=== PATIENT | female | born 1990 | race Caucasian/White ===

== ENCOUNTER 2025-01-13 18:44 | Observation (INO) | payer OTHER, SELFPAY ==
[2025-01-13 18:44] VITALS: BMI 31.8
--- OUTSIDE RECORDS SUMMARY | 2025-01-13 18:54 | XMS_ITS | Data Portability ---
Author Organization [facility] [place] Address [address] [place] [address] [place] [address] Care Team Providers Care Utility Sales And Service Manager Name Role Phone ARMANDO CARROLL Primary Care Provider [phone] Assessment Encounter Date Assessment Date Assessment LastModified by Organization Details LastModified Time 10/30/2024 10/30/2024 Patient is ___weeks . Discussed plan. Not available 10/30/2024 11:29:20 11/26/2024 11/26/2024 Patient is ___weeks . Discussed plan. Not available 11/26/2024 11:34:02 12/26/2024 12/26/2024 Patient is ___weeks . Discussed plan. Not available 12/26/2024 16:44:12 Plan of Treatment Reminders Order Date Submit Date Provider Last Modified By Organization Details Last Modified Time Details Appointments OB ROUTINE 2024 09:45A Suzette SNIDER MD Not available Not available Not available Lab None recorded. Referral None recorded. Procedures None recorded. Surgeries None recorded. Imaging US, obstetric , follow-up 2024 025 [email or web address] [address], [address], [place], [address], 12/27/2024 10:19:18 US, obstetric , 2nd or 3rd trimester 2024 025 [email or web address] [address], [address], [place], [address], 11/26/2024 22:01:02 Medication Orders duloxetin e 40 mg capsule,d elayed release 2024 025 MARCO A [facility], [address], [address], 12/26/2024 17:40:20 Patient TargetsNo targets recorded. Patient InstructionsNo instructions recorded. Reason for Referral None Reported. Results Created Date Observation Date Name Description Value Unit Range Abnormal Flag Note LastModifiedBy Organization Detail LastModifiedTime 10/09/19 25 10/09/2024 [UNIT Y] ANEUP LOIDY NIPT fraction 7.9% normal Not Available [facility] [address] [place] [address], [place], [address], 10/09/2024 00:18:27 10/09/19 25 10/09/2024 [UNIT Y] ANEUP LOIDY NIPT 22Q11.2 microdeletio n LOW RISK <1 in 10,000 normal Not Available [facility] [address] [place], [address], 10/09/2024 00:18:27 10/09/19 25 10/09/2024 [UNIT Y] ANEUP LOIDY NIPT sex chromosome aneuploidy NOT DETECT ED normal Not Available [facility] [address] [place], [address], 10/09/2024 00:18:27 10/09/19 25 10/09/2024 [UNIT Y] ANEUP LOIDY NIPT monosomy X LOW RISK <1 in 10,000 normal Not Available [facility] [address] [place], [address], 10/09/2024 00:18:27 10/09/19 25 10/09/2024 [UNIT Y] ANEUP LOIDY NIPT trisomy 13 LOW RISK <1 in 10,000 normal Not Available [facility] [address] [place], [address], 10/09/2024 00:18:27 10/09/19 25 10/09/2024 [UNIT Y] ANEUP LOIDY NIPT trisomy 18 LOW RISK <1 in 10,000 normal Not Available [facility] [address] [facility], [place], [address], 10/09/2024 00:18:27 10/09/19 25 10/09/2024 [UNIT Y] ANEUP LOIDY NIPT trisomy 21 LOW RISK <1 in 10,000 normal Not Available [facility] [address], [place], [address], 10/09/2024 00:18:27 10/09/19 25 10/09/2024 [UNIT Y] ANEUP LOIDY NIPT sex FEMALE normal Not Available [facility] [address] [facility], [place], [address], 10/09/2024 00:18:27 10/09/19 25 10/09/2024 [UNIT Y] ANEUP LOIDY NIPT gestation SINGLE TON normal Not Available [facility] [address] [facility], [place], [address], 10/09/2024 00:18:27 10/09/19 25 10/09/2024 [UNIT Y] ANEUP LOIDY NIPT for detailed report, see pdf See PDF normal Not Available [facility] [address] [facility], [place], [address], 10/09/2024 00:18:27 10/12/19 25 10/12/2024 [UNIT Y] SARAH Shetty sickle cell disease/beta -thalassemia /hemoglobino pathies carrier screen NEGATI VE normal Not Available [facility] [address] [facility], [place], [address], 10/12/2024 17:58:24 10/12/19 25 10/12/2024 [UNIT Y] SARAH Shetty alpha-thalas semia carrier screen NEGATI VE normal Not Available [facility] [address] [facility], [place], [address], 10/12/2024 17:58:24 10/12/19 25 10/12/2024 [UNIT Y] SARAH Shetty cystic fibrosis carrier screen NEGATI VE normal Not Available [facility] [address], [place], [address], 10/12/2024 17:58:24 10/12/19 25 10/12/2024 [UNIT Y] SARAH Shetty spinal muscular atrophy carrier screen NEGATI VE 2 SMN1 copies , SNP not presen t normal Not Available [facility] [address], [place], [address], 10/12/2024 17:58:24 10/12/19 25 10/12/2024 [UNIT Y] SARAH Shetty for detailed report, see pdf See PDF normal Not Available [facility] [address], [place], [address], 10/12/2024 17:58:24 10/02/19 25 10/02/2024 CBC W/DIF F WBC 6.7 10'3/ uL 3.5-10 .5 Not Available [facility] (Lab) [address], [place], [address], 10/04/2024 06:37:57 10/02/19 25 10/02/2024 CBC W/DIF F RBC 4.55 10'6/ uL (based on docume nted legal sex) 3.80-5 .20 Not Available [facility] (Lab) [address], [place], [address], 10/04/2024 06:37:57 10/02/19 25 10/02/2024 CBC W/DIF F HGB 12.6 g/dL (based on docume nted legal sex) 11.6-1 5.4 Not Available [facility] (Lab) [address], [place], [address], 10/04/2024 06:37:57 10/02/19 25 10/02/2024 CBC W/DIF F HCT 38.4 % (based on docume nted legal sex) 34.0-4 5.0 Not Available [facility] (Lab) [address], [place], [address], 10/04/2024 06:37:57 10/02/19 25 10/02/2024 CBC W/DIF F MCV 84.4 fL 80.0-9 9.0 Not Available [facility] (Lab) [address], [place], [address], 10/04/2024 06:37:57 10/02/19 25 10/02/2024 CBC W/DIF F MCH 27.7 pg 27.0-3 4.0 Not Available [facility] (Lab) [address], [place], [address], 10/04/2024 06:37:57 10/02/19 25 10/02/2024 CBC W/DIF F MCHC 32.8 g/dL 32.0-3 5.5 Not Available [facility] (Lab) [address], [place], [address], 10/04/2024 06:37:57 10/02/19 25 10/02/2024 CBC W/DIF F RDW 13.9 % 11.0-1 5.0 Not Available [facility] (Lab) [address], [place], [address], 10/04/2024 06:37:57 10/02/19 25 10/02/2024 CBC W/DIF F plt 157 10'3/ uL 150-40 0 Not Available [facility] (Lab) [address], [place], [address], 10/04/2024 06:37:57 10/02/19 25 10/02/2024 CBC W/DIF F MPV 13.7 fL 8.8-12 .1 high Not Available [facility] (Lab) [address] [place], [address], 10/04/2024 06:37:57 10/02/19 25 10/02/2024 CBC W/DIF F neutrophils 80.3 % 34.0-7 3.0 high Not Available [facility] (Lab) [address] [facility], [place], [address], 10/04/2024 06:37:57 10/02/19 25 10/02/2024 CBC W/DIF F lymphocytes 12.9 % 15.0-5 0.0 low Not Available [facility] (Lab) [address], [place], [address], 10/04/2024 06:37:57 10/02/19 25 10/02/2024 CBC W/DIF F monocytes 4.9 % 1.0-15 .0 Not Available [facility] (Lab) [address], [place], [address], 10/04/2024 06:37:57 10/02/19 25 10/02/2024 CBC W/DIF F eosinophils 0.9 % 0.0-8. 0 Not Available [facility] (Lab) [address], [place], [address], 10/04/2024 06:37:57 10/02/19 25 10/02/2024 CBC W/DIF F basophils 0.7 % 0.0-2. 0 Not Available [facility] (Lab) [address] [place], [address], 10/04/2024 06:37:57 10/02/1910/02/2024 CBC W/DIF F immature granulocytes 0.3 % no define d refere nce range Immat ure Granu locyt es (IG) repre sents autom ated enume ratio n of Metam yeloc ytes, Myelo cytes and Promy elocy myron when IG is < 5%. Blast s are not inclu ded in IG and repor melany separ ately if prese nt. Not Available [facility] (Lab) [address], [place], [address], 10/04/2024 06:37:57 10/02/19 25 10/02/2024 CBC W/DIF F absolute neutrophils 5.4 10'3/ uL 1.5-8. 0 Not Available [facility] (Lab) [address], [place], [address], 10/04/2024 06:37:57 10/02/19 25 10/02/2024 CBC W/DIF F absolute lymphocytes 0.9 10'3/ uL 1.0-4. 0 low Not Available [facility] (Lab) [address], [place], [address], 10/04/2024 06:37:57 10/02/19 25 10/02/2024 CBC W/DIF F absolute monocytes 0.3 10'3/ uL 0.2-1. 0 Not Available [facility] (Lab) [address], [place], [address], 10/04/2024 06:37:57 10/02/19 25 10/02/2024 CBC W/DIF F absolute eosinophils 0.1 10'3/ uL 0.0-0. 6 Not Available [facility] (Lab) [address], [place], [address], 10/04/2024 06:37:57 10/02/19 25 10/02/2024 CBC W/DIF F absolute basophils 0.1 10'3/ uL 0.0-0. 3 Not Available [facility] (Lab) [address], [place], [address], 10/04/2024 06:37:57 10/02/19 25 10/02/2024 CBC W/DIF F absolute immature granulocytes 0.0 10'3/ uL 0.00-0 .10 Refer ence range s for nonbi nary/ inter sex or unspe cifie d gende r patie nts have not been estab lishe d. Pleas e refer to the follo wing table for range s estab lishe d for cisge nder patie nts and evalu ate in the clini tobi sabino xt of the indiv idual patie nt: [email or web address] :[email or web address] [email or web address].or g/Gen derX Not Available [facility] (Lab) [address], [place], [address], 10/04/2024 06:37:57 10/02/19 25 10/02/2024 RUBEL LA IGG ANTIB WILLIE, QUANT rubella antibodies, IgG Non-Re active reacti ve abnormal Not Available [facility] (Lab) [address] [facility], [place], [address], 10/04/2024 06:37:57 10/02/19 25 10/02/2024 RUBEL LA IGG ANTIB WILLIE, QUANT rubella antibodies, IgG quant <10.0 IU/mL >=10 low Non-r eacti ve (Non- Immun e) <10 IU/mL React elke (Immu ne) > or = 10 IU/mL Not Available [facility] (Lab) [address], [place], [address], 10/04/2024 06:37:57 10/02/19 25 10/02/2024 HEPAT ITIS B SURFA CE ANTIG EN hepatitis B surface antigen Non-re active non-re active This assay was perfo rmed using [employer] ratio n reage nts and test kits. Value s obtai roger with other assay metho ds or kits canno t be used inter arroyo eably . Not Available [facility] (Lab) [address], [place], [address], 10/04/2024 06:37:57 10/02/1910/02/2024 HIV 1/2 ANTIG EN/AN TIBOD Y, REFLE X CONFI RMATI ON HIV antigen/anti body Nonrea ctive nonrea ctive HIV-1 antig en and HIV-1 /HIV- 2 antib odies were not detec melany. No labor atory evide nce of HIV infec tion. Not Available [facility] (Lab) [address], [place], [address], 10/04/2024 06:37:58 10/02/1910/02/2024 TYPE/ RH/SC REEN ABO/Rh type A POS Not Available [facility] (Lab) [address], [place], [address], 10/04/2024 06:37:58 10/02/1910/02/2024 TYPE/ RH/SC REEN antibody screen NEG Not Available [facility] (Lab) [address], [place], [address], 10/04/2024 06:37:58 10/02/1910/02/2024 TYPE/ RH/SC REEN exp date 2024 23:59 Not Available [facility] (Lab) [address], [place], [address], 10/04/2024 06:37:58 10/02/1910/02/2024 HEMOG LOBIN A1C hemoglobin A1C 5.1 % 4.0-5. 6 The Ameri can Diabe myron Assoc iatio n recom mends that a prima ry goal of thera py tao d be a HBA1C of < 7% and that physi cians tao d reeva luate the treat ment regim en in patie nts with HBA1C value s consi stent ly > 8%. <5.7% Payton l 5.7 - 6.4% Incre ased risk for diabe myron >=6.5 % Diagn ostic of diabe myron <7.0% Goal of thera py >8.0% Actio n sugge sted Not Available [facility] (Lab) [address], [place], [address], 10/04/2024 06:37:58 10/02/1910/02/2024 HEPAT ITIS C ANTIB WILLIE SCREE N, REFLE X TO CONFI RMATI ON hepatitis C antibody Non-re active non-re active Antib odies to HCV Not Detec melany, does not exclu de the possi bilit y of expos ure to HCV. Not Available [facility] (Lab) [address], [place], [address], 10/04/2024 06:37:59 10/02/19 25 10/02/2024 RPR SCREE N, REFLE X TITER /CONF IRMAT ION RPR screen Nonrea ctive nonrea ctive Not Available [facility] (Lab) [address], [place], [address], 10/04/2024 06:37:59 10/02/19 25 10/02/2024 LEAD, BLOOD (ADUL T/PED IATRI C) lead, whole blood <1.0 mcg/d L <3.5 See Note 1 Case sis was perfo rmed by Steve Christian ed Plasm a Mass Spect maty whipple (ICPM S) Note 1 This test was devel oped and its case tical perfo rmanc e jess cteri stics have been deter mined by [employer]. It has not been clear ed or appro romero by the FDA. This assay has been valid ated pursu ant to the CLIA regul ation s and is used for clini tobi purpo ses. Perfo rming Organ izati on Infor sallie n: Site ID: [id number] Name: [employer] ostic sHarlan Perera Addre ss: [address] [place] [address] Direc tor: Vanita costa V Vika s Not Available [facility] (Lab) [address], [place], [address], 10/04/2024 06:37:59 10/02/1910/02/2024 CULTU RE: URINE result report SEE RESULT S BELOW Test: Cultu re: Urine Speci men Sourc e: Urine - Clean Catch Speci men Type: Urine Speci men Date: 2024 1303 Resul t Date: 2024 1248 Resul t Statu s: Final resul t Abnor mal: No Resul ting Lab: [facility] [address] [facility] [address] Tel: CULTU RE ----- ----- ----- --- Organ ism(s ) consi stent with uroge nital or skin jeimy . Repea t cultu re if sympt oms indic ate. Not Available [facility] (Lab) [address] [place], [address], 10/04/2024 13:51:37 10/02/19 25 10/02/2024 IMAGE GUIDE D PAP AND HPV REGAR DLESS image guided Pap, HPV regardless of Pap result SEE RESULT S BELOW CASE REPOR T: Cytol ogy Gynec ologi tobi Repor t Case: [id number] Autho dominguez g Provi karoline: Otto Snider MD Colle cted: 10/02 1319 Order ing Locat ion: [place] [facility] Recei romero: 10/03 0232 First Scree n: Hunter reyes, Hermes ed, CT Rescr een: Meliton silva, Tim del rio, CT Speci men: Earnest zurita Pap - Image d, Cervi x STATE MENT OF ADEQU ACY: Satis facto ry for evalu ation Trans forma tion zone compo nent prese nt ----- ----- ----- ----- ----- ----- ----- ----- ----- ----- ----- ----- ----- ----- ----- ----- ----- ---- FINAL DIAGN OSIS: Negat elke for Intra epith elial Shamir shetty or Juanita anderson ([facility]) . Elect radha jackson d by Tim silva, CT on 025 at 0712 CLASSIFICATION CASE MANAGER ----- ----- ----- ----- ----- ----- ----- ----- ----- ----- ----- ----- ----- ----- ----- ----- ----- ---- HPV RESUL TS: HPV mRNA E6/E7 : No HPV mRNA Detec melany NOTE: This high risk HPV mRNA assay detec ts fourt een high- risk HPV types (16, 18, 31, 33, 35, 39, 45, 51, 52, 56, 58, 59, 66, 68) witho ut diffe renti ation . COMME NT: This speci men was revie wed by a Cytot echno logis t and/o r Patho logis t (as indic ated in this repor t) after evalu ation using the Thinp rep Imagi ng Syste m. CLINI TOBI INFOR MATIO N: Menst rual Statu s: LMP (if appli cable ): Clini tobi Histo ry/Pr eviou s Pap: Type of Neopl sridevi (if appli cable ): Signi fican t Clini tobi Findi ngs: Other Histo ry: Hormo sherin (if appli cable ): PAP EDUCA MADELEINE L NOTE: The Pap Test is a scree yudith test with an inher ent false negat elke rate. Liqui d-bas ed sampl ing may decre ase, but will not elimi roque, false negat elke resul ts. A negat elke resul t does not precl ude the prese nce and/o r devel opmen t of disea se, since the prese nce of abnor mal cells in the sampl e depen ds on the locat ion of the lesio n and sampl ing techn ique. Kiya nued regul ar scree yudith is the best metho d of cance r preve ntion . If repor melany cytol ogic findi ng do not corre late with physi tobi and/o r histo rical findi ngs, furth er inves tigat ion is recom bita d, as clini malorie daly nted. Not Available [facility] (Lab) [address], [place], [address], 10/08/2024 08:15:25 10/02/1910/02/2024 drug scree n, urine Amphetamines : negati ve Not Available [address], [place], [address], 10/02/2024 11:46:22 10/02/19 25 10/02/2024 drug scree n, urine Cannabinoids : negati ve Not Available [address], [place], [address], 10/02/2024 11:46:22 10/02/19 25 10/02/2024 drug scree n, urine Cocaine: negati ve Not Available [address], [place], [address], 10/02/2024 11:46:22 10/02/19 25 10/02/2024 drug scree n, urine Opiates: negati ve Not Available [address], [place], [address], 10/02/2024 11:46:22 10/02/19 25 10/02/2024 drug scree n, urine Phenocyclidi ne: negati ve Not Available [address], [place], [address], 10/02/2024 11:46:22 10/02/19 25 10/02/2024 drug scree n, urine Barbiturates : negati ve Not Available [address], [place], [address], 10/02/2024 11:46:22 10/02/19 25 10/02/2024 drug scree n, urine Benzodiazepi sherin: negati ve Not Available [address], [place], [address], 10/02/2024 11:46:22 10/02/19 25 10/02/2024 drug scree n, urine Ethanol: negati ve Not Available [address], [place], [address], 10/02/2024 11:46:22 10/02/19 25 10/02/2024 drug scree n, urine Hallucinogen s: negati ve Not Available [address], [place], [address], 10/02/2024 11:46:22 10/02/19 25 10/02/2024 drug scree n, urine Inhalants: negati ve Not Available [address], [place], [address], 10/02/2024 11:46:22 10/02/19 25 10/02/2024 drug scree n, urine Anabolic Steroids: negati ve Not Available [address], [place], [address], 10/02/2024 11:46:22 10/02/19 25 10/02/2024 US, obste tric, nucha l trans lucen cy No observ ation record ed. [email or web address] [address], [place], [address], 10/02/2024 13:05:51 10/02/19 25 10/02/2024 US, obste tric, nucha l trans lucen cy No observ ation record ed. [email or web address] [address], [place], [address], 10/03/2024 22:29:08 11/27/19 25 11/26/2024 US, obste tric, 2nd or 3rd trime ster No observ ation record ed. [email or web address] [address], [place], [address], 11/26/2024 16:13:44 11/27/19 25 11/26/2024 US, obste tric, follo w-up No observ ation record ed. [email or web address] [address], [place], [address], 11/28/2024 22:55:20 12/27/19 25 12/26/2024 US, obste tric, follo w-up No observ ation record ed. [email or web address] [address], [place], [address], 12/26/2024 17:52:25 12/27/19 25 12/26/2024 US, obste tric, follo w-up No observ ation record ed. [email or web address] [address], [place], [address], 01/02/2025 10:35:55 Result Notes None recorded. Problems Name Problem SNOMED Code Status Onset Date Resolution Date Notes Provider Name and Address Organization Details Recorded Time 26012366 Active 2024 Esha Gabriel null, [facility] 5 11:17:12 Premature delivery 237809582 Active 4# 12, Gestation al age unknown Jose Snider MD [address], [place], [address], [facility] 5 11:48:53 growth restricti on 13417526 Active HISTORICA L - uncertain if gowth restricte d or premature Jose Snider MD [address], [place], [address], [facility] 5 11:56:21 Generaliz ed anxiety disorder 29018487 Active 2024 restarted meds Jose Snider MD [address], [place], [address], [facility] 5 17:26:25 Problem Notes None recorded. Procedures Surgical History Date Name Laterality Status Provider Name and Address Organization Details Recorded Time 2 Date of Last Pap Smear completed Esha Gabriel [facility] 09/21/2024 10:01:52 3 extraction of wisdom tooth completed Esha Gabriel [facility] 09/21/2024 10:09:01 Imaging Results Imaging Date Name Status LastModified by Organization Details LastModified Time 10/02/2024 US, obstetric, nuchal translucency completed [email or web address] [address], [place], [address], 10/02/2024 13:05:51 10/02/2024 US, obstetric, nuchal translucency completed [email or web address] [address], [place], [address], 10/03/2024 22:29:08 11/26/2024 US, obstetric, 2nd or 3rd trimester completed [email or web address] [address], [place], [address], 11/26/2024 16:13:44 11/26/2024 US, obstetric, follow-up completed [email or web address] [address], [place], [address], 11/28/2024 22:55:20 12/26/2024 US, obstetric, follow-up completed [email or web address] [address], [place], [address], 12/26/2024 17:52:25 12/26/2024 US, obstetric, follow-up active [email or web address] [address], [place], [address], 01/02/2025 10:35:55 Procedure Notes None recorded. Medical Equipment None Reported. Allergies Allergen ID Allergen Name Allergen Category Reaction Reaction Severity Criticality Documentation Date Start Date Code Code System Note Provider Name and Address Organization Details Recorded Time 25014 amoxicill in medicatio n hives mild Not available 09/21/2024 723 RxNorm Esha Gabriel null, [facility] 10:01:42 Medications Name Sig Start Date Stop Date Status Note LastModified by Organization Details LastModified Time metformin 500 mg tablet TAKE 1 TABLET BY MOUTH WITH EVENING MEAL 09/21 completed Not Available Not Available Not Available ondansetron HCl 8 mg tablet TAKE 1 TABLET BY MOUTH THREE TIMES DAILY active Not Available Not Available No t Available phentermine 15 mg capsule TAKE 1 CAPSULE BY MOUTH ONCE DAILY BEFORE BREAKFAST 09/21 completed Not Available Not Available Not Available hydroxychlo roquine 200 mg tablet TAKE 2 TABLETS BY MOUTH EVERY DAY active Not Available Not Available No t Available ondansetron 4 mg disintegrat ing tablet DISSOLVE 1 TABLET IN MOUTH EVERY 8 HOURS NEEDED FOR NAUSEA 09/21 completed Not Available Not Available Not Available bupropion HCl XL 300 mg 24 hr tablet, extended release TAKE 1 TABLET BY MOUTH ONCE DAILY 09/21 completed Not Available Not Available Not Available bupropion HCl XL 150 mg 24 hr tablet, extended release TAKE 1 TABLET BY MOUTH ONCE DAILY 09/21 completed Not Available Not Available Not Available nitrofurant oin monohydrate /macrocryst als 100 mg capsule TAKE 1 CAPSULE BY MOUTH TWICE DAILY FOR 10 DAYS 09/21 completed Not Available Not Available Not Available duloxetine 30 mg capsule,del ayed release TAKE 1 CAPSULE BY MOUTH ONCE DAILY 09/21 completed Not Available Not Available Not Available + DHA active Not Available Not Available Not Available duloxetine 40 mg capsule,del ayed release TAKE 1 CAPSULE BY MOUTH ONCE DAILY FOR 30 DAYS active Not Available Not Available No t Available Vitals Date Recorded Body weight Systolic blood pressure Diastolic blood pressure Provider Name and Address Organization Details Last Updated DateTime 10/30/2024 50191.1045 2 g 118 mm[Hg] 78 mm[Hg] Esha [facility] 10/30/2024 11:33:05 Date Recorded Body height Body mass index (BMI) Body weight Systolic blood pressure Diastolic blood pressure Provider Name and Address Organization Details Last Updated DateTime 11/26/2024 166.37 cm 32.1 kg/m2 78645.1 g 120 mm[Hg] 76 mm[Hg] Esha [facility] 11:34:56 Date Recorded Body weight Systolic blood pressure Diastolic blood pressure Provider Name and Address Organization Details Last Updated DateTime 12/26/2024 40039.6968 9 g 120 mm[Hg] 80 mm[Hg] Esha Gabriel [facility] 12/26/2024 16:44:40 Social History Question Answer Notes LastModified by Organizat ion Details LastModified Time Do You Have An Advance Directive? Yes Information not available 09/21/2024 What Is Your Level Of Alcohol Consumption? Occasional Information not available 09/21/2024 How Many Years Have You Consumed Alcohol? 11 Information not available 09/21/2024 Are You Blind Or Do You Have Difficulty Seeing? No Information not available 09/21/2024 What Is Your Level Of Caffeine Consumption? Moderate Information not available 09/21/2024 In The 14 Days Before Symptom Onset, Have You Had Close Contact With A Laboratory-confir med COVID-19 While That Case Was Ill? No Information not available 09/21/2024 In The 14 Days Before Symptom Onset, Have You Had Close Contact With A Person Who Is Under Investigation For COVID-19 While That Person Was Ill? No Information not available 09/21/2024 Have You Been To An Area Known To Be High Risk For COVID-19? No Information not available 09/21/2024 Are You Deaf Or Do You Have Serious Difficulty Hearing? No Information not available 09/21/2024 What Type Of Diet Are You Following? REGULAR Information not available 09/21/2024 What Is The Highest Grade Or Level Of School You Have Completed Or The Highest Degree You Have Received? 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 Yes Information not available 09/21/2024 Do You Use Protection During Sex? No Information not available 09/21/2024 Do You Use Your Seat Belt Or Car Seat Routinely? Yes Information not available 09/21/2024 Do You Have Smoke And Carbon Monoxide Detectors In Your Home? Yes Information not available 09/21/2024 How Much Tobacco Do You Smoke? No Information not available 09/21/2024 Do You Feel Stressed (tense, Restless, Nervous, Or Anxious, Or Unable To Sleep At Night)? [id number] Information not available 09/21/2024 Do You Use Any Illicit Or Recreational Drugs? No Information not available 09/21/2024 Do You Use Sunscreen Routinely? No Information not available 09/21/2024 Have You Used IV Drugs? No Information not available 09/21/2024 Sex: Unknown Functional Status Question Answer Note LastModified by Organization D etails LastModified Time Are you able to walk? YESWOREST Information not available 09/21/2024 What is your exercise level? Moderate Information not available 09/21/2024 Mental Status None recorded. Family History Relationship Description Onset Age of this Age Resolved Age Notes LastModified by Organization Details LastModified Time Mother Malignant tumor of cervix Not available 2024 10:01:46 Notes:adopted met pare nts but unsure of history Medical History Condition Response Anxiety Disorder Y Allergies (Food, seasonal, environmental ) Y Arthritis Y Fibromyalgia Y Depression/ depression Y Gynecological History Statement/Question Response Abnormal Pap N Flow Heavy Date of LMP 07/07/2024 On BCP's at Conception? N N Was last menstrual period normal Y STIs/STDs N HPV Vaccine N Duration of Flow (days) 5 Current Control Method Age at First Child 26 Are cycles usually normal Y Frequency of Cycle (Q days) 29 Sexually Active? Y Menses Monthly Y Age of first menstrual cycle 12 Date of Last Pap Smear 02/11/2022 Sexual Problems? N LMP Definite N Obstetrics History GPAL:G 4 P 1 1 1 2 Type Value Full Term 1 Spontaneous 1 Premature 1 Living 2 Total 4 Past Encounters Encounter ID Performer Location Encounter Start Date Encounter Closed Date Diagnosis/Indication Diagnosis SNOMED-CT Code Diagnosis ICD10 Code Diagnosis Note [id number] Jose Snider MD [facility] [address] [address] 09/21/2024 09:05:00 09/21/2024 09:42:37 [id number] Jose Snider MD [facility] [address],[place] [address] 09/21/2024 09:05:54 09/21/2024 10:29:42 Nausea and vomiting 63892896 R11.2 Amenorrhea 81512589 N91. 2 [id number] MD Rajiv Dao [address],[place] [address] 10/02/2024 10:02:20 10/02/2024 11:04:07 screening 590172994 Z36.82 Z3A.12 [id number] MD Rajiv Dao [address],[place] [address] 10/02/2024 10:03:03 10/02/2024 11:58:22 Routine care 664011199 Z34.90 [id number] MD Rajiv Dao [address],[place] [address] 10/30/2024 10:36:07 10/30/2024 12:20:37 Routine care 679476020 Z34.90 [id number] MD Raijv Dao [address],[place] [address] 11/26/2024 10:15:47 11/26/2024 11:38:55 screening 485400402 Z36.3 Z3A.20 [id number] MD Rajiv Dao [address],[place] [address] 11/26/2024 10:17:40 11/26/2024 12:07:45 Routine care 952412904 Z34.90 [id number] MD Rajiv Dao [address],[place] [address] 12/26/2024 15:35:17 12/26/2024 16:37:06 anatomy study 829408896 Z36.2 Z3A.24 [id number] MD Rajiv Dao [address],[place] [address] 12/26/2024 15:35:56 12/27/2024 02:38:23 care status 551562899 Z34.82 Anxiety 12211777 F41.9 Health Concerns Section Related Observation LastModified by Organization Detai ls LastModified Time None Recorded Concern Status LastModified by Organization Details LastModified Time None Recorded Advance Directives Directive Y: Payers Encounter Date Sequence Insurance Name Policy Number Policy Calderon Covered Member ID Calderon Member ID Guarantor Name 10/30/2024 2 [facility] (MEDICAID HM) [id number] 0003 Nika O'Kenny [id number] Nika O'Kenny 10/30/2024 1 *SELF PAY* elby O'Kenny 11/26/2024 1 [place] [facility] [facility] Nika O'Kenny [id number] Nika O'Kenny 11/26/2024 1 [place] [employer] [facility] Nika O'Kenny [id number] Nika O'Kenny 12/26/2024 1 [facility] (MEDICAID HMO) [id number] 0003 Nika O'Kenny [id number] Nika O'Kenny 12/26/2024 1 [facility] (MEDICAID HMO) [id number] 0003 Nika O'Kenny [id number] Nika O'Kenny OBGyn Episode Ob Episode Information Episode Created Date Number of Fetuses Patient Bloodtype Patient rh Status Prepregnancy Weight lbs Domestic Partner Domestic Partner Phone Father Name Senior C Software Developer Status 09/21/19 1 CLOSED Fetus Data First Name Last Name Admitted to NICU Weight (g) Sex Living Outcome Pediatric Complications Fetus ID Race Codes Race Delivery Type 2891.64 9 F Full Term [id number] Vaginal Delivery Zane Calculation Initial Zane Date Initial Exam Date Initial Exam Provider Initial Ultrasound Date Last Menstrual Period Date Ultra Sound Weeks Gestation 0 Eighteen To Twenty Week Zane Update Ultra Sound Date Fundal Height At Umbil Quickening Date Ultra Sound Latest Weeks Gestation Final Zane Confirmed By Final Zane Confirmed Date Final Zane Date Ultra Sound Latest Days Gestation 0 0 Menstrual History Last Menstrual Date Menses Monthly On Bcp Conception Prior Menses Frequency Hcg Plus Date Menarche Onset Age Delivery Information Delivery Date Delivery Type Labor Anesthesia Weeks Gestation Incision Type Labor Labor Length Hrs Delivered By Post Complications Tubal Sterilization Discharge Date Comments 0 39 Discharge Information Feeding Method Contraceptive Method Maternal HG B and HCT Levels Ob Episode Information Episode Created Date Number of Fetuses Patient Bloodtype Patient rh Status Prepregnancy Weight lbs Domestic Partner Domestic Partner Phone Father Name Senior C Software Developer Status 09/21/19 25 1 CLOSED Fetus Data First Name Last Name Admitted to NICU Weight (g) Sex Living Outcome Pediatric Complications Fetus ID Race Codes Race Delivery Type , Spontane ous [id number] Zane Calculation Initial Zane Date Initial Exam Date Initial Exam Provider Initial Ultrasound Date Last Menstrual Period Date Ultra Sound Weeks Gestation 0 Eighteen To Twenty Week Zane Update Ultra Sound Date Fundal Height At Umbil Quickening Date Ultra Sound Latest Weeks Gestation Final Zane Confirmed By Final Zane Confirmed Date Final Zane Date Ultra Sound Latest Days Gestation 0 0 Menstrual History Last Menstrual Date Menses Monthly On Bcp Conception Prior Menses Frequency Hcg Plus Date Menarche Onset Age Delivery Information Delivery Date Delivery Type Labor Anesthesia Weeks Gestation Incision Type Labor Labor Length Hrs Delivered By Post Complications Tubal Sterilization Discharge Date Comments 7 Discharge Information Feeding Method Contraceptive Method Maternal HG B and HCT Levels Ob Episode Information Episode Created Date Number of Fetuses Patient Bloodtype Patient rh Status Prepregnancy Weight lbs Domestic Partner Domestic Partner Phone Father Name Senior C Software Developer Status 10/02/19 25 1 A Positive 202 Jose OPEN Fetus Data First Name Last Name Admitted to NICU Weight (g) Sex Living Outcome Pediatric Complications Fetus ID Race Codes Race Delivery Type [id number] Problems Problem Notes Problem Name Start Date End Date Resolution Snomed Code Not e growth restriction 24909414 HISTORICAL - uncertain if gowth restricted or premature Generalized anxiety disorder 12/26/2024 [id number] restarted meds Premature delivery [id number] 4 # 12, Gestational age unknown Zane Calculation Initial Zane Date Initial Exam Date Initial Exam Provider Initial Ultrasound Date Last Menstrual Period Date Ultra Sound Weeks Gestation 10/02/2024 09/21/2024 07/07/2024 10 Eighteen To Twenty Week Zane Update Ultra Sound Date Fundal Height At Umbil Quickening Date Ultra Sound Latest Weeks Gestation Final Zane Confirmed By Final Zane Confirmed Date Final Zane Date Ultra Sound Latest Days Gestation 11/27/19 25 20 10/30/2024 04/13/20 25 1 Pre-amanda Flowsheet Flowsheet Date 10/02/2024 Rocha Score Blood Edema Fundus Height Fundus Units Glucose Ketones Leukocytes Nitrite Labor Signs Protein Cervic Dilation Cervic Effacement Cervic Station Type Weight in lbs Pre/Post Dialysis Refused Weight 199.215789439856 BP Diastolic BP Location Tested BP Systolic BP Type 79 L arm 111 sitting Fetus Heart Rate Present A 154 Fetus Movement A No Comments this patient is a 33-year-ol d multiparous female at 12 weeks' gestation who presents for initial care. She has a history of term vaginal births. Her medical, surgical, obstetric history is unremarkable. She is vaccinated. She was given precautions recommendations for . We talked about vaccines in . Talked about care in detail. She is having genetic testing. She had a normal 12 week ultrasound. To begin routine care. Flowsheet Date 10/30/2024 Rocha Score Blood Edema Fundus Height Fundus Units Glucose Ketones Leukocytes Nitrite Labor Signs Protein Cervic Dilation Cervic Effacement Cervic Station Type Weight in lbs Pre/Post Dialysis Refused 196.688925167416 BP Diastolic BP Location Tested BP Systolic BP Type 78 L arm 118 sitting Fetus Heart Rate Present A 150 Present Fetus Movement A Yes Comments no complaints, no problems, routine care, no contractions, no vaginal bleeding, no loss of fluid, no cramping Flowsheet Date 11/26/2024 Rocha Score Blood Edema Fundus Height Fundus Units Glucose Ketones Leukocytes Nitrite Labor Signs Protein Cervic Dilation Cervic Effacement Cervic Station Type Weight in lbs Pre/Post Dialysis Refused BP Diastolic BP Location Tested BP Systolic BP Type Fetus Heart Rate Present Fetus Movement Comments Flowsheet Date 11/26/2024 Rocha Score Blood Edema Fundus Height Fundus Units Glucose Ketones Leukocytes Nitrite Labor Signs Protein Cervic Dilation Cervic Effacement Cervic Station Type Weight in lbs Pre/Post Dialysis Refused Weight 196.703306985129 BP Diastolic BP Location Tested BP Systolic BP Type 76 L arm 120 sitting Fetus Heart Rate Present A 145 Fetus Movement A Yes Comments no complaints, no problems, routine care, no contractions, no vaginal bleeding, no loss of fluid, no cramping Flowsheet Date 12/26/2024 Rohca Score Blood Edema Fundus Height Fundus Units Glucose Ketones Leukocytes Nitrite Labor Signs Protein Cervic Dilation Cervic Effacement Cervic Station Type Weight in lbs Pre/Post Dialysis Refused BP Diastolic BP Location Tested BP Systolic BP Type Fetus Heart Rate Present Fetus Movement Comments Flowsheet Date 12/26/2024 Rocha Score Blood Edema Fundus Height Fundus Units Glucose Ketones Leukocytes Nitrite Labor Signs Protein Cervic Dilation Cervic Effacement Cervic Station Type Weight in lbs Pre/Post Dialysis Refused 197.898847171616 BP Diastolic BP Location Tested BP Systolic BP Type 80 L arm 120 sitting Fetus Heart Rate Present A 156 Fetus Movement A Yes Comments no complaints, no problems, routine care, no contractions, no vaginal bleeding, no loss of fluid, no cramping Menstrual History Last Menstrual Date Menses Monthly On Bcp Conception Prior Menses Frequency Hcg Plus Date Menarche Onset Age 1107/07/2024 true Delivery Information Delivery Date Delivery Type Labor Anesthesia Weeks Gestation Incision Type Labor Labor Length Hrs Delivered By Post Complications Tubal Sterilization Discharge Date Comments Discharge Information Feeding Method Contraceptive Method Maternal HG B and HCT Levels Ob Episode Information Episode Created Date Number of Fetuses Patient Bloodtype Patient rh Status Prepregnancy Weight lbs Domestic Partner Domestic Partner Phone Father Name Senior C Software Developer Status 09/21/19 25 1 CLOSED Fetus Data First Name Last Name Admitted to NICU Weight (g) Sex Living Outcome Pediatric Complications Fetus ID Race Codes Race Delivery Type 2154.56 2 M Prematur e [id number] Vaginal Delivery Zane Calculation Initial Zane Date Initial Exam Date Initial Exam Provider Initial Ultrasound Date Last Menstrual Period Date Ultra Sound Weeks Gestation 0 Eighteen To Twenty Week Zane Update Ultra Sound Date Fundal Height At Umbil Quickening Date Ultra Sound Latest Weeks Gestation Final Zane Confirmed By Final Zane Confirmed Date Final Zane Date Ultra Sound Latest Days Gestation 0 0 Menstrual History Last Menstrual Date Menses Monthly On Bcp Conception Prior Menses Frequency Hcg Plus Date Menarche Onset Age Delivery Information Delivery Date Delivery Type Labor Anesthesia Weeks Gestation Incision Type Labor Labor Length Hrs Delivered By Post Complications Tubal Sterilization Discharge Date Comments 8 Discharge Information Feeding Method Contraceptive Method Maternal HG B and HCT Levels
--- OUTSIDE RECORDS SUMMARY | 2025-01-13 18:54 | XMS_ITS | Clinical Summary ---
Author Organization [facility] Address [address] [place] [address] Care Team Providers Care Break And Load Operator Name Role Phone Brenton Kraus MD Primary Care Provider Source Comments [facility],non-owned Affiliates and Associated Physician Practices is amultiple site organization consisting of ambulatory clinics and hospital sitesin [place], [place], [place] and [place]. This disclosure is being madepursuant to the Care Everywhere program and may not contain all information available regarding this patient. Last updated 18.[facility] [place] Allergies Active Allergy Reactions Criticality Noted Date Comments Amoxicillin Other Low 05/27/2016 Mouth sores Naproxen Other Low 05/27/2016 Severe mouth sores Seasonal Other Low 05/27/2016 Sinus irritation Encounters Date Type Department Care Team Description 11/12/2024 12:30 PM CDT Office Visit [facility] [address] [place] [phone] Health examination of defined subpopulation (Primary Dx) 11/12/2024 Travel from Last 3 Months Family History Medical History Relation Name Comments None Known Brother 1 Status: Alive None Known Brother 2 Status: Alive None Known Brother 3 Status: Alive None Known Father Status: Alive Arthritis - Rheumatoid Mother Statu s: Alive Fibromyalgia Mother None Known Sister 1 Status: Alive None Known Sister 2 Status: Alive None Known Sister 3 Status: Alive Relation Name Status Comments Brother 1 Brother 2 Brother 3 Father Mother Sister 1 Sister 2 Sister 3 Social History Tobacco Use Types Packs/Day Years Used Date Smoking Tobacco: Never Alcohol Use Standard Drinks/Week Comments No 0 (1 standard drink = 0.6 oz pur e alcohol) Comments Unknown Sex and Gender Information Value Date Recorded Sex Assigned at Not on file Legal Sex Female 5:46 PM COPY HOLDER Gender Identity Not on file Sexual Orientation Not on file Last Filed Vital Signs Vital Sign Reading Time Taken Comments Blood Pressure 108/78 09/22/2016 9:37 AM COPY HOLDER Pulse 69 09/22/2016 9:37 AM COPY HOLDER Temperature 36.7 C (98.1 F) 09/22/2016 9:37 AM COPY HOLDER Respiratory Rate - - Oxygen Saturation 97% 09/22/2016 9:37 AM COPY HOLDER Inhaled Oxygen Concentration - - Weight 77.3 kg (170 lb 6.4 oz) 09/22/2016 9:37 A M COPY HOLDER Height 166.4 cm (5' 5.5) 09/22/2016 9:37 AM COPY HOLDER Body Mass Index 27.92 09/22/2016 9:37 AM COPY HOLDER Plan of Treatment Health Maintenance Due Date Last Done Comments HEPATITIS C SCREENING 11/10/2009 DTAP/TDAP/TD VACCINES (1 - Tdap) 11/14/2010 HEPATITIS B VACCINE (1 of 3 - 19+ 3-dose series) 11/14/2010 COVID-19 VACCINE (1 - 2023-2 5 season) 2024 DEPRESSION SCREENING 09/05/2024 PAP SMEAR 10/02/2027 10/02/2024 ZOSTER VACCINE (1 of 2) 11/14/2041 HIV SCREENING Completed 10/02/2024 INFLUENZA VACCINE Completed 10/24/2024, 07/10/2018 HIB VACCINE Aged Out No longer eligi ble based on patient's age to complete this topic HPV VACCINE Aged Out No longer eligi ble based on patient's age to complete this topic MENINGOCOCCAL (Group B) VACCINE SHARED DECISION-MAKING Aged Out No longer eligible based on patient's age to complete this topic MENINGOCOCCAL GROUPS A/C/Y/W VACCINE Aged Out No longer eligible b ased on patient's age to complete this topic PNEUMOCOCCAL VACCINE Aged Out No long er eligible based on patient's age to complete this topic Care Teams Break And Load Operator Relationship Specialty Start Date End Date Brenton Kraus MD [facility] [id number] [id number] PCP - General 09/22/16
--- OUTSIDE RECORDS SUMMARY | 2025-01-13 18:54 | XMS_ITS | Referral Summary ---
Author Organization [facility] Address [address] [place] [id number] Care Team Providers Care Journeyman Meat Cutter Name Role Phone Libia Mejia NP Primary Care Provider [phone] Encounters Date Type Department Care Team Description 12/06/2024 Results Follow-Up [facility] Pediatric Rheumatology and Immunology [facility] 2nd [place] [address] [place] [address] Kisha Connolly MD 12/04/2024 2:00 PM CDT Lab [facility] ([facility]) [address] [place] [phone] Seronegative inflammatory arthritis; Positive TONY (antinuclear antibody); High risk medication use; Fibromyalgia 12/04/2024 11:00 AM CDT Office Visit [facility] Rheumatology [address] [facility] Advanced Medicine 5th [place] [address] [place] [address] Kisha Connolly MD Seronegative inflammatory arthritis (Primary Dx); Positive TONY (antinuclear antibody); High risk medication use; Fibromyalgia from Last 3 Months Allergies Active Allergy Reactions Criticality Noted Date Comments Amoxicillin Rash Reaction: Rash, Naproxen Other (See comments) Low 05/27/2016 Severe mouth sores Potassium Rash Reaction: Rash, Levonorgestrel-Ethinyl Estrad Other (See comments) Low 05/27/2016 Sinus irritation Medications DULoxetine (ALEISHA) 30 mg capsule Take 1 capsule (30 mg total) by mouth daily 4 Active cholecalciferol (VITAMIN D-3) 2000 unit tablet Take 50 mcg by mouth daily Active phentermine 15 mg capsule 1 capsule (15 mg total) 4 Active hydroxychloroquin e (PLAQUENIL) 200 mg tabletIndications :Seronegative inflammatory arthritis,High risk medication use,Fibromyalgia, Positive TONY (antinuclear antibody) TAKE 2 TABLETS BY MOUTH EVERY DAY 60 tablet 5 5 Active ondansetron (ZOFRAN) 8 mg tablet Take 1 tablet (8 mg total) by mouth 3 (three) times a day 5 Active Active Problems Problem Noted Date Diagnosed Date Obesity (BMI 30.0-34.9) 07/10/2018 Assessment & Plan (07/10/2018 2:15 PM CONSTRUCTION OR LEAK GANG LABORER): BMI Follow-up includes: exercise counseling. Fibromyalgia 10/08/2016 Overview (12/16/2016): Fibromyalgia Assessment & Plan (07/10/2018 2:16 PM CONSTRUCTION OR LEAK GANG LABORER): Having more stress recently causing slightly more pain Assessment & Plan (11/17/2017 10:14 AM CDT): Improved on Cymbalta Assessment & Plan (10/06/2017 11:23 AM CONSTRUCTION OR LEAK GANG LABORER): Pain improving with work leave of absence Assessment & Plan (03/22/2017 9:36 AM CDT): Doing well when on medication consistently-worse in past week due to missing medication Moderate episode of recurrent major depressive d isorder 09/20/2016 Overview (12/16/2016): Major depressive disorder, recurrent, moderate Assessment & Plan (07/10/2018 2:18 PM CONSTRUCTION OR LEAK GANG LABORER): Worse due to stress Will increase Cymbalta to 60mg daily Assessment & Plan (03/06/2018 1:57 PM CDT): Continue current therapy Assessment & Plan (11/17/2017 10:19 AM CDT): Improved on Cymbalta We discussed risks/benefits of taking it still Discussed she can continue while breast feeding Assessment & Plan (10/06/2017 11:25 AM CONSTRUCTION OR LEAK GANG LABORER): Will resume Cymbalta I discussed the risks, benefits and potential side effects of the recommended treatment regimen including category C Assessment & Plan (03/22/2017 9:35 AM CDT): Overall stable Immunizations Immunization Administration Dates Next Due Influenza, Quadrivalent, Spl it, Preservative Free, Intramuscular 07/10/2018 Tdap 02/07/2018 Social History Tobacco Use Types Packs/Day Years Used Date Smoking Tobacco: Never Smokeless Tobacco: Never Tobacco Cessation:Counseling Given: Not Answered Alcohol Use Standard Drinks/Week Comments No 0 (1 standard drink = 0.6 oz pur e alcohol) PHQ-2 Answer Date Recorded PHQ-2 Score 0 04/26/2019 Comments Unknown Sex and Gender Information Value Date Recorded Sex Assigned at Not on file Legal Sex Female 9:27 PM CONSTRUCTION OR LEAK GANG LABORER Gender Identity Female 03/30/2023 5:06 AM CDT Sexual Orientation Not on file Last Filed Vital Signs Vital Sign Reading Time Taken Comments Blood Pressure 109/73 12/04/2024 11:15 AM CDT Pulse 83 12/04/2024 11:15 AM CDT Temperature 36.7 C (98 F) 12/04/2024 11:15 AM CDT Respiratory Rate 20 07/10/2018 2:02 PM CONSTRUCTION OR LEAK GANG LABORER Oxygen Saturation 97% 07/10/2018 2:02 PM CONSTRUCTION OR LEAK GANG LABORER Inhaled Oxygen Concentration - - Weight 88.8 kg (195 lb 12.8 oz) 025 11:15 AM CDT Height 165.1 cm (5' 5) 12/04/2024 11:1 5 AM CDT Body Mass Index 32.58 12/04/2024 11:15 AM CDT Plan of Treatment Not on file Procedures Procedure Name Priority Date/Time Associated Diagnosis Comments JUS ANTIBODY EVALUATION WITH REFLEX Routine 12/04/2024 12:12 PM CDT Seronegative inflammatory arthritis Positive TONY (antinuclear antibody) High risk medication use Fibromyalgia BETA 2 GLYCOPROTEIN IGG AB Routine 12/04/2024 12:12 PM CDT Seronegative inflammatory arthritis Positive TONY (antinuclear antibody) High risk medication use Fibromyalgia BETA 2 GLYCOPROTEIN IGM AB Routine 12/04/2024 12:12 PM CDT Seronegative inflammatory arthritis Positive TONY (antinuclear antibody) High risk medication use Fibromyalgia CARDIOLIPIN ANTIBODY, IGG Routine 12/04/2024 12:12 PM CDT Seronegative inflammatory arthritis Positive TONY (antinuclear antibody) High risk medication use Fibromyalgia CARDIOLIPIN ANTIBODY, IGM Routine 12/04/2024 12:12 PM CDT Seronegative inflammatory arthritis Positive TONY (antinuclear antibody) High risk medication use Fibromyalgia LUPUS ANTICOAGULANT PANEL PLUS REFLEXES Routine 12/04/2024 12:12 PM CDT Seronegative inflammatory arthritis Positive TONY (antinuclear antibody) High risk medication use Fibromyalgia from Last 3 Months Results * Lupus Anticoagulant Panel plus Reflexes (12/04/2024 12:12 PM CDT) PT 11.8 9.7 - 13.0 sec INR 1.09 0.90 - 1.20 [facility] Comment: Interpretive data Oral anticoagulant therapeutic ranges: Venous thromboembolism prophylaxis or treatment: 2.0-3.0 CARDIOLOGY Standard range: 2.0-3.0 High-intensity range: 2.5-3.5 Refer to indication-specific guidelines for appropriate target ranges for prosthetic heart valve replacement. Current interpretive data was last revised on 2019. aPTT 29 28 - 38 sec [facility] Comment: Interpretive Data Heparin therapeutic range: 66.0 - 100.0 seconds. Range based on correlation with therapeutic heparin activity range of 0.3 - 0.7 Units/mL. Current interpretive data was last revised on 2023. DRVVT screen ratio 1.04 0.00 - 1.20 Ratio [facility] SCT Screen Ratio 0.86 0.00 - 1.16 Ratio [facility] Lupus anticoagulant, interp Negative [facility] Comment: Interpretive data Lupus anticoagulants (LA) are acquired autoantibodies that interfere with invitro clotting in a phospholipid-dependent manner and are associated with an increased risk of thromboembolic events and complications. Routine APTT and PT reagents are not sensitive to inhibition by LA, and should not be used as screening tests. The laboratory follows ISTH 2009 guidelines (Reggieo, 2009) for LA testing and interpretation: Two sensitive methods performed in parallel improve sensitivity. One activates the intrinsic pathway (Silica-APTT) and one activates the common pathway (dilute Jarrod's viper venom time - dRVVT). Each method begins with a SCREEN step, and if neither is prolonged, no further testing is performed and the interpretation is: NO LA DETECTED. If either screening test is prolonged, then additional steps are performed to provide specificity. A POSITIVE LA result occurs if either one or both tests produce a positive CONFIRM result. An INDETERMINATE result means results cannot distinguish between coagulopathy and a weak LA. Consider retesting when PT/INR is less prolonged, if clinical indicated. To support laboratory confirmation of antiphospholipid syndrome, persistence of a positive LA result should be verified by repeat testing at least 12 weeks later (Palmer, 2006). Prior to LA testing, the laboratory screens patient plasma samples for evidence of heparin contamination, which is neutralized prior to LA testing, and the following interfering conditions which require canceling LA testing: INR >3.0, fibrinogen < 100 mg/dl, use of direct oral or IV anticoagulants other than heparin. References: 1) Sanya V, Luann A, Patricia JH, Orimani TL, Gianni M, De Juan Miguel PG. Update of the guidelines for lupus anticoagulant detection. J Thromb Haemost. 2009; 7:0607-5638. 2. Palmer Pena. et al. International consensus statement on an update of the classification criteria for definite antiphospholipid syndrome (APS). J Thromb Haemost. 2006; 4:295-306. Current interpretive data was last revised on 2018 Blood 12/04/2024 12:1 2 PM CDT 12/04/2024 12:36 PM CDT us Kisha Connolly MD LAB BLOOD ORDERABLES Final Re sult [facility] Department [place] [address] * JUS ab eval w/reflex (12/04/2024 12:12 PM CDT) JUS ab Negative Negative Comment: Interpretive Data Positive Screens will be reflexed to specific testing for Antibodies against the following antigens: Savanah-1 Ab, NARROW FABRICS WEAVER Ab, Scl-70 Ab, Saini Ab, SS-A/Ro Ab, and SS- B/La Ab. Further testing for dsDNA, Centromere, or Ribosomal P antibodies is suggested in patient with a positive screen and negative specific antibodies. Current interpretive data was last revised on 2023. Blood 12/04/2024 12:1 2 PM CDT 12/04/2024 12:37 PM CDT us Kisha Connolly MD LAB BLOOD ORDERABLES Final Re sult [facility] Department [place] [address] * Cardiolipin antibody, IgG (12/04/2024 12:12 PM CDT) Cardiolipin, IgG <1.6 <=19.9 GPL U/mL Comment: Interpretive Data Negative: <20 GPL U/mL Positive: > or = 20 GPL U/mL Anticardiolipin antibodies are associated with certain clinical events including unexplained arterial and venous thromboemboli, and unexplained morbidity. However, detection of low levels of anticardiolipin antibodies occurs in both healthy individuals and patients with co-morbidities not associated with the antiphospholipid antibody (APA) syndrome including inflammatory and infectious conditions. In order to improve specificity, the International Congress on Antiphospholipid Antibodies recommends ACL antibodies of IgG or IgM isotype present in medium or high titer (e.g. > 40 GPL, or >the 99th percentile), on two or more occasions, at least 12 weeks apart, to support a diagnosis of antiphospholipid syndrome. The cutoff for this assay was developed from data based on the 99th percentile. In addition, the International Congress on Antiphospholipid Antibodies does not recommend testing for IgA URSZULA. These results were obtained with the [employer] BioPlex 2200 System. Cardiolipin IgG values obtained with different manufacturers' assay methods may not be used interchangeably. Current interpretive data was last revised on 2017. Blood 12/04/2024 12:1 2 PM CDT 12/04/2024 12:37 PM CDT Kisha Connolly MD LAB BLOOD ORDERABLES Final Re sult Performing Organization Address [facility] de Phone Number MARKO [facility] [place] [address] * Beta 2 glycoprotein IgM Ab (12/04/2024 12:12 PM CDT) [facility] Beta-2 glycoprotein I, IgM 0.2 <=19.9 units/mL Comment: Interpretive Data Negative: <20 U/mL Positive: > or = 20 U/mL Beta- 2 glycoprotein 1 (Beta-2 GP1) antibodies are a more specific marker of thrombotic risk. It is expected that some samples will be ACL positive and Beta- 2 GP1 negative. In order to improve specificity, the International Congress on Antiphospholipid Antibodies recommends Beta-2 GP1 antibodies of IgG or IgM isotype (> the 99th percentile), obtained twice, at least 12 weeks apart, to support a diagnosis of antiphospholipid syndrome. The cutoff for this assay was developed from data based on the 99th percentile. The Beta-2 GP1 IgM test can produce false positive results due to cross-reactivity with Rheumatoid factor. These results were obtained with the [employer] BioPlex 2200 System. Beta-2 GP1 IgM values obtained with different manufacturers' assay methods may not be used interchangeably. Current interpretive data was last revised on 2017. Blood 12/04/2024 12:1 2 PM CDT 12/04/2024 12:37 PM CDT Kisha Connolly MD LAB BLOOD ORDERABLES Final Re sult Performing Organization Address [facility] Co de Phone Number [facility] [place] [address] * Beta 2 glycoprotein IgG Ab (12/04/2024 12:12 PM CDT) Beta-2 glycoprotein I, IgG <1.4 <=19.9 units/mL Comment: Interpretive Data Negative: <20 U/mL Positive: > or = 20 U/mL Beta-2 glycoprotein 1 (Beta-2 GP1) antibodies are a more specific marker of thrombotic risk. It is expected that some samples will be ACL positive and Beta- 2 [id number]. In order to improve specificity, the International Congress on Antiphospholipid Antibodies recommends Beta-2 GP1 antibodies of IgG or IgM isotype (> the 99th percentile), obtained twice, at least 12 weeks apart, to support a diagnosis of antiphospholipid syndrome. The cutoff for this assay was developed from data based on the 99th percentile. These results were obtained with the app2you 2200 System. Beta 2GP1 IgG values obtained with different manufacturers' assay methods may not be used interchangeably. Current interpretive data was last revised on 2017. Blood 12/04/2024 12:1 2 PM CDT 12/04/2024 12:37 PM CDT us Kisha Connolly MD LAB BLOOD ORDERABLES Final Re sult [facility] Department [place] [address] * Cardiolipin antibody, IgM (12/04/2024 12:12 PM CDT) Pathologist [facility] Cardiolipin, IgM <0.2 <=19.9 MPL U/mL Comment: Interpretive Data Negative: <20 MPL U/mL Positive: > or = 20 MPL U/mL Anticardiolipin antibodies are associated with certain clinical events including unexplained arterial and venous thromboemboli, and unexplained morbidity. However, detection of low levels of anticardiolipin antibodies occurs in both healthy individuals and patients with co-morbidities not associated with the antiphospholipid antibody (APA) syndrome including inflammatory and infectious conditions. In order to improve specificity, the International Congress on Antiphospholipid Antibodies recommends ACL antibodies of IgG or IgM isotype present in medium or high titer (e.g. > 40 MPL, or >the 99th percentile), on two or more occasions, at least 12 weeks apart, to support a diagnosis of antiphospholipid syndrome. The cutoff for this assay was developed from data based on the 99th percentile. In addition, the International Congress on Antiphospholipid Antibodies does not recommend testing for IgA URSZULA. The ACL IgM test can produce false positive results due to cross-reactivity with Rheumatoid factor, dsDNA or certain infectious disease antibodies. These results were obtained with the app2you 2200 System. Cardiolipin IgM values obtained with different manufacturers' assay methods may not be used interchangeably. Current interpretive data was last revised on 2017. Blood 12/04/2024 12:1 2 PM CDT 12/04/2024 12:37 PM CDT us Kisha Connolly MD LAB BLOOD ORDERABLES Final Re sult Performing Organization Address City/State/[facility] Co de Phone Number [facility] [address] [facility] [place] [address] from Last 3 Months Insurance [facility] Care Teams Journeyman Meat Cutter Relationship Specialty Start Date End Date Libia Mejia NP [address] [place] [address] [place] [address] PCP - General Pediatrics 07/02/22
--- OUTSIDE RECORDS SUMMARY | 2025-01-13 18:54 | XMS_ITS | Encounter Summary ---
Author Organization [facility] Address [address] [place] [address] Phone Care Team Providers Care Radiosonde Specialist Name Role Phone Libia Mejia NP Primary Care Provider [phone] Encounter Details Date Type Department Care Team (Late st Contact Info) Description 12/06/2024 Results Follow-Up [facility] Pediatric Rheumatology and Immunology [facility] 2nd [place] [id number] , Kisha Muñoz MD [address] [place] [id number] Social History Tobacco Use Types Packs/Day Years Used Date Smoking Tobacco: Never Smokeless Tobacco: Never Alcohol Use Standard Drinks/Week Comments No 0 (1 standard drink = 0.6 oz pur e alcohol) PHQ-2 Answer Date Recorded PHQ-2 Score 0 04/26/2019 Comments Unknown Sex and Gender Information Value Date Recorded Sex Assigned at Not on file Legal Sex Female 9:27 PM FACILITIES MANAGEMENT EXECUTIVE Gender Identity Female 03/30/2023 5:06 AM CDT Sexual Orientation Not on file documented as of this encounter Plan of Treatment Not on file documented as of this encounter Visit Diagnoses Not on filedocumented in this encounter Care Teams Radiosonde Specialist Relationship Specialty Start Date End Date Libia Mejia NP [address] [place] [address] [place] [address] PCP - General Pediatrics 07/02/22 documented as of this encounter
--- OUTSIDE RECORDS SUMMARY | 2025-01-13 18:54 | XMS_ITS | Encounter Summary ---
Author Organization [facility] Address [address] [place] [address] Care Team Providers Care Paper Stacker Name Role Phone Libia Mejia [facility] Primary Care Provider [phone] Encounter Details Date Type Department Care Team (Late st Contact Info) Description 04/30/2024 Eleme Medicalt Message Enc [facility] [address] [place] [phone] Libia Mejia [facility] [address] [place], [place] [phone] Blood Pressure Social History Tobacco Use Types Packs/Day Years Used Date Smoking Tobacco: Never Passive Smoke Exposure: Never Smokeless Tobacco: Never Comments:No counseling neede d. Alcohol Use Standard Drinks/Week Comments Not Currently 0 (1 standard drink = 0.6 oz pur e alcohol) PHQ-2 Answer Date Recorded Patient Health Questionnaire-2 Score 0 03/14/2024 Comments No Sex and Gender Information Value Date Recorded Sex Assigned at Female 10/02/2024 11:08 AM SPIRAL GEAR GENERATOR Legal Sex Female 1:00 PM CDT Gender Identity Not on file Sexual Orientation Not on file documented as of this encounter Functional Status * RETIRED Are you deaf or do you have serious difficulty hearing Answer Date of Assessment Author Status No 08/04/2020 5:16 AM SPIRAL GEAR GENERATOR Activ e * RETIRED Are you blind or do you have serious difficulty seeing, even when wearing glasses? Answer Date of Assessment Author Status No 08/04/2020 5:16 AM SPIRAL GEAR GENERATOR Activ e * Do you have serious difficulty walking or climbing stairs? Answer Date of Assessment Author Status No 08/04/2020 5:16 AM Esha Pradhan RN Active * Do you have difficulty dressing or bathing? Answer Date of Assessment Author Status No 08/04/2020 5:16 AM Esha Pradhan RN Active * Because of a physical, mental, or emotional condition, do you have difficulty doing errands alone such as visiting a doctor's office or shopping? Answer Date of Assessment Author Status No 08/04/2020 5:16 AM Esha Pradhan RN Active documented as of this encounter Mental Status * Because of a physical, mental, or emotional condition, do you have serious difficulty concentrating, remembering, or making decisions? Answer Entry Date Author Status No 08/04/2020 5:16 AM Esha Pradhan RN Active documented in this encounter Progress Notes * CLIARE Norris - 05/01/2024 10:40 AM CDT She has an appt scheduled this week so we will discuss then. documented in this encounter Plan of Treatment Upcoming Encounters Date Type Department Care Team (Late st Contact Info) Description 01/18/2025 10:00 AM CDT Appointment [facility] Therapy [address] [place], [place] [phone] Jose Snider MD [address] [place] [address] [place] [address] [place] [address] documented as of this encounter Visit Diagnoses Not on filedocumented in this encounter Additional Health Concerns Assessment Noted Time PHQ-9 Depression Total Score: 0 11/18/19 24 10:49 AM CDT documented as of this encounter Care Teams Paper Stacker Relationship Specialty Start Date End Date Libia Mejia FNP [address] [place] [phone] PCP - General Nurse Practitioner Family 12/04/18 documented as of this encounter
--- OUTSIDE RECORDS SUMMARY | 2025-01-13 18:54 | XMS_ITS | Encounter Summary ---
Author Organization [facility] Address [address] [place] [address] Care Team Providers Care Physical Laboratory Assistant Name Role Phone Libia Mejia [facility] Primary Care Provider [phone] Encounter Details Date Type Department Care Team (Late st Contact Info) Description 06/03/2024 Ludi labst Message Enc [facility] [address] [place] [phone] Libia Mejia [facility] [address] [place], [place] [phone] Anti depressants Social History Tobacco Use Types Packs/Day Years [...] Sex Assigned at Female 10/02/2024 11:08 AM GAS PLANT SPECIALIST Legal Sex Female 1:00 PM CDT Gender Identity Not on file Sexual Orientation Not on file documented as of this encounter Functional Status * RETIRED Are you deaf or do you have serious difficulty hearing Answer Date of Assessment Author Status No 08/04/2020 5:16 AM GAS PLANT SPECIALIST Activ e * RETIRED Are you blind or do you have serious difficulty seeing, even when wearing glasses? Answer Date of Assessment Author Status No 08/04/2020 5:16 AM GAS PLANT SPECIALIST Activ e * Do you have serious [...] Pradhan RN Active documented in this encounter Plan of Treatment Upcoming Encounters Date Type Department Care Team (Late st Contact Info) Description 01/18/2025 10:00 AM CDT Appointment [facility] Therapy [address] [place] [address] Jose Snider MD [address] [facility] [place] [address] [place] [address] [place] [address] documented as of this encounter Visit Diagnoses Not on filedocumented in this encounter Additional Health Concerns Assessment Noted Time PHQ-9 Depression Total Score: 0 11/18/19 24 10:49 AM CDT documented as of this encounter Care Teams Physical Laboratory Assistant Relationship Specialty Start Date End Date Libia Mejia FNP [address] [place] [address] PCP - General Nurse Practitioner Family 12/04/18 documented as of this encounter
--- OUTSIDE RECORDS SUMMARY | 2025-01-13 18:54 | XMS_ITS | Clinical Summary ---
Author Organization [facility] Address [address] [place] [id number] Care Team Providers Care Child Monitor Name Role Phone Libia Mejia NP Primary Care Provider [phone] Allergies Active Allergy Reactions Criticality Noted Date Comments Amoxicillin Rash Reaction: Rash, Naproxen Other (See comments) Low 05/27/2016 Severe mouth sores Potassium Rash Reaction: Rash, Levonorgestrel-Ethinyl Estrad Other (See comments) Low 05/27/2016 Sinus irritation Medications DULoxetine DR (CYMBALTA) 30 mg capsule Take 1 capsule (30 [...] 07/10/2018 Assessment & Plan (07/10/2018 2:15 PM PROJECT MANAGER/TEAM COACH): BMI Follow-up includes: exercise counseling. Fibromyalgia 10/08/2016 Overview (12/16/2016): Fibromyalgia Assessment & Plan (07/10/2018 2:16 PM PROJECT MANAGER/TEAM COACH): Having more stress recently causing slightly more pain Assessment & Plan (11/17/2017 10:14 AM CDT): Improved on Cymbalta Assessment & Plan (10/06/2017 11:23 AM PROJECT MANAGER/TEAM COACH): Pain improving with work leave of absence Assessment & Plan (03/22/2017 9:36 AM CDT): Doing well when on medication consistently-worse in past week due to missing medication Moderate episode of recurrent major depressive d isorder 09/20/2016 Overview (12/16/2016): Major depressive disorder, recurrent, moderate Assessment & Plan (07/10/2018 2:18 PM PROJECT MANAGER/TEAM COACH): Worse due to stress Will increase Cymbalta to 60mg daily Assessment & Plan (03/06/2018 1:57 PM CDT): Continue current therapy Assessment & Plan (11/17/2017 10:19 AM CDT): Improved on Cymbalta We discussed risks/benefits of taking it still Discussed she can continue while breast feeding Assessment & Plan (10/06/2017 11:25 AM PROJECT MANAGER/TEAM COACH): Will resume Cymbalta I discussed the risks, benefits and potential side effects of the recommended treatment regimen including category C Assessment & Plan (03/22/2017 9:35 AM CDT): Overall stable Encounters Date Type Department Care Team Description 12/06/2024 Results Follow-Up [facility] Pediatric Rheumatology and Immunology [facility] 2nd [place] [address] [place] [address] Kisha Connolly MD 12/04/2024 2:00 PM CDT Lab [facility] [address] [place] [address] Seronegative inflammatory arthritis; Positive TONY (antinuclear antibody); High risk medication use; Fibromyalgia 12/04/2024 11:00 AM CDT Office Visit [facility] Rheumatology [address] [facility] 5th [place] [address] [place] [address] Kisha Connolly MD Seronegative inflammatory arthritis (Primary Dx); Positive TONY (antinuclear antibody); High risk medication use; Fibromyalgia from Last 3 Months Immunizations Immunization Administration Dates Next Due Influenza, Quadrivalent, Spl it, Preservative Free, Intramuscular 07/10/2018 Tdap 02/07/2018 Medical History Medical History Date Comments Depression Depression PCOS (polycystic ovarian syndrome) Fibromyalgia fibromyalgia; Co mments: LONG 12/14/2016 - Family History Medical History Relation Name Comments Arthritis Father Gout Father Osteoarthritis Father Rheum arthritis Mother Rheumatoid a rthritis; Relation Name Status Comments Father Mother Social History Tobacco Use Types Packs/Day Years [...] on file Legal Sex Female 9:27 PM PROJECT MANAGER/TEAM COACH Gender Identity Female 03/30/2023 5:06 AM CDT Sexual Orientation Not on file Obstetrics History Last Filed Vital Signs Vital Sign Reading Time Taken Comments Blood Pressure 109/73 12/04/2024 11:15 AM CDT Pulse 83 12/04/2024 11:15 AM CDT Temperature 36.7 C (98 F) 12/04/2024 11:15 AM CDT Respiratory Rate 20 07/10/2018 2:02 PM PROJECT MANAGER/TEAM COACH Oxygen Saturation 97% 07/10/2018 2:02 PM PROJECT MANAGER/TEAM COACH Inhaled Oxygen Concentration - - Weight 88.8 kg (195 lb 12.8 oz) 025 11:15 AM CDT Height 165.1 cm (5' 5) 12/04/2024 11:1 5 AM CDT Body Mass Index 32.58 12/04/2024 11:15 AM CDT Plan of Treatment Health Maintenance Due Date Last Done Comments Cervical Cancer Screening 1991 Hepatitis C Screening 1991 Hepatitis B Screening 11/14/2009 Regular Well Visit/Exam 18-64 11/14/2009 Pneumococcal vaccine <65 (1 of 2 - PCV) 11/14/2010 Zoster Vaccine (1 of 2) 11/14/2010 Depression Screening 07/10/2019 07/10/2018, 11/17/2017, 10/06/2017, Additional history exists DTaP/Tdap/Td Vaccine (4 - Td or Tdap) 12/08/2032 12/08/2022, 07/08/2020, 02/07/2018 Influenza Vaccine Completed 10/24/2024, 07/10/2018 HPV Vaccines Aged Out No longer eligi ble based on patient's age to complete this topic Varicella Vaccines Discontinued Procedures Procedure Name Priority Date/Time Associated Diagnosis [...] 13.0 sec INR 1.09 0.90 - 1.20 [facility] Comment: Interpretive data Oral anticoagulant therapeutic ranges: Venous thromboembolism prophylaxis or treatment: 2.0-3.0 CARDIOLOGY Standard range: 2.0-3.0 High-intensity range: 2.5-3.5 Refer to indication-specific guidelines for appropriate target ranges for prosthetic heart valve replacement. Current interpretive data was last revised on 2019. aPTT 29 28 - 38 sec [facility] Comment: Interpretive Data Heparin therapeutic range: 66.0 - 100.0 seconds. Range based on correlation with therapeutic heparin activity range of 0.3 - 0.7 Units/mL. Current interpretive data was last revised on 2023. DRVVT screen ratio 1.04 0.00 - 1.20 Ratio [facility] SCT Screen Ratio 0.86 0.00 - 1.16 Ratio [facility] Lupus anticoagulant, interp Negative [facility] Comment: Interpretive data Lupus anticoagulants (LA) are acquired autoantibodies that interfere with invitro clotting in a phospholipid-dependent manner and are associated with an increased risk of thromboembolic events and complications. Routine APTT and PT reagents are not sensitive to inhibition by LA, and should not be used as screening tests. The laboratory follows ISTH 2009 guidelines (Pengo, 2009) for LA testing and interpretation: Two [...] 1) Sanya V, Luann A, Patricia JH, Ordarynl TL, Gianni M, Fernandez PG. Update of the guidelines for lupus anticoagulant detection. J Thromb Haemost. 2009; 7:4034-9423. 2. Palmer S. et al. International consensus statement on an update of the classification criteria for definite antiphospholipid syndrome (APS). J Thromb Haemost. 2006; 4:295-306. Current interpretive data was last revised on 2018 Blood 12/04/2024 12:1 2 PM CDT 12/04/2024 12:36 PM CDT us Kisha Connolly MD LAB BLOOD ORDERABLES Final Re sult Performing Organization Address [place] de Phone Number [facility] [place] [employer] [place] [address] * JUS ab eval w/reflex (12/04/2024 12:12 PM CDT) JUS ab Negative Negative Comment: Interpretive Data Positive Screens will be reflexed to specific testing for Antibodies against the following antigens: Savanah-1 Ab, PRE BILLING SPECIALIST Ab, Scl-70 Ab, Saini Ab, SS-A/Ro Ab, and SS- B/La Ab. Further testing for dsDNA, Centromere, or Ribosomal P antibodies is suggested in patient with a positive screen and negative specific antibodies. Current interpretive data was last revised on 2023. Blood 12/04/2024 12:1 2 PM CDT 12/04/2024 12:37 PM CDT Kisha Connolly MD LAB BLOOD ORDERABLES Final Re sult Performing Organization Address [place] Co de Phone Number [facility] [place] [employer] [address] * Cardiolipin antibody, IgG (12/04/2024 12:12 PM [...] URSZULA. These results were obtained with the CARDFREE 2200 System. Cardiolipin IgG values obtained with different manufacturers' assay methods may not be used interchangeably. Current interpretive data was last revised on 2017. Blood 12/04/2024 12:1 2 PM CDT 12/04/2024 12:37 PM CDT us Kisah Connolly MD LAB BLOOD ORDERABLES Final Re sult [facility] [place] [address] * Beta 2 glycoprotein IgM Ab (12/04/2024 12:12 PM CDT) Beta-2 glycoprotein I, IgM 0.2 <=19.9 units/mL [...] factor. These results were obtained with the Orgdotlex 2200 System. Beta-2 GP1 IgM values obtained with different manufacturers' assay methods may not be used interchangeably. Current interpretive data was last revised on 2017. Blood 12/04/2024 12:1 2 PM CDT 12/04/2024 12:37 PM CDT us Kisha Connolly MD LAB BLOOD ORDERABLES Final Re sult [facility] Department [place] [address] * Beta 2 glycoprotein IgG Ab (12/04/2024 12:12 PM CDT) [facility] Beta-2 glycoprotein I, IgG <1.4 <=19.9 units/mL Comment: Interpretive Data Negative: <20 U/mL Positive: > or = 20 U/mL Beta-2 glycoprotein 1 (Beta-2 GP1) antibodies are a more specific marker of thrombotic risk. It is expected that some samples will be ACL positive and Beta- 2 [id number]. In order to improve specificity, the International Congress on Antiphospholipid Antibodies recommends Beta-2 GP1 antibodies of IgG or IgM isotype (> the 99th percentile), obtained twice, at least 12 weeks apart, to support a diagnosis of antiphospholipid syndrome. The cutoff for this assay was developed from data based on the 99th percentile. These results were obtained with the Pocket BioPlex 2200 System. Beta 2GP1 IgG values obtained with different manufacturers' assay methods may not be used interchangeably. Current interpretive data was last revised on 2017. Blood 12/04/2024 12:1 2 PM CDT 12/04/2024 12:37 PM CDT Kisha Connolly MD LAB BLOOD ORDERABLES Final Re sult Performing Organization Address [facility] Co de Phone Number MARKO Reddy [facility] [place] [employer] [place] [address] * Cardiolipin antibody, IgM (12/04/2024 12:12 PM CDT) Cardiolipin, IgM <0.2 <=19.9 MPL U/mL Comment: [...] antibodies. These results were obtained with the CARDFREE 2200 System. Cardiolipin IgM values obtained with different manufacturers' assay methods may not be used interchangeably. Current interpretive data was last revised on 2017. Blood 12/04/2024 12:1 2 PM CDT 12/04/2024 12:37 PM CDT us Kisha Connolly MD LAB BLOOD ORDERABLES Final Re sult Performing Organization Address [place]/[facility]/ZIP Co de Phone Number MARKO ZURITA Maureen [facility] [place] [place] [address] from Last 3 Months Insurance [facility] Care Teams Child Monitor Relationship Specialty Start Date End Date Libia Mejia NP [address] [place] [address] [place] [address] PCP - General Pediatrics 07/02/22
--- OUTSIDE RECORDS SUMMARY | 2025-01-13 18:55 | XMS_ITS | Clinical Summary ---
Author Organization [facility] Address [facility] [place] [address] Care Team Providers Care Apple Peeler Operator Name Role Phone Libia Mejia NURSE DISCHARGE PLANNER Primary Care Provider [phone] Allergies Active Allergy Reactions Criticality Noted Date Comments Amoxicillin Other (see comment) Medium 01/27/2018 Mouth sores Potassium Rash Low Reaction: Rash, Seasonal Other (see comment) Low 05/27/2016 Sinus irritation Medications fexofenadine 180 MG tablet Take 1 tablet (180 mg total) by mouth daily. Active acetaminophen 500 MG tablet Take 1 tablet (500 mg total) by mouth every 6 (six) hours as needed for Pain. Active hydroxychloroquine (PLAQUENIL) 200 MG tablet Take 2 tablets (400 mg total) by mouth daily. 3 Active ondansetron (ZOFRAN-ODT) 4 MG disintegrating tablet Take 1 tablet (4 mg total) by mouth every 8 (eight) hours as needed for Nausea. 20 tablet 4 Active Vitamin D3 (VITAMIN D) 50 mcg tablet Take 1 tablet (50 mcg total) by mouth daily. Active vitamin ( PLUS) 27-1 MG tablet Take 1 tablet by mouth daily. Active Multiple Vitamins-Minerals (MULTIVITAMIN WOMEN) Tab Active Active Problems Problem Noted Date Diagnosed Date Immunocompromised patient (HHS/HCC) 07/13/2023 Avulsed toenail, subsequent encounter 12/15/2022 Overview (12/15/2022): Partially, right great toe Acute medial meniscal tear, left, subsequent enc ounter 05/06/2021 Assessment & Plan (06/20/2021 6:52 PM CDT): We discussed the risks, benefits and alternatives. There are only 3 things to do for meniscal tears. Nothing, see if it gets better on its own. Conservative treatment of nonsteroidal anti-inflammatories, physical therapy, steroid injection, activity modification, TENS unit and bracing. Finally, diagnostic and operative arthroscopy with repair or partial meniscectomy. At this point in time patient wants to continue breast-feeding and hold off on any type of surgical intervention. She is doing approximately 80% better with physical therapy and activity modification. Will call when she wants to proceed with more definitive treatment Assessment & Plan (05/06/2021 6:58 PM CDT): We discussed the risks, benefits and alternatives. There are only 3 things to do for meniscal tears. Nothing, see if it gets better on its own. Conservative treatment of nonsteroidal anti-inflammatories, physical therapy, steroid injection, activity modification, TENS unit and bracing. Finally, diagnostic and operative arthroscopy with repair or partial meniscectomy. Patient is currently breast-feeding and would like to avoid medications. Child is 9 months and is trying to get to 1 year of breast-feeding. Therefore we will avoid steroids and nonsteroidal anti-inflammatories. Begin formal physical therapy and TENS unit for pain and swelling. Follow-up in 6 weeks for repeat evaluation. Seasonal allergic rhinitis due to pollen 021 PCOS (polycystic ovarian syndrome) 12/07/2018 Irritable bowel syndrome wit h both constipation and diarrhea 12/07/2018 Recurrent major depressive disorder, in full rem ission 12/07/2018 Anxiety 12/07/2018 Obesity (BMI 30.0-34.9) 07/10/2018 Overview (12/10/2020): Last Assessment & Plan: BMI Follow-up includes: exercise counseling. Assessment & Plan (06/20/2021 6:52 PM CDT): We discussed the adverse effects of weight on osteoarthritis of the knee. For every 1 pound loss, 4 to 6 pounds of stress is relieved from the knee. We discussed low carbohydrate diet to help with weight loss. 80% of weight loss is through diet. Assessment & Plan (05/06/2021 6:58 PM CDT): We discussed the adverse effects of weight on osteoarthritis of the knee. For every 1 pound loss, 4 to 6 pounds of stress is relieved from the knee. We discussed low carbohydrate diet to help with weight loss. 80% of weight loss is through diet. Fibromyalgia 10/08/2016 Overview (12/07/2018): Overview: Fibromyalgia Last Assessment & Plan: Having more stress recently causing slightly more pain Moderate episode of recurrent major depressive d isorder 09/20/2016 Overview (12/07/2018): Overview: Major depressive disorder, recurrent, moderate Last Assessment & Plan: Worse due to stress Will increase Cymbalta to 60mg daily Depression Estimated Date of Delivery Comme nts Yes 04/13/2025 Resolved Problems Problem Noted Date Diagnosed Date Resolved Date Breast feeding status of mother ([facility]) 05/06/2021 12/11/2021 Assessment & Plan (05/06/2021 6:59 PM CDT): Therefore wants to avoid steroids and nonsteroidal anti-inflammatories. Positive Shavon test of le ft knee, initial encounter 01/27/2021 10/28/2021 Assessment & Plan (01/27/2021 1:04 PM CDT): We discussed the risks, benefits and alternatives. There are only 3 things to do for meniscal tears. Nothing, see if it gets better on its own. Conservative treatment of nonsteroidal anti-inflammatories, physical therapy, steroid injection, activity modification, and bracing. Finally, diagnostic and operative arthroscopy with repair or partial meniscectomy. The patient would like to further imaging studies and requests MRI due to continued pain and discomfort. She will continue ice and elevation. She will use a brace for comfort. ([facility]) 08/04/2020 12/12/19 22 Thrombosed external hemorrhoid 05/30/2020 10/28/2021 Supervision of high-risk pre gnancy with grand multiparity in third trimester ([facility]) 02/06/2018 11/18/2021 Supervision of normal intrau terine in multigravida, third trimester ([facility]) 02/06/2018 11/18/2021 Labor and delivery indicatio n for care or intervention ([facility]) 02/04/2018 11/18/2021 Encounters Date Type Department Care Team Description 01/11/2025 9:45 AM CDT - 01/11/2025 11:59 PM CDT Hospital Encounter [facility] [address] [place] [address] Jose Snider MD McClenahan, Krystal M, PT Arrived Discharge Disposition: Home or Self Care (Routine Discharge) 01/11/2025 Travel 01/07/2025 9:54 AM CDT - 01/07/2025 11:59 PM CDT Hospital Encounter [facility] [address] [address] Jose Snider MD Scott, Kelli, SHELTON Back Pain Discharge Disposition: Home or Self Care (Routine Discharge) 01/07/2025 Travel 12/28/2024 9:39 AM CDT - 12/28/2024 11:59 PM CDT Hospital Encounter [facility] [address] [address] Jose Snider MD Scott, Kelli, SHELTON Low Back Pain Discharge Disposition: Home or Self Care (Routine Discharge) 12/28/2024 Travel 12/24/2024 9:57 AM CDT - 12/24/2024 11:59 PM CDT Hospital Encounter [facility] [address] [address] Jose Snider MD Timmermann, Candice P, ENDS DOWN CHECKER Discharge Disposition: Home or Self Care (Routine Discharge) 12/24/2024 Travel 12/17/2024 9:56 AM CDT - 12/17/2024 11:59 PM CDT Hospital Encounter [facility] [address] [address] Jose Snider MD Timmermann, Candice P, ENDS DOWN CHECKER Discharge Disposition: Home or Self Care (Routine Discharge) 12/17/2024 Travel 12/10/2024 9:55 AM CDT - 12/10/2024 11:59 PM CDT Hospital Encounter [facility] [address] [address] Jose Snider MD Hays, Michelle, ENDS DOWN CHECKER Discharge Disposition: Home or Self Care (Routine Discharge) 12/10/2024 Travel 12/03/2024 1:30 PM CDT - 12/03/2024 11:59 PM CDT Hospital Encounter [facility] [address] [address] Jose Snider MD Hays, Michelle, ENDS DOWN CHECKER Discharge Disposition: Home or Self Care (Routine Discharge) 12/03/2024 Travel 11/28/2024 3:14 PM CDT - 11/28/2024 11:59 PM CDT Hospital Encounter [facility] [address] [address] Jose Snider MD Wiegmann, Lacey M, PT Back Pain Discharge Disposition: Home or Self Care (Routine Discharge) 11/28/2024 Travel 11/26/2024 2:47 PM CDT - 11/26/2024 11:59 PM CDT Hospital Encounter [facility] [address] [address] Jose Snider MD Wiegmann, Lacey M, PT Back Pain Discharge Disposition: Home or Self Care (Routine Discharge) 11/26/2024 Travel 11/21/2024 12:55 PM CDT - 11/21/2024 11:59 PM CDT Hospital Encounter [facility] [address] [address] Jose Snider MD McClenahan, Krystal M, PT Discharge Disposition: Home or Self Care (Routine Discharge) 11/21/2024 Travel 11/14/2024 12:55 PM CDT - 11/14/2024 11:59 PM CDT Hospital Encounter [facility] [address] [address] Jose Snider MD McClenahan, Krystal M, PT Discharge Disposition: Home or Self Care (Routine Discharge) 11/14/2024 Travel 11/12/2024 9:45 AM CDT - 11/12/2024 11:59 PM CDT Hospital Encounter [facility] [address] [address] Jose Snider MD Emerick, Noah D, PT Low Back Pain Discharge Disposition: Home or Self Care (Routine Discharge) 11/12/2024 Travel 11/07/2024 9:44 AM POLISHER EYEGLASS FRAMES - 11/07/2024 11:59 PM POLISHER EYEGLASS FRAMES Hospital Encounter [facility] [address] [address] Jose Snider MD Timmermann, Candice P, ENDS DOWN CHECKER Discharge Disposition: Home or Self Care (Routine Discharge) 11/07/2024 Travel 11/05/2024 9:45 AM POLISHER EYEGLASS FRAMES - 11/05/2024 11:59 PM POLISHER EYEGLASS FRAMES Hospital Encounter [facility] [address] [address] Jose Snider MD Scott, Kelli, ENDS DOWN CHECKER Back Pain Discharge Disposition: Home or Self Care (Routine Discharge) 11/05/2024 Travel 11/01/2024 9:48 AM POLISHER EYEGLASS FRAMES - 11/01/2024 11:59 PM POLISHER EYEGLASS FRAMES Hospital Encounter [facility] [address] [address] Jose Snider MD Davidson, Brooke M, ENDS DOWN CHECKER Discharge Disposition: Home or Self Care (Routine Discharge) 11/01/2024 Travel 10/30/2024 1:18 PM POLISHER EYEGLASS FRAMES - 10/30/2024 11:59 PM POLISHER EYEGLASS FRAMES Hospital Encounter [facility] [address] [address] Jose Snider MD Hays, Michelle, ENDS DOWN CHECKER Discharge Disposition: Home or Self Care (Routine Discharge) 10/30/2024 Travel 10/25/2024 9:48 AM POLISHER EYEGLASS FRAMES - 10/25/2024 11:59 PM POLISHER EYEGLASS FRAMES Hospital Encounter [facility] [address] [place] [address] Jose Snider MD McClenahan, Krystal M, PT Discharge Disposition: Home or Self Care (Routine Discharge) 10/25/2024 Travel 10/24/2024 3:00 PM POLISHER EYEGLASS FRAMES [facility] [address] [place] [address] Libia Mejia, NURSE DISCHARGE PLANNER Follow Up (Pt is here for for a f/u, Pt wants to discuss a few things also) 10/24/2024 Travel 10/23/2024 9:47 AM POLISHER EYEGLASS FRAMES - 10/23/2024 11:59 PM POLISHER EYEGLASS FRAMES Hospital Encounter [facility] [address] [address] Jose Snider MD Timmermann, Candice P, ENDS DOWN CHECKER Discharge Disposition: Home or Self Care (Routine Discharge) 10/23/2024 Travel 10/18/2024 10:48 AM POLISHER EYEGLASS FRAMES - 10/18/2024 11:59 PM POLISHER EYEGLASS FRAMES Hospital Encounter [facility] [address] [address] Jose Snider MD Hays, Michelle, ENDS DOWN CHECKER Discharge Disposition: Home or Self Care (Routine Discharge) 10/18/2024 Travel 10/16/2024 10:40 AM POLISHER EYEGLASS FRAMES - 10/16/2024 11:59 PM POLISHER EYEGLASS FRAMES Hospital Encounter [facility] [address] [place] [address] Jose Snider MD Timmermann, Candice P, ENDS DOWN CHECKER Discharge Disposition: Home or Self Care (Routine Discharge) 10/16/2024 Travel from Last 3 Months Immunizations Immunization Administration Dates Next Due Fluzone (IIV3, Trivalent, 0. 5 ML Prefilled Syringe) 10/24/2024 Fluzone 6 Months+ Quad (0.5 mL Prefilled Syringe) 08/04/2020(Deferred: Patient/family declined) Influenza Adult (Generic) 07/10/2018 MMR 02/08/2018 MMR (MMRII) 02/08/2018 Tdap (Boostrix) 12/08/2022,02/08/2018 Tdap (Generic) 07/03/2020,02/08/2018 Family History Medical History Relation Comments None Brother 1 None Brother 2 None Brother 3 Heart Father Fibromyalgia Mother Rheumatoid Arthritis Mother None Sister 1 None Sister 2 None Sister 3 None Son Relation Status Comments Brother 1 Alive Brother 2 Alive Brother 3 Alive Father Alive Mother Alive Sister 1 Alive Sister 2 Alive Sister 3 Alive Son Alive Social History Tobacco Use Types Packs/Day Years Used Date Smoking Tobacco: Never Passive Smoke Exposure: Never Smokeless Tobacco: Never Tobacco Cessation:Counseling Given: Yes Comments:No counseling needed. Alcohol Use Standard Drinks/Week Comments Not Currently 0 (1 standard drink = 0.6 oz pur e alcohol) PHQ-2 Answer Date Recorded Patient Health Questionnaire-2 Score 0 10/24/2024 Estimated Date of Delivery Comme nts Yes 04/13/2025 Sex and Gender Information Value Date Recorded Sex Assigned at Female 10/02/2024 11:08 AM POLISHER EYEGLASS FRAMES Legal Sex Female 1:00 PM CDT Gender Identity Not on file Sexual Orientation Not on file Last Filed Vital Signs Vital Sign Reading Time Taken Comments Blood Pressure 102/68 10/24/2024 2:48 PM POLISHER EYEGLASS FRAMES Pulse 83 10/24/2024 2:48 PM POLISHER EYEGLASS FRAMES Temperature 37.1 C (98.7 F) 10/24/2024 2:48 PM POLISHER EYEGLASS FRAMES Respiratory Rate 16 10/24/2024 2:48 PM POLISHER EYEGLASS FRAMES Oxygen Saturation 100% 10/24/2024 2:48 PM POLISHER EYEGLASS FRAMES Inhaled Oxygen Concentration - - Weight 88.9 kg (196 lb) 10/24/2024 2:48 PM POLISHER EYEGLASS FRAMES Height 166.4 cm (5' 5.5) 10/24/2024 2:48 PM POLISHER EYEGLASS FRAMES Body Mass Index 32.12 10/24/2024 2:48 PM POLISHER EYEGLASS FRAMES Plan of Treatment Upcoming Encounters Date Type Department Care Team (Late st Contact Info) Description 01/18/2025 10:00 AM CDT Appointment [facility] Therapy [address] [place] [address] Jose Sinder MD [address] [place] [address] [place] [address] [place] [address] Health Maintenance Due Date Last Done Comments COVID-19 Vaccine (#1) 11/14/1996 Hepatitis B Vaccines (1 of 3 - 19+ 3-dose series) 11/14/2010 Annual Physical 01/30/2025 01/31/2024 Pneumococcal Vaccine: Pediatrics (0 to 5 Years) and At-Risk Patients (6 to 49 Years) (1 of 2 - PCV) 02/03/2025 Postponed from 11/14/2010 (Future Appointment) Cervical Cancer Screening Pap Smear (Age 30 to 64) Every 3 Years 10/02/2027 10/02/2024, 09/21/2024, 12/12/2014 Cervical Cancer Screening Pap with HPV Testing (Age 30 to 64) Every 5 Years 09/21/2029 09/21/2024, 12/12/2014 Cervical Cancer Screening with HPV 09/21/2029 DTaP, Tdap and Td Vaccines (5 - Td or Tdap) 12/08/2032 12/08/2022, 07/03/2020, 02/08/2018, Additional history exists Hepatitis C Completed 10/02/2024, 10/02/2024 PHQ-2 (Physician [place]) Completed 10/24/2024 HPV Vaccines Aged Out No longer eligi ble based on patient's age to complete this topic Meningococcal B Vaccine Aged Out No l onger eligible based on patient's age to complete this topic Meningococcal Vaccine Aged Out No edward ene eligible based on patient's age to complete this topic RSV Immunization or 60+ Years (No Doses Required) Completed RSV Immunizations Under 20 Months Aged Out No longer eligible based on patient's age to complete this topic Procedures Procedure Name Priority Date/Time Associated Diagnosis Comments THINPREP IMAGING PAP REFLEX HPV MRNA E6/E7 Routine 12/12/2014 4:50 PM CDT from Last 3 Months or Most Recently Relevant to Health Maintenance Results * (ABNORMAL) THINPREP IMAGING PAP REFLEX HPV MRNA E6/E7 (12/12/2014 4:50 PM CDT) CHLAMYDIA TRACHOMATIS RNA TMA NOT DETECTED NOT DETECTED [employer] TO EPIC CONVERSION N.GONORRHOEAE RNA TMA (QST) NOT DETECTED NOT DETECTED [facility] TO EPIC CONVERSION Comment: This test was performed using the APTIMA COMBO2 Assay ([employer] The analytical performance characteristics of this assay, when used to test [facility] specimens have been determined by [employer]. JO ANN SPANGLER MD HPV MRNA E6/E7 Detected(A) Not Detected [facility] TO EPIC CONVERSION Comment: This test was performed using the APTIMA HPV Assay ([employer] This assay detects E6/E7 viral messenger RNA (mRNA) from 14 high-risk HPV types (16,18,31,33,35,39,45,51,52,56,58,59,66,68). JO ANN SPANGLER MD REFLEX ADDED yes [facility] P TO EPIC CONVERSION Comment: THIS TEST WAS PERFORMED AT [facility] [address], [place] [address] 12/12/2014 4:50 PM CDT 12/12/2014 4:50 PM CDT Narrative [facility] TO EPIC CONVERSION - 12/25/2014 11:04 AM CDT This lab was migrated from [facility] and may be missing annotations or result text, please check the Media tab for the most complete results. Jenna Daly CNM PATHOLOGY/CYTOLOGY ORDERA BLES Final Result [facility] TO EPIC CONVERSION from Last 3 Months or Most Recently Relevant to Health Maintenance Insurance Advance Directives Documents on File Type Date Recorded Patient Cheese Supervisor Expl anation Advance Directives and Living Will 04/26/2017 12:00 AM ADVANCED DIRECTIVES * Full Code (Latest Code Status on File) Date Activated Date Inactivated Comments 08/04/2020 4:43 AM 08/05/2020 12:03 PM * Full Code Date Activated Date Inactivated Comments 07/24/2020 10:28 PM 07/25/2020 12:33 AM * Full Code Date Activated Date Inactivated Comments 07/16/2020 3:49 AM 07/16/2020 10:06 AM * Full Code Date Activated Date Inactivated Comments 04/06/2020 12:08 PM 04/06/2020 4:12 PM * Full Code Date Activated Date Inactivated Comments 02/04/2018 9:55 PM 02/05/2018 2:55 AM Care Teams Apple Peeler Operator Relationship Specialty Start Date End Date Libia Mejia FNP [address] [place] [address] [place] [address] PCP - General Nurse Practitioner Family 12/04/18
--- OUTSIDE RECORDS SUMMARY | 2025-01-13 18:55 | XMS_ITS | Encounter Summary ---
Author Organization [facility] Address [address] [place] [address] Care Team Providers Care Copy Chief Name Role Phone Libia Mejia HIM SPECIALIST Primary Care Provider [phone] Reason for Visit * Physical Therapy (Routine) - Authorized Specialty Diagnoses / Procedures Referred By Contac t Referred To Contact PHYSICAL THERAPY / [facility] Physical Therapy Diagnoses Low back pain, unspecified Procedures Jose Moreno MD [address] [place] [address] Phone: tel: fax: Divine Rivero, PT [address] [address] Phone: tel: fax: Referral ID Status Reason Start Date Expiration Date Visits Requested Visits Authorized [id number] Authorized Physical Therapy 10/05/2024 29 29 Encounter Details Date Type Department Care Team (Late st Contact Info) Description 01/11/2025 9:45 AM CDT - 01/11/2025 11:59 PM CDT Hospital Encounter [facility] Therapy [address] [place] [address] Jose Snider MD [address] [place] [address] [place] [address] [place] [address] Arrived Discharge Disposition: Home or Self Care (Routine Discharge) Social History Tobacco Use Types Packs/Day Years [...] Sex Assigned at Female 10/02/2024 11:08 AM TRANSFORMER ASSEMBLY SUPERVISOR Legal Sex Female 1:00 PM CDT Gender Identity Not on file Sexual Orientation Not on file documented as of this encounter Functional Status * RETIRED Are you deaf or do you have serious difficulty hearing Answer Date of Assessment Author Status No 08/04/2020 5:16 AM TRANSFORMER ASSEMBLY SUPERVISOR Activ e * RETIRED Are you blind or do you have serious difficulty seeing, even when wearing glasses? Answer Date of Assessment Author Status No 08/04/2020 5:16 AM TRANSFORMER ASSEMBLY SUPERVISOR Activ e * Do you have serious [...] Pradhan RN Active documented in this encounter Medications at Time of Discharge acetaminophen 500 MG tablet Take 1 tablet (500 mg total) by mouth every 6 (six) hours as needed for Pain. fexofenadine 180 MG tablet Take 1 tablet (180 mg total) by mouth daily. hydroxychloroquine (PLAQUENIL) 200 MG tablet Take 2 tablets (400 mg total) by mouth daily. 07/08/2023 Multiple Vitamins-Minerals (MULTIVITAMIN WOMEN) Tab ondansetron (ZOFRAN-ODT) 4 MG disintegrating tablet Take 1 tablet (4 mg total) by mouth every 8 (eight) hours as needed for Nausea. 20 tablet 11/08/2023 vitamin ( PLUS) 27-1 MG tablet Take 1 tablet by mouth daily. Vitamin D3 (VITAMIN D) 50 mcg tablet Take 1 tablet (50 mcg total) by mouth daily. documented as of this encounter Progress Notes * Georgia Rob, PT - 01/11/2025 10:00 AM CDTEncounter addended by: Georgia Rob PT on: 01/11/2025 10:42 AM Actions taken: Charge Capture section accepted * Georgia Rob, PT - 01/11/2025 10:00 AM CDT Physical Therapy Visit Note: Patient Name: Nika Johnson Diagnosis: Back pain (primary encounter diagnosis) SUBJECTIVE Therapy Visit Total Approved Visits: (eval 10/05/24) Therapy Plan of Care: flexion based exercises Current Therapy Orders: 2x6 Diagnosis: LBP Precautions: (due 04/13/25) Restrictions: *4 units per day* Work Status: HELP DESK SPECIALIST student/RA at [employer] Subjective Note: Nika feels tight the day after she works and is working 3-4 days per week. She has been having pain in her lower abdomen which she feels is round ligament pain. The pain ins mostly in her L LB. Compliance to Home Program: Fair Pain Current Location of Pain: LBP Other (comments): mostly tightness OBJECTIVE Treatment provided today: Therapeutic Exercise - 14632 Number of Minutes - 22905: 40 Cardio Equipment: Eureksterstep x10' level 2 Exercise: seated HS stretch Exercise: seated LB stretch with ball Exercise: HLTR Exercise: PPT/november x 20 Exercise: piriformis stretch Exercise: SL hip abd Exercise: bridge x 20 partial range Exercise: HL ab/ad (use gait belt & ball) Exercise: SL clams Exercise: Prayer stretch. Exercise: SLR 2 x 10 Exercise: SB hip shifts/ marches/LAQ Manual Therapy - 84899 Number of Minutes - 92297: 15 Intervention: HS stretch Intervention: long leg distraction Intervention: adductor stretch Intervention: piriformis stretch Intervention: DTM to L LB/hip Modalities Non-Timed Cold Pack - 23706: 10' to low back following session Education Was Education Provided: Yes Topic: HEP review Recipient: Patient Method: Verbal, Demonstration Response: Demonstrates adequately, Verbalized understanding Barriers: None ASSESSMENT Assessment Note: Nika's session focused on hip and core strength and flexibility with a focus on low abdominals to decrease lumbar lordosis. She was educated to avoid activity that increase pain. Response to Treatment : Fair Continue on Functional Deficit of: core strength and stability PLAN Plan Next Visit Plan: Cont per current PT poc; progressing per pt tolerance; flexion based lumbar exercises Total Time Total Time in Minutes: 55 Timed Code Treatment Minutes : 55 documented in this encounter Plan of Treatment Upcoming Encounters Date Type Department Care Team (Late st Contact Info) Description 01/18/2025 10:00 AM CDT Appointment [facility] Therapy [address] [place] [address] Jose Snider MD [address] [place] [address] [place] [address] [place] [address] documented as of this encounter Visit Diagnoses Diagnosis Back pain- Primary Backache, unspecified documented in this encounter Additional Health Concerns Assessment Noted Time PHQ-9 Depression Total Score: 0 11/18/19 24 10:49 AM CDT documented as of this encounter Care Teams Copy Chief Relationship Specialty Start Date End Date Libia Mejia FNP [address] [place] [address] PCP - General Nurse Practitioner Family 12/04/18 documented as of this encounter
[2025-01-13 19:11] VITALS: BP 111/71; PULSE 92
[2025-01-13 19:15] VITALS: BP 110/72; PULSE 96
[2025-01-13 19:30] VITALS: BP 108/68; PULSE 93
[2025-01-13 19:45] VITALS: BP 109/66; PULSE 92
[2025-01-13 19:45] LABS: Add Urine Microscopic? YES; Appearance Urine Clear (Clear); Bacteria Urine None Seen /hpf; Bilirubin Urine Negative (Negative); Blood Urine Negative (Negative); Color Urine Yellow (Yellow); Glucose Urine UA Negative (Negative); Ketones Urine Negative (Negative); Leukocyte Esterase Ur 3+ LEU/UL (Negative); Nitrate Urine Negative (Negative); Non Pathogenic Casts 0-2; Protein Urine Negative (Negative); RBC Urine 0-2 /hpf (0-2); Specific Grav Ur 1.005 (1.001-1.035); Squamous Epithelial Cell Urine None Seen /hpf (Few); Urobilinogen Urine 0.2 mg/dL (<2.0); WBC Urine 21-50 /hpf (0-3)
[2025-01-13 20:00] VITALS: BP 115/70; PULSE 86
[2025-01-13 20:15] VITALS: BP 107/67; PULSE 84
[2025-01-13] MEDS: NITROFURANTOIN MONOHYD MACROCR 100 MG CAP PO (20:30)
--- NOTE | 2025-01-13 20:30 | OBADM ---
This patient, Nika Childs, admitted to the OB room OB Post 117 for observation. Patient/family oriented to hospital policies and general routines including ID bracelet, bed and alarms, visiting hours, pain management, procedures, bathroom and other care routines, personal items, smoking policy, room service/diet, and visiting hours. Patient/Family are encouraged to report perceived risks to care and to ask questions if they do not understand what they are told or what they should do.
--- NOTE | 2025-02-11 21:23 | PM.OBTRLD ---
OB - Triage/Final Diagnosis Visit Information Comments/Additional reasons for admission: I have assessed the risk for this patient, Nika Samayoarian, and determined that she would benefit from observation care. Evaluation Laboratory results: Laboratory Tests 01/13/25 19:14 Urine Color Yellow Urine Appearance Clear Urine pH 7.0 Ur Specific [place] 1.005 Urine Protein Negative Urine Glucose (UA) Negative Urine Ketones Negative Ur Blood (Man) Negative Urine Nitrate Negative Urine Bilirubin Negative Urine Urobilinogen 0.2 Leukocyte Esterase Rfl 3+ H Urine RBC 0-2 Urine WBC 21-50 H Ur Squamous Epith Cells None seen Urine Bacteria None seen Urine Casts 0-2 Final Diagnosis (1) False labor: Code(s): O47.9 - False labor, unspecified Status: Acute
== END 2025-01-13 20:45 | disposition home or self-care (01) ==
PROVIDERS: Admitting Provider Obstetrics & Gynecology; PCP Nurse Practitioner; Visit Provider Obstetrics & Gynecology
DX: O47.02 False labor before 37 completed weeks of gestation, second trimester (principal); Z3A.27 27 weeks gestation of pregnancy
CPT/HCPCS: 81001; 87086; A9270; G0378; G0379

== ENCOUNTER 2025-02-24 17:15 | Observation (INO) | payer OTHER, SELFPAY ==
[2025-02-24] VITALS (30 sets, daily range): BP systolic 103–107; BP diastolic 68–76; PULSE 85–115; RESP 18; TEMP 36.6; O2SAT 96–100
[2025-02-24 17:12] LABS: Add Urine Microscopic? YES; Appearance Urine Clear (Clear); Bacteria Urine 1+ /hpf; Bilirubin Urine Negative (Negative); Blood Urine Negative (Negative); Color Urine Yellow (Yellow); Glucose Urine UA Negative (Negative); Ketones Urine Negative (Negative); Leukocyte Esterase Ur 3+ LEU/UL (Negative); Nitrate Urine Negative (Negative); Non Pathogenic Casts 0-2; Protein Urine Negative (Negative); RBC Urine 0-2 /hpf (0-2); Specific Grav Ur 1.003 (1.001-1.035); Squamous Epithelial Cell Urine Few /hpf (Few); Urobilinogen Urine 0.2 mg/dL (<2.0); WBC Urine 51-100 /hpf (0-3)
[2025-02-24] MEDS: TERBUTALINE SULFATE 1 MG/ML VIAL 0.25 MG SUB-Q (17:27)
--- NOTE | 2025-02-24 18:52 | OBADM ---
This patient, Nika Childs, admitted to the OB room OB Post 116 for observation. Patient/family oriented to hospital policies and general routines including ID bracelet, bed and alarms, visiting hours, pain management, procedures, bathroom and other care routines, personal items, smoking policy, room service/diet, and visiting hours. Patient/Family are encouraged to report perceived risks to care and to ask questions if they do not understand what they are told or what they should do.
--- NOTE | 2025-02-25 15:06 | PM.OBTRLD ---
OB - Triage/Final Diagnosis Visit Information Date of evaluation: 02/24/25 Reason for evaluation: threatened labor Comments/Additional reasons for admission: I have assessed the risk for this patient, Nika Childs, and determined that she would benefit from observation care. Evaluation Laboratory results: Laboratory Tests 02/24/25 16:59 Urine Color Yellow Urine Appearance Clear Urine pH 7.0 Ur Specific [place] 1.003 Urine Protein Negative Urine Glucose (UA) Negative Urine Ketones Negative Ur Blood (Man) Negative Urine Nitrate Negative Urine Bilirubin Negative Urine Urobilinogen 0.2 Leukocyte Esterase Rfl 3+ H Urine RBC 0-2 Urine WBC 51-100 H Ur Squamous Epith Cells Few Urine Bacteria 1+ H Urine Casts 0-2 Vital signs: Vital Signs - 24 hr 02/24/25 16:43 02/24/25 16:45 02/24/25 16:47 Temperature 36.6 C Pulse Rate 97 Respiratory Rate 18 Blood Pressure 107/76 Pulse Oximetry 97 98 02/24/25 16:54 02/24/25 16:59 02/24/25 17:00 Temperature Pulse Rate 99 Respiratory Rate Blood Pressure 103/68 Pulse Oximetry 97 98 02/24/25 17:04 02/24/25 17:08 02/24/25 17:13 Temperature Pulse Rate Respiratory Rate Blood Pressure Pulse Oximetry 99 99 99 02/24/25 17:18 02/24/25 17:23 02/24/25 17:28 Temperature Pulse Rate Respiratory Rate Blood Pressure Pulse Oximetry 99 99 99 02/24/25 17:33 02/24/25 17:38 02/24/25 17:39 Temperature Pulse Rate Respiratory Rate Blood Pressure Pulse Oximetry 98 100 97 02/24/25 17:44 02/24/25 17:49 02/24/25 17:54 Temperature Pulse Rate Respiratory Rate Blood Pressure Pulse Oximetry 97 96 99 02/24/25 17:59 02/24/25 18:04 02/24/25 18:09 Temperature Pulse Rate Respiratory Rate Blood Pressure Pulse Oximetry 100 96 97 02/24/25 18:14 02/24/25 18:19 02/24/25 18:24 Temperature Pulse Rate Respiratory Rate Blood Pressure Pulse Oximetry 96 96 96 02/24/25 18:29 02/24/25 18:34 02/24/25 18:39 Temperature Pulse Rate Respiratory Rate Blood Pressure Pulse Oximetry 100 99 96 02/24/25 18:44 02/24/25 18:49 02/24/25 18:54 Temperature Pulse Rate Respiratory Rate Blood Pressure Pulse Oximetry 98 96 98
== END 2025-02-24 19:17 | disposition home or self-care (01) ==
LOC: ANHOBOP 17:37 → ANHOBPP 17:37
PROVIDERS: Advanced Practice Midwife; Admitting Provider Obstetrics & Gynecology; PCP Nurse Practitioner; Visit Provider Obstetrics & Gynecology
DX: O47.03 False labor before 37 completed weeks of gestation, third trimester (principal); Z3A.33 33 weeks gestation of pregnancy
CPT/HCPCS: 59025; 81001; 87086; 96372; G0378; G0379; J3105

== ENCOUNTER 2025-03-04 13:09 | Observation (INO) | payer OTHER, SELFPAY ==
[2025-03-04 13:24] VITALS: BP 107/73; PULSE 99
[2025-03-04 13:30] VITALS: BP 112/69; PULSE 98
--- OUTSIDE RECORDS SUMMARY | 2025-03-04 13:38 | XMS_ITS | Clinical Summary ---
Author Organization [facility] Address [address] [place] [id number] Care Team Providers Care Bender Hand Name Role Phone Libia Mejia NP Primary Care Provider [phone] Allergies Active Allergy Reactions Criticality Noted Date [...] 07/10/2018 Assessment & Plan (07/10/2018 2:15 PM MID LEVEL BUSINESS ANALYST): BMI Follow-up includes: exercise counseling. Fibromyalgia 10/08/2016 Overview (12/16/2016): Fibromyalgia Assessment & Plan (07/10/2018 2:16 PM MID LEVEL BUSINESS ANALYST): Having more stress recently causing slightly more pain Assessment & Plan (11/17/2017 10:14 AM CDT): Improved on Cymbalta Assessment & Plan (10/06/2017 11:23 AM MID LEVEL BUSINESS ANALYST): Pain improving with work leave of absence Assessment & Plan (03/22/2017 9:36 AM CDT): Doing well when on medication consistently-worse in past week due to missing medication Moderate episode of recurrent major depressive d isorder 09/20/2016 Overview (12/16/2016): Major depressive disorder, recurrent, moderate Assessment & Plan (07/10/2018 2:18 PM MID LEVEL BUSINESS ANALYST): Worse due to stress Will increase Cymbalta to 60mg daily Assessment & Plan (03/06/2018 1:57 PM CDT): Continue current therapy Assessment & Plan (11/17/2017 10:19 AM CDT): Improved on Cymbalta We discussed risks/benefits of taking it still Discussed she can continue while breast feeding Assessment & Plan (10/06/2017 11:25 AM MID LEVEL BUSINESS ANALYST): Will resume Cymbalta I discussed the risks, benefits and potential side effects of the recommended treatment regimen including category C Assessment & Plan (03/22/2017 9:35 AM CDT): Overall stable Encounters Date Type Department Care Team Description 12/06/2024 Results Follow-Up [facility] Pediatric Rheumatology and Immunology [facility] 2nd [place] [address] [place] [address] Kisha Connolly MD Lupus Anticoagulant Panel plus Reflexes, Cardiolipin antibody, IgM, Cardiolipin antibody, IgG, Additional followed-up results: 3 12/04/2024 2:00 PM CDT Lab [facility] ([facility]) [address] [place] [address] Seronegative inflammatory arthritis; Positive TONY (antinuclear antibody); High risk medication use; Fibromyalgia 12/04/2024 11:00 AM CDT Office Visit [facility] Rheumatology [address] [facility] 5th [place] [address] [place] [address] Cathleen, Kisha Muñoz MD Seronegative inflammatory arthritis (Primary Dx); Positive [...] on file Legal Sex Female 9:27 PM MID LEVEL BUSINESS ANALYST Gender Identity Female 03/30/2023 5:06 AM CDT Sexual Orientation Not on file Obstetrics History Last Filed Vital Signs Vital Sign Reading Time Taken Comments Blood Pressure 109/73 12/04/2024 11:15 AM CDT Pulse 83 12/04/2024 11:15 AM CDT Temperature 36.7 C (98 F) 12/04/2024 11:15 AM CDT Respiratory Rate 20 07/10/2018 2:02 PM MID LEVEL BUSINESS ANALYST Oxygen Saturation 97% 07/10/2018 2:02 PM MID LEVEL BUSINESS ANALYST Inhaled Oxygen Concentration - - Weight 88.8 [...] 13.0 sec INR 1.09 0.90 - 1.20 [facility] Comment: Interpretive data Oral anticoagulant therapeutic ranges: Venous thromboembolism prophylaxis or treatment: 2.0-3.0 CARDIOLOGY Standard range: 2.0-3.0 High-intensity range: 2.5-3.5 Refer to indication-specific guidelines for appropriate target ranges for prosthetic heart valve replacement. Current interpretive data was last revised on 2019. aPTT 29 28 - 38 sec [facility] Comment: Interpretive Data Heparin therapeutic range: 66.0 - 100.0 seconds. Range based on correlation with therapeutic heparin activity range of 0.3 - 0.7 Units/mL. Current interpretive data was last revised on 2023. DRVVT screen ratio 1.04 0.00 - 1.20 Ratio [facility] SCT Screen Ratio 0.86 0.00 - 1.16 Ratio [facility] Lupus anticoagulant, interp Negative [facility] Comment: Interpretive data Lupus anticoagulants (LA) are [...] lupus anticoagulant detection. J Thromb Haemost. 2009; 7:3242-8226. 2. Palmer Pean. et al. International consensus statement on an update of the classification criteria for definite antiphospholipid syndrome (APS). J Thromb Haemost. 2006; 4:295-306. Current interpretive data was last revised on 2018 Blood 12/04/2024 12:1 2 PM CDT 12/04/2024 12:36 PM CDT us Kisha Connolly MD LAB BLOOD ORDERABLES Final Re sult Performing Organization Address [facility] de Phone Number [facility] Department [place] [address] * JUS ab eval w/reflex (12/04/2024 12:12 PM CDT) JUS ab Negative Negative Comment: Interpretive Data Positive Screens will be reflexed to specific testing for Antibodies against the following antigens: Savanah-1 Ab, COTTON CLASSER Ab, Scl-70 Ab, Saini Ab, SS-A/Ro Ab, and SS- B/La Ab. Further testing for dsDNA, Centromere, or Ribosomal P antibodies is suggested in patient with a positive screen and negative specific antibodies. Current interpretive data was last revised on 2023. Blood 12/04/2024 12:1 2 PM CDT 12/04/2024 12:37 PM CDT us Kisha Connolly MD LAB BLOOD ORDERABLES Final Re sult Performing Organization Address [facility] Co de Phone Number [facility] Department [place] [address] * Cardiolipin antibody, IgG (12/04/2024 12:12 PM CDT) Pathologist [facility] Cardiolipin, IgG <1.6 <=19.9 GPL U/mL Comment: [...] URSZULA. These results were obtained with the Direct Hit 2200 System. Cardiolipin IgG values obtained with different manufacturers' assay methods may not be used interchangeably. Current interpretive data was last revised on 2017. Blood 12/04/2024 12:1 2 PM CDT 12/04/2024 12:37 PM CDT us Kisha Cononlly MD LAB BLOOD ORDERABLES Final Re sult [facility] Department [place] [address] * Beta 2 glycoprotein IgM Ab (12/04/2024 12:12 PM CDT) Pathologist [facility] Beta-2 glycoprotein I, IgM 0.2 <=19.9 units/mL [...] factor. These results were obtained with the [employer] Technologieslex 2200 System. Beta-2 GP1 IgM values obtained with different manufacturers' assay methods may not be used interchangeably. Current interpretive data was last revised on 2017. Blood 12/04/2024 12:1 2 PM CDT 12/04/2024 12:37 PM CDT us Kisha Connolly MD LAB BLOOD ORDERABLES Final Re sult [facility] Department [place] [address] * Beta 2 glycoprotein IgG Ab (12/04/2024 12:12 PM CDT) [facility] Beta-2 glycoprotein I, IgG <1.4 <=19.9 units/mL Comment: Interpretive Data Negative: <20 U/mL Positive: > or = 20 U/mL Beta-2 glycoprotein 1 (Beta-2 GP1) antibodies are a more specific marker of thrombotic risk. It is expected that some samples will be ACL positive and Beta- 2 [id number]. In order to improve specificity, the International Congress on Antiphospholipid Antibodies recommends Beta-2 GP1 antibodies of IgG or IgM isotype (> the 99th percentile), obtained twice, at least 12 weeks apart, to support a diagnosis of antiphospholipid syndrome. The cutoff for this assay was developed from data based on the 99th percentile. These results were obtained with the [employer] BioPlex 2200 System. Beta 2GP1 IgG values obtained with different manufacturers' assay methods may not be used interchangeably. Current interpretive data was last revised on 2017. Blood 12/04/2024 12:1 2 PM CDT 12/04/2024 12:37 PM CDT us Kisha Connolly MD LAB BLOOD ORDERABLES Final Re sult Performing Organization Address [facility] Co de Phone Number [facility] Department [place] [address] * Cardiolipin antibody, IgM (12/04/2024 12:12 PM [...] antibodies. These results were obtained with the Direct Hit 2200 System. Cardiolipin IgM values obtained with different manufacturers' assay methods may not be used interchangeably. Current interpretive data was last revised on 2017. Blood 12/04/2024 12:1 2 PM CDT 12/04/2024 12:37 PM CDT us Kisha Connolly MD LAB BLOOD ORDERABLES Final Re sult Performing Organization Address [facility] Co de Phone Number [facility] Department [place] [address] from Last 3 Months Insurance [facility] Care Teams Bender Hand Relationship Specialty Start Date End Date Libia Mejia NP [address] [place] [address] [place] [address] PCP - General Pediatrics 07/02/22
--- OUTSIDE RECORDS SUMMARY | 2025-03-04 13:38 | XMS_ITS | Referral Summary ---
Author Organization [facility] Address [address] [place] [address] Care Team Providers Care Manager Equity Name Role Phone Libia Mejia NP Primary Care Provider [phone] Encounters Date Type Department Care Team Description 12/06/2024 Results Follow-Up [facility] Pediatric Rheumatology and Immunology [facility] 2nd [place] [address] [place] [address] Kisha Connolly MD Lupus Anticoagulant Panel plus Reflexes, Cardiolipin antibody, IgM, Cardiolipin antibody, IgG, Additional followed-up results: 3 12/04/2024 2:00 PM CDT Lab [facility] ([facility]) [address] [place] [id number] Seronegative inflammatory arthritis; Positive TONY (antinuclear antibody); High risk medication use; Fibromyalgia 12/04/2024 11:00 AM CDT Office Visit [facility] Rheumatology [address] [place] [address] 5th [place] [address] [place] [address] Kisha Connolly MD Seronegative inflammatory arthritis (Primary [...] 07/10/2018 Assessment & Plan (07/10/2018 2:15 PM FORESTRY ADVISER): BMI Follow-up includes: exercise counseling. Fibromyalgia 10/08/2016 Overview (12/16/2016): Fibromyalgia Assessment & Plan (07/10/2018 2:16 PM FORESTRY ADVISER): Having more stress recently causing slightly more pain Assessment & Plan (11/17/2017 10:14 AM CDT): Improved on Cymbalta Assessment & Plan (10/06/2017 11:23 AM FORESTRY ADVISER): Pain improving with work leave of absence Assessment & Plan (03/22/2017 9:36 AM CDT): Doing well when on medication consistently-worse in past week due to missing medication Moderate episode of recurrent major depressive d isorder 09/20/2016 Overview (12/16/2016): Major depressive disorder, recurrent, moderate Assessment & Plan (07/10/2018 2:18 PM FORESTRY ADVISER): Worse due to stress Will increase Cymbalta to 60mg daily Assessment & Plan (03/06/2018 1:57 PM CDT): Continue current therapy Assessment & Plan (11/17/2017 10:19 AM CDT): Improved on Cymbalta We discussed risks/benefits of taking it still Discussed she can continue while breast feeding Assessment & Plan (10/06/2017 11:25 AM FORESTRY ADVISER): Will resume Cymbalta I discussed the risks, [...] on file Legal Sex Female 9:27 PM FORESTRY ADVISER Gender Identity Female 03/30/2023 5:06 AM CDT Sexual Orientation Not on file Last Filed Vital Signs Vital Sign Reading Time Taken Comments Blood Pressure 109/73 12/04/2024 11:15 AM CDT Pulse 83 12/04/2024 11:15 AM CDT Temperature 36.7 C (98 F) 12/04/2024 11:15 AM CDT Respiratory Rate 20 07/10/2018 2:02 PM FORESTRY ADVISER Oxygen Saturation 97% 07/10/2018 2:02 PM FORESTRY ADVISER Inhaled Oxygen Concentration - - Weight 88.8 [...] 13.0 sec INR 1.09 0.90 - 1.20 [facility] Comment: Interpretive data Oral anticoagulant therapeutic ranges: Venous thromboembolism prophylaxis or treatment: 2.0-3.0 CARDIOLOGY Standard range: 2.0-3.0 High-intensity range: 2.5-3.5 Refer to indication-specific guidelines for appropriate target ranges for prosthetic heart valve replacement. Current interpretive data was last revised on 2019. aPTT 29 28 - 38 sec [facility] Comment: Interpretive Data Heparin therapeutic range: 66.0 - 100.0 seconds. Range based on correlation with therapeutic heparin activity range of 0.3 - 0.7 Units/mL. Current interpretive data was last revised on 2023. DRVVT screen ratio 1.04 0.00 - 1.20 Ratio [facility] SCT Screen Ratio 0.86 0.00 - 1.16 Ratio [facility] Lupus anticoagulant, interp Negative [facility] Comment: Interpretive data Lupus anticoagulants (LA) [...] heparin. References: 1) Sanya V, Luann A, Bristow JH, Ordarynl TL, Gianni M, De Juan Miguel PG. Update of the guidelines for lupus anticoagulant detection. J Thromb Haemost. 2009; 7:2396-4284. 2. Palmer S. et al. International consensus statement on an update of the classification criteria for definite antiphospholipid syndrome (APS). J Thromb Haemost. 2006; 4:295-306. Current interpretive data was last revised on 2018 Blood 12/04/2024 12:1 2 PM CDT 12/04/2024 12:36 PM CDT us Kisha Connolly MD LAB BLOOD ORDERABLES Final Re sult Performing Organization Address [facility] Co de Phone Number [facility] [place] [address] * JUS ab eval w/reflex (12/04/2024 12:12 PM CDT) JUS ab Negative Negative Comment: Interpretive Data Positive Screens will be reflexed to specific testing for Antibodies against the following antigens: [place]an[place]-1 Ab, AUTO SLIP COVER INSTALLER Ab, Scl-70 Ab, Saini Ab, SS-A/Ro Ab, and SS- B/La Ab. Further testing for dsDNA, Centromere, or Ribosomal P antibodies is suggested in patient with a positive screen and negative specific antibodies. Current interpretive data was last revised on 2023. Blood 12/04/2024 12:1 2 PM CDT 12/04/2024 12:37 PM CDT Kisha Connolly MD LAB BLOOD ORDERABLES Final Re sult Performing Organization Address [facility] de Phone Number [facility] [place] [address] * Cardiolipin antibody, IgG (12/04/2024 12:12 PM [...] URSZULA. These results were obtained with the [employer] BioPlex 2200 System. Cardiolipin IgG values obtained with different manufacturers' assay methods may not be used interchangeably. Current interpretive data was last revised on 2017. Blood 12/04/2024 12:1 2 PM CDT 12/04/2024 12:37 PM CDT Kisha Connolly MD LAB BLOOD ORDERABLES Final Re sult Performing Organization Address [facility] Co de Phone Number [facility] Department [place] [address] * Beta 2 glycoprotein IgM Ab (12/04/2024 12:12 PM CDT) [facility] Beta-2 glycoprotein I, IgM 0.2 <=19.9 units/mL [...] factor. These results were obtained with the [employer] BioPlex 2200 System. Beta-2 GP1 IgM values obtained with different manufacturers' assay methods may not be used interchangeably. Current interpretive data was last revised on 2017. Blood 12/04/2024 12:1 2 PM CDT 12/04/2024 12:37 PM CDT Kisha Connolly MD LAB BLOOD ORDERABLES Final Re sult Performing Organization Address [facility] Co de Phone Number [facility] [place] [address] * Beta 2 glycoprotein IgG Ab (12/04/2024 12:12 PM CDT) Beta-2 glycoprotein I, IgG <1.4 <=19.9 units/mL Comment: Interpretive Data Negative: <20 U/mL Positive: > or = 20 U/mL Beta-2 glycoprotein 1 (Beta-2 GP1) antibodies are a more specific marker of thrombotic risk. It is expected that some samples will be ACL positive and Beta- 2 [id number]. In order to improve specificity, the International Congress on Antiphospholipid Antibodies recommends Beta-2 GP1 antibodies of IgG or IgM isotype (> the 99th percentile), obtained twice, at least 12 weeks apart, to support a diagnosis of antiphospholipid syndrome. The cutoff for this assay was developed from data based on the 99th percentile. These results were obtained with the [employer]0 System. Beta 2GP1 IgG values obtained with different manufacturers' assay methods may not be used interchangeably. Current interpretive data was last revised on 2017. Blood 12/04/2024 12:1 2 PM CDT 12/04/2024 12:37 PM CDT us Kisha Connolly MD LAB BLOOD ORDERABLES Final Re sult Performing Organization Address [facility] Co de Phone Number [facility] Department [place] [address] * Cardiolipin antibody, IgM (12/04/2024 12:12 PM [...] antibodies. These results were obtained with the [employer] 2200 System. Cardiolipin IgM values obtained with different manufacturers' assay methods may not be used interchangeably. Current interpretive data was last revised on 2017. Blood 12/04/2024 12:1 2 PM CDT 12/04/2024 12:37 PM CDT us Kisha Connloly MD LAB BLOOD ORDERABLES Final Re sult [facility] [place] [address] from Last 3 Months Insurance [facility] Member Subscriber Plan / Payer ( fective 2024-Present) Name:Nika Childs Relation to Subscriber:Self Name:Nika Childs Payer ID:[id number] (NAIC) Type:MEDICAID RISK OTHER Address: [place] [address] [facility] Member Subscriber Plan / Payer ( fective 2020-Present) Name:Nika Childs Relation to Subscriber:Self Name:Nika Childs Payer ID:[id number] (NAIC) Type:MEDICAID RISK OTHER Address: [place] [id number] Care Teams Manager Equity Relationship Specialty Start Date End Date Libia Mejia NP [address] [place] [address] [place] [address] PCP - General Pediatrics 07/02/22
--- OUTSIDE RECORDS SUMMARY | 2025-03-04 13:38 | XMS_ITS | Clinical Summary ---
Author Organization [facility] [employer] Address [address] [address] Care Team Providers Care Ball Ender Name Role Phone Brenton Kraus MD Primary Care Provider Source Comments [facility],non-owned Affiliates and Associated Physician Practices is amultiple site organization consisting of ambulatory clinics and hospital sitesin [place], [place], [place] and [place]. This disclosure is being madepursuant to the Care Everywhere program and may not contain all information available regarding this patient. Last updated 18.[facility] [employer] Allergies Active Allergy Reactions Criticality Noted Date Comments Amoxicillin Other Low 05/27/2016 Mouth sores Naproxen Other Low 05/27/2016 Severe mouth sores Seasonal Other Low 05/27/2016 Sinus irritation Family History Medical History Relation Name Comments [...] on file Legal Sex Female 5:46 PM COMBAT SYSTEMS OPERATOR [employer] Gender Identity Not on file Sexual Orientation Not on file Last Filed Vital Signs Vital Sign Reading Time Taken Comments Blood Pressure 108/78 09/22/2016 9:37 AM COMBAT SYSTEMS OPERATOR [employer] Pulse 69 09/22/2016 9:37 AM COMBAT SYSTEMS OPERATOR [employer] Temperature 36.7 C (98.1 F) 09/22/2016 9:37 AM COMBAT SYSTEMS OPERATOR [employer] Respiratory Rate - - Oxygen Saturation 97% 09/22/2016 9:37 AM COMBAT SYSTEMS OPERATOR [employer] Inhaled Oxygen Concentration - - Weight 77.3 kg (170 lb 6.4 oz) 09/22/2016 9:37 A M COMBAT SYSTEMS OPERATOR [employer] Height 166.4 cm (5' 5.5) 09/22/2016 9:37 AM COMBAT SYSTEMS OPERATOR [employer] Body Mass Index 27.92 09/22/2016 9:37 AM COMBAT SYSTEMS OPERATOR [employer] Plan of Treatment Health Maintenance Due Date Last Done Comments HEPATITIS C SCREENING 11/10/2009 DTAP/TDAP/TD VACCINES (1 - Tdap) 11/14/2010 HEPATITIS B VACCINE (1 of 3 - 19+ 3-dose series) 11/14/2010 COVID-19 VACCINE (1 - 2023-2 5 season) 2024 DEPRESSION SCREENING 09/05/2024 PAP SMEAR 10/02/2027 10/02/2024, 10/02/2024 ZOSTER VACCINE (1 of 2) 11/14/2041 [...] age to complete this topic Care Teams Ball Ender Relationship Specialty Start Date End Date Brenton Kraus MD [facility] [address] [place] [address] PCP - General 09/22/16
--- OUTSIDE RECORDS SUMMARY | 2025-03-04 13:38 | XMS_ITS | Data Portability ---
Author Organization [facility] Address [address] [place] [address] Care Team Providers Care Loom Changeover Operator Name Role Phone ARMANDO CARROLL Primary Care Provider Assessment Encounter Date Assessment Date Assessment LastModified by Organization Details LastModified Time 01/21/2025 01/21/2025 Patient is ___weeks . Discussed plan. Not available 01/21/2025 11:16:00 02/02/2025 02/02/2025 Patient is ___weeks . Discussed plan. [email or web address] Not available 02/02/2025 10:49:03 Plan of Treatment Reminders Order Date Submit Date Provider Last Modified By Organization Details Last Modified Time Details Appointments OB ROUTINE 2024 09:45A Suzette BARRAZA MD Not available Not available Not available Lab urinalysi s, dipstick 2024 025 [email or web address] [address], [address], [place], [address], 02/02/2025 11:12:04 Referral None recorded. Procedures None recorded. Surgeries None recorded. Imaging US, obstetric , follow-up 2024 025 [email or web address] [address], [address], [place], [address], 02/04/2025 16:38:01 Medication Orders None recorded. Patient TargetsNo targets recorded. Patient InstructionsNo instructions recorded. Reason for Referral None Reported. Results Created Date Observation Date Name Description Value Unit Range Abnormal Flag Note LastModifiedBy Organization Detail LastModifiedTime 01/22/20 25 01/21/2025 GTT - GESTA MADELEINE L SCREE N, ACOG OB glucose, 1 hour screen 93 mg/dL 70-135 Not Available [facility] (Lab) [address], [place], [address], 01/22/2025 11:52:34 01/22/20 25 01/21/2025 HIV 1/2 ANTIG EN/AN TIBOD Y, REFLE X CONFI RMATI ON HIV antigen/anti body Nonrea ctive nonrea ctive HIV-1 antig en and HIV-1 /HIV- 2 antib odies were not detec melany. No labor atory evide nce of HIV infec tion. Not Available [facility] (Lab) [address], [place], [address], 01/22/2025 11:52:34 01/22/20 25 01/21/2025 HEMAT OCRIT (HCT) HCT 33.5 % (based on docume nted legal sex) 34.0-4 5.0 low Not Available [facility] (Lab) [address], [place], [address], 01/22/2025 11:52:35 01/22/20 25 01/21/2025 HEMOG LOBIN (HGB) HGB 10.8 g/dL (based on docume nted legal sex) 11.6-1 5.4 low Not Available [facility] (Lab) [address] [place], [address], 01/22/2025 11:52:35 01/22/20 25 01/21/2025 RPR SCREE N, REFLE X TITER /CONF IRMAT ION RPR qualitative Nonrea ctive nonrea ctive Not Available [facility] (Lab) [address] [place], [address], 01/22/2025 11:52:36 02/03/20 25 02/02/2025 urina lysis , dipst ick Leukocytes - Not Available Skyler lopez [address], [place], [address], 02/02/2025 11:10:56 02/03/20 25 02/02/2025 urina lysis , dipst ick Nitrite - Not Available [address], [place], [address], 02/02/2025 11:10:56 02/03/20 25 02/02/2025 urina lysis , dipst ick Urobilinogen - Not Available Francheska bland [address], [place], [address], 02/02/2025 11:10:56 02/03/20 25 02/02/2025 urina lysis , dipst ick Protein trace Not Available [address], [place], [address], 02/02/2025 11:10:56 02/03/20 25 02/02/2025 urina lysis , dipst ick pH 8 Not Available [address], [place], [address], 02/02/2025 11:10:56 02/03/20 25 02/02/2025 urina lysis , dipst ick Specific [place] 1.000 Not Available [facility] [address], [place], [address], 02/02/2025 11:10:56 02/03/20 25 02/02/2025 urina lysis , dipst ick Ketone - Not Available [address], [place], [address], 02/02/2025 11:10:56 02/03/20 25 02/02/2025 urina lysis , dipst ick Bilirubin - Not Available Susannah wetzel [address], [place], [address], 02/02/2025 11:10:56 02/03/20 25 02/02/2025 urina lysis , dipst ick Glucose - Not Available [address], [place], [address], 02/02/2025 11:10:56 02/03/20 25 02/02/2025 urina lysis , dipst ick Appearance clear Not Available [facility] [address], [place], [address], 02/02/2025 11:10:56 02/03/20 25 02/02/2025 urina lysis , dipst ick Color light yellow Not Available [address], [place], [address], 02/02/2025 11:10:56 12/27/19 25 12/26/2024 US, obste tric, follo w-up No observ ation record ed. [email or web address] [address], [place], [address], 12/26/2024 17:52:25 12/27/19 25 12/26/2024 US, obste tric, follo w-up No observ ation record ed. [id number], [place], [address], 02/06/2025 10:00:17 02/05/20 25 02/04/2025 US, obste tric, follo w-up No observ ation record ed. [email or web address] [address], [place], [address], 02/04/2025 18:41:04 02/05/20 25 02/04/2025 US, obste tric, follo w-up No observ ation record ed. MARCO A [id number], [place], [address], 02/12/2025 16:29:54 Result Notes None recorded. Problems Name Problem SNOMED Code Status Onset Date Resolution Date Notes Provider Name and Address Organization Details Recorded Time 53283294 Active 2024 Esha friedman, [facility] 5 11:17:12 Premature delivery 161961671 Active 4# 12, Gestation al age unknown Jose Snider MD [address], [place], [address], [facility] 5 11:48:53 growth restricti on 29987663 Active HISTORICA L - uncertain if gowth restricte d or premature 1st Rhonda Bowles elder, [facility] 5 09:44:51 Generaliz ed anxiety disorder 46919359 Active 2024 restarted meds Jose Snider MD [address], [place], [address], [facility] 5 17:26:25 Problem Notes None recorded. Procedures Surgical History Date Name Laterality Status Provider Name and Address Organization Details Recorded Time 5 Date of Last Pap Smear completed TINO Flowers [facility] 02/07/2025 12:18:08 3 extraction of wisdom tooth completed Esha Gabriel [facility] 09/21/2024 10:09:01 Imaging Results None recorded. Procedure Notes None recorded. Medical Equipment None Reported. Allergies Allergen ID Allergen Name Allergen Category Reaction Reaction Severity Criticality Documentation Date Start Date Code Code System Note Provider Name and Address Organization Details Recorded Time 88231 amoxicill in medicatio n hives mild Not available 09/21/2024 723 RxNorm Esha friedman, [facility] 5 10:01:42 Medications Name Sig Start Date Stop [...] mg capsule TAKE 1 CAPSULE BY MOUTH EVERY 12 HOURS active Not Available Not Available No t Available duloxetine 30 mg capsule,del ayed release TAKE 1 CAPSULE BY MOUTH ONCE DAILY 09/21 completed Not Available Not Available Not Available + DHA active Not Available Not Available Not Available duloxetine 40 mg capsule,del ayed release TAKE 1 CAPSULE BY MOUTH ONCE DAILY active Not Available Not Available No t Available Vitals Date Recorded Body weight Systolic blood pressure Diastolic blood pressure Provider Name and Address Organization Details Last Updated DateTime 01/21/2025 07922.9197 8 g 121 mm[Hg] 80 mm[Hg] Esha Gabriel [facility] 01/21/2025 11:16:28 Date Recorded Body height Body mass index (BMI) Body weight Systolic blood pressure Diastolic blood pressure Provider Name and Address Organization Details Last Updated DateTime 02/02/2025 166.37 cm 31.6 kg/m2 41975.89 g 102 mm[Hg] 72 mm[Hg] Tawanna Zena [facility] 10:49:42 Date Recorded Body height Body mass index (BMI) Body weight Systolic blood pressure Diastolic blood pressure Provider Name and Address Organization Details Last Updated DateTime 02/11/2025 166.37 cm 31.6 kg/m2 92136.33 g 102 mm[Hg] 70 mm[Hg] TINO Flowers [facility] 17:18:25 Date Recorded Body height Body mass index (BMI) Body weight Systolic blood pressure Diastolic blood pressure Provider Name and Address Organization Details Last Updated DateTime 03/01/2025 166.37 cm 32 kg/m2 90524.51 g 109 mm[Hg] 73 mm[Hg] TINO Flowers [facility] 09:58:24 Social History Question Answer Notes LastModified by Organizat ion Details LastModified Time Do You Have An Advance Directive? No Information n ot available 02/07/2025 How Many Years Have You Consumed Alcohol? 11 Information not available 09/21/2024 Are You Blind Or Do You Have Difficulty Seeing? No Information n ot available 09/21/2024 What Is Your Level Of Caffeine Consumption? Occasional [email or web address] Information not available 02/07/2025 How Much Tobacco Do You Chew? None [email or web address] Information not available 02/02/2025 In The 14 Days Before Symptom Onset, Have You Had Close Contact With A Laboratory-confirm ed COVID-19 While That Case Was Ill? No Information n ot available 09/21/2024 In The 14 Days Before [...] Of Diet Are You Following? REGULAR Information n ot available 09/21/2024 What Is The Highest Grade Or Level Of School You Have Completed Or The Highest Degree You Have Received? [id number] Information not available 09/21/2024 Are There Any [...] Functional Status Question Answer Note LastModified by Organizat ion Details LastModified Time Do you use any illicit or recreational drugs? No Information not available 09/21/2024 What is your level of alcohol consumption? Occasional Information not available 09/21/2024 Are you able to walk? 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 Occasional [email or web address] Information not available 02/07/2025 Mental Status Question Answer Note LastModified by Organization D etails LastModified Time Do you feel stressed (tense, restless, nervous, or anxious, or unable to sleep at night)? [id number] [email or web address] Information not available 02/07/2025 Family History Relationship Description Onset Age of [...] N Flow Heavy Date of LMP 07/07/2024 N On BCP's at Conception? N STIs/STDs N Was last menstrual period normal Y HPV Vaccine N Duration of Flow (days) 5 Current Control Method Age at First Child 26 Are cycles usually normal Y Frequency of Cycle (Q days) 29 Sexually Active? Y None Menses Monthly Y Age of first menstrual cycle 12 Date of Last Pap Smear 10/02/2024 Sexual Problems? N LMP Definite Desired Control Method None N Obstetrics History GPAL:G 4 P 1 1 1 2 Type Value Full Term 1 Spontaneous 1 Premature 1 Living 2 Total 4 Past Encounters Encounter ID Performer Location Encounter Start Date Encounter Closed Date Diagnosis/Indication Diagnosis SNOMED-CT Code Diagnosis ICD10 Code Diagnosis Note [id number] MD Rajiv Dao [address] [address] 09/21/2024 09:05:00 09/21/2024 09:42:37 [id number] MD Rajiv Dao [address],[place] [address] 09/21/2024 09:05:54 09/21/2024 10:29:42 Nausea and vomiting 67527450 R11.2 Amenorrhea 00224163 N91. 2 [id number] MD Rajiv Dao [address] [address] 10/02/2024 10:02:20 10/02/2024 11:04:07 screening 937017769 Z36.82 Z3A.12 [id number] MD Rajiv Dao [address] [address] 10/02/2024 10:03:03 10/02/2024 11:58:22 Routine care 369973761 Z34.90 [id number] MD Rajiv Dao [address] [address] 10/30/2024 10:36:07 10/30/2024 12:20:37 Routine care 745784866 Z34.90 [id number] MD Rajiv Dao [address] [address] 11/26/2024 10:15:47 11/26/2024 11:38:55 screening 020868427 Z36.3 Z3A.20 [id number] MD Rajiv Dao [address] [address] 11/26/2024 10:17:40 11/26/2024 12:07:45 Routine care 109253546 Z34.90 [id number] MD Rajiv Dao [address] [address] 12/26/2024 15:35:17 12/26/2024 16:37:06 anatomy study 506720455 Z36.2 Z3A.24 [id number] MD Rajiv Dao [address] [address] 12/26/2024 15:35:56 12/27/2024 02:38:23 care status 312364504 Z34.82 Anxiety 79898769 F41.9 [id number] MD Rajiv Dao [address],[place] [address] 01/21/2025 10:35:11 01/21/2025 11:23:34 care status 668581111 Z34.83 [id number] MD Rajiv Dao [address] [address] 02/02/2025 10:42:10 02/02/2025 11:10:20 care status 370996019 Z34.83 Urinary sy stem finding 741448088 R39.9 [id number] MD Rajiv Dao [address] [address] 02/04/2025 14:51:25 02/04/2025 16:24:53 care: obstetric risk 947995086 O09.293 O09.893 Z3A.30 [id number] ANGELLA BARRAZA MD [facility] [place] [address] 02/11/2025 16:46:22 02/11/2025 17:53:42 Pain of hip region 31012960 M25.551 M25.552 - seeing PT- discussed conservati ve treatment Gestation period, 31 weeks 11887399 Z3A.31 - continue PNV [id number] ANGELLA BARRAZA MD [facility] [address] [address] 03/01/2025 09:52:48 03/01/2025 10:19:20 Premature uterine contraction 561439000 O47.00 - was seen at [place] on Tuesday for contractio ns- s/p terbutalin e, no further contractio ns- ROMplus neg- discussed precaution s Gestation period, 33 weeks 75675282 Z3A.33 - continue PNV Health Concerns Section Related Observation LastModified by Organization Detai ls LastModified Time None Recorded Concern Status LastModified by Organization Details LastModified Time None Recorded Advance Directives Directive N: Payers Insurance Date Sequence Insurance Name Policy Number Policy Calderon Covered Member ID Calderon Member ID Guarantor Name 02/28/2025 1 [place] [facility] EM[facility] DEPARTMENT OF PUBLIC AID NONE Nika O'Kenny [id number] Nika O'Kenny 02/28/2025 1 [facility] (MEDICAID HM) [id number] Nika O'Kenny [id number] Nika O'Kenny 02/28/2025 2 [facility] (MEDICAID HMO) [id number] Nika O'Kenny [id number] Nika O'Kenny 11/26/2024 1 *SELF PAY* elby O'Kenny 03/04/2025 1 [facility] (MEDICAID HMO) [id number] 0003 Nika O'Kenny [id number] Nika O'Kenny 02/28/2025 1 [place] [facility] EM[facility]GENC[facility] DEPARTMENT OF PUBLIC AID Nika O'Kenny [id number] Nika O'Kenny OBGyn Episode Ob Episode Information Episode Created Date Number of Fetuses Patient Bloodtype Patient rh Status Prepregnancy Weight lbs Domestic Partner Domestic Partner Phone Father Name Pipe Cleaning Machine Operator Status 09/21/19 25 1 CLOSED Fetus Data First Name Last Name Admitted to NICU Weight (g) Sex Living Outcome Pediatric Complications Fetus ID Race Codes Race Delivery Type 2891.64 9 F Full Term [id number] Vaginal Delivery Zane Calculation Initial Zane Date [...] Domestic Partner Domestic Partner Phone Father Name Pipe Cleaning Machine Operator Status 09/21/19 25 1 CLOSED Fetus Data First Name Last Name Admitted to NICU Weight (g) Sex Living Outcome Pediatric Complications Fetus ID Race Codes Race Delivery Type , Spontane ous [id number] Zane Calculation Initial Zane Date Initial Exam [...] Domestic Partner Domestic Partner Phone Father Name Pipe Cleaning Machine Operator Status 10/02/19 25 1 A Positive 202 Jose OPEN Fetus Data First Name Last Name Admitted to NICU Weight (g) Sex Living Outcome Pediatric Complications Fetus ID Race Codes Race Delivery Type [id number] Problems Problem Notes Problem Name Start Date End Date Resolution Snomed Code Not e growth restriction 13081878 HISTORICAL - uncertain if gowth restricted or premature 1st Generalized anxiety disorder 12/26/2024 81749169 restarted meds Premature delivery 544004133 4 # 12, Gestational age unknown Zane [...] 11/27/19 25 20 10/30/2024 04/13/20 25 1 Pre- Flowsheet Flowsheet Date 10/02/2024 Rocha Score Blood Edema Fundus Height Fundus Units Glucose Ketones Leukocytes Nitrite Labor Signs Protein Cervic Dilation Cervic Effacement Cervic Station Type Weight in lbs Pre/Post Dialysis Refused Weight 199.533674970899 BP Diastolic BP Location Tested BP Systolic [...] Type Weight in lbs Pre/Post Dialysis Refused 196.674669614487 BP Diastolic BP Location Tested BP Systolic [...] Weight in lbs Pre/Post Dialysis Refused Weight 196.341766509752 BP Diastolic BP Location Tested BP Systolic BP Type 76 L arm 120 sitting Fetus Heart Rate Present A 145 Fetus Movement A Yes Comments no complaints, no problems, routine care, no contractions, no vaginal bleeding, no loss of fluid, no cramping Flowsheet Date 12/26/2024 Rocah Score Blood Edema Fundus Height Fundus Units [...] Type Weight in lbs Pre/Post Dialysis Refused 197.911443514949 BP Diastolic BP Location Tested BP Systolic BP Type 80 L arm 120 sitting Fetus Heart Rate Present A 156 Fetus Movement A Yes Comments no complaints, no problems, routine care, no contractions, no vaginal bleeding, no loss of fluid, no cramping Flowsheet Date 01/21/2025 Rocha Score Blood Edema Fundus Height Fundus Units Glucose Ketones Leukocytes Nitrite Labor Signs Protein Cervic Dilation Cervic Effacement Cervic Station Type Weight in lbs Pre/Post Dialysis Refused 194.029925340018 BP Diastolic BP Location Tested BP Systolic BP Type 80 L arm 121 sitting Fetus Heart Rate Present A 142 Present Fetus Movement A Yes Comments no complaints, no problems, routine care, no contractions, no vaginal bleeding, no loss of fluid, no cramping Flowsheet Date 02/02/2025 Rocha Score Blood Edema Fundus Height Fundus Units Glucose Ketones Leukocytes Nitrite Labor Signs Protein Cervic Dilation Cervic Effacement Cervic Station Type Weight in lbs Pre/Post Dialysis Refused Weight 192.998907365970 BP Diastolic BP Location Tested BP Systolic BP Type 72 L arm 102 sitting Fetus Heart Rate Present A 144 Fetus Movement A Yes Comments no complaints, no problems, routine care, no contractions, no vaginal bleeding, no loss of fluid, no cramping Flowsheet Date 02/04/2025 Rocha Score Blood Edema Fundus Height Fundus Units Glucose Ketones Leukocytes Nitrite Labor Signs Protein Cervic Dilation Cervic Effacement Cervic Station Type Weight in lbs Pre/Post Dialysis Refused BP Diastolic BP Location Tested BP Systolic BP Type Fetus Heart Rate Present Fetus Movement Comments Flowsheet Date 02/11/2025 Rocha Score Blood Edema Fundus Height Fundus Units Glucose Ketones Leukocytes Nitrite Labor Signs Protein Cervic Dilation Cervic Effacement Cervic Station Type Weight in lbs Pre/Post Dialysis Refused Weight 193.083252100101 BP Diastolic BP Location Tested BP Systolic BP Type 70 L arm 102 sitting Fetus Heart Rate Present A 150 Fetus Movement A Yes Comments Good movement. No cram ping or bleeding. Reports increased discharge. Has some hip pain, discussed conservative treatments. Is in physical therapy as well. Discussed preadmission. RTC 2 weeks. Flowsheet Date 03/01/2025 Rocha Score Blood Edema Fundus Height Fundus Units Glucose Ketones Leukocytes Nitrite Labor Signs Protein Cervic Dilation Cervic Effacement Cervic Station neg none Type Weight in lbs Pre/Post Dialysis Refused Weight 195.424534861976 BP Diastolic BP Location Tested BP Systolic BP Type 73 L arm 109 sitting Fetus Heart Rate Present A 140 Fetus Movement A Yes Comments Good movement. No cram ping or bleeding, however was at the hospital on Tuesday for contractions and discharge, workup negative for PPROM and received tocolysis. Needs to schedule preadmission. RTC 2 weeks. Menstrual History Last Menstrual Date Menses Monthly [...] Domestic Partner Domestic Partner Phone Father Name Pipe Cleaning Machine Operator Status 09/21/19 25 1 CLOSED Fetus Data First Name Last Name Admitted to NICU Weight (g) Sex Living Outcome Pediatric Complications Fetus ID Race Codes Race Delivery Type 2154.56 2 M Prematur e [id number] Vaginal Delivery Zane Calculation Initial Zane Date [...]
[2025-03-04 14:13] LABS: Add Urine Microscopic? YES; Appearance Urine Cloudy (Clear); Bacteria Urine None Seen /hpf; Bilirubin Urine Negative (Negative); Blood Urine Negative (Negative); Color Urine Yellow (Yellow); Glucose Urine UA Negative (Negative); Ketones Urine Trace mg/dL (Negative); Leukocyte Esterase Ur 3+ LEU/UL (Negative); Nitrate Urine Negative (Negative); Non Pathogenic Casts 0-2; Protein Urine 1+ mg/dL (Negative); RBC Urine 0-2 /hpf (0-2); Specific Grav Ur 1.019 (1.001-1.035); Squamous Epithelial Cell Urine Few /hpf (Few); pH Urine 6.5 (5.0-9.0)
[2025-03-04] MEDS: NITROFURANTOIN MONOHYD MACROCR 100 MG CAP PO (15:15)
--- NOTE | 2025-03-24 21:31 | P.PNOB_ITS ---
OB - Triage/Final Diagnosis Visit Information Comments/Additional reasons for admission: I have assessed the risk for this patient, Nika Jojo Childs, and determined that she would benefit from observation care. Evaluation Laboratory results: Laboratory Tests 03/04/25 14:00 Urine Color Yellow Urine Appearance Cloudy H Urine pH 6.5 Ur Specific [place] 1.019 Urine Protein 1+ H Urine Glucose (UA) Negative Urine Ketones Trace H Ur Blood (Man) Negative Urine Nitrate Negative Urine Bilirubin Negative Urine Urobilinogen 1.0 Leukocyte Esterase Rfl 3+ H Urine RBC 0-2 Urine WBC 11-20 H Ur Squamous Epith Cells Few Urine Bacteria None seen Urine Casts 0-2 Final Diagnosis (1) False labor: Code(s): O47.9 - False labor, unspecified Status: Acute
== END 2025-03-04 15:18 | disposition home or self-care (01) ==
PROVIDERS: Admitting Provider Obstetrics & Gynecology; PCP Nurse Practitioner; Visit Provider Obstetrics & Gynecology
DX: O47.9 False labor, unspecified (principal); R82.90 Unspecified abnormal findings in urine
CPT/HCPCS: 81001; 87086; A9270; G0378; G0379

== ENCOUNTER 2025-03-10 10:27 | Observation (INO) | payer OTHER, SELFPAY ==
[2025-03-10] VITALS (48 sets, daily range): BP systolic 67–119; BP diastolic 25–79; PULSE 76–123; O2SAT 94–100; BMI 32.1
--- OUTSIDE RECORDS SUMMARY | 2025-03-10 10:35 | XMS_ITS | Clinical Summary ---
Author Organization [facility] [employer] Address [address] [place] [address] Care Team Providers Care Heat Treating Furnace Tender Name Role Phone Brenton Kraus MD Primary Care Provider Source Comments [facility],non-owned Affiliates and Associated Physician Practices is amultiple site organization consisting of ambulatory clinics and hospital sitesin [place], [place], [place] and [place]. This disclosure is being madepursuant to the Care Everywhere program and may not contain all information available regarding this patient. Last updated 18.[facility] [employer] Allergies Active Allergy Reactions Criticality Noted Date [...] on file Legal Sex Female 5:46 PM AUTOMOBILE CONTRACT CLERK Gender Identity Not on file Sexual Orientation Not on file Last Filed Vital Signs Vital Sign Reading Time Taken Comments Blood Pressure 108/78 09/22/2016 9:37 AM AUTOMOBILE CONTRACT CLERK Pulse 69 09/22/2016 9:37 AM AUTOMOBILE CONTRACT CLERK Temperature 36.7 C (98.1 F) 09/22/2016 9:37 AM AUTOMOBILE CONTRACT CLERK Respiratory Rate - - Oxygen Saturation 97% 09/22/2016 9:37 AM AUTOMOBILE CONTRACT CLERK Inhaled Oxygen Concentration - - Weight 77.3 kg (170 lb 6.4 oz) 09/22/2016 9:37 A M AUTOMOBILE CONTRACT CLERK Height 166.4 cm (5' 5.5) 09/22/2016 9:37 AM AUTOMOBILE CONTRACT CLERK Body Mass Index 27.92 09/22/2016 9:37 AM AUTOMOBILE CONTRACT CLERK Plan of Treatment Health Maintenance Due Date [...] age to complete this topic Care Teams Heat Treating Furnace Tender Relationship Specialty Start Date End Date Brenton Kraus MD [facility] [address] [place] [address] PCP - General 09/22/16
--- OUTSIDE RECORDS SUMMARY | 2025-03-10 10:35 | XMS_ITS | Referral Summary ---
Author Organization [facility] Address [facility] [place] [address] Care Team Providers Care Electric Truck Crane Operator Name Role Phone Libia Mejia NP Primary Care Provider [phone] Allergies Active Allergy Reactions Criticality Noted Date [...] 07/10/2018 Assessment & Plan (07/10/2018 2:15 PM FIRST LINE SUPERVISOR): BMI Follow-up includes: exercise counseling. Fibromyalgia 10/08/2016 Overview (12/16/2016): Fibromyalgia Assessment & Plan (07/10/2018 2:16 PM FIRST LINE SUPERVISOR): Having more stress recently causing slightly more pain Assessment & Plan (11/17/2017 10:14 AM CDT): Improved on Cymbalta Assessment & Plan (10/06/2017 11:23 AM FIRST LINE SUPERVISOR): Pain improving with work leave of absence Assessment & Plan (03/22/2017 9:36 AM CDT): Doing well when on medication consistently-worse in past week due to missing medication Moderate episode of recurrent major depressive d isorder 09/20/2016 Overview (12/16/2016): Major depressive disorder, recurrent, moderate Assessment & Plan (07/10/2018 2:18 PM FIRST LINE SUPERVISOR): Worse due to stress Will increase Cymbalta to 60mg daily Assessment & Plan (03/06/2018 1:57 PM CDT): Continue current therapy Assessment & Plan (11/17/2017 10:19 AM CDT): Improved on Cymbalta We discussed risks/benefits of taking it still Discussed she can continue while breast feeding Assessment & Plan (10/06/2017 11:25 AM FIRST LINE SUPERVISOR): Will resume Cymbalta I discussed the risks, [...] on file Legal Sex Female 9:27 PM FIRST LINE SUPERVISOR Gender Identity Female 03/30/2023 5:06 AM CDT Sexual Orientation Not on file Last Filed Vital Signs Vital Sign Reading Time Taken Comments Blood Pressure 109/73 12/04/2024 11:15 AM CDT Pulse 83 12/04/2024 11:15 AM CDT Temperature 36.7 C (98 F) 12/04/2024 11:15 AM CDT Respiratory Rate 20 07/10/2018 2:02 PM FIRST LINE SUPERVISOR Oxygen Saturation 97% 07/10/2018 2:02 PM FIRST LINE SUPERVISOR Inhaled Oxygen Concentration - - Weight 88.8 kg (195 lb 12.8 oz) 025 11:15 AM CDT Height 165.1 cm (5' 5) 12/04/2024 11:1 5 AM CDT Body Mass Index 32.58 12/04/2024 11:15 AM CDT Plan of Treatment Not on file Insurance [facility] Care Teams Electric Truck Crane Operator Relationship Specialty Start Date End Date Libia Mejia NP [address] [place] [id number] PCP - General Pediatrics 07/02/22
--- OUTSIDE RECORDS SUMMARY | 2025-03-10 10:35 | XMS_ITS | Clinical Summary ---
Author Organization [facility] Address [address] [place] [address] Care Team Providers Care Coal Chemist Name Role Phone Libia Mejia NP Primary Care Provider [phone] Allergies Active Allergy Reactions Criticality Noted Date [...] 07/10/2018 Assessment & Plan (07/10/2018 2:15 PM JAVA ANDROID DEVELOPER): BMI Follow-up includes: exercise counseling. Fibromyalgia 10/08/2016 Overview (12/16/2016): Fibromyalgia Assessment & Plan (07/10/2018 2:16 PM JAVA ANDROID DEVELOPER): Having more stress recently causing slightly more pain Assessment & Plan (11/17/2017 10:14 AM CDT): Improved on Cymbalta Assessment & Plan (10/06/2017 11:23 AM JAVA ANDROID DEVELOPER): Pain improving with work leave of absence Assessment & Plan (03/22/2017 9:36 AM CDT): Doing well when on medication consistently-worse in past week due to missing medication Moderate episode of recurrent major depressive d isorder 09/20/2016 Overview (12/16/2016): Major depressive disorder, recurrent, moderate Assessment & Plan (07/10/2018 2:18 PM JAVA ANDROID DEVELOPER): Worse due to stress Will increase Cymbalta to 60mg daily Assessment & Plan (03/06/2018 1:57 PM CDT): Continue current therapy Assessment & Plan (11/17/2017 10:19 AM CDT): Improved on Cymbalta We discussed risks/benefits of taking it still Discussed she can continue while breast feeding Assessment & Plan (10/06/2017 11:25 AM JAVA ANDROID DEVELOPER): Will resume Cymbalta I discussed the risks, [...] on file Legal Sex Female 9:27 PM JAVA ANDROID DEVELOPER Gender Identity Female 03/30/2023 5:06 AM CDT Sexual Orientation Not on file Obstetrics History Last Filed Vital Signs Vital Sign Reading Time Taken Comments Blood Pressure 109/73 12/04/2024 11:15 AM CDT Pulse 83 12/04/2024 11:15 AM CDT Temperature 36.7 C (98 F) 12/04/2024 11:15 AM CDT Respiratory Rate 20 07/10/2018 2:02 PM JAVA ANDROID DEVELOPER Oxygen Saturation 97% 07/10/2018 2:02 PM JAVA ANDROID DEVELOPER Inhaled Oxygen Concentration - - Weight 88.8 [...] 07/10/2019 07/10/2018, 11/17/2017, 10/06/2017, Additional history exists Influenza Vaccine (#1) 2025 10/24/2024, 2017 DTaP/Tdap/Td Vaccine (4 - Td or Tdap) 12/08/2032 12/08/2022, 07/08/2020, 02/07/2018 HPV Vaccines Aged Out No longer eligi ble based on patient's age to complete this topic Varicella Vaccines Discontinued Insurance [facility] Care Teams Coal Chemist Relationship Specialty Start Date End Date Libia Mejia NP [address] [place] [address] [place] [address] PCP - General Pediatrics 07/02/22
--- OUTSIDE RECORDS SUMMARY | 2025-03-10 10:35 | XMS_ITS | Encounter Summary ---
Author Organization [facility] Address [address] [place] [address] Care Team Providers Care Post Exchange Manager Name Role Phone Libia Mejia [facility] Primary Care Provider [phone] Encounter Details Date Type Department Care Team (Late st Contact Info) Description 06/03/2024 [employer] Safety Stept Message Enc [facility] [address] [place], [place] [id number] Libia Mejia [facility] [address] [place] [address] Anti depressants Social History Tobacco Use Types [...] Sex Assigned at Female 10/02/2024 11:08 AM MOLD CAPPER HELPER Legal Sex Female 1:00 PM CDT Gender Identity Not on file Sexual Orientation Not on file documented as of this encounter Functional Status * RETIRED Are you deaf or do you have serious difficulty hearing Answer Date of Assessment Author Status No 08/04/2020 5:16 AM MOLD CAPPER HELPER Activ e * RETIRED Are you blind or do you have serious difficulty seeing, even when wearing glasses? Answer Date of Assessment Author Status No 08/04/2020 5:16 AM MOLD CAPPER HELPER Activ e * Do you have serious [...] documented in this encounter Plan of Treatment Not on file documented as of this encounter Visit Diagnoses Not on filedocumented in this encounter Additional Health Concerns Assessment Noted Time PHQ-9 Depression Total Score: 0 11/18/19 24 10:49 AM CDT documented as of this encounter Care Teams Post Exchange Manager Relationship Specialty Start Date End Date Libia Mejia FNP [address] [place] [address] [place] [address] PCP - General Nurse Practitioner Family 12/04/18 documented as of this encounter
--- OUTSIDE RECORDS SUMMARY | 2025-03-10 10:35 | XMS_ITS | Encounter Summary ---
Author Organization [facility] Address [address] [place] [address] Care Team Providers Care Certified Physical Therapist Assistant Name Role Phone Libia Mejia [facility] Primary Care Provider Encounter Details Date Type Department Care Team (Late st Contact Info) Description 04/30/2024 Café Canusat Message Enc [facility] [address] [place], [place] [id number] Libia Mejia [facility] [address] [place] [address] Blood Pressure Social History Tobacco Use Types [...] Sex Assigned at Female 10/02/2024 11:08 AM PLANT ECOLOGIST Legal Sex Female 1:00 PM CDT Gender Identity Not on file Sexual Orientation Not on file documented as of this encounter Functional Status * RETIRED Are you deaf or do you have serious difficulty hearing Answer Date of Assessment Author Status No 08/04/2020 5:16 AM PLANT ECOLOGIST Activ e * RETIRED Are you blind or do you have serious difficulty seeing, even when wearing glasses? Answer Date of Assessment Author Status No 08/04/2020 5:16 AM PLANT ECOLOGIST Acti ve * Do you have serious difficulty walking [...] documented in this encounter Progress Notes * CLAIRE Norris - 05/01/2024 10:40 AM CDT She [...] documented as of this encounter Care Teams Certified Physical Therapist Assistant Relationship Specialty Start Date End Date Libia Mejia FNP [address] [place] [address] [place] [address] PCP - General Nurse Practitioner Family 12/04/18 documented as of this encounter
--- OUTSIDE RECORDS SUMMARY | 2025-03-10 10:36 | XMS_ITS | Data Portability ---
Author Organization [facility] Address [address] [place] [address] [place] [address] Care Team Providers Care Shipping Supervisor Name Role Phone ARMANDO CARROLL Primary Care Provider [phone] Assessment Encounter Date Assessment Date Assessment LastModified by Organization Details LastModified Time 01/21/2025 01/21/2025 Patient is ___weeks . Discussed plan. Not available 01/21/2025 11:16:00 02/02/2025 02/02/2025 Patient is ___weeks . Discussed plan. [email or web address] Not available 02/02/2025 10:49:03 Plan of Treatment Reminders Order Date Submit Date Provider Last Modified By Organization Details Last Modified Time Details Appointments OB ROUTINE 2024 09:45A Suzette BARRAZA MD Not available Not available Not available Lab urinalysi s, dipstick 2024 025 [email or web address] [place], [address], [place], [address], 02/02/2025 11:12:04 Referral None recorded. Procedures None recorded. Surgeries None recorded. Imaging US, obstetric , follow-up 2024 025 [email or web address] [place], [address], [place], [address], 02/04/2025 16:38:01 Medication Orders None recorded. Patient TargetsNo targets recorded. Patient InstructionsNo instructions recorded. Reason for Referral None Reported. Results Created Date Observation Date Name Description Value Unit Range Abnormal Flag Note LastModifiedBy Organization Detail LastModifiedTime 01/22/20 25 01/21/2025 GTT - GESTA MADELEINE L SCREE N, ACOG OB glucose, 1 hour screen 93 mg/dL 70-135 Not Available [facility] (Lab) [address] [facility], [place], [address], 01/22/2025 11:52:34 01/22/20 25 01/21/2025 HIV 1/2 ANTIG EN/AN TIBOD Y, REFLE X CONFI RMATI ON HIV antigen/anti body Nonrea ctive nonrea ctive HIV-1 antig en and HIV-1 /HIV- 2 antib odies were not detec melany. No labor atory evide nce of HIV infec tion. Not Available [facility] (Lab) [address] [facility], [place], [address], 01/22/2025 11:52:34 01/22/20 25 01/21/2025 HEMAT OCRIT (HCT) HCT 33.5 % (based on docume nted legal sex) 34.0-4 5.0 low Not Available [facility] (Lab) [address] [facility], [place], [address], 01/22/2025 11:52:35 01/22/20 25 01/21/2025 HEMOG LOBIN (HGB) HGB 10.8 g/dL (based on docume nted legal sex) 11.6-1 5.4 low Not Available [facility] (Lab) [address] [place], [address], 01/22/2025 11:52:35 01/22/20 25 01/21/2025 RPR SCREE N, REFLE X TITER /CONF IRMAT ION RPR qualitative Nonrea ctive nonrea ctive Not Available [facility] (Lab) [address] [place], [address], 01/22/2025 11:52:36 02/03/20 25 02/02/2025 urina lysis , dipst ick Leukocytes - Not Available Skyler lopez [address], [place], [address], 02/02/2025 11:10:56 02/03/20 25 02/02/2025 urina lysis , dipst ick Nitrite - Not Available [place] [address], [place], [address], 02/02/2025 11:10:56 02/03/20 25 02/02/2025 urina lysis , dipst ick Urobilinogen - Not Available Francheksa bland [address], [place], [address], 02/02/2025 11:10:56 02/03/20 25 02/02/2025 urina lysis , dipst ick Protein trace Not Available [place] [address], [place], [address], 02/02/2025 11:10:56 02/03/20 25 02/02/2025 urina lysis , dipst ick pH 8 Not Available [place] [address], [place], [address], 02/02/2025 11:10:56 02/03/20 25 02/02/2025 urina lysis , dipst ick Specific [place] 1.000 Not Available [facility] [address], [place], [address], 02/02/2025 11:10:56 02/03/20 25 02/02/2025 urina lysis , dipst ick Ketone - Not Available [place] [address], [place], [address], 02/02/2025 11:10:56 02/03/20 25 02/02/2025 urina lysis , dipst ick Bilirubin - Not Available Susannah wetzel [address], [place], [address], 02/02/2025 11:10:56 02/03/20 25 02/02/2025 urina lysis , dipst ick Glucose - Not Available [place] [address], [place], [address], 02/02/2025 11:10:56 02/03/20 25 02/02/2025 urina lysis , dipst ick Appearance clear Not Available [facility] [address], [place], [address], 02/02/2025 11:10:56 02/03/20 25 02/02/2025 urina lysis , dipst ick Color light yellow Not Available [place] [address], [place], [address], 02/02/2025 11:10:56 12/27/19 25 12/26/2024 US, obste tric, follo w-up No observ ation record ed. [email or web address] [place] [address], [place], [address], 12/26/2024 17:52:25 12/27/19 25 12/26/2024 US, obste tric, follo w-up No observ ation record ed. [email or web address] [address], [place], [address], 02/06/2025 10:00:17 02/05/20 25 02/04/2025 US, obste tric, follo w-up No observ ation record ed. [email or web address] [place] [address], [place], [address], 02/04/2025 18:41:04 02/05/20 25 02/04/2025 US, obste tric, follo w-up No observ ation record ed. MARCO A [address], [place], [address], 02/12/2025 16:29:54 Result Notes None recorded. Problems Name Problem SNOMED Code Status Onset Date Resolution Date Notes Provider Name and Address Organization Details Recorded Time 94899928 Active 2024 Esha friedman, [facility] 5 11:17:12 Premature delivery 902400859 Active 4# 12, Gestation al age unknown Jose Snider MD [address], [place], [address], [facility] 5 11:48:53 growth restricti on 56031792 Active HISTORICA L - uncertain if gowth restricte d or premature 1st Rhonda Bowles elder, [facility] 5 09:44:51 Generaliz ed anxiety disorder 11280747 Active 2024 restarted meds Jose Snider MD [address], [place], [address], [facility] 5 17:26:25 Problem Notes None recorded. Procedures Surgical History Date Name Laterality Status Provider Name and Address Organization Details Recorded Time 5 Date of Last Pap Smear completed TINO Flowers [facility] 02/07/2025 12:18:08 3 extraction of wisdom tooth completed Esha Gabriel [facility] 09/21/2024 10:09:01 Imaging Results None recorded. Procedure Notes None recorded. Medical Equipment None Reported. Allergies Allergen ID Allergen Name Allergen Category Reaction Reaction Severity Criticality Documentation Date Start Date Code Code System Note Provider Name and Address Organization Details Recorded Time 84832 amoxicill in medicatio n hives mild Not available 09/21/2024 723 RxNorm Esha friedman, [facility] 5 10:01:42 Medications Name Sig Start [...] Available Vitals Date Recorded Body weight Systolic And Diastolic Provider Name and Address Organization Details Last Updated DateTime 01/21/2025 72891.19815 g 121/80 mm[Hg] Esha Gabriel [facility] 01/21/2025 11:16:28 Date Recorded Body height Body mass index (BMI) Body weight Systolic And Diastolic Provider Name and Address Organization Details Last Updated DateTime 02/02/2025 166.37 cm 31.6 kg/m2 53099.89 g 102/72 mm[Hg] Tawanna Freitas [facility] 02/02/2025 10:49:42 Date Recorded Body height Body mass index (BMI) Body weight Systolic And Diastolic Provider Name and Address Organization Details Last Updated DateTime 02/11/2025 166.37 cm 31.6 kg/m2 53078.33 g 102/70 mm[Hg] TINO Flowers [facility] 02/11/2025 17:18:25 Date Recorded Body height Body mass index (BMI) Body weight Systolic And Diastolic Provider Name and Address Organization Details Last Updated DateTime 03/01/2025 166.37 cm 32 kg/m2 36724.51 g 109/73 mm[Hg] TINO Flowers [facility] 03/01/2025 09:58:24 Social History Question Answer Notes LastModified by Organizat ion Details LastModified Time Do You Have An Advance Directive? No [email or web address] Information n ot available 02/07/2025 How Many Years Have You Consumed Alcohol? 11 Information not available 09/21/2024 Are You Blind Or Do You Have Difficulty Seeing? No Information n ot available 09/21/2024 What Is Your Level Of Caffeine Consumption? Occasional [email or web address] Information not available 02/07/2025 How Much Tobacco Do You Chew? None [email or web address] Information not available 02/02/2025 In The 14 [...] Or The Highest Degree You Have Received? [id number] Information not available 09/21/2024 Are There Any [...] available 09/21/2024 Are you able to walk? 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 Occasional [email or web address] Information not available 02/07/2025 Mental Status Question Answer Note LastModified by Organization D etails LastModified Time Do you feel stressed (tense, restless, nervous, or anxious, or unable to sleep at night)? AX32286-5 [email or web address] Information not available 02/07/2025 Family History Relationship [...] SNOMED-CT Code Diagnosis ICD10 Code Diagnosis Note [id number] Jose Snider MD [place] [address] [address] 09/21/2024 09:05:00 09/21/2024 09:42:37 [id number] MD Rajiv Dao [address],[place] [address] 09/21/2024 09:05:54 09/21/2024 10:29:42 Nausea and vomiting 42962763 R11.2 Amenorrhea 02654304 N91. 2 [id number] MD Rajiv Dao [address],[place] [address] 10/02/2024 10:02:20 10/02/2024 11:04:07 screening 771770813 Z36.82 Z3A.12 [id number] MD Rajiv Dao [address],[place] [address] 10/02/2024 10:03:03 10/02/2024 11:58:22 Routine care 950473004 Z34.90 [id number] MD Rajiv Dao [address],[place] [address] 10/30/2024 10:36:07 10/30/2024 12:20:37 Routine care 992582827 Z34.90 [id number] MD Rajiv Dao [address],[place] [address] 11/26/2024 10:15:47 11/26/2024 11:38:55 screening 161708086 Z36.3 Z3A.20 [id number] MD Rajiv Dao [address],[place] [address] 11/26/2024 10:17:40 11/26/2024 12:07:45 Routine care 828685206 Z34.90 [id number] MD Rajiv Dao [address],[place] [address] 12/26/2024 15:35:17 12/26/2024 16:37:06 anatomy study 154426585 Z36.2 Z3A.24 [id number] Jose Snider MD [place] [address],[place] [address] 12/26/2024 15:35:56 12/27/2024 02:38:23 care status 411692819 Z34.82 Anxiety 90881597 F41.9 [id number] MD Rajiv Dao [address],[place] [address] 01/21/2025 10:35:11 01/21/2025 11:23:34 care status 741351429 Z34.83 [id number] Jose Snider MD [place] [address],[place] [address] 02/02/2025 10:42:10 02/02/2025 11:10:20 care status 883377508 Z34.83 Urinary sy stem finding 985496258 R39.9 [id number] Jose Snider MD [place] [address],[place] [address] 02/04/2025 14:51:25 02/04/2025 16:24:53 care: obstetric risk 864632604 O09.293 O09.893 Z3A.30 [id number] ANGELLA BARRAZA MD [place] [address],[place] [address] 02/11/2025 16:46:22 02/11/2025 17:53:42 Pain of hip region 06859573 M25.551 M25.552 - seeing PT- discussed conservati ve treatment Gestation period, 31 weeks 42044410 Z3A.31 - continue PNV [id number] ANGELLA BARRAZA MD [place] [address],[place] [address] 03/01/2025 09:52:48 03/01/2025 10:19:20 Premature uterine contraction 300999854 O47.00 - was seen at [place] on Tuesday for contractio ns- s/p terbutalin e, no further contractio ns- ROMplus neg- discussed precaution s Gestation period, 33 weeks 64857600 Z3A.33 - continue [facility] Health Concerns Section Related Observation LastModified by Organization Maria Elena ls LastModified Time None Recorded Concern Status LastModified by Organization Details LastModified Time None Recorded Advance Directives Directive N: Payers Insurance Date Sequence Insurance Name Policy Number Policy Calderon Covered Member ID Calderon Member ID Guarantor Name 02/28/2025 1 [place] [facility] [place] OF PUBLIC AID NONE Nika O'Kenny [id number] Nika O'Kenny 02/28/2025 1 [facility] (MEDICAID [place]) [id number] Nika O'Kenny [id number] Nika O'Kenny 02/28/2025 2 [facility] (MEDICAID HMO) [id number] Nika O'Kenny [id number] Nika O'Kenny 11/26/2024 1 *SELF PAY* elby O'Kenny 03/04/2025 1 [facility] (MEDICAID HMO) [id number] Nika O'Kenny [id number] Nika O'Kenny 02/28/2025 1 [place] [facility] [place] OF PUBLIC AID Nika O'Kenny [id number] Nika O'Kenny OBGyn Episode Ob Episode Information Episode Created Date Number of Fetuses Patient Bloodtype Patient rh Status Prepregnancy Weight lbs Domestic Partner Domestic Partner Phone Father Name Hr Leader Status 09/21/19 25 1 CLOSED Fetus Data First Name Last Name Admitted to NICU Weight (g) Sex Living Outcome Pediatric Complications Fetus ID Race Codes Race Delivery Type 2891.64 9 F Full Term 70909 Vaginal Delivery Zane Calculation Initial Zane Date [...] Domestic Partner Domestic Partner Phone Father Name Hr Leader Status 09/21/19 25 1 CLOSED Fetus Data First Name Last Name Admitted to NICU Weight (g) Sex Living Outcome Pediatric Complications Fetus ID Race Codes Race Delivery Type , Spontane ous 53152 Zane Calculation Initial Zane Date Initial Exam [...] Domestic Partner Domestic Partner Phone Father Name Hr Leader Status 10/02/19 25 1 A Positive 202 Jose OPEN Fetus Data First Name Last Name Admitted to NICU Weight (g) Sex Living Outcome Pediatric Complications Fetus ID Race Codes Race Delivery Type 41865 Problems Problem Notes Problem Name Start Date End Date Resolution Snomed Code Not e growth restriction 45362158 HISTORICAL - uncertain if gowth restricted or premature 1st Generalized anxiety disorder 12/26/2024 89900250 restarted meds Premature delivery 094286671 4 # 12, Gestational age unknown Zane [...] Weight in lbs Pre/Post Dialysis Refused Weight 199.839572181400 BP Diastolic BP Location Tested BP Systolic [...] Type Weight in lbs Pre/Post Dialysis Refused 196.658807563552 BP Diastolic BP Location Tested BP Systolic [...] Weight in lbs Pre/Post Dialysis Refused Weight 196.007404917018 BP Diastolic BP Location Tested BP Systolic BP Type 76 L arm 120 sitting Fetus Heart Rate Present A 145 Fetus Movement A Yes Comments no complaints, no problems, routine care, no contractions, no vaginal bleeding, no loss of fluid, no cramping Flowsheet Date 12/26/2024 Rocha Score Blood Edema [...] Type Weight in lbs Pre/Post Dialysis Refused 197.343317038034 BP Diastolic BP Location Tested BP Systolic [...] Type Weight in lbs Pre/Post Dialysis Refused 194.283483445371 BP Diastolic BP Location Tested BP Systolic [...] Weight in lbs Pre/Post Dialysis Refused Weight 192.745113276455 BP Diastolic BP Location Tested BP Systolic [...] Weight in lbs Pre/Post Dialysis Refused Weight 193.639575194618 BP Diastolic BP Location Tested BP Systolic [...] Weight in lbs Pre/Post Dialysis Refused Weight 195.451068365554 BP Diastolic BP Location Tested BP Systolic [...] Domestic Partner Domestic Partner Phone Father Name Hr Leader Status 09/21/19 25 1 CLOSED Fetus Data First Name Last Name Admitted to NICU Weight (g) Sex Living Outcome Pediatric Complications Fetus ID Race Codes Race Delivery Type 2154.56 2 M Prematur e 52647 Vaginal Delivery Zane Calculation Initial Zane Date [...]
--- OUTSIDE RECORDS SUMMARY | 2025-03-10 10:36 | XMS_ITS | Clinical Summary ---
Author Organization [facility] Address [address] [place] [address] Care Team Providers Care Banana Ripening Room Supervisor Name Role Phone Libia Mejia INFORMATION TECHNOLOGY DIRECTOR Primary Care Provider [phone] Allergies Active Allergy Reactions Criticality Noted Date [...] Resolved Date Breast feeding status of mother ([facility]) 05/06/2021 12/11/2021 Assessment & Plan (05/06/2021 6:59 [...] She will use a brace for comfort. ([facility]) 08/04/2020 12/12/19 22 Thrombosed external hemorrhoid 05/30/2020 10/28/2021 Supervision of high-risk pre gnancy with grand multiparity in third trimester ([facility]) 02/06/2018 11/18/2021 Supervision of normal intrau terine in multigravida, third trimester ([facility]) 02/06/2018 11/18/2021 Labor and delivery indicatio n for care or intervention ([facility]) 02/04/2018 11/18/2021 Encounters Date Type Department Care Team Description 02/19/2025 10:51 AM CDT - 02/19/2025 11:59 PM CDT Hospital Encounter [facility] [address] [place] [address] Jose Snider MD Davidson, Brooke M, HYDROMETEOROLOGIST Discharge Disposition: Home or Self Care (Routine Discharge) 02/19/2025 Travel 02/15/2025 9:52 AM CDT - 02/15/2025 11:59 PM CDT Hospital Encounter [facility] [address] [place] [address] Jose Snider MD Hays, Michelle, HYDROMETEOROLOGIST Discharge Disposition: Home or Self Care (Routine Discharge) 02/15/2025 Travel 02/08/2025 4:00 PM CDT - 02/08/2025 11:59 PM CDT Hospital Encounter [facility] [address] [place] [address] Jose Snider MD Emerick, Noah D, PT Low Back Pain Discharge Disposition: Home or Self Care (Routine Discharge) 02/08/2025 Travel 01/31/2025 10:18 AM CDT - 01/31/2025 11:59 PM CDT Hospital Encounter [facility] [address] [place] [address] Jose Snider MD McClenahan, Krystal M, PT Discharge Disposition: Home or Self Care (Routine Discharge) 01/31/2025 Travel 01/25/2025 9:45 AM CDT - 01/25/2025 11:59 PM CDT Hospital Encounter [facility] [address] [place] [address] Jose Snider MD Davidson, Brooke M, HYDROMETEOROLOGIST Discharge Disposition: Home or Self Care (Routine Discharge) 01/25/2025 Travel 01/11/2025 9:45 AM CDT - 01/11/2025 11:59 PM CDT Hospital Encounter [facility] [address] [place] [address] Jose Snider MD McClenahan, Krystal M, PT Discharge Disposition: Home or Self Care (Routine Discharge) 01/11/2025 Travel 01/07/2025 9:54 AM CDT - 01/07/2025 11:59 PM CDT Hospital Encounter [facility] [address] [place] [address] Jose Snider MD Scott, Kelli, HYDROMETEOROLOGIST Back Pain Discharge Disposition: Home or Self Care (Routine Discharge) 01/07/2025 Travel 12/28/2024 9:39 AM CDT - 12/28/2024 11:59 PM CDT Hospital Encounter [facility] [address] [place] [address] Jose Snider MD Scott, Kelli, HYDROMETEOROLOGIST Low Back Pain Discharge Disposition: Home or Self Care (Routine Discharge) 12/28/2024 Travel 12/24/2024 9:57 AM CDT - 12/24/2024 11:59 PM CDT Hospital Encounter [facility] [address] [place] [address] Jose Snider MD Timmermann, Candice P, HYDROMETEOROLOGIST Discharge Disposition: Home or Self Care (Routine Discharge) 12/24/2024 Travel 12/17/2024 9:56 AM CDT - 12/17/2024 11:59 PM CDT Hospital Encounter [facility] [address] [place] [address] Jose Snider MD Timmermann, Candice P, HYDROMETEOROLOGIST Discharge Disposition: Home or Self Care (Routine Discharge) 12/17/2024 Travel 12/10/2024 9:55 AM CDT - 12/10/2024 11:59 PM CDT Hospital Encounter [facility] [address] [place] [address] Jose Snider MD Hays, Michelle, [facility] Discharge Disposition: Home or Self Care (Routine Discharge) 12/10/2024 Travel from Last 3 Months Immunizations Immunization [...] Sex Assigned at Female 10/02/2024 11:[address]EMAN Legal Sex Female 1:00 PM CDT Gender Identity Not on file Sexual Orientation Not on file Last Filed Vital Signs Vital Sign Reading Time Taken Comments Blood Pressure 102/68 10/24/2024 2:[address] Pulse 83 10/24/2024 2:[address]EM[address] Temperature 37.1 C (98.7 F) 10/24/2024 2:[address]EMAN Respiratory Rate 16 10/24/2024 2:[address]EMAN Oxygen Saturation 100% 10/24/2024 2:[address]EM[address] Inhaled Oxygen Concentration - - Weight 88.9 kg (196 lb) 10/24/2024 2:[address]EM[address] Height 166.4 cm (5' 5.5) 10/24/2024 2:[address]EM[address] Body Mass Index 32.12 10/24/2024 2:[address] Plan of Treatment Health Maintenance Due Date Last Done Comments COVID-19 Vaccine (#1) 11/14/1996 Hepatitis B Vaccines (1 of 3 - 19+ 3-dose series) 11/14/2010 Pneumococcal Vaccine: Pediatrics (0 to 5 Years) and At-Risk Patients (6 to 49 Years) (1 of 2 - PCV) 11/14/2010 Annual Physical 01/30/2025 01/31/2024 Cervical Cancer Screening Pap Smear (Age 30 to 64) Every 3 Years 10/02/2027 10/02/2024, 09/21/2024, 12/12/2014 Cervical Cancer Screening Pap with HPV Testing (Age 30 to 64) Every 5 Years 09/21/2029 09/21/2024, 12/12/2014 Cervical Cancer Screening with HPV 09/21/2029 DTaP, Tdap and Td Vaccines (5 - Td or Tdap) 12/08/2032 12/08/2022, 07/03/2020, 02/08/2018, Additional history exists Hepatitis C Completed 10/02/2024, 10/02/2024 PHQ-2 (Physician [facility]) Completed 10/24/2024 HPV Vaccines Aged Out No [...] test [facility] specimens have been determined by [facility]. JO ANN SPANGLER MD HPV MRNA E6/E7 Detected(A) Not Detected [facility] TO EPIC CONVERSION Comment: This test was performed using the APTIMA HPV Assay ([employer] This assay detects E6/E7 viral messenger RNA (mRNA) from 14 high-risk HPV types (16,18,31,33,35,39,45,51,52,56,58,59,66,68). JO ANN SPANGLER MD REFLEX ADDED yes [facility] TO EPIC CONVERSION Comment: THIS TEST WAS PERFORMED AT [facility] [address], [place] [address] 12/12/2014 4:50 PM CDT 12/12/2014 4:50 PM CDT Narrative [facility] TO EPIC CONVERSION - 12/25/2014 11:04 AM CDT This lab was migrated from [facility] and may be missing annotations or result text, please check the Media tab for the most complete results. Jenna Daly CNM PATHOLOGY/CYTOLOGY ORDERA BLES Final Result Performing Organization Address City/State/[facility] Co de Phone Number [facility] TO EPIC CONVERSION from Last 3 Months or Most Recently Relevant to Health Maintenance Insurance Advance Directives Documents on File Type Date Recorded Patient Garage Door Service Technician Expl anation Advance Directives and Living Will [...] 9:55 PM 02/05/2018 2:55 AM Care Teams Banana Ripening Room Supervisor Relationship Specialty Start Date End Date Libia Mejia FNP [address] [place] [address] [place] [address] PCP - General Nurse Practitioner Family 12/04/18
--- NOTE | 2025-03-10 11:15 | PC.NURSE ---
SVE performed. cervix is a fingertip dilated, thick and high.
[2025-03-10 11:20] LABS: Add Urine Microscopic? YES; Appearance Urine Clear (Clear); Glucose Urine UA Negative (Negative); Leukocyte Esterase Ur 3+ LEU/UL (Negative); Nitrate Urine Negative (Negative); Non Pathogenic Casts 0-2; Specific Grav Ur 1.006 (1.001-1.035)
--- NOTE | 2025-03-10 11:20 | PC.NURSE ---
Notified Dr. Arshad on LD unit pt. cervix is fingertip, thick, and high and ROM plus negative. Contractions at this time 8-10 minites. Order received to recheck cervix in one hour and to notify OB if pain or intensity increases.
[2025-03-10 11:34] LABS: OBXCEM ROM Plus Negative (Negative)
--- NOTE | 2025-03-10 11:34 | OBADM ---
This patient, Nika Childs, admitted to the OB room OB Post 115 for observation. Patient/family oriented to hospital policies and general routines including ID bracelet, bed and alarms, visiting hours, pain management, procedures, bathroom and other care routines, personal items, smoking policy, room service/diet, and visiting hours. Patient/Family are encouraged to report perceived risks to care and to ask questions if they do not understand what they are told or what they should do.
--- NOTE | 2025-03-10 12:14 | PC.NURSE ---
Called Dr. Arshad to notify of SVE 1 hour after innitial SVE. SVE fingertip dilated, thick, -2 (however was checking cervix mid contraction). Notified of contractions 3-6 mins apart. Order received to watch for another hour and recheck cervix at that time.
--- NOTE | 2025-03-10 13:48 | PC.NURSE ---
Called Dr. Arshad and notified of SVE after another hour. SVE remains fingertip dilation, thick, high. Orders received to dc pt. to home and to provide education on emptying bladder frequently, adequate PO hydration and to return to L&d if experiencing more pain, or contractions are closer together.
--- NOTE | 2025-03-11 17:43 | P.PNOB_ITS ---
OB - Triage/Final Diagnosis Visit Information Comments/Additional reasons for admission: I have assessed the risk for this patient, Nika Samayoarian, and determined that she would benefit from observation care. Evaluation Laboratory results: Laboratory Tests 03/10/25 03/10/25 10:53 11:23 Urine Color Yellow Urine Appearance Clear Urine pH 7.5 Ur Specific [place] 1.006 Urine Protein Negative Urine Glucose (UA) Negative Urine Ketones Negative Ur Blood (Man) Negative Urine Nitrate Negative Urine Bilirubin Negative Urine Urobilinogen 0.2 Leukocyte Esterase Rfl 3+ H Urine RBC 0-2 Urine WBC 6-10 H Ur Squamous Epith Cells None seen Urine Bacteria None seen Urine Casts 0-2 Membranes Rupture Rom plus negative Final Diagnosis (1) False labor: Code(s): O47.9 - False labor, unspecified Status: Acute
== END 2025-03-10 14:16 | disposition home or self-care (01) ==
PROVIDERS: Admitting Provider Obstetrics & Gynecology; PCP Nurse Practitioner; Visit Provider Obstetrics & Gynecology
DX: O47.03 False labor before 37 completed weeks of gestation, third trimester (principal); Z3A.35 35 weeks gestation of pregnancy
CPT/HCPCS: 81001; 84112; 87086; G0378; G0379

== ENCOUNTER 2025-03-15 20:39 | Observation (INO) | payer OTHER, SELFPAY ==
[2025-03-15] VITALS (10 sets, daily range): BP systolic 105–112; BP diastolic 58–75; PULSE 88–107; TEMP 36.6; O2SAT 94–99
--- OUTSIDE RECORDS SUMMARY | 2025-03-15 20:46 | XMS_ITS | Continuity of Care Document ---
Author Organization [facility] Address [address] [place] [address] Care Team Providers Care Crown Blocker Name Role Phone ARMANDO CARROLL Primary Care Provider Assessment No assessment recorded. Plan of Treatment Reminders Order Date Submit Date Provider Last Modified By Organization Details Last Modified Time Details Appointments OB ROUTINE 2024 09:45A Suzette BARRAZA MD Not available Not available Not available OB PROBLEM 2024 01:45P Suzette BARRAZA MD Not available Not available Not available Lab None recorded . Referral None recorded . Procedures None recorded . Surgeries None recorded . Imaging None recorded . Medication Orders None recorded . Patient TargetsNo targets recorded. Patient InstructionsNo instructions recorded. Reason for Referral None Reported. Results Created Date Observation Date Name Description Value Unit Range Abnormal Flag Note LastModifiedBy Organization Detail LastModifiedTime 10/02/19 25 10/02/2024 US, obste tric, nucha l trans lucen cy No observ ation record ed. [email or web address] [facility] [address], [place], [address], 10/02/2024 13:05:51 10/02/19 25 10/02/2024 US, obste tric, nucha l trans lucen cy No observ ation record ed. [email or web address] [address], [place], [address], 10/03/2024 22:29:08 11/27/19 25 11/26/2024 US, obste tric, 2nd or 3rd trime ster No observ ation record ed. [email or web address] [facility] [address], [place], [address], 11/26/2024 16:13:44 11/27/19 25 11/26/2024 US, obste tric, follo w-up No observ ation record ed. [email or web address] [address], [place], [address], 11/28/2024 22:55:20 12/27/19 25 12/26/2024 US, obste tric, follo w-up No observ ation record ed. [email or web address] [address], [place], [address], 12/26/2024 17:52:25 12/27/19 25 12/26/2024 US, obste tric, follo w-up No observ ation record ed. [email or web address] [address], [place], [address], 02/06/2025 10:00:17 02/05/20 25 02/04/2025 US, obste tric, follo w-up No observ ation record ed. [email or web address] [address], [place], [address], 02/04/2025 18:41:04 02/05/20 25 02/04/2025 US, obste tric, follo w-up No observ ation record ed. MARCO A [address], [place], [address], 02/12/2025 16:29:54 Result Notes None recorded. Problems Name Problem SNOMED Code Status Onset Date Resolution Date Notes Provider Name and Address Organization Details Recorded Time 11143547 Active 2024 Esha friedman, [place] - [facility] 11:17:12 Premature delivery 115390839 Active 4# 12, Gestation al age unknown Jose Snider MD [address], [place], [address], [facility] 5 11:48:53 growth restricti on 78652477 Active HISTORICA L - uncertain if gowth restricte d or premature 1st Rhonda Bowles null, [facility] 5 09:44:51 Generaliz ed anxiety disorder 67494613 Active 2024 restarted meds Jose Snider MD [address], [place], [address], [facility] 5 17:26:25 Problem Notes None recorded. Procedures Surgical History Date Name Laterality Status Provider Name and Address Organization Details Recorded Time 5 Date of Last Pap Smear completed TINO Flowers [facility] 02/07/2025 12:18:08 3 extraction of wisdom tooth completed Esha Gabriel [facility] 09/21/2024 10:09:01 Imaging Results None recorded. Procedure Notes None recorded. Medical Equipment None Reported. Allergies Allergen ID Allergen Name Allergen Category Reaction Reaction Severity Criticality Documentation Date Start Date Code Code System Note Provider Name and Address Organization Details Recorded Time 61047 amoxicill in medicatio n hives mild Not available 09/21/2024 723 RxNorm Esha Gabriel [facility], [facility] 5 10:01:42 Medications Name Sig Start [...] capsule TAKE 1 CAPSULE BY MOUTH TWICE A DAY FOR 7 DAYS - TAKE WITH FOOD active Not Available Not Available No t Available duloxetine 30 mg capsule,del ayed release TAKE 1 CAPSULE BY MOUTH ONCE DAILY 09/21 completed Not Available Not Available Not Available + DHA active Not Available Not Available Not Available duloxetine 40 mg capsule,del ayed release TAKE 1 CAPSULE BY MOUTH ONCE DAILY active Not Available Not Available No t Available Vitals Date Recorded Body height Body mass index (BMI) Body weight Systolic And Diastolic Provider Name and Address Organization Details Last Updated DateTime 03/15/2025 166.37 cm 32.3 kg/m2 23302.7 g 107/74 mm[Hg] Tessa Bravo [facility] 03/15/2025 10:54:45 Social History Question Answer Notes LastModified by Organizat ion Details LastModified Time Do You Have An Advance Directive? No [email or web address] Information n ot available 02/07/2025 How Many Years Have You Consumed Alcohol? 11 Information not available 09/21/2024 Are You Blind Or Do You Have Difficulty Seeing? No Information n ot available 09/21/2024 What Is Your Level Of Caffeine Consumption? Occasional [email or web address] Information not available 02/07/2025 How Much Tobacco Do You Chew? None [email or web address] Information not available 02/02/2025 In The 14 [...] Or The Highest Degree You Have Received? [id number] Information not available 09/21/2024 Are There Any [...] 09/21/2024 Are you able to walk? ES [email or web address] Information not available 02/07/2025 What is your occupation? [employer] [email or web address] Information not available 02/07/2025 What is your exercise level? Occasional Information not available 02/07/2025 Mental Status Question Answer Note LastModified by Organization D etails LastModified Time Do you feel stressed (tense, restless, nervous, or anxious, or unable to sleep at night)? [id number] Information not available 02/07/2025 Family History Relationship [...] SNOMED-CT Code Diagnosis ICD10 Code Diagnosis Note [id number] ANGELLA BARRAZA MD [facility] [address] [address] 03/01/2025 09:52:48 03/01/2025 10:19:20 Premature uterine contraction 333223550 O47.00 - was seen at [place] on Tuesday for contractio ns- s/p terbutalin e, no further contractio ns- ROMplus neg- discussed precaution s Gestation period, 33 weeks 75417984 Z3A.33 - continue PNV [id number] ANGELLA BARRAZA MD [facility] [address] [address] 03/15/2025 10:46:45 03/15/2025 17:41:59 Generalized anxiety disorder 50702339 F41.1 - mood stable Gestation period, 35 weeks 95456862 Z3A.35 - continue PNV- GBS collected Health Concerns Section Related Observation LastModified by Organization Detai ls LastModified Time None Recorded Concern Status LastModified by Organization Details LastModified Time None Recorded Payers Encounter Date Sequence Insurance Name Policy Number Policy Calderon Covered Member ID Calderon Member ID Guarantor Name 03/15/2025 1 [facility] (MEDICAID HMO) [id number] Nika Childs [id number] Nika Cortes Episode Ob Episode Information Episode Created Date Number of Fetuses Patient Bloodtype Patient rh Status Prepregnancy Weight lbs Domestic Partner Domestic Partner Phone Father Name Linking Machine Operator Status 10/02/19 1 A Positive 202 Jose OPEN Fetus Data First Name Last Name Admitted to NICU Weight (g) Sex Living Outcome Pediatric Complications Fetus ID Race Codes Race Delivery Type [id number] Problems Problem Notes Problem Name Start Date End Date Resolution Snomed Code Not e growth restriction 40650137 HISTORICAL - uncertain if gowth restricted or premature 1st Generalized anxiety disorder 12/26/2024 30143947 restarted meds Premature delivery 552836633 4 # 12, Gestational age unknown Zane [...] Date Ultra Sound Latest Days Gestation 11/27/19 20 10/30/2024 04/13/20 1 Pre-amanda Flowsheet Flowsheet Date 10/02/2024 Rocha Score Blood Edema Fundus Height Fundus Units Glucose Ketones Leukocytes Nitrite Labor Signs Protein Cervic Dilation Cervic Effacement Cervic Station Type Weight in lbs Pre/Post Dialysis Refused Weight 199.028843488044 BP Diastolic BP Location Tested BP Systolic [...] Type Weight in lbs Pre/Post Dialysis Refused 196.410191421664 BP Diastolic BP Location Tested BP Systolic [...] Weight in lbs Pre/Post Dialysis Refused Weight 196.404596053070 BP Diastolic BP Location Tested BP Systolic [...] Type Weight in lbs Pre/Post Dialysis Refused 197.375484099318 BP Diastolic BP Location Tested BP Systolic [...] Type Weight in lbs Pre/Post Dialysis Refused 194.593634504092 BP Diastolic BP Location Tested BP Systolic BP Type 80 L arm 121 sitting Fetus Heart Rate Present A 142 Present Fetus Movement A Yes Comments no complaints, no problems, routine care, no contractions, no vaginal bleeding, no loss of fluid, no cramping Flowsheet Date 02/02/2025 Orcha Score Blood Edema Fundus Height Fundus Units Glucose Ketones Leukocytes Nitrite Labor Signs Protein Cervic Dilation Cervic Effacement Cervic Station Type Weight in lbs Pre/Post Dialysis Refused Weight 192.195042391257 BP Diastolic BP Location Tested BP Systolic [...] Weight in lbs Pre/Post Dialysis Refused Weight 193.616653976314 BP Diastolic BP Location Tested BP Systolic [...] Weight in lbs Pre/Post Dialysis Refused Weight 195.202598031442 BP Diastolic BP Location Tested BP Systolic BP Type 73 L arm 109 sitting Fetus Heart Rate Present A 140 Fetus Movement A Yes Comments Good movement. No cram ping or bleeding, however was at the hospital on Tuesday for contractions and discharge, workup negative for PPROM and received tocolysis. Needs to schedule preadmission. RTC 2 weeks. Flowsheet Date 03/15/2025 Rocha Score Blood Edema Fundus Height Fundus Units Glucose Ketones Leukocytes Nitrite Labor Signs Protein Cervic Dilation Cervic Effacement Cervic Station 1cm 50% -3 Type Weight in lbs Pre/Post Dialysis Refused Weight 197.094008852531 BP Diastolic BP Location Tested BP Systolic BP Type 74 L arm 107 sitting Fetus Heart Rate Present A 140 Fetus Movement A Yes Comments Good movement. No blee ding or LOF. Irregular contractions all week. GBS collected today. RTC 1 week. Return precautions discussed. Menstrual History Last Menstrual Date Menses Monthly [...]
--- OUTSIDE RECORDS SUMMARY | 2025-03-15 20:46 | XMS_ITS | Encounter Summary ---
Author Organization [facility] Address [address] [place] [address] Care Team Providers Care Yardage Tufting Machine Operator Name Role Phone Libia Mejia [facility] Primary Care Provider [phone] Encounter Details Date Type Department Care Team (Late st Contact Info) Description 06/03/2024 Hipbonet Message Enc [facility] [address] [place], [place] [id number] Libia Mejia [facility] [address] [place] [address] Anti depressants Social History Tobacco Use Types [...] Sex Assigned at Female 10/02/2024 11:08 AM RESEARCH TECHNICIAN Legal Sex Female 1:00 PM CDT Gender Identity Not on file Sexual Orientation Not on file documented as of this encounter Functional Status * RETIRED Are you deaf or do you have serious difficulty hearing Answer Date of Assessment Author Status No 08/04/2020 5:16 AM RESEARCH TECHNICIAN Activ e * RETIRED Are you blind or do you have serious difficulty seeing, even when wearing glasses? Answer Date of Assessment Author Status No 08/04/2020 5:16 AM RESEARCH TECHNICIAN Activ e * Do you have serious [...] documented as of this encounter Care Teams Yardage Tufting Machine Operator Relationship Specialty Start Date End Date Libia Mejia FNP [address] [place] [address] [place] [address] PCP - General Nurse Practitioner Family 12/04/18 documented as of this encounter
--- OUTSIDE RECORDS SUMMARY | 2025-03-15 20:46 | XMS_ITS | Referral Summary ---
Author Organization [facility] Address [facility] [place] [address] Care Team Providers Care Fluorescent Lighting Model Maker Name Role Phone Libia Mejia NP Primary Care Provider [phone] Allergies Active Allergy Reactions Criticality Noted Date [...] 07/10/2018 Assessment & Plan (07/10/2018 2:15 PM LICENSED STAFF MFT): BMI Follow-up includes: exercise counseling. Fibromyalgia 10/08/2016 Overview (12/16/2016): Fibromyalgia Assessment & Plan (07/10/2018 2:16 PM LICENSED STAFF MFT): Having more stress recently causing slightly more pain Assessment & Plan (11/17/2017 10:14 AM CDT): Improved on Cymbalta Assessment & Plan (10/06/2017 11:23 AM LICENSED STAFF MFT): Pain improving with work leave of absence Assessment & Plan (03/22/2017 9:36 AM CDT): Doing well when on medication consistently-worse in past week due to missing medication Moderate episode of recurrent major depressive d isorder 09/20/2016 Overview (12/16/2016): Major depressive disorder, recurrent, moderate Assessment & Plan (07/10/2018 2:18 PM LICENSED STAFF MFT): Worse due to stress Will increase Cymbalta to 60mg daily Assessment & Plan (03/06/2018 1:57 PM CDT): Continue current therapy Assessment & Plan (11/17/2017 10:19 AM CDT): Improved on Cymbalta We discussed risks/benefits of taking it still Discussed she can continue while breast feeding Assessment & Plan (10/06/2017 11:25 AM LICENSED STAFF MFT): Will resume Cymbalta I discussed the risks, [...] on file Legal Sex Female 9:27 PM LICENSED STAFF MFT Gender Identity Female 03/30/2023 5:06 AM CDT Sexual Orientation Not on file Last Filed Vital Signs Vital Sign Reading Time Taken Comments Blood Pressure 109/73 12/04/2024 11:15 AM CDT Pulse 83 12/04/2024 11:15 AM CDT Temperature 36.7 C (98 F) 12/04/2024 11:15 AM CDT Respiratory Rate 20 07/10/2018 2:02 PM LICENSED STAFF MFT Oxygen Saturation 97% 07/10/2018 2:02 PM LICENSED STAFF MFT Inhaled Oxygen Concentration - - Weight 88.8 kg (195 lb 12.8 oz) 025 11:15 AM CDT Height 165.1 cm (5' 5) 12/04/2024 11:1 5 AM CDT Body Mass Index 32.58 12/04/2024 11:15 AM CDT Plan of Treatment Not on file Insurance [facility] Care Teams Fluorescent Lighting Model Maker Relationship Specialty Start Date End Date Libia Mejia NP [address] [place] [id number] PCP - General Pediatrics 07/02/22
--- OUTSIDE RECORDS SUMMARY | 2025-03-15 20:46 | XMS_ITS | Clinical Summary ---
Author Organization [facility] Address [address] [place] [address] Care Team Providers Care Radiology Nurse Name Role Phone Brenton Kraus MD Primary Care Provider Source Comments [facility],non-owned Affiliates and Associated Physician Practices is amultiple site organization consisting of ambulatory clinics and hospital sitesin [place], [place], [place] and [place]. This disclosure is being madepursuant to the Care Everywhere program and may not contain all information available regarding this patient. Last updated 18.[facility] Allergies Active Allergy Reactions Criticality Noted Date [...] on file Legal Sex Female 5:46 PM SHOVEL LOG LOADER OPERATOR Gender Identity Not on file Sexual Orientation Not on file Last Filed Vital Signs Vital Sign Reading Time Taken Comments Blood Pressure 108/78 09/22/2016 9:37 AM SHOVEL LOG LOADER OPERATOR Pulse 69 09/22/2016 9:37 AM SHOVEL LOG LOADER OPERATOR Temperature 36.7 C (98.1 F) 09/22/2016 9:37 AM SHOVEL LOG LOADER OPERATOR Respiratory Rate - - Oxygen Saturation 97% 09/22/2016 9:37 AM SHOVEL LOG LOADER OPERATOR Inhaled Oxygen Concentration - - Weight 77.3 kg (170 lb 6.4 oz) 09/22/2016 9:37 A M SHOVEL LOG LOADER OPERATOR Height 166.4 cm (5' 5.5) 09/22/2016 9:37 AM SHOVEL LOG LOADER OPERATOR Body Mass Index 27.92 09/22/2016 9:37 AM SHOVEL LOG LOADER OPERATOR Plan of Treatment Health Maintenance Due Date [...] age to complete this topic Care Teams Radiology Nurse Relationship Specialty Start Date End Date Brenton Kraus MD [facility] [address] [place] [address] PCP - General 09/22/16
--- OUTSIDE RECORDS SUMMARY | 2025-03-15 20:46 | XMS_ITS | Data Portability ---
Author Organization [facility] Address [address] [place] [address] [address] [place] [address] Care Team Providers Care Toy Stuffer Name Role Phone ARMANDO CARROLL Primary Care Provider Assessment Encounter Date Assessment Date Assessment LastModified by Organization Details LastModified Time 02/02/2025 02/02/2025 Patient is ___weeks . Discussed plan. [email or web address] Not available 02/02/2025 10:49:03 Plan of Treatment Reminders Order Date Submit Date Provider Last Modified By Organization Details Last Modified Time Details Appointments OB ROUTINE 2024 09:45A Suzette BARRAZA MD Not available Not available Not available OB PROBLEM 2024 01:45P Suzette BARRAZA MD Not available Not available Not available Lab urinalysi s, dipstick 2024 025 [email or web address] [address], [place], [address], 02/02/2025 11:12:04 Referral None recorded. Procedures None recorded. Surgeries None recorded. Imaging US, obstetric , follow-up 2024 025 [email or web address] [address], [address], [place], [address], 02/04/2025 16:38:01 Medication Orders None recorded. Patient TargetsNo targets recorded. Patient InstructionsNo instructions recorded. Reason for Referral None Reported. Results Created Date Observation Date Name Description Value Unit Range Abnormal Flag Note LastModifiedBy Organization Detail LastModifiedTime 01/22/20 25 01/21/2025 GTT - GESTA MADELEINE L SCREE N, ACOG OB glucose, 1 hour screen 93 mg/dL 70-135 Not Available [facility] (Lab) [address], [place], [address], 01/22/2025 11:52:34 01/22/20 25 01/21/2025 HIV 1/2 ANTIG EN/AN TIBOD Y, REFLE X CONFI RMATI ON HIV antigen/anti body Nonrea ctive nonrea ctive HIV-1 antig en and HIV-1 /HIV- 2 antib odies were not detec melany. No labor atory evide nce of HIV infec tion. Not Available [facility] (Lab) [address], [place], [address], 01/22/2025 11:52:34 01/22/20 25 01/21/2025 HEMAT OCRIT (HCT) HCT 33.5 % (based on docume nted legal sex) 34.0-[address] [facility] (Lab) [address], [place], [address], 01/22/2025 11:52:35 01/22/20 25 01/21/2025 HEMOG LOBIN (HGB) HGB 10.8 g/dL (based on docume nted legal sex) 11.6-[address] [facility] (Lab) [address], [place], [address], 01/22/2025 11:52:35 01/22/20 25 01/21/2025 RPR SCREE N, REFLE X TITER /CONF IRMAT ION RPR qualitative Nonrea ctive nonrea ctive Not Available [facility] (Lab) [address], [place], [address], 01/22/2025 11:52:36 02/03/20 25 02/02/2025 urina lysis , dipst ick Leukocytes - Not Available Skyler [facility] [address], [place], [address], 02/02/2025 11:10:56 02/03/20 25 02/02/2025 urina lysis , dipst ick Nitrite - Not Available [address], [place], [address], 02/02/2025 11:10:56 02/03/20 25 02/02/2025 urina lysis , dipst ick Urobilinogen - Not Available [facility] edwina [address], [place], [address], 02/02/2025 11:10:56 02/03/20 25 02/02/2025 urina lysis , dipst ick Protein trace Not Available [address], [place], [address], 02/02/2025 11:10:56 02/03/20 25 02/02/2025 urina lysis , dipst ick pH 8 Not Available [address], [place], [address], 02/02/2025 11:10:56 02/03/20 25 02/02/2025 urina lysis , dipst ick Specific [place] 1.000 Not Available [facility] stevan [address], [place], [address], 02/02/2025 11:10:56 02/03/20 25 02/02/2025 urina lysis , dipst ick Ketone - Not Available [address], [place], [address], 02/02/2025 11:10:56 02/03/20 25 02/02/2025 urina lysis , dipst ick Bilirubin - Not Available [facility] [address], [place], [address], 02/02/2025 11:10:56 02/03/20 25 02/02/2025 urina lysis , dipst ick Glucose - Not Available [address], [place], [address], 02/02/2025 11:10:56 02/03/20 25 02/02/2025 urina lysis , dipst ick Appearance clear Not Available [facility] [address], [place], [address], 02/02/2025 11:10:56 02/03/20 25 02/02/2025 urina lysis , dipst ick Color light yellow Not Available [address], [place], [address], 02/02/2025 11:10:56 02/05/20 25 02/04/2025 US, obste tric, follo w-up No observ ation record ed. [email or web address] [address], [place], [address], 02/04/2025 18:41:04 02/05/20 25 02/04/2025 US, obste tric, follo w-up No observ ation record ed. MARCO A Abbie [address], [place], [address], 02/12/2025 16:29:54 Result Notes None recorded. Problems Name Problem SNOMED Code Status Onset Date Resolution Date Notes Provider Name and Address Organization Details Recorded Time 68302984 Active 2024 Esha [place], [place] - [facility] 5 11:17:12 Premature delivery 793425383 Active 4# 12, Gestation al age unknown Jose Snider MD [address], [place], [address], [facility] - [facility] 5 11:48:53 growth restricti on 80710631 Active HISTORICA L - uncertain if gowt restricte d or premature 1st Rhonda Bowles [facility], [facility] 5 09:44:51 Generaliz ed anxiety disorder 12528388 Active 2024 restarted meds Jose Snider MD [address], [place], [address], [facility] 5 17:26:25 Problem Notes None recorded. Procedures Surgical History Date Name Laterality Status Provider Name and Address Organization Details Recorded Time 5 Date of Last Pap Smear completed TINO Flowers [facility] 02/07/2025 12:18:08 3 extraction of wisdom tooth completed Esha Gabriel [facility] 09/21/2024 10:09:01 Imaging Results None recorded. Procedure Notes None recorded. Medical Equipment None Reported. Allergies Allergen ID Allergen Name Allergen Category Reaction Reaction Severity Criticality Documentation Date Start Date Code Code System Note Provider Name and Address Organization Details Recorded Time 10515 amoxicill in medicatio n hives mild Not available 09/21/2024 723 RxNorm Ehsashilpi Montenegroer [facility] 5 10:01:42 Medications Name Sig Start [...] TAKE 1 TABLET BY MOUTH ONCE DAILY 01/17 /2025 completed Not Available Not Available Not Available [...] Updated DateTime 02/02/2025 166.37 cm 31.6 kg/m2 59090.89 g 102/72 mm[Hg] Tawanna Freitas [facility] 02/02/2025 10:49:42 Date Recorded Body height Body mass index (BMI) Body weight Systolic And Diastolic Provider Name and Address Organization Details Last Updated DateTime 02/11/2025 166.37 cm 31.6 kg/m2 02093.33 g 102/70 mm[Hg] [facility] 02/11/2025 17:18:25 Date Recorded Body height Body mass index (BMI) Body weight Systolic And Diastolic Provider Name and Address Organization Details Last Updated DateTime 03/01/2025 166.37 cm 32 kg/m2 02998.51 g 109/73 mm[Hg] TINO [facility] 03/01/2025 09:58:24 Date Recorded Body height Body mass index (BMI) Body weight Systolic And Diastolic Provider Name and Address Organization Details Last Updated DateTime 03/15/2025 166.37 cm 32.3 kg/m2 68038.7 g 107/74 mm[Hg] Tessavinod Bravo [facility] 03/15/2025 10:54:45 Social History Question Answer Notes LastModified by Organizat ion Details LastModified Time Do You Have An Advance Directive? No [email or web address] Information n ot available 02/07/2025 How Many Years Have You Consumed Alcohol? 11 Information not available 09/21/2024 Are You Blind Or Do You Have Difficulty Seeing? No Information n ot available 09/21/2024 What Is Your Level Of Caffeine Consumption? Occasional [email or web address] Information not available 02/07/2025 How Much Tobacco Do You Chew? None [email or web address] Information not available 02/02/2025 In The 14 [...] Or The Highest Degree You Have Received? LV00184-5 Information not available 09/21/2024 Are There Any [...] 09/21/2024 Are you able to walk? 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 Occasional [email or web address] Information not available 02/07/2025 Mental Status Question Answer Note LastModified by Organization D etails LastModified Time Do you feel stressed (tense, restless, nervous, or anxious, or unable to sleep at night)? [id number] [email or web address] Information not available 02/07/2025 Family History Relationship Description Onset Age of this Age Resolved Age Notes LastModified by Organization Details LastModified Time Mother Malignant tumor of cervix Not available 2024 10:01:46 Notes:adopted met pare nts but unsure of history Medical History Condition Response Allergies (Food, seasonal, environmental ) Y Anxiety Disorder Y Arthritis Y Fibromyalgia Y Depression/ depression [...] SNOMED-CT Code Diagnosis ICD10 Code Diagnosis Note [id number] Jose Snider MD [place] [address],[facility] [place] [address] 09/21/2024 09:05:00 09/21/2024 09:42:37 [id number] Jose Snider MD [place] [address] [address] 09/21/2024 09:05:54 09/21/2024 10:29:42 Nausea and vomiting 00594613 R11.2 Amenorrhea 91103044 N91. 2 [id number] MD Rajiv Dao [address],[place] [address] 10/02/2024 10:02:20 10/02/2024 11:04:07 screening 289528913 Z36.82 Z3A.12 [id number] MD Rajiv Dao [address],[place] [address] 10/02/2024 10:03:03 10/02/2024 11:58:22 Routine care 049518317 Z34.90 [id number] MD Rajiv Dao [address],[place] [address] 10/30/2024 10:36:07 10/30/2024 12:20:37 Routine care 087209113 Z34.90 [id number] MD Rajiv Dao [address],[place] [address] 11/26/2024 10:15:47 11/26/2024 11:38:55 screening 833585094 Z36.3 Z3A.20 449652 MD Rajiv Dao [address],[place] [address] 11/26/2024 10:17:40 11/26/2024 12:07:45 Routine care 437154104 Z34.90 [id number] MD Rajiv Dao [address],[place] [address] 12/26/2024 15:35:17 12/26/2024 16:37:06 anatomy study 456988489 Z36.2 Z3A.24 [id number] MD Rajiv Dao [address],[place] [address] 12/26/2024 15:35:56 12/27/2024 02:38:23 care status 047956858 Z34.82 Anxiety 91752929 F41.9 000098 MD Rajiv Dao [address],[place] [address] 01/21/2025 10:35:11 01/21/2025 11:23:34 care status 697353366 Z34.83 [id number] Jose Snider MD [place] [address],[place] [address] 02/02/2025 10:42:10 02/02/2025 11:10:20 care status 315883472 Z34.83 Urinary sy stem finding 218256140 R39.9 [id number] Jose Snider MD [place] [address] [address] 02/04/2025 14:51:25 02/04/2025 16:24:53 care: obstetric risk 117412465 O09.293 O09.893 Z3A.30 [id number] ANGELLA BARRAZA MD [place] [address],[place] [address] 02/11/2025 16:46:22 02/11/2025 17:53:42 Pain of hip region 09833578 M25.551 M25.552 - seeing PT- discussed conservati ve treatment Gestation period, 31 weeks 54169619 Z3A.31 - continue PNV [id number] ANGELLA BARRAZA MD [place] [address],[place] [address] 03/01/2025 09:52:48 03/01/2025 10:19:20 Premature uterine contraction 844537203 O47.00 - was seen at [facility] on Tuesday for contractio ns- s/p terbutalin e, no further contractio ns- ROMplus neg- discussed precaution s Gestation period, 33 weeks 48307245 Z3A.33 - continue PNV [id number] ANGELLA BARRAZA MD [place] [address],[place] [address] 03/15/2025 10:46:45 03/15/2025 17:41:59 Generalized anxiety disorder 33139846 F41.1 - mood stable Gestation period, 35 weeks 76262363 Z3A.35 - continue PNV- GBS collected Health Concerns Section Related Observation LastModified by Organization Detai ls LastModified Time None Recorded Concern Status LastModified by Organization Details LastModified Time None Recorded Advance Directives Directive N: Payers Insurance Date Sequence Insurance Name Policy Number Policy Calderon Covered Member ID Calderon Member ID Guarantor Name 03/10/2025 1 [facility] NONE Nika O'Kenny [id number] Nika O'Kenny 03/10/2025 1 [facility] (MEDICAID HMO) [id number] Nika O'Kenny [id number] Nika O'Kenny 03/10/2025 2 [facility] (MEDICAID HMO) [id number] Niak O'Kenny [id number] Nika O'Kenny 11/26/2024 1 *SELF PAY* Sh elby O'Kenny 03/15/2025 1 [facility] (MEDICAID HMO) [id number] Nika Amadeo [id number] Nika O'Kenny 03/10/2025 1 [place] [facility] OF PUBLIC AID Nika O'Kenny [id number] Nika O'Kenny OBGyn Episode Ob Episode Information Episode Created Date Number of Fetuses Patient Bloodtype Patient rh Status Prepregnancy Weight lbs Domestic Partner Domestic Partner Phone Father Name Mesh Man Status 09/21/19 1 CLOSED Fetus Data First Name Last Name Admitted to NICU Weight (g) Sex Living Outcome Pediatric Complications Fetus ID Race Codes Race Delivery Type 2891.64 9 F Full Term 64883 Vaginal Delivery Zane Calculation Initial Zane Date [...] Domestic Partner Domestic Partner Phone Father Name Mesh Man Status 09/21/19 25 1 CLOSED Fetus Data First Name Last Name Admitted to NICU Weight (g) Sex Living Outcome Pediatric Complications Fetus ID Race Codes Race Delivery Type , Spontane ous 35753 Zane Calculation Initial Zane Date Initial Exam [...] Domestic Partner Domestic Partner Phone Father Name Mesh Man Status 10/02/19 25 1 A Positive 202 Jose OPEN Fetus Data First Name Last Name Admitted to NICU Weight (g) Sex Living Outcome Pediatric Complications Fetus ID Race Codes Race Delivery Type 98427 Problems Problem Notes Problem Name Start Date End Date Resolution Snomed Code Not e growth restriction 89618972 HISTORICAL - uncertain if gowth restricted or premature 1st Generalized anxiety disorder 12/26/2024 50511586 restarted meds Premature delivery 665482985 4 # 12, Gestational age unknown Zane [...] Weight in lbs Pre/Post Dialysis Refused Weight 199.109375075408 BP Diastolic BP Location Tested BP Systolic [...] Type Weight in lbs Pre/Post Dialysis Refused 196.884559775499 BP Diastolic BP Location Tested BP Systolic [...] Weight in lbs Pre/Post Dialysis Refused Weight 196.068513472198 BP Diastolic BP Location Tested BP Systolic [...] Type Weight in lbs Pre/Post Dialysis Refused 197.620928347256 BP Diastolic BP Location Tested BP Systolic [...] Type Weight in lbs Pre/Post Dialysis Refused 194.761972268088 BP Diastolic BP Location Tested BP Systolic [...] Weight in lbs Pre/Post Dialysis Refused Weight 192.028719606863 BP Diastolic BP Location Tested BP Systolic [...] Weight in lbs Pre/Post Dialysis Refused Weight 193.943640306430 BP Diastolic BP Location Tested BP Systolic [...] Weight in lbs Pre/Post Dialysis Refused Weight 195.631202994969 BP Diastolic BP Location Tested BP Systolic [...] Weight in lbs Pre/Post Dialysis Refused Weight 197.840327837201 BP Diastolic BP Location Tested BP Systolic [...] Domestic Partner Domestic Partner Phone Father Name Mesh Man Status 09/21/19 25 1 CLOSED Fetus Data First Name Last Name Admitted to NICU Weight (g) Sex Living Outcome Pediatric Complications Fetus ID Race Codes Race Delivery Type 2154.56 2 M Prematur e 36160 Vaginal Delivery Zane Calculation Initial Zane Date Initial Exam Date Initial Exam Provider Initial Ultrasound Date Last Menstrual Period Date Ultra Sound Weeks Gestation 0 Eighteen To Twenty Week Zane Update Ultra Sound Date Fundal Height At Umbil Quickening Date Ultra Sound Latest Weeks Gestation Final Azne Confirmed By Final Zane Confirmed Date Final [...]
--- OUTSIDE RECORDS SUMMARY | 2025-03-15 20:46 | XMS_ITS | Clinical Summary ---
Author Organization [facility] Address [address] [place] [address] Care Team Providers Care Marketing Campaign Analyst Name Role Phone Libia Mejia BOOM CONVEYOR OPERATOR Primary Care Provider [phone] Allergies Active Allergy Reactions Criticality Noted Date [...] Resolved Date Breast feeding status of mother ([facility]) 05/06/2021 12/11/2021 Assessment & Plan (05/06/2021 6:59 [...] She will use a brace for comfort. ([facility]) 08/04/2020 12/12/19 22 Thrombosed external hemorrhoid 05/30/2020 10/28/2021 Supervision of high-risk pre gnancy with grand multiparity in third trimester ([facility]) 02/06/2018 11/18/2021 Supervision of normal intrau terine in multigravida, third trimester ([facility]) 02/06/2018 11/18/2021 Labor and delivery indicatio n for care or intervention ([facility]) 02/04/2018 11/18/2021 Encounters Date Type Department Care Team Description 02/19/2025 10:51 AM CDT - 02/19/2025 11:59 PM CDT Hospital Encounter [facility] [address] [place] [address] Jose Snider MD Davidson, Brooke M, PARTS MANAGER Discharge Disposition: Home or Self Care (Routine Discharge) 02/19/2025 Travel 02/15/2025 9:52 AM CDT - 02/15/2025 11:59 PM CDT Hospital Encounter [facility] [address] [place] [address] Jose Snider MD Hays, Michelle, PARTS MANAGER Discharge Disposition: Home or Self Care (Routine Discharge) 02/15/2025 Travel 02/08/2025 4:00 PM CDT - 02/08/2025 11:59 PM CDT Hospital Encounter [facility] [address] [place] [address] Jose Snider MD Emerick, Noah D, PT Low Back Pain Discharge Disposition: Home or Self Care (Routine Discharge) 02/08/2025 Travel 01/31/2025 10:18 AM CDT - 01/31/2025 11:59 PM CDT Hospital Encounter [facility] [address] [place] [address] Jose Snider MD McClenahan, Krystal M, PT Discharge Disposition: Home or Self Care (Routine Discharge) 01/31/2025 Travel 01/25/2025 9:45 AM CDT - 01/25/2025 11:59 PM CDT Hospital Encounter [facility] [address] [place] [address] Jose Snider MD Davidson, Brooke M, PARTS MANAGER Discharge Disposition: Home or Self Care (Routine Discharge) 01/25/2025 Travel 01/11/2025 9:45 AM CDT - 01/11/2025 11:59 PM CDT Hospital Encounter [facility] [address] [place] [address] Jose Snider MD McClenahan, Krystal M, PT Discharge Disposition: Home or Self Care (Routine Discharge) 01/11/2025 Travel 01/07/2025 9:54 AM CDT - 01/07/2025 11:59 PM CDT Hospital Encounter [facility] [address] [place] [address] Jose Snider MD Scott, Kelli, SHELTON Back Pain Discharge Disposition: Home or Self Care (Routine Discharge) 01/07/2025 Travel 12/28/2024 9:39 AM CDT - 12/28/2024 11:59 PM CDT Hospital Encounter [facility] [address] [place] [address] Jose Snider MD Scott, Kelli, PARTS MANAGER Low Back Pain Discharge Disposition: Home or Self Care (Routine Discharge) 12/28/2024 Travel 12/24/2024 9:57 AM CDT - 12/24/2024 11:59 PM CDT Hospital Encounter [facility] [address] [place] [address] Jose Snider MD Timmermann, Candice P, PARTS MANAGER Discharge Disposition: Home or Self Care (Routine Discharge) 12/24/2024 Travel 12/17/2024 9:56 AM CDT - 12/17/2024 11:59 PM CDT Hospital Encounter [facility] [address] [place] [address] Jose Snider MD Timmermann, Candice P, PARTS MANAGER Discharge Disposition: Home or Self Care (Routine Discharge) 12/17/2024 Travel from Last 3 Months Immunizations Immunization [...] Sex Assigned at Female 10/02/2024 11:08 AM TRAIN EXAMINER Legal Sex Female 1:00 PM CDT Gender Identity Not on file Sexual Orientation Not on file Last Filed Vital Signs Vital Sign Reading Time Taken Comments Blood Pressure 102/68 10/24/2024 2:48 PM TRAIN EXAMINER Pulse 83 10/24/2024 2:48 PM TRAIN EXAMINER Temperature 37.1 C (98.7 F) 10/24/2024 2:48 PM TRAIN EXAMINER Respiratory Rate 16 10/24/2024 2:48 PM TRAIN EXAMINER Oxygen Saturation 100% 10/24/2024 2:48 PM TRAIN EXAMINER Inhaled Oxygen Concentration - - Weight 88.9 kg (196 lb) 10/24/2024 2:48 PM TRAIN EXAMINER Height 166.4 cm (5' 5.5) 10/24/2024 2:48 PM TRAIN EXAMINER Body Mass Index 32.12 10/24/2024 2:48 PM TRAIN EXAMINER Plan of Treatment Health Maintenance Due Date [...] Hepatitis C Completed 10/02/2024, 10/02/2024 PHQ-2 (Physician [place]) Completed 10/24/2024 HPV Vaccines Aged Out No [...] was performed using the APTIMA COMBO2 Assay ([employer] The analytical performance characteristics of this assay, when used to test SurePath specimens have been determined by [employer]. JO ANN SPANGLER MD HPV MRNA E6/E7 Detected(A) Not Detected [employer] TO EPIC CONVERSION Comment: This test was performed using the APTIMA HPV Assay ([employer] This assay detects E6/E7 viral messenger RNA (mRNA) from 14 high-risk HPV types (16,18,31,33,35,39,45,51,52,56,58,59,66,68). JO ANN SPANGLER MD REFLEX ADDED yes [facility] P TO EPIC CONVERSION Comment: THIS TEST WAS PERFORMED AT [facility] [address] [place] [address] 12/12/2014 4:50 PM CDT 12/12/2014 4:50 PM CDT Narrative [employer] TO EPIC CONVERSION - 12/25/2014 11:04 AM CDT This lab was migrated from [facility] and may be missing annotations or result text, please check the Media tab for the most complete results. Jenna Daly CNM PATHOLOGY/CYTOLOGY ORDERA BLES Final Result [employer] TO EPIC CONVERSION from Last 3 Months or Most Recently Relevant to Health Maintenance Insurance Advance Directives Documents on File Type Date Recorded Patient State Comptroller Expl anation Advance Directives and Living Will [...] 9:55 PM 02/05/2018 2:55 AM Care Teams Marketing Campaign Analyst Relationship Specialty Start Date End Date Libia Mejia FNP [address] [place] [address] [place] [address] PCP - General Nurse Practitioner Family 12/04/18
--- OUTSIDE RECORDS SUMMARY | 2025-03-15 20:46 | XMS_ITS | Clinical Summary ---
Author Organization [facility] Address [address] [place] [id number] Care Team Providers Care Bank Vault Custodian Name Role Phone Libia Mejia NP Primary Care Provider [phone] Allergies Active Allergy Reactions Criticality Noted Date [...] 07/10/2018 Assessment & Plan (07/10/2018 2:15 PM BUCKLE STRAP PUNCHER): BMI Follow-up includes: exercise counseling. Fibromyalgia 10/08/2016 Overview (12/16/2016): Fibromyalgia Assessment & Plan (07/10/2018 2:16 PM BUCKLE STRAP PUNCHER): Having more stress recently causing slightly more pain Assessment & Plan (11/17/2017 10:14 AM CDT): Improved on Cymbalta Assessment & Plan (10/06/2017 11:23 AM BUCKLE STRAP PUNCHER): Pain improving with work leave of absence Assessment & Plan (03/22/2017 9:36 AM CDT): Doing well when on medication consistently-worse in past week due to missing medication Moderate episode of recurrent major depressive d isorder 09/20/2016 Overview (12/16/2016): Major depressive disorder, recurrent, moderate Assessment & Plan (07/10/2018 2:18 PM BUCKLE STRAP PUNCHER): Worse due to stress Will increase Cymbalta to 60mg daily Assessment & Plan (03/06/2018 1:57 PM CDT): Continue current therapy Assessment & Plan (11/17/2017 10:19 AM CDT): Improved on Cymbalta We discussed risks/benefits of taking it still Discussed she can continue while breast feeding Assessment & Plan (10/06/2017 11:25 AM BUCKLE STRAP PUNCHER): Will resume Cymbalta I discussed the risks, [...] on file Legal Sex Female 9:27 PM BUCKLE STRAP PUNCHER Gender Identity Female 03/30/2023 5:06 AM CDT Sexual Orientation Not on file Obstetrics History Last Filed Vital Signs Vital Sign Reading Time Taken Comments Blood Pressure 109/73 12/04/2024 11:15 AM CDT Pulse 83 12/04/2024 11:15 AM CDT Temperature 36.7 C (98 F) 12/04/2024 11:15 AM CDT Respiratory Rate 20 07/10/2018 2:02 PM BUCKLE STRAP PUNCHER Oxygen Saturation 97% 07/10/2018 2:02 PM BUCKLE STRAP PUNCHER Inhaled Oxygen Concentration - - Weight 88.8 [...] complete this topic Varicella Vaccines Discontinued Insurance [facility] Care Teams Bank Vault Custodian Relationship Specialty Start Date End Date Libia Mejia NP [address] [place] [address] [place] [address] PCP - General Pediatrics 07/02/22
--- OUTSIDE RECORDS SUMMARY | 2025-03-15 20:46 | XMS_ITS | Encounter Summary ---
Author Organization [facility] Address [address] [place] [address] Care Team Providers Care Gas Meter Repair Supervisor Name Role Phone Libia Mejia [facility] Primary Care Provider [phone] Encounter Details Date Type Department Care Team (Late st Contact Info) Description 04/30/2024 orderboltt Message Enc [facility] [address] [place] [id number] Libia Mejia [facility] [address] [place] [address] Blood Pressure Social History Tobacco Use Types [...] Sex Assigned at Female 10/02/2024 11:08 AM INSTALLER MOLDING AND TRIM Legal Sex Female 1:00 PM CDT Gender Identity Not on file Sexual Orientation Not on file documented as of this encounter Functional Status * RETIRED Are you deaf or do you have serious difficulty hearing Answer Date of Assessment Author Status No 08/04/2020 5:16 AM INSTALLER MOLDING AND TRIM Activ e * RETIRED Are you blind or do you have serious difficulty seeing, even when wearing glasses? Answer Date of Assessment Author Status No 08/04/2020 5:16 AM INSTALLER MOLDING AND TRIM Acti ve * Do you have serious [...] documented as of this encounter Care Teams Gas Meter Repair Supervisor Relationship Specialty Start Date End Date Libia Mejia FNP [address] [place] [address] [place] [address] PCP - General Nurse Practitioner Family 12/04/18 documented as of this encounter
--- NOTE | 2025-03-15 21:36 | OBADM ---
This patient, Nika Childs, admitted to the OB room Labor/Delivery/Recovery 105 for observation. Patient/family oriented to hospital policies and general routines including ID bracelet, bed and alarms, visiting hours, pain management, procedures, bathroom and other care routines, personal items, smoking policy, room service/diet, and visiting hours. Patient/Family are encouraged to report perceived risks to care and to ask questions if they do not understand what they are told or what they should do.
== END 2025-03-15 22:56 | disposition home or self-care (01) ==
PROVIDERS: Admitting Provider Obstetrics & Gynecology; PCP Nurse Practitioner; Visit Provider Obstetrics & Gynecology
DX: O47.9 False labor, unspecified (principal)
CPT/HCPCS: A9270; G0378; G0379

== ENCOUNTER 2025-03-17 12:43 | Outpatient (RCR) | payer OTHER, SELFPAY ==
[2025-03-17 13:35] VITALS: BP 106/70; PULSE 102
== END 2025-04-04 09:53 | disposition other institution (70) ==
LOC: ANHOBOP 12:43
PROVIDERS: PCP Nurse Practitioner; Visit Provider Obstetrics & Gynecology
DX: O36.8130 Decreased fetal movements, third trimester, not applicable or unspecified (principal); Z3A.36 36 weeks gestation of pregnancy
CPT/HCPCS: 59025

== ENCOUNTER 2025-03-18 14:33 | Observation (INO) | payer OTHER, SELFPAY ==
--- OUTSIDE RECORDS SUMMARY | 2025-03-18 14:49 | XMS_ITS | Encounter Summary ---
Author Organization [facility] Address [address] [place] [address] Care Team Providers Care Lime Kiln Tender Name Role Phone Libia Mejia [facility] Primary Care Provider Encounter Details Date Type Department Care Team (Late st Contact Info) Description 04/30/2024 DUNCAN & Toddt Message Enc [facility] [address] [place] [id number] Libia Mejia [facility] [address] [place] [address] Blood Pressure Social History Tobacco Use Types [...] Sex Assigned at Female 10/02/2024 11:08 AM ENGINEERING GROUP LEADER Legal Sex Female 1:00 PM CDT Gender Identity Not on file Sexual Orientation Not on file documented as of this encounter Functional Status * RETIRED Are you deaf or do you have serious difficulty hearing Answer Date of Assessment Author Status No 08/04/2020 5:16 AM ENGINEERING GROUP LEADER Activ e * RETIRED Are you blind or do you have serious difficulty seeing, even when wearing glasses? Answer Date of Assessment Author Status No 08/04/2020 5:16 AM ENGINEERING GROUP LEADER Acti ve * Do you have serious [...] documented as of this encounter Care Teams Lime Kiln Tender Relationship Specialty Start Date End Date Libia Mejia FNP [address] [place] [address] [place] [address] PCP - General Nurse Practitioner Family 12/04/18 documented as of this encounter
--- OUTSIDE RECORDS SUMMARY | 2025-03-18 14:49 | XMS_ITS | Encounter Summary ---
Author Organization [facility] Address [address] [place] [address] Care Team Providers Care Compressed Yeast Supervisor Name Role Phone Libia Mejia [facility] Primary Care Provider [phone] Encounter Details Date Type Department Care Team (Late st Contact Info) Description 06/03/2024 Traffiot Message Enc [facility] [address] [place], [place] [id number] Libia Mejia [facility] [address] [place] [address] Anti depressants Social History Tobacco Use Types [...] Sex Assigned at Female 10/02/2024 11:08 AM FURNITURE ASSEMBLY SUPERVISOR Legal Sex Female 1:00 PM CDT Gender Identity Not on file Sexual Orientation Not on file documented as of this encounter Functional Status * RETIRED Are you deaf or do you have serious difficulty hearing Answer Date of Assessment Author Status No 08/04/2020 5:16 AM FURNITURE ASSEMBLY SUPERVISOR Activ e * RETIRED Are you blind or do you have serious difficulty seeing, even when wearing glasses? Answer Date of Assessment Author Status No 08/04/2020 5:16 AM FURNITURE ASSEMBLY SUPERVISOR Activ e * Do you [...] documented as of this encounter Care Teams Compressed Yeast Supervisor Relationship Specialty Start Date End Date Libia Mejia FNP [address] [place] [address] [place] [address] PCP - General Nurse Practitioner Family 12/04/18 documented as of this encounter
--- OUTSIDE RECORDS SUMMARY | 2025-03-18 14:49 | XMS_ITS | Clinical Summary ---
Author Organization [facility] Address [address] [place] [address] Care Team Providers Care Birth Certificate Clerk Name Role Phone Brenton Kraus MD Primary Care Provider Source Comments [facility],non-owned Affiliates and Associated Physician Practices is amultiple site organization consisting of ambulatory clinics and hospital sitesin [place], [place], [place] and [place]. This disclosure is being madepursuant to the Care Everywhere program and may not contain all information available regarding this patient. Last updated 18.[facility] Allergies Active Allergy Reactions Criticality Noted Date [...] on file Legal Sex Female 5:46 PM FOOD TRAY ASSEMBLER Gender Identity Not on file Sexual Orientation Not on file Last Filed Vital Signs Vital Sign Reading Time Taken Comments Blood Pressure 108/78 09/22/2016 9:37 AM FOOD TRAY ASSEMBLER Pulse 69 09/22/2016 9:37 AM FOOD TRAY ASSEMBLER Temperature 36.7 C (98.1 F) 09/22/2016 9:37 AM FOOD TRAY ASSEMBLER Respiratory Rate - - Oxygen Saturation 97% 09/22/2016 9:37 AM FOOD TRAY ASSEMBLER Inhaled Oxygen Concentration - - Weight 77.3 kg (170 lb 6.4 oz) 09/22/2016 9:37 A M FOOD TRAY ASSEMBLER Height 166.4 cm (5' 5.5) 09/22/2016 9:37 AM FOOD TRAY ASSEMBLER Body Mass Index 27.92 09/22/2016 9:37 AM FOOD TRAY ASSEMBLER Plan of Treatment Health Maintenance Due Date Last Done Comments HEPATITIS C SCREENING 11/10/2009 DTAP/TDAP/TD VACCINES (1 - Tdap) 11/14/2010 HEPATITIS B VACCINE (1 of 3 - 19+ 3-dose series) 11/14/2010 HPV VACCINE (1 - 3-dose SCDM series) 11/14/2018 COVID-19 VACCINE (1 - 2023-2 5 season) 2024 DEPRESSION SCREENING 09/05/2024 INFLUENZA VACCINE (#1) 2025 , 07/10/2018 PAP SMEAR 10/02/2027 10/02/2024, 10/02/2024 ZOSTER VACCINE (1 of 2) 11/14/2041 HIV SCREENING Completed 10/02/2024 HIB VACCINE Aged Out No longer eligi [...] age to complete this topic Care Teams Birth Certificate Clerk Relationship Specialty Start Date End Date Brenton Kraus MD [facility] [address], [place] [address] PCP - General 09/22/16
--- OUTSIDE RECORDS SUMMARY | 2025-03-18 14:50 | XMS_ITS | Clinical Summary ---
Author Organization [facility] Address [address] [place] [id number] Care Team Providers Care Journeyman Pipe Fitter Name Role Phone Libia Mejia NP Primary Care Provider [phone] Allergies Active Allergy Reactions Criticality Noted Date [...] 07/10/2018 Assessment & Plan (07/10/2018 2:15 PM COMPETITIVE SHOPPER): BMI Follow-up includes: exercise counseling. Fibromyalgia 10/08/2016 Overview (12/16/2016): Fibromyalgia Assessment & Plan (07/10/2018 2:16 PM COMPETITIVE SHOPPER): Having more stress recently causing slightly more pain Assessment & Plan (11/17/2017 10:14 AM CDT): Improved on Cymbalta Assessment & Plan (10/06/2017 11:23 AM COMPETITIVE SHOPPER): Pain improving with work leave of absence Assessment & Plan (03/22/2017 9:36 AM CDT): Doing well when on medication consistently-worse in past week due to missing medication Moderate episode of recurrent major depressive d isorder 09/20/2016 Overview (12/16/2016): Major depressive disorder, recurrent, moderate Assessment & Plan (07/10/2018 2:18 PM COMPETITIVE SHOPPER): Worse due to stress Will increase Cymbalta to 60mg daily Assessment & Plan (03/06/2018 1:57 PM CDT): Continue current therapy Assessment & Plan (11/17/2017 10:19 AM CDT): Improved on Cymbalta We discussed risks/benefits of taking it still Discussed she can continue while breast feeding Assessment & Plan (10/06/2017 11:25 AM COMPETITIVE SHOPPER): Will resume Cymbalta I discussed the risks, [...] on file Legal Sex Female 9:27 PM COMPETITIVE SHOPPER Gender Identity Female 03/30/2023 5:06 AM CDT Sexual Orientation Not on file Obstetrics History Last Filed Vital Signs Vital Sign Reading Time Taken Comments Blood Pressure 109/73 12/04/2024 11:15 AM CDT Pulse 83 12/04/2024 11:15 AM CDT Temperature 36.7 C (98 F) 12/04/2024 11:15 AM CDT Respiratory Rate 20 07/10/2018 2:02 PM COMPETITIVE SHOPPER Oxygen Saturation 97% 07/10/2018 2:02 PM COMPETITIVE SHOPPER Inhaled Oxygen Concentration - - Weight 88.8 [...] complete this topic Varicella Vaccines Discontinued Insurance [facility] Care Teams Journeyman Pipe Fitter Relationship Specialty Start Date End Date Libia Mejia NP [address] [place] [address] [place] [address] PCP - General Pediatrics 07/02/22
--- OUTSIDE RECORDS SUMMARY | 2025-03-18 14:50 | XMS_ITS | Clinical Summary ---
Author Organization [facility] Address [address] [place] [address] Care Team Providers Care Surface Plate Finisher Name Role Phone Libia Mejia SORTING COWS WORKER Primary Care Provider [phone] Allergies Active Allergy Reactions Criticality Noted Date [...] Resolved Date Breast feeding status of mother ([facility]) 05/06/2021 [...] She will use a brace for comfort. ([facility]) 08/04/2020 12/12/19 22 Thrombosed external hemorrhoid 05/30/2020 10/28/2021 Supervision of high-risk pre gnancy with grand multiparity in third trimester ([facility]) 02/06/2018 11/18/2021 Supervision of normal intrau terine in multigravida, third trimester ([facility]) 02/06/2018 11/18/2021 Labor and delivery indicatio n for care or intervention ([facility]) 02/04/2018 11/18/2021 Encounters Date Type Department Care Team Description 02/19/2025 10:51 AM CDT - 02/19/2025 11:59 PM CDT Hospital Encounter [facility] [address] [place] [address] Jose Snider MD Davidson, Brooke M, PATIENT SERVICES MANAGER Discharge Disposition: Home or Self Care (Routine Discharge) 02/19/2025 Travel 02/15/2025 9:52 AM CDT - 02/15/2025 11:59 PM CDT Hospital Encounter [facility] [address] [place] [address] Jose Snider MD Hays, Michelle, PATIENT SERVICES MANAGER Discharge Disposition: Home or Self Care (Routine Discharge) 02/15/2025 Travel 02/08/2025 4:00 PM CDT - 02/08/2025 11:59 PM CDT Hospital Encounter [facility] [address] [place] [address] Jose Snider MD Emerick, Noah D, PT Low Back Pain Discharge Disposition: Home or Self Care (Routine Discharge) 02/08/2025 Travel 01/31/2025 10:18 AM CDT - 01/31/2025 11:59 PM CDT Hospital Encounter [facility] [address] [place] [address] Jose Snider MD McClenahan, Krystal M, PT Discharge Disposition: Home or Self Care (Routine Discharge) 01/31/2025 Travel 01/25/2025 9:45 AM CDT - 01/25/2025 11:59 PM CDT Hospital Encounter [facility] [address] [place] [address] Jose Snider MD Davidson, Brooke M, PATIENT SERVICES MANAGER Discharge Disposition: Home or Self Care (Routine Discharge) 01/25/2025 Travel 01/11/2025 9:45 AM CDT - 01/11/2025 11:59 PM CDT Hospital Encounter [facility] [address] [place] [address] Jose Snider MD McClenahan, Krystal M, PT Discharge Disposition: Home or Self Care (Routine Discharge) 01/11/2025 Travel 01/07/2025 9:54 AM CDT - 01/07/2025 11:59 PM CDT Hospital Encounter [facility] [address] [place] [address] Jose Snider MD Scott, Kelli, SHELTON Back Pain Discharge Disposition: Home or Self Care (Routine Discharge) 01/07/2025 Travel 12/28/2024 9:39 AM CDT - 12/28/2024 11:59 PM CDT Hospital Encounter [facility] [address] [place] [address] Jose Snider MD Scott, Kelli, PATIENT SERVICES MANAGER Low Back Pain Discharge Disposition: Home or Self Care (Routine Discharge) 12/28/2024 Travel 12/24/2024 9:57 AM CDT - 12/24/2024 11:59 PM CDT Hospital Encounter [facility] [address] [place] [address] Jose Snider MD Timmermann, Candice P, PATIENT SERVICES MANAGER Discharge Disposition: Home or Self Care (Routine Discharge) 12/24/2024 Travel 12/17/2024 9:56 AM CDT - 12/17/2024 11:59 PM CDT Hospital Encounter [facility] [address] [place] [address] Jose Snider MD Timmermann, Candice P, PATIENT SERVICES MANAGER Discharge Disposition: Home or Self Care [...] Sex Assigned at Female 10/02/2024 11:08 AM SCIENTIFIC LABORATORY SUPERVISOR Legal Sex Female 1:00 PM CDT Gender Identity Not on file Sexual Orientation Not on file Last Filed Vital Signs Vital Sign Reading Time Taken Comments Blood Pressure 102/68 10/24/2024 2:48 PM SCIENTIFIC LABORATORY SUPERVISOR Pulse 83 10/24/2024 2:48 PM SCIENTIFIC LABORATORY SUPERVISOR Temperature 37.1 C (98.7 F) 10/24/2024 2:48 PM SCIENTIFIC LABORATORY SUPERVISOR Respiratory Rate 16 10/24/2024 2:48 PM SCIENTIFIC LABORATORY SUPERVISOR Oxygen Saturation 100% 10/24/2024 2:48 PM SCIENTIFIC LABORATORY SUPERVISOR Inhaled Oxygen Concentration - - Weight 88.9 kg (196 lb) 10/24/2024 2:48 PM SCIENTIFIC LABORATORY SUPERVISOR Height 166.4 cm (5' 5.5) 10/24/2024 2:48 PM SCIENTIFIC LABORATORY SUPERVISOR Body Mass Index 32.12 10/24/2024 2:48 PM SCIENTIFIC LABORATORY SUPERVISOR Plan of Treatment Health Maintenance Due Date [...] Hepatitis C Completed 10/02/2024, 10/02/2024 PHQ-2 (Physician [place]) Completed 10/24/2024 HPV Vaccines Aged Out No [...] was performed using the APTIMA COMBO2 Assay ([employer] The analytical performance characteristics of this assay, when used to test SurePath specimens have been determined by [employer]. JO ANN SPANGLER MD HPV MRNA E6/E7 Detected(A) Not Detected [employer] TO EPIC CONVERSION Comment: This test was performed using the APTIMA HPV Assay ([employer] This assay detects E6/E7 viral messenger RNA (mRNA) from 14 high-risk HPV types (16,18,31,33,35,39,45,51,52,56,58,59,66,68). JO ANN SPANGLER MD REFLEX ADDED yes [facility] P TO EPIC CONVERSION Comment: THIS TEST WAS PERFORMED AT [facility] [id number] [place] [address] 12/12/2014 4:50 PM CDT 12/12/2014 4:50 PM CDT Narrative [employer] TO EPIC CONVERSION - 12/25/2014 11:04 AM CDT This lab was migrated from [email or web address] and may be missing annotations or result text, please check the Media tab for the most complete results. Jenna Daly CNM PATHOLOGY/CYTOLOGY ORDERA BLES Final Result [employer] TO EPIC CONVERSION from Last 3 Months or Most Recently Relevant to Health Maintenance Insurance Advance Directives Documents on File Type Date Recorded Patient Solderer Torch Expl anation Advance Directives and Living Will [...] 9:55 PM 02/05/2018 2:55 AM Care Teams Surface Plate Finisher Relationship Specialty Start Date End Date Libia Mejia FNP [address] [place] [address] [place] [address] PCP - General Nurse Practitioner Family 12/04/18
--- OUTSIDE RECORDS SUMMARY | 2025-03-18 14:50 | XMS_ITS | Data Portability ---
Author Organization [facility] Address [address] [place] [address] [place] [address] Care Team Providers Care Call Center Agent Name Role Phone ARMANDO CARROLL Primary Care Provider [phone] Assessment Encounter Date Assessment Date Assessment LastModified by Organization Details LastModified Time 02/02/2025 02/02/2025 Patient is ___weeks . Discussed plan. [email or web address] Not available 02/02/2025 10:49:03 Plan of Treatment Reminders Order Date Submit Date Provider Last Modified By Organization Details Last Modified Time Details Appointments OB PROBLEM 2024 01:45P Suzette BARRAZA MD Not available Not available Not available Lab urinalysi s, dipstick 2024 025 [email or web address] [place], [place], [address], 02/02/2025 11:12:04 Referral None recorded. Procedures None recorded. Surgeries None recorded. Imaging US, obstetric , follow-up 2024 025 [email or web address] [place], [address], [place], [address], 02/04/2025 16:38:01 Medication Orders None recorded. Patient TargetsNo targets recorded. Patient InstructionsNo instructions recorded. Reason for Referral None Reported. Results Created Date Observation Date Name Description Value Unit Range Abnormal Flag Note LastModifiedBy Organization Detail LastModifiedTime 01/22/20 25 01/21/2025 GTT - GESTA MADELEINE L SCREE N, ACOG OB glucose, 1 hour screen 93 mg/dL 70-135 Not Available [facility] (Lab) [address], [place], [address], 01/22/2025 11:52:34 01/22/20 25 01/21/2025 HIV 1/2 ANTIG EN/AN TIBOD Y, REFLE X CONFI RMATI ON HIV antigen/anti body Nonrea ctive nonrea ctive HIV-1 antig en and HIV-1 /HIV- 2 antib odies were not detec melany. No labor atory evide nce of HIV infec tion. Not Available [facility] (Lab) [address], [place], [address], 01/22/2025 11:52:34 01/22/20 25 01/21/2025 HEMAT OCRIT (HCT) HCT 33.5 % (based on docume nted legal sex) 34.0-4 5.0 low Not Available [facility] (Lab) [address], [place], [address], 01/22/2025 11:52:35 01/22/20 25 01/21/2025 HEMOG LOBIN (HGB) HGB 10.8 g/dL (based on docume nted legal sex) 11.6-1 5.4 low Not Available [facility] (Lab) [address], [place], [address], 01/22/2025 11:52:35 01/22/20 25 01/21/2025 RPR SCREE N, REFLE X TITER /CONF IRMAT ION RPR qualitative Nonrea ctive nonrea ctive Not Available [facility] (Lab) [address] [place], [address], 01/22/2025 11:52:36 02/03/20 25 02/02/2025 urina lysis , dipst ick Leukocytes - Not Available [facility] [address], [place], [address], 02/02/2025 11:10:56 02/03/20 25 02/02/2025 urina lysis , dipst ick Nitrite - Not Available [place] [address], [place], [address], 02/02/2025 11:10:56 02/03/20 25 02/02/2025 urina lysis , dipst ick Urobilinogen - Not Available [facility] edwina [address], [place], [address], 02/02/2025 11:10:56 02/03/20 25 02/02/2025 urina lysis , dipst ick Protein trace Not Available [place] [address], [place], [address], 02/02/2025 11:10:56 02/03/20 25 02/02/2025 urina lysis , dipst ick pH 8 Not Available [place] [address], [place], [address], 02/02/2025 11:10:56 02/03/20 25 02/02/2025 urina lysis , dipst ick Specific [place] 1.000 Not Available [facility] [address], [place], [address], 02/02/2025 11:10:56 02/03/20 25 02/02/2025 urina lysis , dipst ick Ketone - Not Available [place] [address], [place], [address], 02/02/2025 11:10:56 02/03/20 25 02/02/2025 urina lysis , dipst ick Bilirubin - Not Available [facility] damari [address], [place], [address], 02/02/2025 11:10:56 02/03/20 25 02/02/2025 urina lysis , dipst ick Glucose - Not Available [place] [address], [place], [address], 02/02/2025 11:10:56 02/03/20 25 02/02/2025 urina lysis , dipst ick Appearance clear Not Available [facility] jessica [address], [place], [address], 02/02/2025 11:10:56 02/03/20 25 02/02/2025 urina lysis , dipst ick Color light yellow Not Available [place] [address], [place], [address], 02/02/2025 11:10:56 02/05/20 25 02/04/2025 US, obste tric, follo w-up No observ ation record ed. [email or web address] [place] [address], [place], [address], 02/04/2025 18:41:04 02/05/20 25 02/04/2025 US, obste tric, follo w-up No observ ation record ed. MARCO AJUS [address], [place], [address], 02/12/2025 16:29:54 03/17/20 25 03/17/2025 imagi ng/di agnos tic resul t No observ ation record ed. MARCO A Not Available 2024 10:40:33 Result Notes None recorded. Problems Name Problem SNOMED Code Status Onset Date Resolution Date Notes Provider Name and Address Organization Details Recorded Time 06699134 Active 2024 Esha friedman [place] - [facility] 11:17:12 Premature delivery 666932230 Active 4# 12, Gestation al age unknown Jose Snider MD [address], [place], [address], [facility] 5 11:48:53 growth restricti on 61703523 Active HISTORICA L - uncertain if gowth restricte d or premature 1st Rhonda Bowles [facility], [facility] 5 09:44:51 Generaliz ed anxiety disorder 18893752 Active 2024 restarted meds Jose Snider MD [address], [place], [address], [facility] 5 17:26:25 Problem Notes None recorded. Procedures Surgical History Date Name Laterality Status Provider Name and Address Organization Details Recorded Time 5 Date of Last Pap Smear completed TINO Flowers [facility] 02/07/2025 12:18:08 3 extraction of wisdom tooth completed Esha Harvey [facility] 09/21/2024 10:09:01 Imaging Results None recorded. Procedure Notes None recorded. Medical Equipment None Reported. Allergies Allergen ID Allergen Name Allergen Category Reaction Reaction Severity Criticality Documentation Date Start Date Code Code System Note Provider Name and Address Organization Details Recorded Time 91789 amoxicill in medicatio n hives mild Not available 09/21/2024 723 RxNorm Esha Gabriel [facility], [facility] 5 10:01:42 Medications Name Sig [...] Updated DateTime 02/02/2025 166.37 cm 31.6 kg/m2 52412.89 g 102/72 mm[Hg] Tawanna Freitas [facility] 02/02/2025 10:49:42 Date Recorded Body height Body mass index (BMI) Body weight Systolic And Diastolic Provider Name and Address Organization Details Last Updated DateTime 02/11/2025 166.37 cm 31.6 kg/m2 27225.33 g 102/70 mm[Hg] [facility] 02/11/2025 17:18:25 Date Recorded Body height Body mass index (BMI) Body weight Systolic And Diastolic Provider Name and Address Organization Details Last Updated DateTime 03/01/2025 166.37 cm 32 kg/m2 96641.51 g 109/73 mm[Hg] TINO [facility] 03/01/2025 09:58:24 Date Recorded Body height Body mass index (BMI) Body weight Systolic And Diastolic Provider Name and Address Organization Details Last Updated DateTime 03/15/2025 166.37 cm 32.3 kg/m2 11515.7 g 107/74 mm[Hg] Tessa Bravo [facility] 03/15/2025 10:54:45 Social History Question Answer Notes LastModified by Organizat ion Details LastModified Time Do You Have An Advance Directive? No [email or web address] Information n ot available 02/07/2025 How Many Years Have You Consumed Alcohol? 11 Information not available 09/21/2024 Are You Blind Or Do You Have Difficulty Seeing? No Information n ot available 09/21/2024 What Is Your Level Of Caffeine Consumption? Occasional [email or web address] Information not available 02/07/2025 How Much Tobacco Do You Chew? None [email or web address] Information not available 02/02/2025 In The 14 [...] Or The Highest Degree You Have Received? [id number] Information not available 09/21/2024 Are There Any [...] 09/21/2024 Are you able to walk? 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 Occasional [email or web address] Information not available 02/07/2025 Mental Status Question Answer Note LastModified by Organization D etails LastModified Time Do you feel stressed (tense, restless, nervous, or anxious, or unable to sleep at night)? [id number] Information not available 02/07/2025 Family History Relationship [...] SNOMED-CT Code Diagnosis ICD10 Code Diagnosis Note [id number] Jose Snider MD [place] [address],[facility] [place] [address] 09/21/2024 09:05:00 09/21/2024 09:42:37 [id number] Jose Snider MD [place] [address] [address] 09/21/2024 09:05:54 09/21/2024 10:29:42 Nausea and vomiting 38460188 R11.2 Amenorrhea 98656691 N91. 2 [id number] MD Rajiv Dao [address] [address] 10/02/2024 10:02:20 10/02/2024 11:04:07 screening 904083503 Z36.82 Z3A.12 [id number] MD Rajiv Dao [address],[place] [address] 10/02/2024 10:03:03 10/02/2024 11:58:22 Routine care 991641142 Z34.90 [id number] MD Rajiv Dao [address],[place] [address] 10/30/2024 10:36:07 10/30/2024 12:20:37 Routine care 892762898 Z34.90 [id number] MD Rajiv Dao [address],[place] [address] 11/26/2024 10:15:47 11/26/2024 11:38:55 screening 078610165 Z36.3 Z3A.20 [id number] MD Rajiv Dao [address],[place] [address] 11/26/2024 10:17:40 11/26/2024 12:07:45 Routine care 604554578 Z34.90 [id number] MD Rajiv Dao [address],[place] [address] 12/26/2024 15:35:17 12/26/2024 16:37:06 anatomy study 156217123 Z36.2 Z3A.24 [id number] MD Rajiv Dao [address],[place] [address] 12/26/2024 15:35:56 12/27/2024 02:38:23 care status 919806808 Z34.82 Anxiety 67527558 F41.9 [id number] Jose Snider MD [place] [address],[place] [address] 01/21/2025 10:35:11 01/21/2025 11:23:34 care status 891252452 Z34.83 [id number] Jose Snider MD [place] [address],[place] [address] 02/02/2025 10:42:10 02/02/2025 11:10:20 care status 936216471 Z34.83 Urinary sy stem finding 776251970 R39.9 [id number] Jose Snider MD [place] [address],[place] [address] 02/04/2025 14:51:25 02/04/2025 16:24:53 care: obstetric risk 856561690 O09.293 O09.893 Z3A.30 [id number] ANGELLA BARRAZA MD [place] [address],[place] [address] 02/11/2025 16:46:22 02/11/2025 17:53:42 Pain of hip region 54676515 M25.551 M25.552 - seeing PT- discussed conservati ve treatment Gestation period, 31 weeks 78739297 Z3A.31 - continue PNV [id number] ANGELLA BARRAZA MD [place] [address],[place] [address] 03/01/2025 09:52:48 03/01/2025 10:19:20 Premature uterine contraction 577665183 O47.00 - was seen at [facility] on Tuesday for contractio ns- s/p terbutalin e, no further contractio ns- ROMplus neg- discussed precaution s Gestation period, 33 weeks 44310431 Z3A.33 - continue PNV [id number] ANGELLA BARRAZA MD [place] [address],[place] [address] 03/15/2025 10:46:45 03/16/2025 08:48:16 Generalized anxiety disorder 23240012 F41.1 - mood stable Gestation period, 35 weeks 80886524 Z3A.35 - continue PNV- GBS collected Health Concerns Section Related Observation LastModified by Organization Detai ls LastModified Time None Recorded Concern Status LastModified by Organization Details LastModified Time None Recorded Advance Directives Directive N: Payers Insurance Date Sequence Insurance Name Policy Number Policy Calderon Covered Member ID Calderon Member ID Guarantor Name 03/18/2025 1 [place] [facility] NONE Nika O'Kenny [id number] Nika O'Kenny 03/18/2025 1 [facility] (MEDICAID HMO) [id number] Nika O'Kenny [id number] Nika O'Kenny 03/18/2025 2 [facility] (MEDICAID HMO) [id number] Nika O'Kenny [id number] Nika O'Kenny 11/26/2024 1 *SELF PAY* elby O'Kenny 03/18/2025 1 [facility] (MEDICAID HMO) [id number] Nika Amadeo [id number] Nika O'Kenny 03/18/2025 1 [place] [facility] Nika O'Kenny [id number] Nika O'Kenny OBGyn Episode Ob Episode Information Episode Created Date Number of Fetuses Patient Bloodtype Patient rh Status Prepregnancy Weight lbs Domestic Partner Domestic Partner Phone Father Name Preparation Supervisor Canning Status 09/21/19 25 1 CLOSED Fetus Data First Name Last Name Admitted to NICU Weight (g) Sex Living Outcome Pediatric Complications Fetus ID Race Codes Race Delivery Type 2891.64 9 F Full Term 39107 Vaginal Delivery Zane Calculation Initial Zane Date [...] Domestic Partner Domestic Partner Phone Father Name Preparation Supervisor Canning Status 09/21/19 25 1 CLOSED Fetus Data First Name Last Name Admitted to NICU Weight (g) Sex Living Outcome Pediatric Complications Fetus ID Race Codes Race Delivery Type , Spontane ous 39231 Zane Calculation Initial Zane Date Initial Exam [...] Domestic Partner Domestic Partner Phone Father Name Preparation Supervisor Canning Status 10/02/19 25 1 A Positive 202 Jose OPEN Fetus Data First Name Last Name Admitted to NICU Weight (g) Sex Living Outcome Pediatric Complications Fetus ID Race Codes Race Delivery Type 68728 Problems Problem Notes Problem Name Start Date End Date Resolution Snomed Code Not e growth restriction 26214743 HISTORICAL - uncertain if gowth restricted or premature 1st Generalized anxiety disorder 12/26/2024 65091846 restarted meds Premature delivery 910661824 4 # 12, Gestational age unknown Zane [...] Weight in lbs Pre/Post Dialysis Refused Weight 199.993043208282 BP Diastolic BP Location Tested BP Systolic [...] Type Weight in lbs Pre/Post Dialysis Refused 196.990257374642 BP Diastolic BP Location Tested BP Systolic [...] Weight in lbs Pre/Post Dialysis Refused Weight 196.168617104482 BP Diastolic BP Location Tested BP Systolic [...] Type Weight in lbs Pre/Post Dialysis Refused 197.636316803449 BP Diastolic BP Location Tested BP Systolic [...] Type Weight in lbs Pre/Post Dialysis Refused 194.793600897041 BP Diastolic BP Location Tested BP Systolic [...] Weight in lbs Pre/Post Dialysis Refused Weight 192.815547642899 BP Diastolic BP Location Tested BP Systolic [...] Weight in lbs Pre/Post Dialysis Refused Weight 193.989345787732 BP Diastolic BP Location Tested BP Systolic [...] Weight in lbs Pre/Post Dialysis Refused Weight 195.357625576516 BP Diastolic BP Location Tested BP Systolic [...] Weight in lbs Pre/Post Dialysis Refused Weight 197.258719097177 BP Diastolic BP Location Tested BP Systolic [...] Domestic Partner Domestic Partner Phone Father Name Preparation Supervisor Canning Status 09/21/19 25 1 CLOSED Fetus Data First Name Last Name Admitted to NICU Weight (g) Sex Living Outcome Pediatric Complications Fetus ID Race Codes Race Delivery Type 2154.56 2 M Prematur e 01411 Vaginal Delivery Zane Calculation Initial Zane Date [...]
--- OUTSIDE RECORDS SUMMARY | 2025-03-18 14:50 | XMS_ITS | Referral Summary ---
Author Organization [facility] Address [facility] [place] [address] Care Team Providers Care Microsoft Bi Developer Name Role Phone Libia Mejia NP Primary Care Provider [phone] Allergies Active Allergy Reactions Criticality Noted Date [...] 07/10/2018 Assessment & Plan (07/10/2018 2:15 PM FRONT DESK RECEPTIONIST): BMI Follow-up includes: exercise counseling. Fibromyalgia 10/08/2016 Overview (12/16/2016): Fibromyalgia Assessment & Plan (07/10/2018 2:16 PM FRONT DESK RECEPTIONIST): Having more stress recently causing slightly more pain Assessment & Plan (11/17/2017 10:14 AM CDT): Improved on Cymbalta Assessment & Plan (10/06/2017 11:23 AM FRONT DESK RECEPTIONIST): Pain improving with work leave of absence Assessment & Plan (03/22/2017 9:36 AM CDT): Doing well when on medication consistently-worse in past week due to missing medication Moderate episode of recurrent major depressive d isorder 09/20/2016 Overview (12/16/2016): Major depressive disorder, recurrent, moderate Assessment & Plan (07/10/2018 2:18 PM FRONT DESK RECEPTIONIST): Worse due to stress Will increase Cymbalta to 60mg daily Assessment & Plan (03/06/2018 1:57 PM CDT): Continue current therapy Assessment & Plan (11/17/2017 10:19 AM CDT): Improved on Cymbalta We discussed risks/benefits of taking it still Discussed she can continue while breast feeding Assessment & Plan (10/06/2017 11:25 AM FRONT DESK RECEPTIONIST): Will resume Cymbalta I discussed the risks, [...] on file Legal Sex Female 9:27 PM FRONT DESK RECEPTIONIST Gender Identity Female 03/30/2023 5:06 AM CDT Sexual Orientation Not on file Last Filed Vital Signs Vital Sign Reading Time Taken Comments Blood Pressure 109/73 12/04/2024 11:15 AM CDT Pulse 83 12/04/2024 11:15 AM CDT Temperature 36.7 C (98 F) 12/04/2024 11:15 AM CDT Respiratory Rate 20 07/10/2018 2:02 PM FRONT DESK RECEPTIONIST Oxygen Saturation 97% 07/10/2018 2:02 PM FRONT DESK RECEPTIONIST Inhaled Oxygen Concentration - - Weight 88.8 kg (195 lb 12.8 oz) 025 11:15 AM CDT Height 165.1 cm (5' 5) 12/04/2024 11:1 5 AM CDT Body Mass Index 32.58 12/04/2024 11:15 AM CDT Plan of Treatment Not on file Insurance [facility] Care Teams Microsoft Bi Developer Relationship Specialty Start Date End Date Libia Mejia NP [address] [place] [id number] PCP - General Pediatrics 07/02/22
[2025-03-18 15:00] VITALS: BMI 32.3
--- NOTE | 2025-03-19 11:16 | PM.OBTRLD ---
OB - Triage/Final Diagnosis Visit Information Comments/Additional reasons for admission: I have assessed the risk for this patient, Nika Jojo Childs, and determined that she would benefit from observation care. Final Diagnosis (1) False labor: Code(s): O47.9 - False labor, unspecified Status: Acute
== END 2025-03-18 16:10 | disposition home or self-care (01) ==
PROVIDERS: Admitting Provider Obstetrics & Gynecology; PCP Nurse Practitioner; Visit Provider Obstetrics & Gynecology
DX: O47.03 False labor before 37 completed weeks of gestation, third trimester (principal); Z3A.36 36 weeks gestation of pregnancy
CPT/HCPCS: G0378; G0379

== ENCOUNTER 2025-03-22 13:49 | Observation (INO) | payer OTHER, SELFPAY ==
[2025-03-22 14:15] VITALS: BMI 32.3
--- OUTSIDE RECORDS SUMMARY | 2025-03-22 14:47 | XMS_ITS | Encounter Summary ---
Author Organization [facility] Address [address] [place] [address] Care Team Providers Care Supervisor Blood Name Role Phone Libia Mejia [facility] Primary Care Provider Encounter Details Date Type Department Care Team (Late st Contact Info) Description 04/30/2024 [facility] Message Enc [facility] [address] [place], [place] [id number] Libia Mejia [facility] [address] [place] [address] Blood Pressure Social History Tobacco Use Types [...] Sex Assigned at Female 10/02/2024 11:08 AM OUTSIDE SALES ENGINEER Legal Sex Female 1:00 PM CDT Gender Identity Not on file Sexual Orientation Not on file documented as of this encounter Functional Status * RETIRED Are you deaf or do you have serious difficulty hearing Answer Date of Assessment Author Status No 08/04/2020 5:16 AM OUTSIDE SALES ENGINEER Activ e * RETIRED Are you blind or do you have serious difficulty seeing, even when wearing glasses? Answer Date of Assessment Author Status No 08/04/2020 5:16 AM OUTSIDE SALES ENGINEER Acti ve * Do you have serious [...] documented as of this encounter Care Teams Supervisor Blood Relationship Specialty Start Date End Date Libia Mejia FNP [address] [place] [address] [place] [address] PCP - General Nurse Practitioner Family 12/04/18 documented as of this encounter
--- OUTSIDE RECORDS SUMMARY | 2025-03-22 14:47 | XMS_ITS | Clinical Summary ---
Author Organization [facility] Address [address] [place] [address] Care Team Providers Care Chief Controller Name Role Phone Libia Mejia NP Primary Care Provider [phone] Allergies Active Allergy Reactions Criticality Noted Date [...] 07/10/2018 Assessment & Plan (07/10/2018 2:15 PM GEOGRAPHIC INFORMATION SYSTEM SURVEYOR): BMI Follow-up includes: exercise counseling. Fibromyalgia 10/08/2016 Overview (12/16/2016): Fibromyalgia Assessment & Plan (07/10/2018 2:16 PM GEOGRAPHIC INFORMATION SYSTEM SURVEYOR): Having more stress recently causing slightly more pain Assessment & Plan (11/17/2017 10:14 AM CDT): Improved on Cymbalta Assessment & Plan (10/06/2017 11:23 AM GEOGRAPHIC INFORMATION SYSTEM SURVEYOR): Pain improving with work leave of absence Assessment & Plan (03/22/2017 9:36 AM CDT): Doing well when on medication consistently-worse in past week due to missing medication Moderate episode of recurrent major depressive d isorder 09/20/2016 Overview (12/16/2016): Major depressive disorder, recurrent, moderate Assessment & Plan (07/10/2018 2:18 PM GEOGRAPHIC INFORMATION SYSTEM SURVEYOR): Worse due to stress Will increase Cymbalta to 60mg daily Assessment & Plan (03/06/2018 1:57 PM CDT): Continue current therapy Assessment & Plan (11/17/2017 10:19 AM CDT): Improved on Cymbalta We discussed risks/benefits of taking it still Discussed she can continue while breast feeding Assessment & Plan (10/06/2017 11:25 AM GEOGRAPHIC INFORMATION SYSTEM SURVEYOR): Will resume Cymbalta I discussed the risks, [...] on file Legal Sex Female 9:27 PM GEOGRAPHIC INFORMATION SYSTEM SURVEYOR Gender Identity Female 03/30/2023 5:06 AM CDT Sexual Orientation Not on file Obstetrics History Last Filed Vital Signs Vital Sign Reading Time Taken Comments Blood Pressure 109/73 12/04/2024 11:15 AM CDT Pulse 83 12/04/2024 11:15 AM CDT Temperature 36.7 C (98 F) 12/04/2024 11:15 AM CDT Respiratory Rate 20 07/10/2018 2:02 PM GEOGRAPHIC INFORMATION SYSTEM SURVEYOR Oxygen Saturation 97% 07/10/2018 2:02 PM GEOGRAPHIC INFORMATION SYSTEM SURVEYOR Inhaled Oxygen Concentration - - Weight 88.8 [...] complete this topic Varicella Vaccines Discontinued Insurance [facility] Care Teams Chief Controller Relationship Specialty Start Date End Date Libia Mejia NP [address] [place] [address] [place] [address] PCP - General Pediatrics 07/02/22
--- OUTSIDE RECORDS SUMMARY | 2025-03-22 14:47 | XMS_ITS | Data Portability ---
Author Organization [facility] [place] Address [address] [place] [address] Care Team Providers Care Handle Assembler Name Role Phone ARMANDO CARROLL Primary Care Provider [phone] Assessment No assessment recorded. Plan of Treatment Reminders Order Date Submit Date Provider Last Modified By Organization Details Last Modified Time Details Appointments OB ROUTINE 2024 10:45A Suzette BARRAZA MD Not available Not available Not available INDUCTION 2024 06:00A Suzette BARRAZA MD Not available Not available Not available Lab None recorded. Referral None recorded. Procedures None recorded. Surgeries None recorded. Imaging US, obstetric , follow-up 2024 025 [email or web address] [place], [facility] [address], [place], [address], 02/04/2025 16:38:01 Medication Orders None recorded. Patient TargetsNo targets recorded. Patient InstructionsNo instructions recorded. Reason for Referral None Reported. Results Created Date Observation Date Name Description Value Unit Range Abnormal Flag Note LastModifiedBy Organization Detail LastModifiedTime 01/22/2001/21/2025 GTT - GESTA MADELEINE Wendi Young, ACOG OB glucose, 1 hour screen 93 mg/dL 70-135 Not Available [facility] (Lab) [address], [place], [address], 01/22/2025 11:52:34 01/22/20 25 01/21/2025 HIV 1/2 ANTIG EN/AN TIBOD Y, REFLE X CONFI RMATI ON HIV antigen/anti body Nonrea ctive nonrea ctive HIV-1 antig en and HIV-1 /HIV- 2 antib odies were not detec melany. No labor atory evide nce of HIV infec tion. Not Available [facility] (Lab) [address], [place], [address], 01/22/2025 11:52:34 01/22/20 25 01/21/2025 HEMAT OCRIT (HCT) HCT 33.5 % (based on docume nted legal sex) 34.0-4 5.0 low Not Available [facility] (Lab) [address], [place], [address], 01/22/2025 11:52:35 01/22/20 25 01/21/2025 HEMOG LOBIN (HGB) HGB 10.8 g/dL (based on docume nted legal sex) 11.6-1 5.4 low Not Available [facility] (Lab) [address], [place], [address], 01/22/2025 11:52:35 01/22/20 25 01/21/2025 RPR SCREE N, REFLE X TITER /CONF IRMAT ION RPR qualitative Nonrea ctive nonrea ctive Not Available [facility] (Lab) [address], [place], [address], 01/22/2025 11:52:36 02/03/20 25 02/02/2025 urina lysis , dipst ick Leukocytes - Not Available [facility] [address], [place], [address], 02/02/2025 11:10:56 02/03/20 25 02/02/2025 urina lysis , dipst ick Nitrite - Not Available [place] [address], [place], [address], 02/02/2025 11:10:56 02/03/20 25 02/02/2025 urina lysis , dipst ick Urobilinogen - Not Available [facility] edwina [address], [place], [address], 02/02/2025 11:10:56 02/03/20 25 02/02/2025 urina lysis , dipst ick Protein trace Not Available [place] [address], [place], [address], 02/02/2025 11:10:56 02/03/20 25 02/02/2025 urina lysis , dipst ick pH 8 Not Available [place] [address], [place], [address], 02/02/2025 11:10:56 02/03/20 25 02/02/2025 urina lysis , dipst ick Specific [place] 1.000 Not Available [facility] [address], [place], [address], 02/02/2025 11:10:56 02/03/20 25 02/02/2025 urina lysis , dipst ick Ketone - Not Available [place] [address], [place], [address], 02/02/2025 11:10:56 02/03/20 25 02/02/2025 urina lysis , dipst ick Bilirubin - Not Available Susannah wetzel [address], [place], [address], 02/02/2025 11:10:56 02/03/20 25 02/02/2025 urina lysis , dipst ick Glucose - Not Available [place] [address], [place], [address], 02/02/2025 11:10:56 02/03/20 25 02/02/2025 urina lysis , dipst ick Appearance clear Not Available Skyler lopez [address], [place], [address], 02/02/2025 11:10:56 02/03/20 25 02/02/2025 urina lysis , dipst ick Color light yellow Not Available [place] [address], [place], [address], 02/02/2025 11:10:56 03/15/20 25 03/15/2025 CULTU RE: GROUP B STREP SCREE N, REFLE X SUSCE PTIBI LITY result report SEE RESULT S BELOW Test: Cultu re: Group B Strep , Refle x Susce ptibi lity ([facility]/ [facility] ) Speci men Sourc e: Vagin a/Rec juan antonio Speci men Type: Vagin al/Re ctal Speci men Date: 2024 1043 Resul t Date: 2024 1414 Resul t Statu s: Final resul t Abnor mal: No Resul ting Lab: [facility] [address] [facility] [address] Tel: CULTU RE ----- ----- ----- --- No Group B strep isola melany at 2 days (lin ctive broth enhan cemen t) Not Available [facility] (Lab) [address], [place], [address], 03/18/2025 15:17:48 02/05/20 25 02/04/2025 US, katina shah w-up No observ ation record ed. [email or web address] [place] [address], [place], [address], 02/04/2025 18:41:04 02/05/20 25 02/04/2025 US, kailey shaho w-up No observ ation record ed. MARCO A [address], [place], [address], 02/12/2025 16:29:54 03/17/20 25 03/17/2025 imagi ng/di dcos tic resul t No observ ation record ed. MARCO A Not Available 2024 10:40:33 Result Notes None recorded. Problems Name Problem SNOMED Code Status Onset Date Resolution Date Notes Provider Name and Address Organization Details Recorded Time Premature delivery 397525077 Active 4# 12, Gestation al age unknown Jose Snider MD [address], [place], [address], [facility] 5 11:48:53 growth restricti on 59754390 Active HISTORICA L - uncertain if gowth restricte d or premature 1st Rhonda Bowles [facility], [facility] 5 09:44:51 21086519 Active 2024 Esha Gabriel [facility] 5 11:17:12 Generaliz ed anxiety disorder 35744360 Active 2024 restarted meds Jose Snider MD [address], [place], [address], [facility] 5 17:26:25 Problem Notes None recorded. Procedures Surgical History Date Name Laterality Status Provider Name and Address Organization Details Recorded Time 5 Date of Last Pap Smear completed TINO Flowers [facility] 02/07/2025 12:18:08 3 extraction of wisdom tooth completed Esha Gabriel [facility] 09/21/2024 10:09:01 Imaging Results None recorded. Procedure Notes None recorded. Medical Equipment None Reported. Allergies Allergen ID Allergen Name Allergen Category Reaction Reaction Severity Criticality Documentation Date Start Date Code Code System Note Provider Name and Address Organization Details Recorded Time 11657 amoxicill in medicatio n hives mild Not available 09/21/2024 723 RxNorm Esha friedman [facility] 5 10:01:42 Medications Name Sig [...] Updated DateTime 02/11/2025 166.37 cm 31.6 kg/m2 27085.33 g 102/70 mm[Hg] [facility] 02/11/2025 17:18:25 Date Recorded Body height Body mass index (BMI) Body weight Systolic And Diastolic Provider Name and Address Organization Details Last Updated DateTime 03/01/2025 166.37 cm 32 kg/m2 93419.51 g 109/73 mm[Hg] [facility] 03/01/2025 09:58:24 Date Recorded Body height Body mass index (BMI) Body weight Systolic And Diastolic Provider Name and Address Organization Details Last Updated DateTime 03/15/2025 166.37 cm 32.3 kg/m2 64683.7 g 107/74 mm[Hg] Tessa Bravo [facility] 03/15/2025 10:54:45 Date Recorded Body height Body mass index (BMI) Body weight Systolic And Diastolic Provider Name and Address Organization Details Last Updated DateTime 03/20/2025 166.37 cm 32.8 kg/m2 17294.47 g 99/69 mm[Hg] TINO Flowers [facility] 03/20/2025 14:44:46 Social History Question Answer Notes LastModified by Organizat ion Details LastModified Time Do You Have An Advance Directive? No [email or web address] Information n ot available 02/07/2025 How Many Years Have You Consumed Alcohol? 11 Information not available 09/21/2024 Are You Blind Or Do You Have Difficulty Seeing? No Information n ot available 09/21/2024 What Is Your Level Of Caffeine Consumption? Occasional [email or web address] Information not available 02/07/2025 How Much Tobacco Do You Chew? None [email or web address] Information not available 02/02/2025 In The 14 [...] Or The Highest Degree You Have Received? [id number] Information not available 09/21/2024 Are There Any [...] available 09/21/2024 Are you able to walk? JERIINITWALK [email or web address] Information not available 02/07/2025 What is your occupation? [employer] [email or web address] Information not available 02/07/2025 What is your exercise level? Occasional Information not available 02/07/2025 Mental Status Question Answer Note LastModified by Organization D etails LastModified Time Do you feel stressed (tense, restless, nervous, or anxious, or unable to sleep at night)? [id number] [email or web address] Information not available 02/07/2025 Family History Relationship [...] SNOMED-CT Code Diagnosis ICD10 Code Diagnosis Note [id number] MD Rajiv Dao [address] [address] 09/21/2024 09:05:00 09/21/2024 09:42:37 [id number] MD Rajiv Dao [address],[place] [address] 09/21/2024 09:05:54 09/21/2024 10:29:42 Nausea and vomiting 84473701 R11.2 Amenorrhea 41152123 N91. 2 [id number] MD Rajiv Dao [address],[place] [address] 10/02/2024 10:02:20 10/02/2024 11:04:07 screening 215725564 Z36.82 Z3A.12 [id number] MD Rajiv Dao [address],[place] [address] 10/02/2024 10:03:03 10/02/2024 11:58:22 Routine care 748914699 Z34.90 [id number] MD Rajiv Dao [address],[place] [address] 10/30/2024 10:36:07 10/30/2024 12:20:37 Routine care 980405682 Z34.90 [id number] MD Rajiv Dao [address],[place] [address] 11/26/2024 10:15:47 11/26/2024 11:38:55 screening 195569005 Z36.3 Z3A.20 [id number] MD Rajiv aDo [address],[place] [address] 11/26/2024 10:17:40 11/26/2024 12:07:45 Routine care 419579718 Z34.90 [id number] MD Rajiv Dao [address],[place] [address] 12/26/2024 15:35:17 12/26/2024 16:37:06 anatomy study 475846801 Z36.2 Z3A.24 [id number] MD Rajiv Dao [address],[place] [address] 12/26/2024 15:35:56 12/27/2024 02:38:23 care status 979044757 Z34.82 Anxiety 93560533 F41.9 [id number] MD Rajiv Dao [address] [address] 01/21/2025 10:35:11 01/21/2025 11:23:34 care status 182314086 Z34.83 [id number] MD Rajiv Dao [address],[place] [address] 02/02/2025 10:42:10 02/02/2025 11:10:20 care status 871344122 Z34.83 Urinary sy stem finding 829480491 R39.9 [id number] MD Rajiv Dao [address] [address] 02/04/2025 14:51:25 02/04/2025 16:24:53 care: obstetric risk 096738646 O09.293 O09.893 Z3A.30 [id number] MD Rajiv RICH [address],[place] [address] 02/11/2025 16:46:22 02/11/2025 17:53:42 Pain of hip region 21792382 M25.551 M25.552 - seeing PT- discussed conservati ve treatment Gestation period, 31 weeks 96444094 Z3A.31 - continue PNV [id number] MD Rajiv RICH [address],[place] [address] 03/01/2025 09:52:48 03/01/2025 10:19:20 Premature uterine contraction 269434642 O47.00 - was seen at [facility] on Tuesday for contractio ns- s/p terbutalin e, no further contractio ns- ROMplus neg- discussed precaution s Gestation period, 33 weeks 43124701 Z3A.33 - continue PNV [id number] ANGELLA BARRAZA MD [place] [address],[facility] [place] [address] 03/15/2025 10:46:45 03/16/2025 08:48:16 Generalized anxiety disorder 55605837 F41.1 - mood stable Gestation period, 35 weeks 26137174 Z3A.35 - continue PNV- GBS collected [id number] ANGELLA BARRAZA MD [place] [address],[place] [address] 03/20/2025 14:34:16 03/20/2025 16:08:28 Generalized anxiety disorder 21394109 F41.1 - mood stable Irregular uterine contractions 84929110 O47.9 - irregular contractio ns, no change in SVE from previous hospital visit- labor precaution s reviewed Gestation period, 36 weeks 90604601 Z3A.36 - GBS negative- continue PNV Health Concerns Section Related Observation LastModified by Organization Detai ls LastModified Time None Recorded Concern Status LastModified by Organization Details LastModified Time None Recorded Advance Directives Directive N: Payers Insurance Date Sequence Insurance Name Policy Number Policy Calderon Covered Member ID Calderon Member ID Guarantor Name 03/18/2025 1 [place] [facility] OF PUBLIC AID NONE Nika O'Kenny [id number] Nika O'Kenny 03/18/2025 1 [facility] (MEDICAID HMO) [id number] Nika O'Kenny [id number] Nika O'Kenny 03/18/2025 2 [facility] (MEDICAID HMO) [id number] Nika O'Kenny [id number] Nika O'Kenny 11/26/2024 1 *SELF PAY* mitra Vazquez'Kenny 03/18/2025 1 [facility] (MEDICAID HMO) [id number] Nika Childs [id number] Nika O'Kenny 03/18/2025 1 [place] [facility] PUBLIC AID Nika Johnson [id number] Niak Johnson OBGyn Episode Ob Episode Information Episode Created Date Number of Fetuses Patient Bloodtype Patient rh Status Prepregnancy Weight lbs Domestic Partner Domestic Partner Phone Father Name Education Research Analyst Status 09/21/19 25 1 CLOSED Fetus Data First Name Last Name Admitted to NICU Weight (g) Sex Living Outcome Pediatric Complications Fetus ID Race Codes Race Delivery Type 2891.64 9 F Full Term 65828 Vaginal Delivery Zane Calculation Initial Zane Date [...] Domestic Partner Domestic Partner Phone Father Name Education Research Analyst Status 09/21/19 25 1 CLOSED Fetus Data First Name Last Name Admitted to NICU Weight (g) Sex Living Outcome Pediatric Complications Fetus ID Race Codes Race Delivery Type , Spontane ous 12459 Zane Calculation Initial Zane Date Initial Exam [...] Domestic Partner Domestic Partner Phone Father Name Education Research Analyst Status 10/02/19 25 1 A Positive 202 Jose OPEN Fetus Data First Name Last Name Admitted to NICU Weight (g) Sex Living Outcome Pediatric Complications Fetus ID Race Codes Race Delivery Type 79085 Problems Problem Notes Problem Name Start Date End Date Resolution Snomed Code Not e growth restriction 04082533 HISTORICAL - uncertain if gowth restricted or premature 1st Generalized anxiety disorder 12/26/2024 88623056 restarted meds Premature delivery 460688517 4 # 12, Gestational age unknown Zane [...] Weight in lbs Pre/Post Dialysis Refused Weight 199.813449879597 BP Diastolic BP Location Tested BP Systolic [...] Type Weight in lbs Pre/Post Dialysis Refused 196.369385605214 BP Diastolic BP Location Tested BP Systolic [...] Weight in lbs Pre/Post Dialysis Refused Weight 196.278827876299 BP Diastolic BP Location Tested BP Systolic [...] Type Weight in lbs Pre/Post Dialysis Refused 197.682246377245 BP Diastolic BP Location Tested BP Systolic [...] Type Weight in lbs Pre/Post Dialysis Refused 194.504236905078 BP Diastolic BP Location Tested BP Systolic [...] Weight in lbs Pre/Post Dialysis Refused Weight 192.131055584986 BP Diastolic BP Location Tested BP Systolic [...] Weight in lbs Pre/Post Dialysis Refused Weight 193.712167956226 BP Diastolic BP Location Tested BP Systolic [...] Weight in lbs Pre/Post Dialysis Refused Weight 195.134011595781 BP Diastolic BP Location Tested BP Systolic [...] Weight in lbs Pre/Post Dialysis Refused Weight 197.296917160601 BP Diastolic BP Location Tested BP Systolic BP Type 74 L arm 107 sitting Fetus Heart Rate Present A 140 Fetus Movement A Yes Comments Good movement. No blee ding or LOF. Irregular contractions all week. GBS collected today. RTC 1 week. Return precautions discussed. Flowsheet Date 03/20/2025 Rocha Score Blood Edema Fundus Height Fundus Units Glucose Ketones Leukocytes Nitrite Labor Signs Protein Cervic Dilation Cervic Effacement Cervic Station neg none 3cm 50% -3 Type Weight in lbs Pre/Post Dialysis Refused Weight 200.927839327797 BP Diastolic BP Location Tested BP Systolic BP Type 69 L arm 99 sitting Fetus Heart Rate Present A 130 Fetus Movement A Yes Comments Good movement. No blee ding. Irregular contractions. Was seen for DFM over the weekend with now normal movement. Was also seen for concern for SROM, was negative. GBS negative. Would like EIL on 04/09. RTC 1 week. Menstrual History Last Menstrual Date Menses Monthly [...] Domestic Partner Domestic Partner Phone Father Name Education Research Analyst Status 09/21/19 25 1 CLOSED Fetus Data First Name Last Name Admitted to NICU Weight (g) Sex Living Outcome Pediatric Complications Fetus ID Race Codes Race Delivery Type 2154.56 2 M Prematur e 60353 Vaginal Delivery Zane Calculation Initial Zane Date [...]
--- OUTSIDE RECORDS SUMMARY | 2025-03-22 14:47 | XMS_ITS | Referral Summary ---
Author Organization [facility] Address [facility] [place] [address] Care Team Providers Care Sterilizer Machine Operator Name Role Phone Libia Mejia NP Primary Care Provider [phone] Allergies Active Allergy Reactions Criticality Noted Date [...] 07/10/2018 Assessment & Plan (07/10/2018 2:15 PM ASSOCIATE PROFESSOR OF GEOGRAPHY): BMI Follow-up includes: exercise counseling. Fibromyalgia 10/08/2016 Overview (12/16/2016): Fibromyalgia Assessment & Plan (07/10/2018 2:16 PM ASSOCIATE PROFESSOR OF GEOGRAPHY): Having more stress recently causing slightly more pain Assessment & Plan (11/17/2017 10:14 AM CDT): Improved on Cymbalta Assessment & Plan (10/06/2017 11:23 AM ASSOCIATE PROFESSOR OF GEOGRAPHY): Pain improving with work leave of absence Assessment & Plan (03/22/2017 9:36 AM CDT): Doing well when on medication consistently-worse in past week due to missing medication Moderate episode of recurrent major depressive d isorder 09/20/2016 Overview (12/16/2016): Major depressive disorder, recurrent, moderate Assessment & Plan (07/10/2018 2:18 PM ASSOCIATE PROFESSOR OF GEOGRAPHY): Worse due to stress Will increase Cymbalta to 60mg daily Assessment & Plan (03/06/2018 1:57 PM CDT): Continue current therapy Assessment & Plan (11/17/2017 10:19 AM CDT): Improved on Cymbalta We discussed risks/benefits of taking it still Discussed she can continue while breast feeding Assessment & Plan (10/06/2017 11:25 AM ASSOCIATE PROFESSOR OF GEOGRAPHY): Will resume Cymbalta I discussed the risks, [...] on file Legal Sex Female 9:27 PM ASSOCIATE PROFESSOR OF GEOGRAPHY Gender Identity Female 03/30/2023 5:06 AM CDT Sexual Orientation Not on file Last Filed Vital Signs Vital Sign Reading Time Taken Comments Blood Pressure 109/73 12/04/2024 11:15 AM CDT Pulse 83 12/04/2024 11:15 AM CDT Temperature 36.7 C (98 F) 12/04/2024 11:15 AM CDT Respiratory Rate 20 07/10/2018 2:02 PM ASSOCIATE PROFESSOR OF GEOGRAPHY Oxygen Saturation 97% 07/10/2018 2:02 PM ASSOCIATE PROFESSOR OF GEOGRAPHY Inhaled Oxygen Concentration - - Weight 88.8 kg (195 lb 12.8 oz) 025 11:15 AM CDT Height 165.1 cm (5' 5) 12/04/2024 11:1 5 AM CDT Body Mass Index 32.58 12/04/2024 11:15 AM CDT Plan of Treatment Not on file Insurance [facility] Care Teams Sterilizer Machine Operator Relationship Specialty Start Date End Date Libia Mejia NP [address] [place] [address] PCP - General Pediatrics 07/02/22
--- OUTSIDE RECORDS SUMMARY | 2025-03-22 14:47 | XMS_ITS | Clinical Summary ---
Author Organization [facility] [employer] Address [address] [place] [address] Care Team Providers Care Fire Protection Fabricator Name Role Phone Brenton Kraus MD Primary Care Provider Source Comments [facility], [facility],non-owned Affiliates and Associated Physician Practices is amultiple site organization consisting of ambulatory clinics and hospital sitesin [place], [place], [place] and [place]. This disclosure is being madepursuant to the Care Everywhere program and may not contain all information available regarding this patient. Last updated 18.[facility] [employer] Allergies Active Allergy Reactions Criticality Noted Date [...] file Legal Sex Female 5:46 PM AUTOMOBILE MECHANIC MOTOR Gender Identity Not on file Sexual Orientation Not on file Last Filed Vital Signs Vital Sign Reading Time Taken Comments Blood Pressure 108/78 09/22/2016 9:37 AM AUTOMOBILE MECHANIC MOTOR Pulse 69 09/22/2016 9:37 AM AUTOMOBILE MECHANIC MOTOR Temperature 36.7 C (98.1 F) 09/22/2016 9:37 AM AUTOMOBILE MECHANIC MOTOR Respiratory Rate - - Oxygen Saturation 97% 09/22/2016 9:37 AM AUTOMOBILE MECHANIC MOTOR Inhaled Oxygen Concentration - - Weight 77.3 kg (170 lb 6.4 oz) 09/22/2016 9:37 A M AUTOMOBILE MECHANIC MOTOR Height 166.4 cm (5' 5.5) 09/22/2016 9:37 AM AUTOMOBILE MECHANIC MOTOR Body Mass Index 27.92 09/22/2016 9:37 AM AUTOMOBILE MECHANIC MOTOR Plan of Treatment Health Maintenance Due Date [...] age to complete this topic Care Teams Fire Protection Fabricator Relationship Specialty Start Date End Date Brenton Kraus MD [facility] [address] [address] PCP - General 09/22/16
--- OUTSIDE RECORDS SUMMARY | 2025-03-22 14:47 | XMS_ITS | Encounter Summary ---
Author Organization [facility] Address [address] [place] [address] Care Team Providers Care Material Movers Name Role Phone Libia Mejia [facility] Primary Care Provider [phone] Encounter Details Date Type Department Care Team (Late st Contact Info) Description 06/03/2024 Ship & Duckt Message Enc [facility] [address] [place], [place] [id number] Libia Mejia [facility] [address] [place] [address] Anti depressants Social History Tobacco Use Types [...] Sex Assigned at Female 10/02/2024 11:08 AM COSMETOLOGY PROFESSOR Legal Sex Female 1:00 PM CDT Gender Identity Not on file Sexual Orientation Not on file documented as of this encounter Functional Status * RETIRED Are you deaf or do you have serious difficulty hearing Answer Date of Assessment Author Status No 08/04/2020 5:16 AM COSMETOLOGY PROFESSOR Activ e * RETIRED Are you blind or do you have serious difficulty seeing, even when wearing glasses? Answer Date of Assessment Author Status No 08/04/2020 5:16 AM COSMETOLOGY PROFESSOR Activ e * Do you have serious [...] documented as of this encounter Care Teams Material Movers Relationship Specialty Start Date End Date Libia Mejia FNP [address] [place] [address] [place] [address] PCP - General Nurse Practitioner Family 12/04/18 documented as of this encounter
--- OUTSIDE RECORDS SUMMARY | 2025-03-22 14:48 | XMS_ITS | Clinical Summary ---
Author Organization [facility] Address [address] [place] [address] Care Team Providers Care Student Liaison Officer Name Role Phone Libia Mejia COKE HANDLING SUPERVISOR Primary Care Provider [phone] Allergies Active Allergy Reactions Criticality Noted Date [...] Resolved Date Breast feeding status of mother ([facility]) 05/06/2021 12/11/2021 Assessment & Plan [...] She will use a brace for comfort. ([facility]) 08/04/2020 12/12/19 22 Thrombosed external hemorrhoid 05/30/2020 10/28/2021 Supervision of high-risk pre gnancy with grand multiparity in third trimester ([facility]) 02/06/2018 11/18/2021 Supervision of normal intrau terine in multigravida, third trimester ([facility]) 02/06/2018 11/18/2021 Labor and delivery indicatio n for care or intervention ([facility]) 02/04/2018 11/18/2021 Encounters Date Type Department Care Team Description 02/19/2025 10:51 AM CDT - 02/19/2025 11:59 PM CDT Hospital Encounter [facility] [address] [address] Jose Snider MD Davidson, Brooke M, DRIVEMATIC MACHINE OPERATOR Discharge Disposition: Home or Self Care (Routine Discharge) 02/19/2025 Travel 02/15/2025 9:52 AM CDT - 02/15/2025 11:59 PM CDT Hospital Encounter [facility] [address] [place] [address] Jose Snider MD Hays, Michelle, DRIVEMATIC MACHINE OPERATOR Discharge Disposition: Home or Self Care (Routine Discharge) 02/15/2025 Travel 02/08/2025 4:00 PM CDT - 02/08/2025 11:59 PM CDT Hospital Encounter [facility] [address] [place] [address] Jose Snider MD Emerick, Noah D, PT Low Back Pain Discharge Disposition: Home or Self Care (Routine Discharge) 02/08/2025 Travel 01/31/2025 10:18 AM CDT - 01/31/2025 11:59 PM CDT Hospital Encounter [facility] [address] [place] [address] Jose Snider MD McClenahan, Krystal M, PT Discharge Disposition: Home or Self Care (Routine Discharge) 01/31/2025 Travel 01/25/2025 9:45 AM CDT - 01/25/2025 11:59 PM CDT Hospital Encounter [facility] [address] [place] [address] Jose Snider MD Davidson, Brooke M, DRIVEMATIC MACHINE OPERATOR Discharge Disposition: Home or Self Care (Routine Discharge) 01/25/2025 Travel 01/11/2025 9:45 AM CDT - 01/11/2025 11:59 PM CDT Hospital Encounter [facility] [address] [address] Jose Snider MD McClenahan, Krystal M, PT Discharge Disposition: Home or Self Care (Routine Discharge) 01/11/2025 Travel 01/07/2025 9:54 AM CDT - 01/07/2025 11:59 PM CDT Hospital Encounter [facility] [address] [place] [address] Jose Snider MD Scott, Kelli, SHELTON Back Pain Discharge Disposition: Home or Self Care (Routine Discharge) 01/07/2025 Travel 12/28/2024 9:39 AM CDT - 12/28/2024 11:59 PM CDT Hospital Encounter [facility] [address] [address] Jose Snider MD Scott, Kelli, DRIVEMATIC MACHINE OPERATOR Low Back Pain Discharge Disposition: Home or Self Care (Routine Discharge) 12/28/2024 Travel 12/24/2024 9:57 AM CDT - 12/24/2024 11:59 PM CDT Hospital Encounter [facility] [address] [address] Jose Snider MD Timmermann, Candice P, DRIVEMATIC MACHINE OPERATOR Discharge Disposition: Home or Self Care (Routine Discharge) 12/24/2024 Travel from Last 3 Months Immunizations Immunization [...] Sex Assigned at Female 10/02/2024 11:08 AM PROJECT ANALYST Legal Sex Female 1:00 PM CDT Gender Identity Not on file Sexual Orientation Not on file Last Filed Vital Signs Vital Sign Reading Time Taken Comments Blood Pressure 102/68 10/24/2024 2:48 PM PROJECT ANALYST Pulse 83 10/24/2024 2:48 PM PROJECT ANALYST Temperature 37.1 C (98.7 F) 10/24/2024 2:48 PM PROJECT ANALYST Respiratory Rate 16 10/24/2024 2:48 PM PROJECT ANALYST Oxygen Saturation 100% 10/24/2024 2:48 PM PROJECT ANALYST Inhaled Oxygen Concentration - - Weight 88.9 kg (196 lb) 10/24/2024 2:48 PM PROJECT ANALYST Height 166.4 cm (5' 5.5) 10/24/2024 2:48 PM PROJECT ANALYST Body Mass Index 32.12 10/24/2024 2:48 PM PROJECT ANALYST Plan of Treatment Health Maintenance Due Date [...] Hepatitis C Completed 10/02/2024, 10/02/2024 PHQ-2 (Physician Leota) Completed 10/24/2024 HPV Vaccines Aged Out No [...] was performed using the APTIMA COMBO2 Assay ([employer] The analytical performance characteristics of this assay, when used to test [facility] specimens have been determined by [employer]. JO ANN SPANGLER MD HPV MRNA E6/E7 Detected(A) Not Detected [facility] TO EPIC CONVERSION Comment: This test was performed using the APTIMA HPV Assay ([employer] This assay detects E6/E7 viral messenger RNA (mRNA) from 14 high-risk HPV types (16,18,31,33,35,39,45,51,52,56,58,59,66,68). JO ANN SPANGLER MD REFLEX ADDED yes [facility] TO EPIC CONVERSION Comment: THIS TEST WAS PERFORMED AT [facility] [id number] [place] [address] 12/12/2014 4:50 PM CDT 12/12/2014 4:50 PM CDT Narrative [employer] TO EPIC CONVERSION - 12/25/2014 11:04 AM CDT This lab was migrated from [facility] and may be missing annotations or result text, please check the Media tab for the most complete results. Jenna Daly CNM PATHOLOGY/CYTOLOGY ORDERA BLES Final Result [employer] TO EPIC CONVERSION from Last 3 Months or Most Recently Relevant to Health Maintenance Insurance INA Advance Directives Documents on File Type Date Recorded Patient Passenger Booking Clerk Expl anation Advance Directives and Living Will [...] 9:55 PM 02/05/2018 2:55 AM Care Teams Student Liaison Officer Relationship Specialty Start Date End Date Libia Mejia FNP [address] [place] [address] [place] [address] PCP - General Nurse Practitioner Family 12/04/18
--- NOTE | 2025-03-22 15:08 | OBADM ---
This patient, Nika Childs, admitted to the OB room Labor/Delivery/Recovery 107 for observation. Patient/family oriented to hospital policies and general routines including ID bracelet, bed and alarms, visiting hours, pain management, procedures, bathroom and other care routines, personal items, smoking policy, room service/diet, and visiting hours. Patient/Family are encouraged to report perceived risks to care and to ask questions if they do not understand what they are told or what they should do.
--- NOTE | 2025-03-26 18:05 | PM.OBTRLD ---
OB - Triage/Final Diagnosis Visit Information Comments/Additional reasons for admission: I have assessed the risk for this patient, Nika Childs, and determined that she would benefit from observation care. Final Diagnosis (1) Irregular contractions: Code(s): O47.9 - False labor, unspecified Status: Acute
== END 2025-03-22 14:54 | disposition home or self-care (01) ==
PROVIDERS: Admitting Provider Obstetrics & Gynecology; PCP Nurse Practitioner; Visit Provider Obstetrics & Gynecology
DX: O47.03 False labor before 37 completed weeks of gestation, third trimester (principal); Z3A.36 36 weeks gestation of pregnancy
CPT/HCPCS: G0378; G0379

== ENCOUNTER 2025-03-26 12:49 | Observation (INO) | payer OTHER, SELFPAY ==
[2025-03-26 15:00] VITALS: TEMP 36.6
--- OUTSIDE RECORDS SUMMARY | 2025-03-26 15:17 | XMS_ITS | Clinical Summary ---
Author Organization [facility] Address [address] [place] [id number] Care Team Providers Care Retail Event And Sales Assistant Name Role Phone Libia Mejia NP Primary Care Provider [phone] Allergies Active Allergy Reactions Criticality Noted Date [...] 07/10/2018 Assessment & Plan (07/10/2018 2:15 PM EXTRUDER): BMI Follow-up includes: exercise counseling. Fibromyalgia 10/08/2016 Overview (12/16/2016): Fibromyalgia Assessment & Plan (07/10/2018 2:16 PM EXTRUDER): Having more stress recently causing slightly more pain Assessment & Plan (11/17/2017 10:14 AM CDT): Improved on Cymbalta Assessment & Plan (10/06/2017 11:23 AM EXTRUDER): Pain improving with work leave of absence Assessment & Plan (03/22/2017 9:36 AM CDT): Doing well when on medication consistently-worse in past week due to missing medication Moderate episode of recurrent major depressive d isorder 09/20/2016 Overview (12/16/2016): Major depressive disorder, recurrent, moderate Assessment & Plan (07/10/2018 2:18 PM EXTRUDER): Worse due to stress Will increase Cymbalta to 60mg daily Assessment & Plan (03/06/2018 1:57 PM CDT): Continue current therapy Assessment & Plan (11/17/2017 10:19 AM CDT): Improved on Cymbalta We discussed risks/benefits of taking it still Discussed she can continue while breast feeding Assessment & Plan (10/06/2017 11:25 AM EXTRUDER): Will resume Cymbalta I discussed the risks, [...] on file Legal Sex Female 9:27 PM EXTRUDER Gender Identity Female 03/30/2023 5:06 AM CDT Sexual Orientation Not on file Obstetrics History Last Filed Vital Signs Vital Sign Reading Time Taken Comments Blood Pressure 109/73 12/04/2024 11:15 AM CDT Pulse 83 12/04/2024 11:15 AM CDT Temperature 36.7 C (98 F) 12/04/2024 11:15 AM CDT Respiratory Rate 20 07/10/2018 2:02 PM EXTRUDER Oxygen Saturation 97% 07/10/2018 2:02 PM EXTRUDER Inhaled Oxygen Concentration - - Weight 88.8 [...] complete this topic Varicella Vaccines Discontinued Insurance [facility] Care Teams Retail Event And Sales Assistant Relationship Specialty Start Date End Date Libia Mejia NP [address] [place] [address] [place] [address] PCP - General Pediatrics 07/02/22
--- OUTSIDE RECORDS SUMMARY | 2025-03-26 15:17 | XMS_ITS | Data Portability ---
Author Organization [facility], [facility] Address [address] [place] [address] [place] [address] Care Team Providers Care Web Content & Social Media Manager Name Role Phone ARMANDO CARROLL Primary [...] US, obstetric , follow-up 2024 025 [email or web address] [place], [facility] [address], [place], [address], 02/04/2025 16:38:01 Medication Orders None recorded. Patient TargetsNo targets recorded. Patient InstructionsNo instructions recorded. Reason for Referral None Reported. Results Created Date Observation Date Name Description Value Unit Range Abnormal Flag Note LastModifiedBy Organization Detail LastModifiedTime 01/22/2001/21/2025 GTT - GESTA MADELEINE Wendi Young, ACOG OB glucose, 1 hour screen 93 mg/dL 70-135 Not Available [facility] (Lab) [address], [place], [address], 01/22/2025 11:52:34 01/22/20 25 01/21/2025 HIV 1/2 ANTIG EN/AN TIBOD Y, REFLE X CONFI RMATI ON HIV antigen/anti body Nonrea ctive nonrea ctive HIV-1 antig en and HIV-1 /HIV- 2 antib odies were not detec melany. No labor atory evide nce of HIV infec tion. Not Available [facility] (Lab) [address], [place], [address], 01/22/2025 11:52:34 01/22/20 25 01/21/2025 HEMAT OCRIT (HCT) HCT 33.5 % (based on docume nted legal sex) 34.0-4 5.0 low Not Available [facility] (Lab) [address], [place], [address], 01/22/2025 11:52:35 01/22/20 25 01/21/2025 HEMOG LOBIN (HGB) HGB 10.8 g/dL (based on docume nted legal sex) 11.6-1 5.4 low Not Available [facility] (Lab) [address], [place], [address], 01/22/2025 11:52:35 01/22/20 25 01/21/2025 RPR SCREE N, REFLE X TITER /CONF IRMAT ION RPR qualitative Nonrea ctive nonrea ctive Not Available [facility] (Lab) [address], [place], [address], 01/22/2025 11:52:36 02/03/20 25 02/02/2025 urina lysis , dipst ick Leukocytes - Not Available [facility] [address], [place], [address], 02/02/2025 11:10:56 02/03/20 25 02/02/2025 urina lysis , dipst ick Nitrite - Not Available [place] [address], [place], [address], 02/02/2025 11:10:56 02/03/20 25 02/02/2025 urina lysis , dipst ick Urobilinogen - Not Available [facility] edwina [address], [place], [address], 02/02/2025 11:10:56 02/03/20 25 02/02/2025 urina lysis , dipst ick Protein trace Not Available [place] [address], [place], [address], 02/02/2025 11:10:56 02/03/20 25 02/02/2025 urina lysis , dipst ick pH 8 Not Available [place] [address], [place], [address], 02/02/2025 11:10:56 02/03/20 25 02/02/2025 urina lysis , dipst ick Specific [place] 1.000 Not Available [facility] [address], [place], [address], 02/02/2025 11:10:56 02/03/20 25 02/02/2025 urina lysis , dipst ick Ketone - Not Available [place] [address], [place], [address], 02/02/2025 11:10:56 02/03/20 25 02/02/2025 urina lysis , dipst ick Bilirubin - Not Available Susannah wetzel [address], [place], [address], 02/02/2025 11:10:56 02/03/20 25 02/02/2025 urina lysis , dipst ick Glucose - Not Available [place] [address], [place], [address], 02/02/2025 11:10:56 02/03/20 25 02/02/2025 urina lysis , dipst ick Appearance clear Not Available Skyler lopez [address], [place], [address], 02/02/2025 11:10:56 02/03/20 25 02/02/2025 urina lysis , dipst ick Color light yellow Not Available [place] [address], [place], [address], 02/02/2025 11:10:56 03/15/20 25 03/15/2025 CULTU RE: [...] Resul ting Lab: [facility] [address] [facility] [address] Tel: CULTU RE ----- ----- ----- --- No Group B strep isola melany at 2 days (lin ctive broth enhan cemen t) Not Available [facility] (Lab) [address], [place], [address], 03/18/2025 15:17:48 02/05/20 25 02/04/2025 US, katina shah w-up No observ ation record ed. [email or web address] [place] [address], [place], [address], 02/04/2025 18:41:04 02/05/20 25 02/04/2025 US, kailey shaho w-up No observ ation record ed. MARCO A [address], [place], [address], 02/12/2025 16:29:54 03/17/20 25 03/17/2025 imagi ng/di dcos tic resul t No observ ation record ed. MARCO A Not Available 2024 10:40:33 Result Notes None recorded. Problems Name Problem SNOMED Code Status Onset Date Resolution Date Notes Provider Name and Address Organization Details Recorded Time Premature delivery 965377115 Active 4# 12, Gestation al age unknown Jose Snider MD [address], [place], [address], [facility] 5 11:48:53 growth restricti on 25741648 Active HISTORICA L - uncertain if gowth restricte d or premature 1st Rhonda Bowles [facility], [facility] 5 09:44:51 97123168 Active 2024 Esha Gabriel [facility] 5 11:17:12 Generaliz ed anxiety disorder 87750304 Active 2024 restarted meds Jose Snider MD [address], [place], [address], [facility] 5 17:26:25 Problem Notes None recorded. Procedures Surgical History Date Name Laterality Status Provider Name and Address Organization Details Recorded Time 5 Date of Last Pap Smear completed TINO Flowers [facility] 02/07/2025 12:18:08 3 extraction of wisdom tooth completed Esha Gabriel [facility] 09/21/2024 10:09:01 Imaging Results None recorded. Procedure Notes None recorded. Medical Equipment None Reported. Allergies Allergen ID Allergen Name Allergen Category Reaction Reaction Severity Criticality Documentation Date Start Date Code Code System Note Provider Name and Address Organization Details Recorded Time 14468 amoxicill in medicatio n hives mild Not available 09/21/2024 723 RxNorm Esha friedman [facility] 5 10:01:42 Medications Name Sig [...] Updated DateTime 02/11/2025 166.37 cm 31.6 kg/m2 65029.33 g 102/70 mm[Hg] [facility] 02/11/2025 17:18:25 Date Recorded Body height Body mass index (BMI) Body weight Systolic And Diastolic Provider Name and Address Organization Details Last Updated DateTime 03/01/2025 166.37 cm 32 kg/m2 60071.51 g 109/73 mm[Hg] [facility] 03/01/2025 09:58:24 Date Recorded Body height Body mass index (BMI) Body weight Systolic And Diastolic Provider Name and Address Organization Details Last Updated DateTime 03/15/2025 166.37 cm 32.3 kg/m2 50018.7 g 107/74 mm[Hg] Tessa Bravo [facility] 03/15/2025 10:54:45 Date Recorded Body height Body mass index (BMI) Body weight Systolic And Diastolic Provider Name and Address Organization Details Last Updated DateTime 03/20/2025 166.37 cm 32.8 kg/m2 13286.47 g 99/69 mm[Hg] TINO Flowers [facility] 03/20/2025 14:44:46 Social History Question Answer Notes LastModified by Organizat ion Details LastModified Time Do You Have An Advance Directive? No Information n ot available 02/07/2025 How Many Years Have You Consumed Alcohol? 11 Information not available 09/21/2024 Are You Blind Or Do You Have Difficulty Seeing? No Information n ot available 09/21/2024 What Is Your Level Of Caffeine Consumption? Occasional [email or web address] Information not available 02/07/2025 How Much Tobacco Do You Chew? None [email or web address] Information not available 02/02/2025 In The 14 [...] Or The Highest Degree You Have Received? [id number] Information not available 09/21/2024 Are There Any [...] 09/21/2024 Are you able to walk? 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 Occasional [email or web address] Information not available 02/07/2025 Mental Status Question Answer Note LastModified by Organization D etails LastModified Time Do you feel stressed (tense, restless, nervous, or anxious, or unable to sleep at night)? [id number] Information not available 02/07/2025 Family History Relationship Description Onset Age of this Age Resolved Age Notes LastModified by Organization Details LastModified Time Mother Malignant tumor of cervix Not available 2024 10:01:46 Notes:adopted met pare nts but unsure of history Medical History Condition Response Anxiety Disorder Y Arthritis Y Fibromyalgia Y Allergies (Food, seasonal, environmental ) Y Depression/ depression Y Gynecological History Statement/Question [...] SNOMED-CT Code Diagnosis ICD10 Code Diagnosis Note [id number] MD Rajiv Dao [address] [address] 09/21/2024 09:05:00 09/21/2024 09:42:37 [id number] MD Rajiv Dao [address],[place] [address] 09/21/2024 09:05:54 09/21/2024 10:29:42 Nausea and vomiting 10505915 R11.2 Amenorrhea 75750003 N91. 2 [id number] MD Rajiv Dao [address],[place] [address] 10/02/2024 10:02:20 10/02/2024 11:04:07 screening 504355271 Z36.82 Z3A.12 [id number] MD Rajiv Dao [address],[place] [address] 10/02/2024 10:03:03 10/02/2024 11:58:22 Routine care 656000937 Z34.90 [id number] MD Rajiv Dao [address],[place] [address] 10/30/2024 10:36:07 10/30/2024 12:20:37 Routine care 874113629 Z34.90 [id number] MD Rajiv Dao [address],[place] [address] 11/26/2024 10:15:47 11/26/2024 11:38:55 screening 887054595 Z36.3 Z3A.20 [id number] MD Rajiv Dao [address],[place] [address] 11/26/2024 10:17:40 11/26/2024 12:07:45 Routine care 310297970 Z34.90 [id number] MD Rajiv Dao [address],[place] [address] 12/26/2024 15:35:17 12/26/2024 16:37:06 anatomy study 190090250 Z36.2 Z3A.24 [id number] MD Rajiv Dao [address],[place] [address] 12/26/2024 15:35:56 12/27/2024 02:38:23 care status 248215696 Z34.82 Anxiety 41629080 F41.9 [id number] MD Rajiv aDo [address],[place] [address] 01/21/2025 10:35:11 01/21/2025 11:23:34 care status 400432490 Z34.83 [id number] MD Rajiv Dao [address],[place] [address] 02/02/2025 10:42:10 02/02/2025 11:10:20 care status 082857677 Z34.83 Urinary sy stem finding 314785898 R39.9 [id number] MD Rajiv Dao [address],[place] [address] 02/04/2025 14:51:25 02/04/2025 16:24:53 care: obstetric risk 490703873 O09.293 O09.893 Z3A.30 [id number] MD Rajiv RICH [address],[place] [address] 02/11/2025 16:46:22 02/11/2025 17:53:42 Pain of hip region 70814977 M25.551 M25.552 - seeing PT- discussed conservati ve treatment Gestation period, 31 weeks 71973615 Z3A.31 - continue PNV [id number] MD Rajiv RICH [address],[place] [address] 03/01/2025 09:52:48 03/01/2025 10:19:20 Premature uterine contraction 041873284 O47.00 - was seen at [facility] on Tuesday for contractio ns- s/p terbutalin e, no further contractio ns- ROMplus neg- discussed precaution s Gestation period, 33 weeks 92735182 Z3A.33 - continue PNV [id number] ANGELLA BARRAZA MD [place] [address] [address] 03/15/2025 10:46:45 03/16/2025 08:48:16 Generalized anxiety disorder 14936554 F41.1 - mood stable Gestation period, 35 weeks 06807720 Z3A.35 - continue PNV- GBS collected [id number] ANGELLA BARRAZA MD [place] [address],[place] [address] 03/20/2025 14:34:16 03/20/2025 16:08:28 Generalized anxiety disorder 10916813 F41.1 - mood stable Irregular uterine contractions 35625909 O47.9 - irregular contractio ns, no change in SVE from previous hospital visit- labor precaution s reviewed Gestation period, 36 weeks 40710505 Z3A.36 - GBS negative- continue PNV Health Concerns Section Related Observation LastModified by Organization Detai ls LastModified Time None Recorded Concern Status LastModified by Organization Details LastModified Time None Recorded Advance Directives Directive N: Payers Insurance Date Sequence Insurance Name Policy Number Policy Calderon Covered Member ID Calderon Member ID Guarantor Name 03/26/2025 1 [place] [facility] NONE Nika O'Kenny [id number] Nika O'Kenny 03/26/2025 1 [facility] (MEDICAID HMO) [id number] Nika O'Kenny [id number] Nika O'Kenny 03/26/2025 2 [facility] (MEDICAID HMO) [id number] Nika O'Kenny [id number] Nika O'Kenny 11/26/2024 1 *SELF PAY* mitra Vazquez'Kenny 03/26/2025 1 [facility] (MEDICAID HMO) [id number] Nika Childs [id number] Nika O'Kenny 03/26/2025 1 [place] [facility] PUBLIC [facility] Nika Johnson [id number] Nika Johnson OBGyn Episode Ob Episode Information Episode Created Date Number of Fetuses Patient Bloodtype Patient rh Status Prepregnancy Weight lbs Domestic Partner Domestic Partner Phone Father Name Filament Tester Status 09/21/19 25 1 CLOSED Fetus Data First Name Last Name Admitted to NICU Weight (g) Sex Living Outcome Pediatric Complications Fetus ID Race Codes Race Delivery Type 2891.64 9 F Full Term 09214 Vaginal Delivery Zane Calculation Initial Zane Date [...] Domestic Partner Domestic Partner Phone Father Name Filament Tester Status 09/21/19 25 1 CLOSED Fetus Data First Name Last Name Admitted to NICU Weight (g) Sex Living Outcome Pediatric Complications Fetus ID Race Codes Race Delivery Type , Spontane ous 09935 Zane Calculation Initial Zane Date Initial Exam [...] Domestic Partner Domestic Partner Phone Father Name Filament Tester Status 10/02/19 25 1 A Positive 202 Jose OPEN Fetus Data First Name Last Name Admitted to NICU Weight (g) Sex Living Outcome Pediatric Complications Fetus ID Race Codes Race Delivery Type 72939 Problems Problem Notes Problem Name Start Date End Date Resolution Snomed Code Not e growth restriction 03977439 HISTORICAL - uncertain if gowth restricted or premature 1st Generalized anxiety disorder 12/26/2024 46698716 restarted meds Premature delivery 063585569 4 # 12, Gestational age unknown Zane [...] Weight in lbs Pre/Post Dialysis Refused Weight 199.528494633930 BP Diastolic BP Location Tested BP Systolic [...] Type Weight in lbs Pre/Post Dialysis Refused 196.790499278067 BP Diastolic BP Location Tested BP Systolic [...] Weight in lbs Pre/Post Dialysis Refused Weight 196.138698155224 BP Diastolic BP Location Tested BP Systolic [...] Type Weight in lbs Pre/Post Dialysis Refused 197.198100377872 BP Diastolic BP Location Tested BP Systolic [...] Type Weight in lbs Pre/Post Dialysis Refused 194.014318048187 BP Diastolic BP Location Tested BP Systolic [...] Weight in lbs Pre/Post Dialysis Refused Weight 192.636086324345 BP Diastolic BP Location Tested BP Systolic [...] Weight in lbs Pre/Post Dialysis Refused Weight 193.663101689053 BP Diastolic BP Location Tested BP Systolic [...] Weight in lbs Pre/Post Dialysis Refused Weight 195.711611824427 BP Diastolic BP Location Tested BP Systolic [...] Weight in lbs Pre/Post Dialysis Refused Weight 197.953602757787 BP Diastolic BP Location Tested BP Systolic [...] Weight in lbs Pre/Post Dialysis Refused Weight 200.457567853441 BP Diastolic BP Location Tested BP Systolic [...] Domestic Partner Domestic Partner Phone Father Name Filament Tester Status 09/21/19 25 1 CLOSED Fetus Data First Name Last Name Admitted to NICU Weight (g) Sex Living Outcome Pediatric Complications Fetus ID Race Codes Race Delivery Type 2154.56 2 M Prematur e 88942 Vaginal Delivery Zane Calculation Initial Zane Date [...]
--- OUTSIDE RECORDS SUMMARY | 2025-03-26 15:17 | XMS_ITS | Encounter Summary ---
Author Organization [facility] Address [address] [place] [address] Care Team Providers Care Build And Release Manager Name Role Phone Libia Mejia [facility] Primary Care Provider [phone] Encounter Details Date Type Department Care Team (Late st Contact Info) Description 04/30/2024 [employer] Message Enc [facility] [address] [place], [place] [id number] Libia Mejia [facility] [address] [place] [address] Blood Pressure Social History Tobacco Use Types [...] Sex Assigned at Female 10/02/2024 11:08 AM WASTE REMOVALIST Legal Sex Female 1:00 PM CDT Gender Identity Not on file Sexual Orientation Not on file documented as of this encounter Functional Status * RETIRED Are you deaf or do you have serious difficulty hearing Answer Date of Assessment Author Status No 08/04/2020 5:16 AM WASTE REMOVALIST Activ e * RETIRED Are you blind or do you have serious difficulty seeing, even when wearing glasses? Answer Date of Assessment Author Status No 08/04/2020 5:16 AM WASTE REMOVALIST Acti ve * Do you have serious [...] documented as of this encounter Care Teams Build And Release Manager Relationship Specialty Start Date End Date Libia Mejia FNP [address] [place] [address] [place] [address] PCP - General Nurse Practitioner Family 12/04/18 documented as of this encounter
--- OUTSIDE RECORDS SUMMARY | 2025-03-26 15:17 | XMS_ITS | Referral Summary ---
Author Organization [facility] Address [facility] [place] [address] Care Team Providers Care Debt Recovery Officer Name Role Phone Liiba Mejia NP Primary Care Provider [phone] Allergies Active Allergy Reactions Criticality Noted Date [...] 07/10/2018 Assessment & Plan (07/10/2018 2:15 PM CHEMICAL EDUCATOR): BMI Follow-up includes: exercise counseling. Fibromyalgia 10/08/2016 Overview (12/16/2016): Fibromyalgia Assessment & Plan (07/10/2018 2:16 PM CHEMICAL EDUCATOR): Having more stress recently causing slightly more pain Assessment & Plan (11/17/2017 10:14 AM CDT): Improved on Cymbalta Assessment & Plan (10/06/2017 11:23 AM CHEMICAL EDUCATOR): Pain improving with work leave of absence Assessment & Plan (03/22/2017 9:36 AM CDT): Doing well when on medication consistently-worse in past week due to missing medication Moderate episode of recurrent major depressive d isorder 09/20/2016 Overview (12/16/2016): Major depressive disorder, recurrent, moderate Assessment & Plan (07/10/2018 2:18 PM CHEMICAL EDUCATOR): Worse due to stress Will increase Cymbalta to 60mg daily Assessment & Plan (03/06/2018 1:57 PM CDT): Continue current therapy Assessment & Plan (11/17/2017 10:19 AM CDT): Improved on Cymbalta We discussed risks/benefits of taking it still Discussed she can continue while breast feeding Assessment & Plan (10/06/2017 11:25 AM CHEMICAL EDUCATOR): Will resume Cymbalta I discussed the risks, [...] on file Legal Sex Female 9:27 PM CHEMICAL EDUCATOR Gender Identity Female 03/30/2023 5:06 AM CDT Sexual Orientation Not on file Last Filed Vital Signs Vital Sign Reading Time Taken Comments Blood Pressure 109/73 12/04/2024 11:15 AM CDT Pulse 83 12/04/2024 11:15 AM CDT Temperature 36.7 C (98 F) 12/04/2024 11:15 AM CDT Respiratory Rate 20 07/10/2018 2:02 PM CHEMICAL EDUCATOR Oxygen Saturation 97% 07/10/2018 2:02 PM CHEMICAL EDUCATOR Inhaled Oxygen Concentration - - Weight 88.8 kg (195 lb 12.8 oz) 025 11:15 AM CDT Height 165.1 cm (5' 5) 12/04/2024 11:1 5 AM CDT Body Mass Index 32.58 12/04/2024 11:15 AM CDT Plan of Treatment Not on file Insurance [facility] Care Teams Debt Recovery Officer Relationship Specialty Start Date End Date Libia Mejia NP [address] [place] [id number] PCP - General Pediatrics 07/02/22
--- OUTSIDE RECORDS SUMMARY | 2025-03-26 15:17 | XMS_ITS | Encounter Summary ---
Author Organization [facility] Address [address] [place] [address] Care Team Providers Care Icd 9 Coder Name Role Phone Libia Mejia [facility] Primary Care Provider Encounter Details Date Type Department Care Team (Late st Contact Info) Description 06/03/2024 [employer] Message Enc [facility] [address] [place], [place] [id number] Libia Mejia [facility] [address] [place] [address] Anti depressants Social History Tobacco Use Types [...] Sex Assigned at Female 10/02/2024 11:08 AM STRINGS TEACHER Legal Sex Female 1:00 PM CDT Gender Identity Not on file Sexual Orientation Not on file documented as of this encounter Functional Status * RETIRED Are you deaf or do you have serious difficulty hearing Answer Date of Assessment Author Status No 08/04/2020 5:16 AM STRINGS TEACHER Activ e * RETIRED Are you blind or do you have serious difficulty seeing, even when wearing glasses? Answer Date of Assessment Author Status No 08/04/2020 5:16 AM STRINGS TEACHER Activ e * Do you have serious [...] documented as of this encounter Care Teams Icd 9 Coder Relationship Specialty Start Date End Date Libia Mejia FNP [address] [place] [address] [place] [address] PCP - General Nurse Practitioner Family 12/04/18 documented as of this encounter
--- OUTSIDE RECORDS SUMMARY | 2025-03-26 15:17 | XMS_ITS | Clinical Summary ---
Author Organization [facility] Address [address] [facility] [place] [address] Care Team Providers Care Reports Analysis Manager Name Role Phone Brenton Kraus MD Primary Care Provider Source Comments [facility],non-owned Affiliates and Associated Physician Practices is amultiple site organization consisting of ambulatory clinics and hospital sitesin [place], [place], [place] and [place]. This disclosure is being madepursuant to the Care Everywhere program and may not contain all information available regarding this patient. Last updated 18.[facility] Allergies Active Allergy Reactions Criticality Noted Date [...] on file Legal Sex Female 5:46 PM BOTTOM POLISHER Gender Identity Not on file Sexual Orientation Not on file Last Filed Vital Signs Vital Sign Reading Time Taken Comments Blood Pressure 108/78 09/22/2016 9:37 AM BOTTOM POLISHER Pulse 69 09/22/2016 9:37 AM BOTTOM POLISHER Temperature 36.7 C (98.1 F) 09/22/2016 9:37 AM BOTTOM POLISHER Respiratory Rate - - Oxygen Saturation 97% 09/22/2016 9:37 AM BOTTOM POLISHER Inhaled Oxygen Concentration - - Weight 77.3 kg (170 lb 6.4 oz) 09/22/2016 9:37 A M BOTTOM POLISHER Height 166.4 cm (5' 5.5) 09/22/2016 9:37 AM BOTTOM POLISHER Body Mass Index 27.92 09/22/2016 9:37 AM BOTTOM POLISHER Plan of Treatment Health Maintenance Due Date [...] age to complete this topic Care Teams Reports Analysis Manager Relationship Specialty Start Date End Date Brenton Kraus MD [facility] [address], [place] [address] PCP - General 09/22/16
--- OUTSIDE RECORDS SUMMARY | 2025-03-26 15:17 | XMS_ITS | Clinical Summary ---
Author Organization [facility] Address [address] [place] [address] Care Team Providers Care Health Benefits Specialist Name Role Phone Libia Mejia SIDEHAND Primary Care Provider [phone] Allergies Active Allergy Reactions Criticality Noted Date [...] Resolved Date Breast feeding status of mother ([facility]) 05/06/2021 12/11/2021 Assessment & Plan (05/06/2021 [...] She will use a brace for comfort. ([facility]) 08/04/2020 12/12/19 22 Thrombosed external hemorrhoid 05/30/2020 10/28/2021 Supervision of high-risk pre gnancy with grand multiparity in third trimester ([facility]) 02/06/2018 11/18/2021 Supervision of normal intrau terine in multigravida, third trimester ([facility]) 02/06/2018 11/18/2021 Labor and delivery indicatio n for care or intervention ([facility]) 02/04/2018 11/18/2021 Encounters Date Type Department Care Team Description 02/19/2025 10:51 AM CDT - 02/19/2025 11:59 PM CDT Hospital Encounter [facility] [address] [place] [address] Jose Snider MD Davidson, Brooke M, [employer] Discharge Disposition: Home or Self Care (Routine Discharge) 02/19/2025 Travel 02/15/2025 9:52 AM CDT - 02/15/2025 11:59 PM CDT Hospital Encounter [facility] [address] [place] [address] Jose Snider MD Hays, Michelle, [employer] Discharge Disposition: Home or Self Care (Routine Discharge) 02/15/2025 Travel 02/08/2025 4:00 PM CDT - 02/08/2025 11:59 PM CDT Hospital Encounter [facility] [address] [place] [address] Jose Snider MD Emerick, Noah D, PT Low Back Pain Discharge Disposition: Home or Self Care (Routine Discharge) 02/08/2025 Travel 01/31/2025 10:18 AM CDT - 01/31/2025 11:59 PM CDT Hospital Encounter [facility] [address] [place] [address] Jose Snider MD McClenahan, Krystal M, PT Discharge Disposition: Home or Self Care (Routine Discharge) 01/31/2025 Travel 01/25/2025 9:45 AM CDT - 01/25/2025 11:59 PM CDT Hospital Encounter [facility] [address] [place] [address] Jose Snider MD Davidson, Brooke M, [employer] Discharge Disposition: Home or Self Care (Routine Discharge) 01/25/2025 Travel 01/11/2025 9:45 AM CDT - 01/11/2025 11:59 PM CDT Hospital Encounter [facility] [address] [place] [address] Jose Snider MD McClenahan, Krystal M, PT Discharge Disposition: Home or Self Care (Routine Discharge) 01/11/2025 Travel 01/07/2025 9:54 AM CDT - 01/07/2025 11:59 PM CDT Hospital Encounter [facility] [address] [place] [address] Jose Snider MD Scott, Kelli, [place] Back Pain Discharge Disposition: Home or Self Care (Routine Discharge) 01/07/2025 Travel 12/28/2024 9:39 AM CDT - 12/28/2024 11:59 PM CDT Hospital Encounter [facility] [address] [place] [address] Jose Snider MD Scott, Kelli, [employer] Low Back Pain Discharge Disposition: Home or Self Care (Routine Discharge) 12/28/2024 Travel from Last 3 Months Immunizations Immunization [...] Sex Assigned at Female 10/02/2024 11:08 AM BEHAVIORAL TECHNICIAN Legal Sex Female 1:00 PM CDT Gender Identity Not on file Sexual Orientation Not on file Last Filed Vital Signs Vital Sign Reading Time Taken Comments Blood Pressure 102/68 10/24/2024 2:48 PM BEHAVIORAL TECHNICIAN Pulse 83 10/24/2024 2:48 PM BEHAVIORAL TECHNICIAN Temperature 37.1 C (98.7 F) 10/24/2024 2:48 PM BEHAVIORAL TECHNICIAN Respiratory Rate 16 10/24/2024 2:48 PM BEHAVIORAL TECHNICIAN Oxygen Saturation 100% 10/24/2024 2:48 PM BEHAVIORAL TECHNICIAN Inhaled Oxygen Concentration - - Weight 88.9 kg (196 lb) 10/24/2024 2:48 PM BEHAVIORAL TECHNICIAN Height 166.4 cm (5' 5.5) 10/24/2024 2:48 PM BEHAVIORAL TECHNICIAN Body Mass Index 32.12 10/24/2024 2:48 PM BEHAVIORAL TECHNICIAN Plan of Treatment Health Maintenance Due Date Last Done Comments COVID-19 Vaccine (#1) 11/14/1996 Hepatitis B Vaccines (1 of 3 - 19+ 3-dose series) 11/14/2010 Pneumococcal Vaccine: Pediatrics (0 to 5 Years) and At-Risk Patients (6 to 49 Years) (1 of 2 - PCV) 11/14/2010 HPV Vaccines (1 - 3-dose SCDM series) 11/14/2018 Annual Physical 01/30/2025 01/31/2024 Cervical Cancer Screening [...] Hepatitis C Completed 10/02/2024, 10/02/2024 PHQ-2 (Physician [place]) Completed 10/24/2024 Meningococcal B Vaccine Aged Out No l [...] was performed using the APTIMA COMBO2 Assay ([employer] The analytical performance characteristics of this assay, when used to test SurePath specimens have been determined by [employer]. JO ANN SPANGLER MD HPV MRNA E6/E7 Detected(A) Not Detected [employer] TO EPIC CONVERSION Comment: This test was performed using the APTIMA HPV Assay ([employer] This assay detects E6/E7 viral messenger RNA (mRNA) from 14 high-risk HPV types (16,18,31,33,35,39,45,51,52,56,58,59,66,68). JO ANN SPANGLER MD REFLEX ADDED yes [employer] P TO EPIC CONVERSION Comment: THIS TEST WAS PERFORMED AT [facility] [address] [place] [address] 12/12/2014 4:50 PM CDT 12/12/2014 4:50 PM CDT Narrative [employer] TO EPIC CONVERSION - 12/25/2014 11:04 AM CDT This lab was migrated from [employer] and may be missing annotations or result text, please check the Media tab for the most complete results. Jenna Daly CNM PATHOLOGY/CYTOLOGY ORDERA BLES Final Result [employer] TO EPIC CONVERSION from Last 3 Months or Most Recently Relevant to Health Maintenance Insurance [employer] Advance Directives Documents on File Type Date Recorded Patient Production Hand Expl anation Advance Directives and Living Will [...] 9:55 PM 02/05/2018 2:55 AM Care Teams Health Benefits Specialist Relationship Specialty Start Date End Date Libia Mejia FNP [address] [place] [address] [place] [address] PCP - General Nurse Practitioner Family 12/04/18
--- NOTE | 2025-03-26 16:20 | OBADM ---
This patient, Nika Childs, admitted to the OB room Labor/Delivery/Recovery 106 for observation. Patient/family oriented to hospital policies and general routines including ID bracelet, bed and alarms, visiting hours, pain management, procedures, bathroom and other care routines, personal items, smoking policy, room service/diet, and visiting hours. Patient/Family are encouraged to report perceived risks to care and to ask questions if they do not understand what they are told or what they should do.
== END 2025-03-26 15:21 | disposition home or self-care (01) ==
PROVIDERS: Admitting Provider Obstetrics & Gynecology; PCP Nurse Practitioner; Visit Provider Obstetrics & Gynecology
DX: O47.1 False labor at or after 37 completed weeks of gestation (principal); Z3A.37 37 weeks gestation of pregnancy
CPT/HCPCS: G0378; G0379

== ENCOUNTER 2025-03-28 06:07 | Observation (INO) | payer OTHER, SELFPAY ==
--- OUTSIDE RECORDS SUMMARY | 2025-03-28 08:42 | XMS_ITS | Clinical Summary ---
Author Organization [facility] Address [address] [place] [place] [address] Care Team Providers Care Blogs Manager Name Role Phone Brenton Kraus MD Primary Care Provider Source Comments [facility],non-owned Affiliates and Associated Physician Practices is amultiple site organization consisting of ambulatory clinics and hospital sitesin [place], [place], [place] and [place]. This disclosure is being madepursuant to the Care Everywhere program and may not contain all information available regarding this patient. Last updated 18.[facility] Allergies Active Allergy Reactions Criticality Noted Date [...] on file Legal Sex Female 5:46 PM CUSTOMER SERVICE REP Gender Identity Not on file Sexual Orientation Not on file Last Filed Vital Signs Vital Sign Reading Time Taken Comments Blood Pressure 108/78 09/22/2016 9:37 AM CUSTOMER SERVICE REP Pulse 69 09/22/2016 9:37 AM CUSTOMER SERVICE REP Temperature 36.7 C (98.1 F) 09/22/2016 9:37 AM CUSTOMER SERVICE REP Respiratory Rate - - Oxygen Saturation 97% 09/22/2016 9:37 AM CUSTOMER SERVICE REP Inhaled Oxygen Concentration - - Weight 77.3 kg (170 lb 6.4 oz) 09/22/2016 9:37 A M CUSTOMER SERVICE REP Height 166.4 cm (5' 5.5) 09/22/2016 9:37 AM CUSTOMER SERVICE REP Body Mass Index 27.92 09/22/2016 9:37 AM CUSTOMER SERVICE REP Plan of Treatment Health Maintenance Due Date [...] age to complete this topic Care Teams Blogs Manager Relationship Specialty Start Date End Date Brenton Kraus MD [facility] [address], [place] [address] PCP - General 09/22/16
--- OUTSIDE RECORDS SUMMARY | 2025-03-28 08:42 | XMS_ITS | Referral Summary ---
Author Organization [facility] Address [facility] [place] [address] Care Team Providers Care Tomographic Tech Name Role Phone Libia Mejia NP Primary Care Provider [phone] Allergies Active Allergy Reactions Criticality Noted Date [...] 07/10/2018 Assessment & Plan (07/10/2018 2:15 PM HAND REAMER): BMI Follow-up includes: exercise counseling. Fibromyalgia 10/08/2016 Overview (12/16/2016): Fibromyalgia Assessment & Plan (07/10/2018 2:16 PM HAND REAMER): Having more stress recently causing slightly more pain Assessment & Plan (11/17/2017 10:14 AM CDT): Improved on Cymbalta Assessment & Plan (10/06/2017 11:23 AM HAND REAMER): Pain improving with work leave of absence Assessment & Plan (03/22/2017 9:36 AM CDT): Doing well when on medication consistently-worse in past week due to missing medication Moderate episode of recurrent major depressive d isorder 09/20/2016 Overview (12/16/2016): Major depressive disorder, recurrent, moderate Assessment & Plan (07/10/2018 2:18 PM HAND REAMER): Worse due to stress Will increase Cymbalta to 60mg daily Assessment & Plan (03/06/2018 1:57 PM CDT): Continue current therapy Assessment & Plan (11/17/2017 10:19 AM CDT): Improved on Cymbalta We discussed risks/benefits of taking it still Discussed she can continue while breast feeding Assessment & Plan (10/06/2017 11:25 AM HAND REAMER): Will resume Cymbalta I discussed the risks, [...] on file Legal Sex Female 9:27 PM HAND REAMER Gender Identity Female 03/30/2023 5:06 AM CDT Sexual Orientation Not on file Last Filed Vital Signs Vital Sign Reading Time Taken Comments Blood Pressure 109/73 12/04/2024 11:15 AM CDT Pulse 83 12/04/2024 11:15 AM CDT Temperature 36.7 C (98 F) 12/04/2024 11:15 AM CDT Respiratory Rate 20 07/10/2018 2:02 PM HAND REAMER Oxygen Saturation 97% 07/10/2018 2:02 PM HAND REAMER Inhaled Oxygen Concentration - - Weight 88.8 kg (195 lb 12.8 oz) 025 11:15 AM CDT Height 165.1 cm (5' 5) 12/04/2024 11:1 5 AM CDT Body Mass Index 32.58 12/04/2024 11:15 AM CDT Plan of Treatment Not on file Insurance [facility] Care Teams Tomographic Tech Relationship Specialty Start Date End Date Libia Mejia NP [address] [place] [id number] PCP - General Pediatrics 07/02/22
--- OUTSIDE RECORDS SUMMARY | 2025-03-28 08:42 | XMS_ITS | Encounter Summary ---
Author Organization [facility] Address [address] [place] [address] Care Team Providers Care Curtain Drier Name Role Phone Libia Mejia [facility] Primary Care Provider Encounter Details Date Type Department Care Team (Late st Contact Info) Description 04/30/2024 [employer] Message Enc [facility] [address] [place], [place] [id number] Libia Mejia [facility] [address] [place] [address] Blood Pressure Social History Tobacco Use Types [...] Sex Assigned at Female 10/02/2024 11:08 AM BULK FILLER Legal Sex Female 1:00 PM CDT Gender Identity Not on file Sexual Orientation Not on file documented as of this encounter Functional Status * RETIRED Are you deaf or do you have serious difficulty hearing Answer Date of Assessment Author Status No 08/04/2020 5:16 AM BULK FILLER Activ e * RETIRED Are you blind or do you have serious difficulty seeing, even when wearing glasses? Answer Date of Assessment Author Status No 08/04/2020 5:16 AM BULK FILLER Activ e * Do you have serious [...] documented as of this encounter Care Teams Curtain Drier Relationship Specialty Start Date End Date Libia Mejia FNP [address] [place] [address] [place] [address] PCP - General Nurse Practitioner Family 12/04/18 documented as of this encounter
--- OUTSIDE RECORDS SUMMARY | 2025-03-28 08:42 | XMS_ITS | Clinical Summary ---
Author Organization [facility] Address [address] [place] [id number] Care Team Providers Care Costume Specialist Name Role Phone Libia Mejia NP Primary Care Provider [phone] Allergies Active Allergy Reactions Criticality Noted Date [...] 07/10/2018 Assessment & Plan (07/10/2018 2:15 PM GROVE WORKER): BMI Follow-up includes: exercise counseling. Fibromyalgia 10/08/2016 Overview (12/16/2016): Fibromyalgia Assessment & Plan (07/10/2018 2:16 PM GROVE WORKER): Having more stress recently causing slightly more pain Assessment & Plan (11/17/2017 10:14 AM CDT): Improved on Cymbalta Assessment & Plan (10/06/2017 11:23 AM GROVE WORKER): Pain improving with work leave of absence Assessment & Plan (03/22/2017 9:36 AM CDT): Doing well when on medication consistently-worse in past week due to missing medication Moderate episode of recurrent major depressive d isorder 09/20/2016 Overview (12/16/2016): Major depressive disorder, recurrent, moderate Assessment & Plan (07/10/2018 2:18 PM GROVE WORKER): Worse due to stress Will increase Cymbalta to 60mg daily Assessment & Plan (03/06/2018 1:57 PM CDT): Continue current therapy Assessment & Plan (11/17/2017 10:19 AM CDT): Improved on Cymbalta We discussed risks/benefits of taking it still Discussed she can continue while breast feeding Assessment & Plan (10/06/2017 11:25 AM GROVE WORKER): Will resume Cymbalta I discussed the risks, [...] on file Legal Sex Female 9:27 PM GROVE WORKER Gender Identity Female 03/30/2023 5:06 AM CDT Sexual Orientation Not on file Obstetrics History Last Filed Vital Signs Vital Sign Reading Time Taken Comments Blood Pressure 109/73 12/04/2024 11:15 AM CDT Pulse 83 12/04/2024 11:15 AM CDT Temperature 36.7 C (98 F) 12/04/2024 11:15 AM CDT Respiratory Rate 20 07/10/2018 2:02 PM GROVE WORKER Oxygen Saturation 97% 07/10/2018 2:02 PM GROVE WORKER Inhaled Oxygen Concentration - - Weight 88.8 [...] 11/14/2010 Zoster Vaccine (1 of 2) 11/14/2010 HPV Vaccines (1 - 3-dose SCD M series) 11/14/2018 Depression Screening 07/10/2019 07/10/2018, 11/17/2017, 10/06/2017, Additional history exists Influenza Vaccine (#1) 2025 10/24/2024, 2017 DTaP/Tdap/Td Vaccine (4 - Td or Tdap) 12/08/2032 12/08/2022, 07/08/2020, 02/07/2018 Varicella Vaccines Discontinued Insurance [facility] Care Teams Costume Specialist Relationship Specialty Start Date End Date Libia Mejia NP [address] [place] [address] [place] [address] PCP - General Pediatrics 07/02/22
--- OUTSIDE RECORDS SUMMARY | 2025-03-28 08:42 | XMS_ITS | Data Portability ---
Author Organization [facility] [place], [facility] Address [address] [place] [address] Care Team Providers Care Ink Maker Name Role Phone ARMANDO CARROLL Primary Care [...] US, obstetric , follow-up 2024 025 [email or web address] Ball, [facility] [address], [address], [place], [address], 02/04/2025 16:38:01 Medication Orders None recorded. Patient TargetsNo targets recorded. Patient InstructionsNo instructions recorded. Reason for Referral None Reported. Results Created Date Observation Date Name Description Value Unit Range Abnormal Flag Note LastModifiedBy Organization Detail LastModifiedTime 01/22/2001/21/2025 GTT - GESTA MADELEINE Wnedi Young, ACOG OB glucose, 1 hour screen 93 mg/dL 70-135 Not Available [facility] (Lab) [address], [place], [address], 01/22/2025 11:52:34 01/22/20 25 01/21/2025 HIV 1/2 ANTIG EN/AN TIBOD Y, REFLE X CONFI RMATI ON HIV antigen/anti body Nonrea ctive nonrea ctive HIV-1 antig en and HIV-1 /HIV- 2 antib odies were not detec melany. No labor atory evide nce of HIV infec tion. Not Available [facility] (Lab) [address], [place], [address], 01/22/2025 11:52:34 01/22/20 25 01/21/2025 HEMAT OCRIT (HCT) HCT 33.5 % (based on docume nted legal sex) 34.0-4 5.0 low Not Available [facility] (Lab) [address], [place], [address], 01/22/2025 11:52:35 01/22/20 25 01/21/2025 HEMOG LOBIN (HGB) HGB 10.8 g/dL (based on docume nted legal sex) 11.6-1 5.4 low Not Available [facility] (Lab) [address], [place], [address], 01/22/2025 11:52:35 01/22/20 25 01/21/2025 RPR SCREE N, REFLE X TITER /CONF IRMAT ION RPR qualitative Nonrea ctive nonrea ctive Not Available [facility] (Lab) [address], [place], [address], 01/22/2025 11:52:36 02/03/20 25 02/02/2025 urina lysis , dipst ick Leukocytes - Not Available [facility] l[facility] [address], [place], [address], 02/02/2025 11:10:56 02/03/20 25 02/02/2025 urina lysis , dipst ick Nitrite - Not Available [address], [place], [address], 02/02/2025 11:10:56 02/03/20 25 02/02/2025 urina lysis , dipst ick Urobilinogen - Not Available [facility] edwina [address], [place], [address], 02/02/2025 11:10:56 02/03/20 25 02/02/2025 urina lysis , dipst ick Protein trace Not Available Ball [address], [place], [address], 02/02/2025 11:10:56 02/03/20 25 02/02/2025 urina lysis , dipst ick pH 8 Not Available Ball [address], [place], [address], 02/02/2025 11:10:56 02/03/20 25 02/02/2025 urina lysis , dipst ick Specific [place] 1.000 Not Available [facility] [address], [place], [address], 02/02/2025 11:10:56 02/03/20 25 02/02/2025 urina lysis , dipst ick Ketone - Not Available [facility] [address], [place], [address], 02/02/2025 11:10:56 02/03/20 25 02/02/2025 urina lysis , dipst ick Bilirubin - Not Available Susannah wetzel [address], [place], [address], 02/02/2025 11:10:56 02/03/20 25 02/02/2025 urina lysis , dipst ick Glucose - Not Available [address], [place], [address], 02/02/2025 11:10:56 02/03/20 25 02/02/2025 urina lysis , dipst ick Appearance clear Not Available Skyler lopez [address], [place], [address], 02/02/2025 11:10:56 02/03/20 25 02/02/2025 urina lysis , dipst ick Color light yellow Not Available Ball [address], [place], [address], 02/02/2025 11:10:56 03/15/20 25 03/15/2025 CULTU RE: [...] Resul ting Lab: [facility] [address] [facility] [address] Tel: CULTU RE ----- ----- ----- --- No Group B strep isola melany at 2 days (lin ctive broth enhan cemen t) Not Available [facility] (Lab) [address], [place], [address], 03/18/2025 15:17:48 02/05/20 25 02/04/2025 US, katina shah w-up No observ ation record ed. [email or web address] Ball [address], [place], [address], 02/04/2025 18:41:04 02/05/20 25 02/04/2025 US, kailey shaho w-up No observ ation record ed. MARCO A Leiva [address], [place], [address], 02/12/2025 16:29:54 03/17/20 25 03/17/2025 imagi ng/di dcos tic resul t No observ ation record ed. MARCO A Not Available 2024 10:40:33 Result Notes None recorded. Problems Name Problem SNOMED Code Status Onset Date Resolution Date Notes Provider Name and Address Organization Details Recorded Time Premature delivery 885138123 Active 4# 12, Gestation al age unknown Jose Snider MD [address], [place], [address], [facility] 5 11:48:53 growth restricti on 82882356 Active HISTORICA L - uncertain if gowth restricte d or premature 1st Rhonda Bowles [facility], [facility] 5 09:44:51 35664410 Active 2024 Esha Gabriel [facility] 5 11:17:12 Generaliz ed anxiety disorder 80361718 Active 2024 restarted meds Jose Snider MD [address], [place], [address], [facility] 5 17:26:25 Problem Notes None recorded. Procedures Surgical History Date Name Laterality Status Provider Name and Address Organization Details Recorded Time 5 Date of Last Pap Smear completed TINO Flowers [facility] 02/07/2025 12:18:08 3 extraction of wisdom tooth completed Esha Gabriel [facility] 09/21/2024 10:09:01 Imaging Results None recorded. Procedure Notes None recorded. Medical Equipment None Reported. Allergies Allergen ID Allergen Name Allergen Category Reaction Reaction Severity Criticality Documentation Date Start Date Code Code System Note Provider Name and Address Organization Details Recorded Time 69260 amoxicill in medicatio n hives mild Not available 09/21/2024 723 RxNorm Esha friedman [facility] 5 10:01:42 Medications Name Sig Start [...] Updated DateTime 02/11/2025 166.37 cm 31.6 kg/m2 20164.33 g 102/70 mm[Hg] [facility] 02/11/2025 17:18:25 Date Recorded Body height Body mass index (BMI) Body weight Systolic And Diastolic Provider Name and Address Organization Details Last Updated DateTime 03/01/2025 166.37 cm 32 kg/m2 21287.51 g 109/73 mm[Hg] [facility] 03/01/2025 09:58:24 Date Recorded Body height Body mass index (BMI) Body weight Systolic And Diastolic Provider Name and Address Organization Details Last Updated DateTime 03/15/2025 166.37 cm 32.3 kg/m2 94740.7 g 107/74 mm[Hg] Tessa Bravo [facility] 03/15/2025 10:54:45 Date Recorded Body height Body mass index (BMI) Body weight Systolic And Diastolic Provider Name and Address Organization Details Last Updated DateTime 03/20/2025 166.37 cm 32.8 kg/m2 45388.47 g 99/69 mm[Hg] TINO Flowers [facility] 03/20/2025 14:44:46 Social History Question Answer Notes LastModified by Organizat ion Details LastModified Time Do You Have An Advance Directive? No [email or web address] Information n ot available 02/07/2025 How Many Years Have You Consumed Alcohol? 11 Information not available 09/21/2024 Are You Blind Or Do You Have Difficulty Seeing? No Information n ot available 09/21/2024 What Is Your Level Of Caffeine Consumption? Occasional [email or web address] Information not available 02/07/2025 How Much Tobacco Do You Chew? None [email or web address] Information not available 02/02/2025 In The 14 [...] Or The Highest Degree You Have Received? [id number] Information not available 09/21/2024 Are There Any [...] 09/21/2024 Are you able to walk? 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 Occasional [email or web address] Information not available 02/07/2025 Mental Status Question Answer Note LastModified by Organization D etails LastModified Time Do you feel stressed (tense, restless, nervous, or anxious, or unable to sleep at night)? [id number] [email or web address] Information not available 02/07/2025 Family History Relationship [...] SNOMED-CT Code Diagnosis ICD10 Code Diagnosis Note [id number] MD Rajiv Dao [address] [address] 09/21/2024 09:05:00 09/21/2024 09:42:37 [id number] MD Rajiv Dao [address],[place] [address] 09/21/2024 09:05:54 09/21/2024 10:29:42 Nausea and vomiting 70038179 R11.2 Amenorrhea 44240884 N91. 2 [id number] MD Rajiv Dao [address],[place] [address] 10/02/2024 10:02:20 10/02/2024 11:04:07 screening 167855885 Z36.82 Z3A.12 [id number] MD Rajiv Dao [address],[place] [address] 10/02/2024 10:03:03 10/02/2024 11:58:22 Routine care 133355979 Z34.90 [id number] MD Rajiv Dao [address],[place] [address] 10/30/2024 10:36:07 10/30/2024 12:20:37 Routine care 181539683 Z34.90 [id number] MD Rajiv Dao [address],[place] [address] 11/26/2024 10:15:47 11/26/2024 11:38:55 screening 076518747 Z36.3 Z3A.20 [id number] MD Rajiv Dao [address],[place] [address] 11/26/2024 10:17:40 11/26/2024 12:07:45 Routine care 790865918 Z34.90 [id number] MD Rajiv Dao [address],[place] [address] 12/26/2024 15:35:17 12/26/2024 16:37:06 anatomy study 712843479 Z36.2 Z3A.24 [id number] MD Rajiv Dao [address],[place] [address] 12/26/2024 15:35:56 12/27/2024 02:38:23 care status 971733797 Z34.82 Anxiety 08674274 F41.9 [id number] MD Rajiv Dao [address],[place] [address] 01/21/2025 10:35:11 01/21/2025 11:23:34 care status 055519626 Z34.83 [id number] MD Rajiv Dao [address],[place] [address] 02/02/2025 10:42:10 02/02/2025 11:10:20 care status 510167126 Z34.83 Urinary sy stem finding 342615198 R39.9 [id number] MD Rajiv Dao [address],[place] [address] 02/04/2025 14:51:25 02/04/2025 16:24:53 care: obstetric risk 763217516 O09.293 O09.893 Z3A.30 [id number] MD Rajiv RICH [address],[place] [address] 02/11/2025 16:46:22 02/11/2025 17:53:42 Pain of hip region 42246064 M25.551 M25.552 - seeing PT- discussed conservati ve treatment Gestation period, 31 weeks 18835564 Z3A.31 - continue PNV [id number] MD Rajiv RICH [address],[place] [address] 03/01/2025 09:52:48 03/01/2025 10:19:20 Premature uterine contraction 421058686 O47.00 - was seen at [facility] on Tuesday for contractio ns- s/p terbutalin e, no further contractio ns- ROMplus neg- discussed precaution s Gestation period, 33 weeks 18259077 Z3A.33 - continue PNV [id number] ANGELLA BARRAZA MD Ball [address],[facility] [place] [address] 03/15/2025 10:46:45 03/16/2025 08:48:16 Generalized anxiety disorder 48438429 F41.1 - mood stable Gestation period, 35 weeks 93191196 Z3A.35 - continue PNV- GBS collected [id number] ANGELLA BARRAZA MD Ball [address],[place] [address] 03/20/2025 14:34:16 03/20/2025 16:08:28 Generalized anxiety disorder 84372178 F41.1 - mood stable Irregular uterine contractions 68265591 O47.9 - irregular contractio ns, no change in SVE from previous hospital visit- labor precaution s reviewed Gestation period, 36 weeks 29620271 Z3A.36 - GBS negative- continue PNV Health Concerns Section Related Observation LastModified by Organization Detai ls LastModified Time None Recorded Concern Status LastModified by Organization Details LastModified Time None Recorded Advance Directives Directive N: Payers Insurance Date Sequence Insurance Name Policy Number Policy Calderon Covered Member ID Calderon Member ID Guarantor Name 03/26/2025 1 [place] [facility] NONE Nika O'Kenny [id number] Nika O'Kenny 03/26/2025 1 [facility] (MEDICAID HMO) [id number] Nika O'Kenny [id number] Nika O'Kenny 03/26/2025 2 [facility] (MEDICAID HMO) [id number] 0003 Nika O'Kenny [id number] Nika O'Kenny 11/26/2024 1 *SELF PAY* mitra Vazquez'Kenny 03/28/2025 1 [facility] (MEDICAID HMO) [id number] 0003 Nika Childs [id number] Nika O'Kenny 03/26/2025 1 [place] [facility] Nika Johnson [id number] Nika Johnson Notes Date Note Type Note Provider Name and Address Organization Details Recorded Time 02/11/2025 text/html Generic HPI TemplateReported by Patient ANGELLA BARRAZA MD [address], [place], [address], [facility] 02/11/2025 17:44:56 03/01/2025 text/html Generic HPI TemplateReported by Patient ANGELLA BARRAZA MD [address], [place], [address], [facility] 03/01/2025 10:18:20 03/15/2025 text/html Generic HPI TemplateReported by Patient ANGELLA BARRAZA MD [address], [place], [address], [facility] 03/15/2025 17:41:58 03/20/2025 text/html Generic HPI TemplateReported by Patient ANGELLA BARRAZA MD [address], [place], [address], [facility] 03/20/2025 16:06:26 OBGyn Episode Ob Episode Information Episode Created Date Number of Fetuses Patient Bloodtype Patient rh Status Prepregnancy Weight lbs Domestic Partner Domestic Partner Phone Father Name Set Up And Lay Out Inspector Status 09/21/19 25 1 CLOSED Fetus Data First Name Last Name Admitted to NICU Weight (g) Sex Living Outcome Pediatric Complications Fetus ID Race Codes Race Delivery Type 2891.64 9 F Full Term [id number] Vaginal Delivery Zane Calculation Initial Zane Date [...] Domestic Partner Domestic Partner Phone Father Name Set Up And Lay Out Inspector Status 09/21/19 25 1 CLOSED Fetus Data First Name Last Name Admitted to NICU Weight (g) Sex Living Outcome Pediatric Complications Fetus ID Race Codes Race Delivery Type , Spontane ous 02157 Zane Calculation Initial Zane Date Initial Exam [...] Domestic Partner Domestic Partner Phone Father Name Set Up And Lay Out Inspector Status 10/02/19 25 1 A Positive 202 Jose OPEN Fetus Data First Name Last Name Admitted to NICU Weight (g) Sex Living Outcome Pediatric Complications Fetus ID Race Codes Race Delivery Type [id number] Problems Problem Notes Problem Name Start Date End Date Resolution Snomed Code Not e growth restriction 40241369 HISTORICAL - uncertain if gowth restricted or premature 1st Generalized anxiety disorder 12/26/2024 21694406 restarted meds Premature delivery 467826675 4 # 12, Gestational age unknown Zane [...] Weight in lbs Pre/Post Dialysis Refused Weight 199.854532684947 BP Diastolic BP Location Tested BP Systolic [...] Type Weight in lbs Pre/Post Dialysis Refused 196.952090284780 BP Diastolic BP Location Tested BP Systolic [...] Weight in lbs Pre/Post Dialysis Refused Weight 196.734491670353 BP Diastolic BP Location Tested BP Systolic [...] Type Weight in lbs Pre/Post Dialysis Refused 197.574125366954 BP Diastolic BP Location Tested BP Systolic [...] Type Weight in lbs Pre/Post Dialysis Refused 194.623486660795 BP Diastolic BP Location Tested BP Systolic [...] Weight in lbs Pre/Post Dialysis Refused Weight 192.063358251669 BP Diastolic BP Location Tested BP Systolic [...] Weight in lbs Pre/Post Dialysis Refused Weight 193.339172556660 BP Diastolic BP Location Tested BP Systolic [...] Weight in lbs Pre/Post Dialysis Refused Weight 195.129982066557 BP Diastolic BP Location Tested BP Systolic [...] Weight in lbs Pre/Post Dialysis Refused Weight 197.449777574026 BP Diastolic BP Location Tested BP Systolic [...] Weight in lbs Pre/Post Dialysis Refused Weight 200.168131213336 BP Diastolic BP Location Tested BP Systolic [...] Domestic Partner Domestic Partner Phone Father Name Set Up And Lay Out Inspector Status 09/21/19 25 1 CLOSED Fetus Data First Name Last Name Admitted to NICU Weight (g) Sex Living Outcome Pediatric Complications Fetus ID Race Codes Race Delivery Type 2154.56 2 M Prematur e 42900 Vaginal Delivery Zane Calculation Initial Zane Date [...]
--- OUTSIDE RECORDS SUMMARY | 2025-03-28 08:42 | XMS_ITS | Encounter Summary ---
Author Organization [facility] Address [address] [place] [address] Care Team Providers Care Director Product Management Name Role Phone Libia Mejia [facility] Primary Care Provider Encounter Details Date Type Department Care Team (Late st Contact Info) Description 06/03/2024 Cocodrilo Dogt Message Enc [facility] [address] [place], [place] [id number] Libia Mejia [facility] [address] [place] [address] Anti depressants Social History Tobacco Use Types [...] Sex Assigned at Female 10/02/2024 11:08 AM RIM ROLLER SETTER Legal Sex Female 1:00 PM CDT Gender Identity Not on file Sexual Orientation Not on file documented as of this encounter Functional Status * RETIRED Are you deaf or do you have serious difficulty hearing Answer Date of Assessment Author Status No 08/04/2020 5:16 AM RIM ROLLER SETTER Activ e * RETIRED Are you blind or do you have serious difficulty seeing, even when wearing glasses? Answer Date of Assessment Author Status No 08/04/2020 5:16 AM RIM ROLLER SETTER Activ e * Do you have serious [...] documented as of this encounter Care Teams Director Product Management Relationship Specialty Start Date End Date Libia Mejia FNP [address] [place] [address] [place] [address] PCP - General Nurse Practitioner Family 12/04/18 documented as of this encounter
--- OUTSIDE RECORDS SUMMARY | 2025-03-28 08:43 | XMS_ITS | Clinical Summary ---
Author Organization [facility] Address [address] [place] [address] Care Team Providers Care Counseling Center Director Name Role Phone Libia Mejia [employer] Primary Care Provider [phone] Allergies Active Allergy Reactions Criticality Noted Date [...] Resolved Date Breast feeding status of mother ([facility]) 05/06/2021 12/11/2021 Assessment & Plan (05/06/2021 6:59 [...] She will use a brace for comfort. ([facility]) 08/04/2020 12/12/19 22 Thrombosed external hemorrhoid 05/30/2020 10/28/2021 Supervision of high-risk pre gnancy with grand multiparity in third trimester ([facility]) 02/06/2018 11/18/2021 Supervision of normal intrau terine in multigravida, third trimester ([facility]) 02/06/2018 11/18/2021 Labor and delivery indicatio n for care or intervention ([facility]) 02/04/2018 11/18/2021 Encounters Date Type Department Care Team Description 02/19/2025 10:51 AM CDT - 02/19/2025 11:59 PM CDT Hospital Encounter [facility] [address] [place] [address] Jose Snider MD Davidson, Brooke M, CONTINUOUS STILL OPERATOR Discharge Disposition: Home or Self Care (Routine Discharge) 02/19/2025 Travel 02/15/2025 9:52 AM CDT - 02/15/2025 11:59 PM CDT Hospital Encounter [facility] [address] [place] [address] Jose Snider MD Hays, Michelle, CONTINUOUS STILL OPERATOR Discharge Disposition: Home or Self Care (Routine Discharge) 02/15/2025 Travel 02/08/2025 4:00 PM CDT - 02/08/2025 11:59 PM CDT Hospital Encounter [facility] [address] [place] [address] Jose Snider MD Emerick, Noah D, PT Low Back Pain Discharge Disposition: Home or Self Care (Routine Discharge) 02/08/2025 Travel 01/31/2025 10:18 AM CDT - 01/31/2025 11:59 PM CDT Hospital Encounter [facility] [address] [place] [address] Jose Snider MD McClenahan, Krystal M, PT Discharge Disposition: Home or Self Care (Routine Discharge) 01/31/2025 Travel 01/25/2025 9:45 AM CDT - 01/25/2025 11:59 PM CDT Hospital Encounter [facility] [address] [place] [address] Jose Snider MD Davidson, Brooke M, CONTINUOUS STILL OPERATOR Discharge Disposition: Home or Self Care (Routine Discharge) 01/25/2025 Travel 01/11/2025 9:45 AM CDT - 01/11/2025 11:59 PM CDT Hospital Encounter [facility] [address] [place] [address] Jose Snider MD McClenahan, Krystal M, PT Discharge Disposition: Home or Self Care (Routine Discharge) 01/11/2025 Travel 01/07/2025 9:54 AM CDT - 01/07/2025 11:59 PM CDT Hospital Encounter [facility] [address] [place] [address] Jose Snider MD Scott, Kelli, SHELTON Back Pain Discharge Disposition: Home or Self Care (Routine Discharge) 01/07/2025 Travel 12/28/2024 9:39 AM CDT - 12/28/2024 11:59 PM CDT Hospital Encounter [facility] [address] [place] [address] Jose Snider MD Scott, Kelli, CONTINUOUS STILL OPERATOR Low Back Pain Discharge Disposition: Home [...] Sex Assigned at Female 10/02/2024 11:08 AM NUT PROCESS HELPER Legal Sex Female 1:00 PM CDT Gender Identity Not on file Sexual Orientation Not on file Last Filed Vital Signs Vital Sign Reading Time Taken Comments Blood Pressure 102/68 10/24/2024 2:48 PM NUT PROCESS HELPER Pulse 83 10/24/2024 2:48 PM NUT PROCESS HELPER Temperature 37.1 C (98.7 F) 10/24/2024 2:48 PM NUT PROCESS HELPER Respiratory Rate 16 10/24/2024 2:48 PM NUT PROCESS HELPER Oxygen Saturation 100% 10/24/2024 2:48 PM NUT PROCESS HELPER Inhaled Oxygen Concentration - - Weight 88.9 kg (196 lb) 10/24/2024 2:48 PM NUT PROCESS HELPER Height 166.4 cm (5' 5.5) 10/24/2024 2:48 PM NUT PROCESS HELPER Body Mass Index 32.12 10/24/2024 2:48 PM NUT PROCESS HELPER Plan of Treatment Health Maintenance Due Date [...] Hepatitis C Completed 10/02/2024, 10/02/2024 PHQ-2 (Physician [place]) Completed 10/24/2024 Meningococcal B Vaccine Aged Out [...] was performed using the APTIMA COMBO2 Assay ([employer] The analytical performance characteristics of this assay, when used to test SurePath specimens have been determined by [employer]. JO ANN SPANGLER MD HPV MRNA E6/E7 Detected(A) Not Detected [facility] TO EPIC CONVERSION Comment: This test was performed using the APTIMA HPV Assay ([employer] This assay detects E6/E7 viral messenger RNA (mRNA) from 14 high-risk HPV types (16,18,31,33,35,39,45,51,52,56,58,59,66,68). JO ANN SPANGLER MD REFLEX ADDED yes [facility] TO EPIC CONVERSION Comment: THIS TEST WAS PERFORMED AT [facility] [address] [place] [address] 12/12/2014 4:50 PM CDT 12/12/2014 4:50 PM CDT Narrative [facility] TO EPIC CONVERSION - 12/25/2014 11:04 AM CDT This lab was migrated from [facility] and may be missing annotations or result text, please check the Media tab for the most complete results. Jenna Daly CNM PATHOLOGY/CYTOLOGY ORDERA BLES Final Result [facility] TO EPIC CONVERSION from Last 3 Months or Most Recently Relevant to Health Maintenance Insurance [employer] Advance Directives Documents on File Type Date Recorded Patient Direct Support Specialist Expl anation Advance Directives and Living Will [...] 9:55 PM 02/05/2018 2:55 AM Care Teams Counseling Center Director Relationship Specialty Start Date End Date Libia Mejia FNP [address] [place] [address] [place] [address] PCP - General Nurse Practitioner Family 12/04/18
--- NOTE | 2025-03-28 08:52 | OBADM ---
This patient, Nika Childs, admitted to the OB room Labor/Delivery/Recovery 104 for observation. Patient/family oriented to hospital policies and general routines including ID bracelet, bed and alarms, visiting hours, pain management, procedures, bathroom and other care routines, personal items, smoking policy, room service/diet, and visiting hours. Patient/Family are encouraged to report perceived risks to care and to ask questions if they do not understand what they are told or what they should do.
== END 2025-03-28 08:55 | disposition home or self-care (01) ==
LOC: ANHLDR 03-29 07:15
PROVIDERS: Admitting Provider Obstetrics & Gynecology; PCP Nurse Practitioner; Visit Provider Obstetrics & Gynecology
DX: O47.1 False labor at or after 37 completed weeks of gestation (principal); Z3A.37 37 weeks gestation of pregnancy
CPT/HCPCS: G0378; G0379

== ENCOUNTER 2025-03-28 20:17 | Observation (INO) | payer OTHER, SELFPAY ==
[2025-03-28 20:25] VITALS: TEMP 36.2
--- OUTSIDE RECORDS SUMMARY | 2025-03-28 22:58 | XMS_ITS | Encounter Summary ---
Author Organization [facility] Address [address] [place] [address] Care Team Providers Care Electrical Timing Device Calibrator Name Role Phone Libia Mejia [facility] Primary Care Provider Encounter Details Date Type Department Care Team (Late st Contact Info) Description 06/03/2024 Apakaut Message Enc [facility] [address] [place] [id number] Libia Mejia [facility] [address] [place] [address] Anti depressants Social History Tobacco Use Types [...] Sex Assigned at Female 10/02/2024 11:08 AM SPECIAL NEEDS CAREGIVER Legal Sex Female 1:00 PM CDT Gender Identity Not on file Sexual Orientation Not on file documented as of this encounter Functional Status * RETIRED Are you deaf or do you have serious difficulty hearing Answer Date of Assessment Author Status No 08/04/2020 5:16 AM SPECIAL NEEDS CAREGIVER Activ e * RETIRED Are you blind or do you have serious difficulty seeing, even when wearing glasses? Answer Date of Assessment Author Status No 08/04/2020 5:16 AM SPECIAL NEEDS CAREGIVER Activ e * Do you have serious [...] documented as of this encounter Care Teams Electrical Timing Device Calibrator Relationship Specialty Start Date End Date Libia Mejia FNP [address] [place] [address] [place] [address] PCP - General Nurse Practitioner Family 12/04/18 documented as of this encounter
--- OUTSIDE RECORDS SUMMARY | 2025-03-28 22:58 | XMS_ITS | Clinical Summary ---
Author Organization [facility] Address [address] [place] [id number] Care Team Providers Care Letterer Name Role Phone Libia Mejia NP Primary Care Provider Allergies Active Allergy Reactions Criticality Noted Date [...] 07/10/2018 Assessment & Plan (07/10/2018 2:15 PM QUILTER FIXER): BMI Follow-up includes: exercise counseling. Fibromyalgia 10/08/2016 Overview (12/16/2016): Fibromyalgia Assessment & Plan (07/10/2018 2:16 PM QUILTER FIXER): Having more stress recently causing slightly more pain Assessment & Plan (11/17/2017 10:14 AM CDT): Improved on Cymbalta Assessment & Plan (10/06/2017 11:23 AM QUILTER FIXER): Pain improving with work leave of absence Assessment & Plan (03/22/2017 9:36 AM CDT): Doing well when on medication consistently-worse in past week due to missing medication Moderate episode of recurrent major depressive d isorder 09/20/2016 Overview (12/16/2016): Major depressive disorder, recurrent, moderate Assessment & Plan (07/10/2018 2:18 PM QUILTER FIXER): Worse due to stress Will increase Cymbalta to 60mg daily Assessment & Plan (03/06/2018 1:57 PM CDT): Continue current therapy Assessment & Plan (11/17/2017 10:19 AM CDT): Improved on Cymbalta We discussed risks/benefits of taking it still Discussed she can continue while breast feeding Assessment & Plan (10/06/2017 11:25 AM QUILTER FIXER): Will resume Cymbalta I discussed the risks, [...] on file Legal Sex Female 9:27 PM QUILTER FIXER Gender Identity Female 03/30/2023 5:06 AM CDT Sexual Orientation Not on file Obstetrics History Last Filed Vital Signs Vital Sign Reading Time Taken Comments Blood Pressure 109/73 12/04/2024 11:15 AM CDT Pulse 83 12/04/2024 11:15 AM CDT Temperature 36.7 C (98 F) 12/04/2024 11:15 AM CDT Respiratory Rate 20 07/10/2018 2:02 PM QUILTER FIXER Oxygen Saturation 97% 07/10/2018 2:02 PM QUILTER FIXER Inhaled Oxygen Concentration - - Weight 88.8 [...] 12/08/2022, 07/08/2020, 02/07/2018 Varicella Vaccines Discontinued Insurance [facility] [place] [facility] [place] [facility] [place] Care Teams Letterer Relationship Specialty Start Date End Date Libia Mejia NP [address] [place] [address] [place] [address] PCP - General Pediatrics 07/02/22
--- OUTSIDE RECORDS SUMMARY | 2025-03-28 22:58 | XMS_ITS | Referral Summary ---
Author Organization [facility] Address [facility] [place] [address] Care Team Providers Care Regional Sales Coordinator Name Role Phone Libia Mejia NP Primary Care Provider [phone] Allergies Active Allergy Reactions Criticality Noted Date [...] 07/10/2018 Assessment & Plan (07/10/2018 2:15 PM DATABASE TESTER): BMI Follow-up includes: exercise counseling. Fibromyalgia 10/08/2016 Overview (12/16/2016): Fibromyalgia Assessment & Plan (07/10/2018 2:16 PM DATABASE TESTER): Having more stress recently causing slightly more pain Assessment & Plan (11/17/2017 10:14 AM CDT): Improved on Cymbalta Assessment & Plan (10/06/2017 11:23 AM DATABASE TESTER): Pain improving with work leave of absence Assessment & Plan (03/22/2017 9:36 AM CDT): Doing well when on medication consistently-worse in past week due to missing medication Moderate episode of recurrent major depressive d isorder 09/20/2016 Overview (12/16/2016): Major depressive disorder, recurrent, moderate Assessment & Plan (07/10/2018 2:18 PM DATABASE TESTER): Worse due to stress Will increase Cymbalta to 60mg daily Assessment & Plan (03/06/2018 1:57 PM CDT): Continue current therapy Assessment & Plan (11/17/2017 10:19 AM CDT): Improved on Cymbalta We discussed risks/benefits of taking it still Discussed she can continue while breast feeding Assessment & Plan (10/06/2017 11:25 AM DATABASE TESTER): Will resume Cymbalta I discussed the risks, [...] on file Legal Sex Female 9:27 PM DATABASE TESTER Gender Identity Female 03/30/2023 5:06 AM CDT Sexual Orientation Not on file Last Filed Vital Signs Vital Sign Reading Time Taken Comments Blood Pressure 109/73 12/04/2024 11:15 AM CDT Pulse 83 12/04/2024 11:15 AM CDT Temperature 36.7 C (98 F) 12/04/2024 11:15 AM CDT Respiratory Rate 20 07/10/2018 2:02 PM DATABASE TESTER Oxygen Saturation 97% 07/10/2018 2:02 PM DATABASE TESTER Inhaled Oxygen Concentration - - Weight 88.8 kg (195 lb 12.8 oz) 025 11:15 AM CDT Height 165.1 cm (5' 5) 12/04/2024 11:1 5 AM CDT Body Mass Index 32.58 12/04/2024 11:15 AM CDT Plan of Treatment Not on file Insurance [facility] Care Teams Regional Sales Coordinator Relationship Specialty Start Date End Date Libia Mejia NP [address] [place] [id number] PCP - General Pediatrics 07/02/22
--- OUTSIDE RECORDS SUMMARY | 2025-03-28 22:58 | XMS_ITS | Clinical Summary ---
Author Organization [facility] Address [address] [place] [address] Care Team Providers Care Volunteer Manager Name Role Phone Libia Mejia RESIDENT ASSISTANT CNA Primary Care Provider Allergies Active Allergy Reactions [...] Resolved Date Breast feeding status of mother ([facility]) 05/06/2021 12/11/2021 Assessment & Plan (05/06/2021 [...] She will use a brace for comfort. ([facility]) 08/04/2020 12/12/19 22 Thrombosed external hemorrhoid 05/30/2020 10/28/2021 Supervision of high-risk pre gnancy with grand multiparity in third trimester ([facility]) 02/06/2018 11/18/2021 Supervision of normal intrau terine in multigravida, third trimester ([facility]) 02/06/2018 11/18/2021 Labor and delivery indicatio n for care or intervention ([facility]) 02/04/2018 11/18/2021 Encounters Date Type Department Care Team Description 02/19/2025 10:51 AM CDT - 02/19/2025 11:59 PM CDT Hospital Encounter [facility] [address] [place] [address] Jose Sniedr MD Davidson, Brooke M, PILE DRIVER OPERATOR BARGE MOUNTED Discharge Disposition: Home or Self Care (Routine Discharge) 02/19/2025 Travel 02/15/2025 9:52 AM CDT - 02/15/2025 11:59 PM CDT Hospital Encounter [facility] [address] [place] [address] Jose Snider MD Hays, Michelle, PILE DRIVER OPERATOR [place]GE MOUNTED Discharge Disposition: Home or Self Care (Routine Discharge) 02/15/2025 Travel 02/08/2025 4:00 PM CDT - 02/08/2025 11:59 PM CDT Hospital Encounter [facility] [address] [place] [address] Jose Snider MD Emerick, Noah D, PT Low Back Pain Discharge Disposition: Home or Self Care (Routine Discharge) 02/08/2025 Travel 01/31/2025 10:18 AM CDT - 01/31/2025 11:59 PM CDT Hospital Encounter [facility] [address] [place] [address] Jose Snider MD McClenahan, Krystal M, PT Discharge Disposition: Home or Self Care (Routine Discharge) 01/31/2025 Travel 01/25/2025 9:45 AM CDT - 01/25/2025 11:59 PM CDT Hospital Encounter [facility] [address] [place] [address] Jose Snider MD Davidson, Brooke M, PILE DRIVER OPERATOR [place]ED Discharge Disposition: Home or Self Care (Routine Discharge) 01/25/2025 Travel 01/11/2025 9:45 AM CDT - 01/11/2025 11:59 PM CDT Hospital Encounter [facility] [address] [place] [address] Jose Snider MD McClenahan, Krystal M, PT Discharge Disposition: Home or Self Care (Routine Discharge) 01/11/2025 Travel 01/07/2025 9:54 AM CDT - 01/07/2025 11:59 PM CDT Hospital Encounter [facility] [address] [place] [address] Jose Snider MD Scott, Kelli, SHELTON Back Pain Discharge Disposition: Home or Self Care (Routine Discharge) 01/07/2025 Travel 12/28/2024 9:39 AM CDT - 12/28/2024 11:59 PM CDT Hospital Encounter [facility] [address] [place] [address] Jose Snider MD Scott, Kelli, PILE DRIVER OPERATOR BARGE MOUNTED Low Back Pain Discharge Disposition: Home or [...] Sex Assigned at Female 10/02/2024 11:08 AM ACCOUNT EXECUTIVE AGRIBUSINESS Legal Sex Female 1:00 PM CDT Gender Identity Not on file Sexual Orientation Not on file Last Filed Vital Signs Vital Sign Reading Time Taken Comments Blood Pressure 102/68 10/24/2024 2:48 PM ACCOUNT EXECUTIVE AGRIBUSINESS Pulse 83 10/24/2024 2:48 PM ACCOUNT EXECUTIVE AGRIBUSINESS Temperature 37.1 C (98.7 F) 10/24/2024 2:48 PM ACCOUNT EXECUTIVE AGRIBUSINESS Respiratory Rate 16 10/24/2024 2:48 PM ACCOUNT EXECUTIVE AGRIBUSINESS Oxygen Saturation 100% 10/24/2024 2:48 PM ACCOUNT EXECUTIVE AGRIBUSINESS Inhaled Oxygen Concentration - - Weight 88.9 kg (196 lb) 10/24/2024 2:48 PM ACCOUNT EXECUTIVE AGRIBUSINESS Height 166.4 cm (5' 5.5) 10/24/2024 2:48 PM ACCOUNT EXECUTIVE AGRIBUSINESS Body Mass Index 32.12 10/24/2024 2:48 PM ACCOUNT EXECUTIVE AGRIBUSINESS Plan of Treatment Health Maintenance Due Date [...] Hepatitis C Completed 10/02/2024, 10/02/2024 PHQ-2 ([facility] [place]) Completed 10/24/2024 Meningococcal B Vaccine Aged Out [...] was performed using the APTIMA COMBO2 Assay ([employer] The analytical performance characteristics of this assay, when used to test SurePath specimens have been determined by [employer]. JO ANN SPANGLER MD HPV MRNA E6/E7 Detected(A) Not Detected [employer] TO EPIC CONVERSION Comment: This test was performed using the APTIMA HPV Assay ([employer] This assay detects E6/E7 viral messenger RNA (mRNA) from 14 high-risk HPV types (16,18,31,33,35,39,45,51,52,56,58,59,66,68). JO ANN SPANGLER MD REFLEX ADDED yes [employer] P TO EPIC CONVERSION Comment: THIS TEST WAS PERFORMED AT [facility] [address] [place] [address] 12/12/2014 4:50 PM CDT 12/12/2014 4:50 PM CDT Narrative [employer] TO EPIC CONVERSION - 12/25/2014 11:04 AM CDT This lab was migrated from [employer] and may be missing annotations or result text, please check the Media tab for the most complete results. Jenna Daly CNM PATHOLOGY/CYTOLOGY ORDERA BLES Final Result [employer] TO EPIC CONVERSION from Last 3 Months or Most Recently Relevant to Health Maintenance Insurance [employer] Advance Directives Documents on File Type Date Recorded Patient Pewter Finisher Expl anation Advance Directives and Living Will [...] 9:55 PM 02/05/2018 2:55 AM Care Teams Volunteer Manager Relationship Specialty Start Date End Date Libia Mejia FNP [address] [place] [address] [place] [address] PCP - General Nurse Practitioner Family 12/04/18
--- OUTSIDE RECORDS SUMMARY | 2025-03-28 22:58 | XMS_ITS | Clinical Summary ---
Author Organization [facility] Address [address] [place] [address] Care Team Providers Care Vice President Industrial Relations Name Role Phone Brenton Kraus MD Primary Care Provider Source Comments [facility],non-owned Affiliates and Associated Physician Practices is amultiple site organization consisting of ambulatory clinics and hospital sitesin [place], [place], [place] and [place]. This disclosure is being madepursuant to the Care Everywhere program and may not contain all information available regarding this patient. Last updated 18.[facility] Allergies Active Allergy Reactions Criticality Noted Date [...] on file Legal Sex Female 5:46 PM CATTLE PRODUCERS Gender Identity Not on file Sexual Orientation Not on file Last Filed Vital Signs Vital Sign Reading Time Taken Comments Blood Pressure 108/78 09/22/2016 9:37 AM CATTLE PRODUCERS Pulse 69 09/22/2016 9:37 AM CATTLE PRODUCERS Temperature 36.7 C (98.1 F) 09/22/2016 9:37 AM CATTLE PRODUCERS Respiratory Rate - - Oxygen Saturation 97% 09/22/2016 9:37 AM CATTLE PRODUCERS Inhaled Oxygen Concentration - - Weight 77.3 kg (170 lb 6.4 oz) 09/22/2016 9:37 A M CATTLE PRODUCERS Height 166.4 cm (5' 5.5) 09/22/2016 9:37 AM CATTLE PRODUCERS Body Mass Index 27.92 09/22/2016 9:37 AM CATTLE PRODUCERS Plan of Treatment Health Maintenance Due Date [...] age to complete this topic Care Teams Vice President Industrial Relations Relationship Specialty Start Date End Date Brenton Kraus MD [facility] [address] [address] PCP - General 09/22/16
--- OUTSIDE RECORDS SUMMARY | 2025-03-28 22:58 | XMS_ITS | Encounter Summary ---
Author Organization [facility] Address [address] [place] [address] Care Team Providers Care Equipment Operator Intermodal Yard Name Role Phone Libia Mejia [facility] Primary Care Provider Encounter Details Date Type Department Care Team (Late st Contact Info) Description 04/30/2024 MetaCartat Message Enc [facility] [address] [place], [place] [id number] Libia Mejia [facility] [address] [place] [address] Blood Pressure Social History Tobacco Use Types [...] Sex Assigned at Female 10/02/2024 11:08 AM WEB COMMUNICATIONS SPECIALIST Legal Sex Female 1:00 PM CDT Gender Identity Not on file Sexual Orientation Not on file documented as of this encounter Functional Status * RETIRED Are you deaf or do you have serious difficulty hearing Answer Date of Assessment Author Status No 08/04/2020 5:16 AM WEB COMMUNICATIONS SPECIALIST Activ e * RETIRED Are you blind or do you have serious difficulty seeing, even when wearing glasses? Answer Date of Assessment Author Status No 08/04/2020 5:16 AM WEB COMMUNICATIONS SPECIALIST Activ e * Do you have [...] documented as of this encounter Care Teams Equipment Operator Intermodal Yard Relationship Specialty Start Date End Date Libia Mejia FNP [address] [place] [address] [place] [address] PCP - General Nurse Practitioner Family 12/04/18 documented as of this encounter
[2025-03-28 22:59] VITALS: BMI 32.3
[2025-03-28 23:00] VITALS: TEMP 36.4
[2025-03-28 23:01] VITALS: BP 107/74; PULSE 87
== END 2025-03-28 23:15 | disposition home or self-care (01) ==
PROVIDERS: Admitting Provider Obstetrics & Gynecology; PCP Nurse Practitioner; Visit Provider Obstetrics & Gynecology
DX: O47.1 False labor at or after 37 completed weeks of gestation (principal); Z3A.37 37 weeks gestation of pregnancy
CPT/HCPCS: G0378; G0379

== ENCOUNTER 2025-03-30 14:48 | Inpatient (IN) | payer OTHER, SELFPAY ==
[2025-03-30] VITALS (51 sets, daily range): BP systolic 93–124; BP diastolic 62–85; PULSE 65–117; RESP 16; TEMP 36.1–37.1; O2SAT 96–100; BMI 33.7
--- OUTSIDE RECORDS SUMMARY | 2025-03-30 15:34 | XMS_ITS | Clinical Summary ---
Author Organization [facility] Address [address] [place] [address] Care Team Providers Care Block Cableman Name Role Phone Libia Mejia SENIOR ASIC DESIGN ENGINEER Primary Care Provider [phone] Allergies Active Allergy Reactions Criticality Noted Date [...] Resolved Date Breast feeding status of mother ([facility]) 05/06/2021 12/11/2021 Assessment & Plan (05/06/2021 [...] She will use a brace for comfort. ([facility]) 08/04/2020 12/12/19 22 Thrombosed external hemorrhoid 05/30/2020 10/28/2021 Supervision of high-risk pre gnancy with grand multiparity in third trimester ([facility]) 02/06/2018 11/18/2021 Supervision of normal intrau terine in multigravida, third trimester ([facility]) 02/06/2018 11/18/2021 Labor and delivery indicatio n for care or intervention ([facility]) 02/04/2018 11/18/2021 Encounters Date Type Department Care Team Description 02/19/2025 10:51 AM CDT - 02/19/2025 11:59 PM CDT Hospital Encounter [facility] [address] [place] [address] Jose Snider MD Davidson, Brooke M, JOINT SEALER Discharge Disposition: Home or Self Care (Routine Discharge) 02/19/2025 Travel 02/15/2025 9:52 AM CDT - 02/15/2025 11:59 PM CDT Hospital Encounter [facility] [address] [place] [address] Jose Snider MD Hays, Michelle, JOINT SEALER Discharge Disposition: Home or Self Care (Routine Discharge) 02/15/2025 Travel 02/08/2025 4:00 PM CDT - 02/08/2025 11:59 PM CDT Hospital Encounter [facility] [address] [place] [address] Jose Snider MD Emerick, Noah D, PT Low Back Pain Discharge Disposition: Home or Self Care (Routine Discharge) 02/08/2025 Travel 01/31/2025 10:18 AM CDT - 01/31/2025 11:59 PM CDT Hospital Encounter [facility] [address] [place] [address] Jose Snider MD McClenahan, Krystal M, PT Discharge Disposition: Home or Self Care (Routine Discharge) 01/31/2025 Travel 01/25/2025 9:45 AM CDT - 01/25/2025 11:59 PM CDT Hospital Encounter [facility] [address] [place] [address] Jose Snider MD Davidson, Brooke M, JOINT SEALER Discharge Disposition: Home or Self Care (Routine Discharge) 01/25/2025 Travel 01/11/2025 9:45 AM CDT - 01/11/2025 11:59 PM CDT Hospital Encounter [facility] [address] [place] [address] Jose Snider MD McClenahan, Krystal M, PT Discharge Disposition: Home or Self Care (Routine Discharge) 01/11/2025 Travel 01/07/2025 9:54 AM CDT - 01/07/2025 11:59 PM CDT Hospital Encounter [facility] [address] [place] [address] Jose Snider MD Scott, Kelli, SHELTON Back Pain Discharge Disposition: Home or Self Care (Routine Discharge) 01/07/2025 Travel from Last 3 Months Immunizations Immunization [...] Sex Assigned at Female 10/02/2024 11:08 AM NEGATIVE TURNER APPRENTICE Legal Sex Female 1:00 PM CDT Gender Identity Not on file Sexual Orientation Not on file Last Filed Vital Signs Vital Sign Reading Time Taken Comments Blood Pressure 102/68 10/24/2024 2:48 PM NEGATIVE TURNER APPRENTICE Pulse 83 10/24/2024 2:48 PM NEGATIVE TURNER APPRENTICE Temperature 37.1 C (98.7 F) 10/24/2024 2:48 PM NEGATIVE TURNER APPRENTICE Respiratory Rate 16 10/24/2024 2:48 PM NEGATIVE TURNER APPRENTICE Oxygen Saturation 100% 10/24/2024 2:48 PM NEGATIVE TURNER APPRENTICE Inhaled Oxygen Concentration - - Weight 88.9 kg (196 lb) 10/24/2024 2:48 PM NEGATIVE TURNER APPRENTICE Height 166.4 cm (5' 5.5) 10/24/2024 2:48 PM NEGATIVE TURNER APPRENTICE Body Mass Index 32.12 10/24/2024 2:48 PM NEGATIVE TURNER APPRENTICE Plan of Treatment Health Maintenance Due Date [...] Hepatitis C Completed 10/02/2024, 10/02/2024 PHQ-2 (Physician [place]) Completed 10/24/2024 Meningococcal B Vaccine Aged Out [...] test SurePath specimens have been determined by [employer]. JO ANN SPANGLER MD HPV MRNA E6/E7 Detected(A) Not Detected [employer] TO EPIC CONVERSION Comment: This test was performed using the APTIMA HPV Assay ([employer] This assay detects E6/E7 viral messenger RNA (mRNA) from 14 high-risk HPV types (16,18,31,33,35,39,45,51,52,56,58,59,66,68). JO ANN SPANGLER MD REFLEX ADDED yes [employer] P TO EPIC CONVERSION Comment: THIS TEST WAS PERFORMED AT [facility] [address] [place] [address] 12/12/2014 4:50 PM CDT 12/12/2014 4:50 PM CDT Narrative [employer] TO EPIC CONVERSION - 12/25/2014 11:04 AM CDT This lab was migrated from [facility] and may be missing annotations or result text, please check the Media tab for the most complete results. Jenna Daly CNM PATHOLOGY/CYTOLOGY ORDERA BLES Final Result [employer] TO EPIC CONVERSION from Last 3 Months or Most Recently Relevant to Health Maintenance Insurance [employer] Advance Directives Documents on File Type Date Recorded Patient Commodity Management Specialist Expl anation Advance Directives and Living [...] 9:55 PM 02/05/2018 2:55 AM Care Teams Block Cableman Relationship Specialty Start Date End Date Libia Mejia FNP [address] [place] [address] [place] [address] PCP - General Nurse Practitioner Family 12/04/18
--- OUTSIDE RECORDS SUMMARY | 2025-03-30 15:34 | XMS_ITS | Continuity of Care Document ---
Author Organization [facility] [place], [facility] Address [address] [place] [address] Care Team Providers Care Association Executive Name Role Phone ARMANDO CARROLL Primary Care Provider Assessment No assessment recorded. Plan of Treatment Reminders Order Date Submit Date Provider Last Modified By Organization Details Last Modified Time Details Appointments OB ROUTINE 2024 08:45A Suzette BARRAZA MD Not available Not available Not available INDUCTION 2024 06:00A Suzette BARRAZA MD Not available Not available Not available Lab None recorded. Referral None recorded. Procedures None recorded. Surgeries None recorded. Imaging None recorded. Medication Orders None recorded. Patient TargetsNo targets recorded. Patient InstructionsNo instructions recorded. Reason for Referral None Reported. Results Created Date Observation Date Name Description Value Unit Range Abnormal Flag Note LastModifiedBy Organization Detail LastModifiedTime 10/09/1910/09/2024 [UNIT Y] ANEUP LOIDY NIPT fraction 7.9% normal Not Available Marquisio mihaelae [address] [facility], [place], [address], 10/09/2024 00:18:27 10/09/19 25 10/09/2024 [UNIT Y] ANEUP LOIDY NIPT 22Q11.2 microdeletio n LOW RISK <1 in 10,000 normal Not Available Cal e [address] [facility], [place], [address], 10/09/2024 00:18:27 10/09/19 25 10/09/2024 [UNIT Y] ANEUP LOIDY NIPT sex chromosome aneuploidy NOT DETECT ED normal Not Available [facility] [address] [facility], [place], [address], 10/09/2024 00:18:27 10/09/19 25 10/09/2024 [UNIT Y] ANEUP LOIDY NIPT monosomy X LOW RISK <1 in 10,000 normal Not Available [facility] [address] [facility], [place], [address], 10/09/2024 00:18:27 10/09/19 25 10/09/2024 [UNIT Y] ANEUP LOIDY NIPT trisomy 13 LOW RISK <1 in 10,000 normal Not Available [facility] [address] [place], [address], 10/09/2024 00:18:27 10/09/19 25 10/09/2024 [UNIT Y] ANEUP LOIDY NIPT trisomy 18 LOW RISK <1 in 10,000 normal Not Available [facility] [address] [facility], [place], [address], 10/09/2024 00:18:27 10/09/19 25 10/09/2024 [UNIT Y] ANEUP LOIDY NIPT trisomy 21 LOW RISK <1 in 10,000 normal Not Available [facility] [address] [place], [address], 10/09/2024 00:18:27 10/09/19 25 10/09/2024 [UNIT Y] ANEUP LOIDY NIPT sex FEMALE normal Not Available [facility] [address] [facility], [place], [address], 10/09/2024 00:18:27 10/09/19 25 10/09/2024 [UNIT Y] ANEUP LOIDY NIPT gestation SINGLE TON normal Not Available [facility] [address] [place], [address], 10/09/2024 00:18:27 10/09/19 25 10/09/2024 [UNIT Y] ANEUP LOIDY NIPT for detailed report, see pdf See PDF normal Not Available [facility] [address], [place], [address], 10/09/2024 00:18:27 10/12/19 25 10/12/2024 [UNIT Y] SARAH Shetty sickle cell disease/beta -thalassemia /hemoglobino pathies carrier screen NEGATI VE normal Not Available [facility] [address], [place], [address], 10/12/2024 17:58:24 10/12/19 25 10/12/2024 [UNIT Y] SARAH Shetty alpha-thalas semia carrier screen NEGATI VE normal Not Available [facility] [address], [place], [address], 10/12/2024 17:58:24 10/12/19 25 10/12/2024 [UNIT Y] SARAH Shetty cystic fibrosis carrier screen NEGATI VE normal Not Available [facility] [address], [place], [address], 10/12/2024 17:58:24 10/12/19 25 10/12/2024 [UNIT Y] SARAH Shetty spinal muscular atrophy carrier screen NEGATI VE 2 SMN1 copies , SNP not presen t normal Not Available [facility] [address], [place], [address], 10/12/2024 17:58:24 10/12/19 25 10/12/2024 [UNIT Y] SARAH Shetty for detailed report, see pdf See PDF normal Not Available [facility] [address], [place], [address], 10/12/2024 17:58:24 10/02/19 25 10/02/2024 CBC W/DIF F WBC 6.7 10'3/ uL 3.5-10 .5 Not Available [facility] (Lab) [address], [place], [address], 10/04/2024 06:37:57 10/02/19 25 10/02/2024 CBC W/DIF F RBC 4.55 10'6/ uL (based on docume nted legal sex) 3.80-5 .20 Not Available [facility] (Lab) [address] , [place], [address], 10/04/2024 06:37:57 10/02/19 25 10/02/2024 CBC W/DIF F HGB 12.6 g/dL (based on docume nted legal sex) 11.6-1 5.4 Not Available [facility] (Lab) [address], [place], [address], 10/04/2024 06:37:57 10/02/19 25 10/02/2024 CBC W/DIF F HCT 38.4 % (based on docume nted legal sex) 34.0-4 5.0 Not Available [facility] (Lab) [address], [place], [address], 10/04/2024 06:37:57 10/02/19 25 10/02/2024 CBC W/DIF F MCV 84.4 fL 80.0-9 9.0 Not Available [facility] (Lab) [address], [place], [address], 10/04/2024 06:37:57 10/02/19 25 10/02/2024 CBC W/DIF F MCH 27.7 pg 27.0-3 4.0 Not Available [facility] (Lab) [address], [place], [address], 10/04/2024 06:37:57 10/02/19 25 10/02/2024 CBC W/DIF F MCHC 32.8 g/dL 32.0-3 5.5 Not Available [facility] (Lab) [address], [place], [address], 10/04/2024 06:37:57 01/28/20 25 10/02/2024 CBC W/DIF F RDW 13.9 % 11.0-1 5.0 Not Available [facility] (Lab) [address], [place], [address], 10/04/2024 06:37:57 10/02/19 25 10/02/2024 CBC W/DIF F plt 157 10'3/ uL 150-40 0 Not Available [facility] (Lab) [address], [place], [address], 10/04/2024 06:37:57 10/02/19 25 10/02/2024 CBC W/DIF F MPV 13.7 fL 8.8-12 .1 high Not Available [facility] (Lab) [address], [place], [address], 10/04/2024 06:37:57 10/02/19 25 10/02/2024 CBC W/DIF F neutrophils 80.3 % 34.0-7 3.0 high Not Available [facility] (Lab) [address], [place], [address], 10/04/2024 06:37:57 10/02/19 25 10/02/2024 CBC W/DIF F lymphocytes 12.9 % 15.0-5 0.0 low Not Available [facility] (Lab) [address], [place], [address], 10/04/2024 06:37:57 10/02/19 25 10/02/2024 CBC W/DIF F monocytes 4.9 % 1.0-15 .0 Not Available [facility] (Lab) [address], [place], [address], 10/04/2024 06:37:57 10/02/19 25 10/02/2024 CBC W/DIF F eosinophils 0.9 % 0.0-8. 0 Not Available [facility] (Lab) [address], [place], [address], 10/04/2024 06:37:57 10/02/19 25 10/02/2024 CBC W/DIF F basophils 0.7 % 0.0-2. 0 Not Available [facility] (Lab) [address], [place], [address], 10/04/2024 06:37:57 10/02/19 25 10/02/2024 CBC W/DIF F immature granulocytes 0.3 % no define d refere nce range Immat ure Granu locyt es (IG) repre sents autom ated enume ratio n of Metam yeloc ytes, Myelo cytes and Promy elocy myron when IG is < 5%. Blast s are not inclu ded in IG and repor melany separ ately if prese nt. Not Available [facility] (Lab) [address], [place], [address], 10/04/2024 06:37:57 10/02/19 25 10/02/2024 CBC W/DIF F absolute neutrophils 5.4 10'3/ uL 1.5-8. 0 Not Available [facility] (Lab) [address], [place], [address], 10/04/2024 06:37:57 10/02/19 25 10/02/2024 CBC W/DIF F absolute lymphocytes 0.9 10'3/ uL 1.0-4. 0 low Not Available [facility] (Lab) [address], [place], [address], 10/04/2024 06:37:57 10/02/19 25 10/02/2024 CBC W/DIF F absolute monocytes 0.3 10'3/ uL 0.2-1. 0 Not Available [facility] (Lab) [address], [place], [address], 10/04/2024 06:37:57 10/02/19 25 10/02/2024 CBC W/DIF F absolute eosinophils 0.1 10'3/ uL 0.0-0. 6 Not Available [facility] (Lab) [address], [place], [address], 10/04/2024 06:37:57 10/02/19 25 10/02/2024 CBC W/DIF F absolute basophils 0.1 10'3/ uL 0.0-0. 3 Not Available [facility] (Lab) [address], [place], [address], 10/04/2024 06:37:57 10/02/19 25 10/02/2024 CBC W/DIF [...] of the indiv idual patie nt: https ://la bhand book. nm.or g/Gen derX Not Available [facility] (Lab) [address], [place], [address], 10/04/2024 06:37:57 10/02/19 25 10/02/2024 RUBEL LA IGG ANTIB WILLIE, QUANT rubella antibodies, IgG Non-Re active reacti ve abnormal Not Available [facility] (Lab) [address], [place], [address], 10/04/2024 06:37:57 10/02/19 25 10/02/2024 RUBEL LA IGG ANTIB WILLIE, QUANT rubella antibodies, IgG quant <10.0 IU/mL >=10 low Non-r eacti ve (Non- Immun e) <10 IU/mL React elke (Immu ne) > or = 10 IU/mL Not Available [facility] (Lab) [address], [place], [address], 10/04/2024 06:37:57 10/02/19 25 10/02/2024 HEPAT ITIS B SURFA CE ANTIG EN hepatitis B surface antigen Non-re active non-re active This assay was perfo rmed using [employer] ratio n reage nts and test kits. Value s obtai roger with other assay metho ds or kits canno t be used inter arroyo eably . Not Available [facility] (Lab) [address], [place], [address], 10/04/2024 06:37:57 10/02/19 25 10/02/2024 HIV 1/2 ANTIG EN/AN TIBOD Y, REFLE X CONFI RMATI ON HIV antigen/anti body Nonrea ctive nonrea ctive HIV-1 antig en and HIV-1 /HIV- 2 antib odies were not detec melany. No labor atory evide nce of HIV infec tion. Not Available [facility] (Lab) [address], [place], [address], 10/04/2024 06:37:58 10/02/1910/02/2024 TYPE/ RH/SC REEN ABO/Rh type A POS Not Available [facility] (Lab) [address], [place], [address], 10/04/2024 06:37:58 10/02/19 25 10/02/2024 TYPE/ RH/SC REEN antibody screen NEG Not Available [facility] (Lab) [address], [place], [address], 10/04/2024 06:37:58 10/02/1910/02/2024 TYPE/ RH/SC REEN exp date 2024 23:59 Not Available [facility] (Lab) [address], [place], [address], 10/04/2024 06:37:58 10/02/19 25 10/02/2024 HEMOG LOBIN A1C hemoglobin A1C 5.1 % 4.0-5. 6 The Ameri can Diabe myron Assoc iatio n recom mends that a prima ry goal of thernelsy canas be a HBA1C of < 7% and that physi barb canas reeva luate the treat ment regim en in patie nts with HBA1C value s consi stent ly > 8%. <5.7% Payton l 5.7 - 6.4% Incre ased risk for diabe myron >=6.5 % Diagn ostic of diabe myron <7.0% Goal of thera py >8.0% Actio n sugge sted Not Available [facility] (Lab) [address], [place], [address], 10/04/2024 06:37:58 10/02/1910/02/2024 HEPAT ITIS C ANTIB WILLIE SCREE N, REFLE X TO CONFI RMATI ON hepatitis C antibody Non-re active non-re active Antib odies to HCV Not Detec melany, does not exclu de the possi bilit y of expos ure to HCV. Not Available [facility] (Lab) [address], [place], [address], 10/04/2024 06:37:59 10/02/1910/02/2024 RPR SCREE N, REFLE X TITER /CONF IRMAT ION RPR screen Nonrea ctive nonrea ctive Not Available [facility] (Lab) [address] [place], [address], 10/04/2024 06:37:59 10/02/19 25 10/02/2024 LEAD, BLOOD (ADUL T/PED IATRI C) lead, whole blood <1.0 mcg/d L <3.5 See Note 1 Case sis was perfo rmed by Steve Christian ed Plasm a Mass Spect romet ry (ICPM S) Note 1 This test was devel oped and its case tical perfo rmanc e jess cteri stics have been deter mined by [facility]. It has not been clear ed or appro romero by the FDA. This assay has been valid ated pursu ant to the CLIA regul ation s and is used for clini tobi purpo ses. Perfo rming Organ izati on Infor sallie n: Site ID: [id number] Name: [facility]-Martínez d Trever Addre ss: [address] [place] [address] Dire tor: Vanita Sandy s Not Available [facility] (Lab) [address], [place], [address], 10/04/2024 06:37:59 10/02/19 25 10/02/2024 CULTU RE: URINE result report SEE RESULT S BELOW Test: Cultu re: Urine Speci men Sourc e: Urine - Clean Catch Speci men Type: Urine Speci men Date: 2024 1303 Resul t Date: 2024 1248 Resul t Statu s: Final resul t Abnor mal: No Resul ting Lab: [facility] [address] [address] Tel: CULTU RE ----- ----- ----- --- Organ ism(s ) consi stent with uroge nital or skin jeimy . Repea t cultu re if sympt oms indic ate. Not Available [facility] (Lab) [address], [place], [address], 10/04/2024 13:51:37 10/02/19 25 10/02/2024 IMAGE GUIDE [...] reyes, Hermes ed, CT Rescr een: Meliton z, Tim am, CT Speci men: Scree yudith Pap - Image d, Cervi x STATE MENT OF ADEQU ACY: Satis facto ry for evalu ation Trans forma tion zone compo nent prese nt ----- ----- ----- ----- ----- ----- ----- ----- ----- ----- ----- ----- ----- ----- ----- ----- ----- ---- FINAL DIAGN OSIS: Negat elke for Intra epith elial Shamir shetty or Juanita justin (NIL) . Elect radha canas by Tim silva, CT on 025 at 0712 PRODUCT SUPPORT REP ----- ----- ----- ----- ----- ----- ----- [...] is recom bita d, as clini malorie warrnelsy nted. Not Available [facility] (Lab) [address], [place], [address], 10/08/2024 08:15:25 10/02/19 25 10/02/2024 drug scree n, urine Amphetamines : negati ve Not Available [place] [address], [place], [address], 10/02/2024 11:46:22 10/02/19 25 10/02/2024 drug scree n, urine Cannabinoids : negati ve Not Available [place] [address], [place], [address], 10/02/2024 11:46:22 10/02/19 25 10/02/2024 drug scree n, urine Cocaine: negati ve Not Available [facility] [address], [place], [address], 10/02/2024 11:46:22 10/02/19 25 10/02/2024 drug scree n, urine Opiates: negati ve Not Available [facility] [address], [place], [address], 10/02/2024 11:46:22 10/02/19 25 10/02/2024 drug scree n, urine Phenocyclidi ne: negati ve Not Available [place] [address], [place], [address], 10/02/2024 11:46:22 10/02/19 25 10/02/2024 drug scree n, urine Barbiturates : negati ve Not Available [facility] [address], [place], [address], 10/02/2024 11:46:22 10/02/19 25 10/02/2024 drug scree n, urine Benzodiazepi sherin: negati ve Not Available [facility] [address], [place], [address], 10/02/2024 11:46:22 10/02/19 25 10/02/2024 drug scree n, urine Ethanol: negati ve Not Available [facility] [address], [place], [address], 10/02/2024 11:46:22 10/02/19 25 10/02/2024 drug scree n, urine Hallucinogen s: negati ve Not Available [facility] [address], [place], [address], 10/02/2024 11:46:22 10/02/19 25 10/02/2024 drug scree n, urine Inhalants: negati ve Not Available [facility] [address], [place], [address], 10/02/2024 11:46:22 10/02/19 25 10/02/2024 drug scree n, urine Anabolic Steroids: negati ve Not Available [facility] [address], [place], [address], 10/02/2024 11:46:22 01/22/20 25 01/21/2025 GTT - GESTA MADELEINE L SCREE N, ACOG OB glucose, 1 hour screen 93 mg/dL 70-135 Not Available [facility] (Lab) [address], [place], [address], 01/22/2025 11:52:34 01/22/20 25 01/21/2025 HIV 1/2 ANTIG EN/AN TIBOD Y, REFLE X CONFI RMATI ON HIV antigen/anti body Nonrea ctive nonrea ctive HIV-1 antig en and HIV-1 /HIV- 2 antib odies were not detec melany. No labor atory evide nce of HIV infec tion. Not Available [facility] (Lab) [address], [place], [address], 01/22/2025 11:52:34 01/22/20 25 01/21/2025 HEMAT OCRIT (HCT) HCT 33.5 % (based on docume nted legal sex) 34.0-4 5.0 low Not Available [facility] (Lab) [address], [place], [address], 01/22/2025 11:52:35 01/22/20 25 01/21/2025 HEMOG LOBIN (HGB) HGB 10.8 g/dL (based on docume nted legal sex) 11.6-1 5.4 low Not Available [facility] (Lab) [address], [place], [address], 01/22/2025 11:52:35 01/22/20 25 01/21/2025 RPR SCREE N, REFLE X TITER /CONF IRMAT ION RPR qualitative Nonrea ctive nonrea ctive Not Available [facility] (Lab) [address], [place], [address], 01/22/2025 11:52:36 02/03/20 25 02/02/2025 urina lysis , dipst ick Leukocytes - [facility] Available [facility] [address], [place], [address], 02/02/2025 11:10:56 02/03/20 25 02/02/2025 urina lysis , dipst ick Nitrite - Not Available [address], [place], [address], 02/02/2025 11:10:56 02/03/20 25 02/02/2025 urina lysis , dipst ick Urobilinogen - Not Available [facility] edwina [address], [place], [address], 02/02/2025 11:10:56 02/03/20 25 02/02/2025 urina lysis , dipst ick Protein trace Not Available [place] [address], [place], [address], 02/02/2025 11:10:56 02/03/20 25 02/02/2025 urina lysis , dipst ick pH 8 Not Available [place] [address], [place], [address], 02/02/2025 11:10:56 02/03/20 25 02/02/2025 urina lysis , dipst ick Specific Beasley 1.000 Not Available [facility] [address], [place], [address], 02/02/2025 11:10:56 02/03/20 25 02/02/2025 urina lysis , dipst ick Ketone - Not Available [place] [address], [place], [address], 02/02/2025 11:10:56 02/03/20 25 02/02/2025 urina lysis , dipst ick Bilirubin - Not Available Susannah wetzel [address], [place], [address], 02/02/2025 11:10:56 02/03/20 25 02/02/2025 urina lysis , dipst ick Glucose - Not Available [place] [address], [place], [address], 02/02/2025 11:10:56 02/03/20 25 02/02/2025 urina lysis , dipst ick Appearance clear Not Available Skyler lopez [address], [place], [address], 02/02/2025 11:10:56 02/03/2002/02/2025 urina lysis , dipst ick Color light yellow Not Available [place] [address], [place], [address], 02/02/2025 11:10:56 03/15/2003/15/2025 CULTU RE: GROUP B STREP SCREE N, [...] Resul ting Lab: [facility] [address] [facility] [address] Tel: CULTU RE ----- ----- ----- --- No Group B strep isola melany at 2 days (lin ctive broth enhan cemen t) Not Available [facility] (Lab) [address], [place], [address], 03/18/2025 15:17:48 10/02/19 25 10/02/2024 US, obste tric, nucha l trans lucen cy No observ ation record ed. [email or web address] [place] [address], [place], [address], 10/02/2024 13:05:51 10/02/19 25 10/02/2024 US, obste tric, nucha l trans lucen cy No observ ation record ed. [email or web address] [address], [place], [address], 10/03/2024 22:29:08 11/27/19 25 11/26/2024 US, obste tric, 2nd or 3rd trime ster No observ ation record ed. [email or web address] [place] [address], [place], [address], 11/26/2024 16:13:44 11/27/19 25 11/26/2024 US, obste tric, follo w-up No observ ation record ed. [email or web address] [address], [place], [address], 11/28/2024 22:55:20 12/27/19 25 12/26/2024 US, obste tric, follo w-up No observ ation record ed. [email or web address] [place] [address], [place], [address], 12/26/2024 17:52:25 12/27/19 25 12/26/2024 US, obste tric, follo w-up No observ ation record ed. [address], [place], [address], 02/06/2025 10:00:17 02/05/20 25 02/04/2025 US, obste tric, follo w-up No observ ation record ed. [email or web address] [place] [address], [place], [address], 02/04/2025 18:41:04 02/05/20 25 02/04/2025 US, obste tric, follo w-up No observ ation record ed. MARCO A [address], [place], [address], 02/12/2025 16:29:54 03/17/20 25 03/17/2025 imagi ng/di agnos tic resul t No observ ation record ed. MARCO A Not Available 2024 10:40:33 03/29/2029 0303/29/2025 imagi ng/di agnos tic resul t No observ ation record ed. [facility] [address], [place], [address], 03/29/2025 10:00:42 Result Notes None recorded. Problems Name Problem SNOMED Code Status Onset Date Resolution Date Notes Provider Name and Address Organization Details Recorded Time Premature delivery 997892961 Active 4# 12, Gestation al age unknown Jose Snider MD [address], [place], [address], [facility] 5 11:48:53 growth restricti on Active HISTORICA L - uncertain if gowth restricte d or premature 1st Rhonda Bowles elder, [facility] 5 09:44:51 82628099 Active 2024 Esha friedman [facility] 5 11:17:12 Generaliz ed anxiety disorder 60665520 Active 2024 restarted meds Jose Snider MD [address], [place], [address], [facility] 5 17:26:25 Problem Notes None recorded. Procedures Surgical History Date Name Laterality Status Provider Name and Address Organization Details Recorded Time 5 Date of Last Pap Smear completed TINO Flowers [facility] 02/07/2025 12:18:08 3 extraction of wisdom tooth completed Esha Gabriel [facility] 09/21/2024 10:09:01 Imaging Results None recorded. Procedure Notes None recorded. Medical Equipment None Reported. Allergies Allergen ID Allergen Name Allergen Category Reaction Reaction Severity Criticality Documentation Date Start Date Code Code System Note Provider Name and Address Organization Details Recorded Time 24561 amoxicill in medicatio n hives mild Not available 09/21/2024 723 RxNorm Esha friedman [facility] 10:01:42 Medications Name Sig Start Date [...] and Address Organization Details Last Updated DateTime 03/29/2025 166.37 cm 32.8 kg/m2 95801.47 g 108/74 mm[Hg] Tessa Bravo [facility] 03/29/2025 11:45:30 Social History Question Answer Notes LastModified by Organizat ion Details LastModified Time Do You Have An Advance Directive? No [email or web address] Information n ot available 02/07/2025 How Many Years Have You Consumed Alcohol? 11 Information not available 09/21/2024 Are You Blind Or Do You Have Difficulty Seeing? No Information n ot available 09/21/2024 What Is Your Level Of Caffeine Consumption? Occasional Information not available 02/07/2025 How Much Tobacco Do You Chew? None [email or web address] Information not available 02/02/2025 In The 14 [...] Or The Highest Degree You Have Received? [id number] Information not available 09/21/2024 Are There Any [...] 09/21/2024 Are you able to walk? 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 Occasional Information not available 02/07/2025 Mental Status Question Answer Note LastModified by Organization D etails LastModified Time Do you feel stressed (tense, restless, nervous, or anxious, or unable to sleep at night)? [id number] [email or web address] Information not available 02/07/2025 Family History Relationship [...] SNOMED-CT Code Diagnosis ICD10 Code Diagnosis Note [id number] ANGELLA BARRAZA MD [place] [address] [address] 03/01/2025 09:52:48 03/01/2025 10:19:20 Premature uterine contraction 673268548 O47.00 - was seen at [place] on Tuesday for contractio ns- s/p terbutalin e, no further contractio ns- ROMplus neg- discussed precaution s Gestation period, 33 weeks 94639904 Z3A.33 - continue PNV [id number] ANGELLA BARRAZA MD [place] [address] [address] 03/15/2025 10:46:45 03/16/2025 08:48:16 Generalized anxiety disorder 14646031 F41.1 - mood stable Gestation period, 35 weeks 55330004 Z3A.35 - continue PNV- GBS collected [id number] ANGELLA BARRAZA MD [place] [address] [address] 03/20/2025 14:34:16 03/20/2025 16:08:28 Generalized anxiety disorder 69377907 F41.1 - mood stable Irregular uterine contractions 31820295 O47.9 - irregular contractio ns, no change in SVE from previous hospital visit- labor precaution s reviewed Gestation period, 36 weeks 50115628 Z3A.36 - GBS negative- continue PNV [id number] ANGELLA BARRAZA MD [place] [address],[facility] [place] [address] 03/29/2025 11:30:15 03/29/2025 12:21:51 Generalized anxiety disorder 54755295 F41.1 - mood stable Gestation period, 37 weeks 54611785 Z3A.37 - continue [facility] Concerns Section Related Observation LastModified by Organization Detai ls LastModified Time None Recorded Concern Status LastModified by Organization Details LastModified Time None Recorded Payers Encounter Date Sequence Insurance Name Policy Number Policy Calderon Covered Member ID Calderon Member ID Guarantor Name 03/29/2025 1 [facility] (MEDICAID HMO) [id number] Nika Childs [id number] Nika Johnson Notes Date Note Type Note Provider Name and Address Organization Details Recorded Time 03/29/2025 text/html Generic HPI TemplateReported by Patient ANGELLA BARRAZA MD [address], [place], [address], [facility] 03/29/2025 12:17:29 OBGyn Episode Ob Episode Information Episode Created Date Number of Fetuses Patient Bloodtype Patient rh Status Prepregnancy Weight lbs Domestic Partner Domestic Partner Phone Father Name Commercial Drone Pilot Status 10/02/19 1 A Positive 202 Jose OPEN Fetus Data First Name Last Name Admitted to NICU Weight (g) Sex Living Outcome Pediatric Complications Fetus ID Race Codes Race Delivery Type [id number] Problems Problem Notes Problem Name Start Date End Date Resolution Snomed Code Not e growth restriction 57929731 HISTORICAL - uncertain if gowth restricted or premature 1st Generalized anxiety disorder 12/26/2024 57718252 restarted meds Premature delivery 289890375 4 # 12, Gestational age unknown Zane [...] Days Gestation 11/27/19 20 10/30/2024 04/13/20 1 Pre- Flowsheet Flowsheet Date 10/02/2024 Rocha Score Blood Edema Fundus Height Fundus Units Glucose Ketones Leukocytes Nitrite Labor Signs Protein Cervic Dilation Cervic Effacement Cervic Station Type Weight in lbs Pre/Post Dialysis Refused Weight 199.362025648108 BP Diastolic BP Location Tested BP Systolic [...] Type Weight in lbs Pre/Post Dialysis Refused 196.691817967439 BP Diastolic BP Location Tested BP Systolic [...] Weight in lbs Pre/Post Dialysis Refused Weight 196.176432069745 BP Diastolic BP Location Tested BP Systolic [...] Type Weight in lbs Pre/Post Dialysis Refused 197.612896180495 BP Diastolic BP Location Tested BP Systolic [...] Type Weight in lbs Pre/Post Dialysis Refused 194.620830735641 BP Diastolic BP Location Tested BP Systolic [...] Weight in lbs Pre/Post Dialysis Refused Weight 192.839924319095 BP Diastolic BP Location Tested BP Systolic [...] Weight in lbs Pre/Post Dialysis Refused Weight 193.826390166290 BP Diastolic BP Location Tested BP Systolic [...] Weight in lbs Pre/Post Dialysis Refused Weight 195.160778469646 BP Diastolic BP Location Tested BP Systolic [...] Weight in lbs Pre/Post Dialysis Refused Weight 197.954832127110 BP Diastolic BP Location Tested BP Systolic [...] Weight in lbs Pre/Post Dialysis Refused Weight 200.356943570053 BP Diastolic BP Location Tested BP Systolic BP Type 69 L arm 99 sitting Fetus Heart Rate Present A 130 Fetus Movement A Yes Comments Good movement. No blee ding. Irregular contractions. Was seen for DFM over the weekend with now normal movement. Was also seen for concern for SROM, was negative. GBS negative. Would like EIL on 04/09. RTC 1 week. Flowsheet Date 03/29/2025 Rocha Score Blood Edema Fundus Height Fundus Units Glucose Ketones Leukocytes Nitrite Labor Signs Protein Cervic Dilation Cervic Effacement Cervic Station 4cm 50% -3 Type Weight in lbs Pre/Post Dialysis Refused Weight 200.286419211355 BP Diastolic BP Location Tested BP Systolic BP Type 74 L arm 108 sitting Fetus Heart Rate Present A 135 Fetus Movement A Yes Comments Good movement. No blee ding. Had episode of consistent contractions last night, evaluation unchanged in [place]. EIL Scheduled 04/09. Labor precautions reviewed. RTC 1 week. Menstrual History Last Menstrual [...]
--- OUTSIDE RECORDS SUMMARY | 2025-03-30 15:34 | XMS_ITS | Clinical Summary ---
Author Organization [facility] [employer] Address [address] [place] [address] Care Team Providers Care Precision Instrument Maker Name Role Phone Brenton Kraus MD Primary Care Provider Source Comments [facility],non-owned Affiliates and Associated Physician Practices is amultiple site organization consisting of ambulatory clinics and hospital sitesin [place], [place], [place] and [place]. This disclosure is being madepursuant to the Care Everywhere program and may not contain all information available regarding this patient. Last updated 18.[facility] Allergies Active Allergy Reactions Criticality Noted Date [...] on file Legal Sex Female 5:46 PM FUNERAL DIRECTOR/EMBALMER Gender Identity Not on file Sexual Orientation Not on file Last Filed Vital Signs Vital Sign Reading Time Taken Comments Blood Pressure 108/78 09/22/2016 9:37 AM FUNERAL DIRECTOR/EMBALMER Pulse 69 09/22/2016 9:37 AM FUNERAL DIRECTOR/EMBALMER Temperature 36.7 C (98.1 F) 09/22/2016 9:37 AM FUNERAL DIRECTOR/EMBALMER Respiratory Rate - - Oxygen Saturation 97% 09/22/2016 9:37 AM FUNERAL DIRECTOR/EMBALMER Inhaled Oxygen Concentration - - Weight 77.3 kg (170 lb 6.4 oz) 09/22/2016 9:37 A M FUNERAL DIRECTOR/EMBALMER Height 166.4 cm (5' 5.5) 09/22/2016 9:37 AM FUNERAL DIRECTOR/EMBALMER Body Mass Index 27.92 09/22/2016 9:37 AM FUNERAL DIRECTOR/EMBALMER Plan of Treatment Health Maintenance Due Date [...] age to complete this topic Care Teams Precision Instrument Maker Relationship Specialty Start Date End Date Brenton Kraus MD [facility] [address] [address] PCP - General 09/22/16
--- OUTSIDE RECORDS SUMMARY | 2025-03-30 15:34 | XMS_ITS | Data Portability ---
Author Organization [facility], [facility] Address [address] [place] [address] Care Team Providers Care Car Rental Agent Name Role Phone ARMANDO CARROLL Primary Care Provider [phone] Assessment No assessment recorded. Plan of Treatment [...] 25 01/21/2025 GTT - GESTA MADELEINE L SCREJojo N, ACOG OB glucose, 1 hour screen 93 mg/dL 70-135 Not Available [facility] (Lab) [address] , [place], [address], 01/22/2025 11:52:34 01/22/2001/21/2025 HIV 1/2 ANTIG EN/AN TIBOD Y, REFLE X CONFI RMATI ON HIV antigen/anti body Nonrea ctive nonrea ctive HIV-1 antig en and HIV-1 /HIV- 2 antib odies were not detec melany. No labor atory evide nce of HIV infec tion. Not Available [facility] (Lab) [address], [place], [address], 01/22/2025 11:52:34 01/22/20 25 01/21/2025 HEMAT OCRIT (HCT) HCT 33.5 % (based on docume nted legal sex) 34.0-4 5.0 low Not Available [facility] (Lab) [address], [place], [address], 01/22/2025 11:52:35 01/22/20 25 01/21/2025 HEMOG LOBIN (HGB) HGB 10.8 g/dL (based on docume nted legal sex) 11.6-1 5.4 low Not Available [facility] (Lab) [address], [place], [address], 01/22/2025 11:52:35 01/22/20 25 01/21/2025 RPR SCREE N, REFLE X TITER /CONF IRMAT ION RPR qualitative Nonrea ctive nonrea ctive Not Available [facility] (Lab) [address], [place], [address], 01/22/2025 11:52:36 02/03/20 25 02/02/2025 urina lysis , dipst ick Leukocytes - Not Available [facility] [address], [place], [address], 02/02/2025 11:10:56 02/03/20 25 02/02/2025 urina lysis , dipst ick Nitrite - Not Available [place] [address], [place], [address], 02/02/2025 11:10:56 02/03/20 25 02/02/2025 urina lysis , dipst ick Urobilinogen - Not Available Francheska bland [address], [place], [address], 02/02/2025 11:10:56 02/03/20 25 02/02/2025 urina lysis , dipst ick Protein trace Not Available [place] [address], [place], [address], 02/02/2025 11:10:56 02/03/20 25 02/02/2025 urina lysis , dipst ick pH 8 Not Available [place] [address], [place], [address], 02/02/2025 11:10:56 02/03/20 25 02/02/2025 urina lysis , dipst ick Specific [place] 1.000 Not Available [facility] [address], [place], [address], 02/02/2025 11:10:56 02/03/20 25 02/02/2025 urina lysis , dipst ick Ketone - Not Available [place] [address], [place], [address], 02/02/2025 11:10:56 02/03/20 25 02/02/2025 urina lysis , dipst ick Bilirubin - Not Available Susannah wetzel [address], [place], [address], 02/02/2025 11:10:56 02/03/20 25 02/02/2025 urina lysis , dipst ick Glucose - Not Available [place] [address], [place], [address], 02/02/2025 11:10:56 02/03/20 25 02/02/2025 urina lysis , dipst ick Appearance clear Not Available Skyler lopez [address], [place], [address], 02/02/2025 11:10:56 02/03/20 25 02/02/2025 urina lysis , dipst ick Color light yellow Not Available [place] [address], [place], [address], 02/02/2025 11:10:56 03/15/2003/15/2025 CULTU RE: GROUP B [...] Resul ting Lab: [facility] [address] [facility] [address] Tel: CULTU RE ----- ----- ----- --- No Group B strep isola melany at 2 days (lin ctive broth enhan cemen t) Not Available [facility] (Lab) [address], [place], [address], 03/18/2025 15:17:48 02/05/20 25 02/04/2025 US, obste tric follo w-up No observ ation record ed. [email or web address] [place] [address], [place], [address], 02/04/2025 18:41:04 02/05/20 25 02/04/2025 US, obste tric follo w-up No observ ation record ed. MARCO A [facility] [address], [place], [address], 02/12/2025 16:29:54 03/17/20 25 03/17/2025 imagi ng/di agnos tic resul t No observ ation record ed. MARCO A Not Available 2024 10:40:33 03/29/20 25 03/29/2025 imagi ng/di agnos tic resul t No observ ation record ed. [address], [place], [address], 03/29/2025 10:00:42 Result Notes None recorded. Problems Name Problem SNOMED Code Status Onset Date Resolution Date Notes Provider Name and Address Organization Details Recorded Time Premature delivery 587206069 Active 4# 12, Gestation al age unknown Jose Snider MD [address], [place], [address], [facility] 5 11:48:53 growth restricti on 21429281 Active HISTORICA L - uncertain if gowth restricte d or premature 1st Rhonda Bowles elder, [facility] 5 09:44:51 92898932 Active [address] [facility] 5 11:17:12 Generaliz ed anxiety disorder 16884541 Active 2024 restarted meds Jose Snider MD [address], [place], [address], [facility] 5 17:26:25 Problem Notes None recorded. Procedures Surgical History Date Name Laterality Status Provider Name and Address Organization Details Recorded Time 5 Date of Last Pap Smear completed TINO Flowers [facility] 02/07/2025 12:18:08 3 extraction of wisdom tooth completed Esha Gabriel [facility] 09/21/2024 10:09:01 Imaging Results None recorded. Procedure Notes None recorded. Medical Equipment None Reported. Allergies Allergen ID Allergen Name Allergen Category Reaction Reaction Severity Criticality Documentation Date Start Date Code Code System Note Provider Name and Address Organization Details Recorded Time 61316 amoxicill in medicatio n hives mild Not available 09/21/2024 723 RxNorm Esha friedman, [facility] 5 10:01:42 Medications Name [...] Updated DateTime 02/11/2025 166.37 cm 31.6 kg/m2 05615.33 g 102/70 mm[Hg] [facility] 02/11/2025 17:18:25 Date Recorded Body height Body mass index (BMI) Body weight Systolic And Diastolic Provider Name and Address Organization Details Last Updated DateTime 03/01/2025 166.37 cm 32 kg/m2 83537.51 g 109/73 mm[Hg] [facility] 03/01/2025 09:58:24 Date Recorded Body height Body mass index (BMI) Body weight Systolic And Diastolic Provider Name and Address Organization Details Last Updated DateTime 03/15/2025 166.37 cm 32.3 kg/m2 83378.7 g 107/74 mm[Hg] Tessa Bravo [facility] 03/15/2025 10:54:45 Date Recorded Body height Body mass index (BMI) Body weight Systolic And Diastolic Provider Name and Address Organization Details Last Updated DateTime 03/20/2025 166.37 cm 32.8 kg/m2 04050.47 g 99/69 mm[Hg] TINO Flowers [facility] 03/20/2025 14:44:46 Date Recorded Body height Body mass index (BMI) Body weight Systolic And Diastolic Provider Name and Address Organization Details Last Updated DateTime 03/29/2025 166.37 cm 32.8 kg/m2 82483.47 g 108/74 mm[Hg] Tessa Bravo [facility] 03/29/2025 11:45:30 Social History Question Answer Notes LastModified by Organizat ion Details LastModified Time Do You Have An Advance Directive? No [email or web address] Information n ot available 02/07/2025 How Many Years Have You Consumed Alcohol? 11 Information not available 09/21/2024 Are You Blind Or Do You Have Difficulty Seeing? No Information n ot available 09/21/2024 What Is Your Level Of Caffeine Consumption? Occasional [email or web address] Information not available 02/07/2025 How Much Tobacco Do You Chew? None [email or web address] Information not available 02/02/2025 In The 14 [...] Or The Highest Degree You Have Received? [id number] Information not available 09/21/2024 Are There Any [...] Functional Status Question Answer Note LastModified by [employer] ion Details LastModified Time Do you use any illicit or recreational drugs? No Information not available 09/21/2024 What is your level of alcohol consumption? Occasional Information not available 09/21/2024 Are you able to walk? 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 Occasional [email or web address] Information not available 02/07/2025 Mental Status Question Answer Note LastModified by Organization D etails LastModified Time Do you feel stressed (tense, restless, nervous, or anxious, or unable to sleep at night)? [id number] [email or web address] Information not available 02/07/2025 Family History Relationship Description Onset Age of this Age Resolved Age Notes LastModified by Organization Details LastModified Time Mother Malignant tumor of cervix Not available 2024 10:01:46 Notes:adopted met pare nts but unsure of history Medical History Condition Response Anxiety Disorder Y Allergies (Food, seasonal, environmental ) Y Fibromyalgia Y Arthritis Y Depression/ depression Y Gynecological History Statement/Question [...] SNOMED-CT Code Diagnosis ICD10 Code Diagnosis Note [id number] Jose Snider MD [place] [address],[place] [address] 09/21/2024 09:05:00 09/21/2024 09:42:37 [id number] Jose Snider MD [place] [address] [place] [address] 09/21/2024 09:05:54 09/21/2024 10:29:42 Nausea and vomiting 87693290 R11.2 Amenorrhea 38631676 N91. 2 [id number] Jose Snider MD [place] [address] [place] [address] 10/02/2024 10:02:20 10/02/2024 11:04:07 screening 870731596 Z36.82 Z3A.12 [id number] Jose Snider MD [place] [address] [place] [address] 10/02/2024 10:03:03 10/02/2024 11:58:22 Routine care 876146824 Z34.90 [id number] MD Rajiv Dao [address] [place] [address] 10/30/2024 10:36:07 10/30/2024 12:20:37 Routine care 702030884 Z34.90 [id number] MD Rajiv Dao [address] [place] [address] 11/26/2024 10:15:47 11/26/2024 11:38:55 screening 585525427 Z36.3 Z3A.20 [id number] MD Rajiv Dao [address] [address] 11/26/2024 10:17:40 11/26/2024 12:07:45 Routine care 417317053 Z34.90 [id number] MD Rajiv Dao [address] [address] 12/26/2024 15:35:17 12/26/2024 16:37:06 anatomy study 117257841 Z36.2 Z3A.24 [id number] MD Rajiv Dao [address] [address] 12/26/2024 15:35:56 12/27/2024 02:38:23 care status 256255494 Z34.82 Anxiety 21437827 F41.9 [id number] MD Rajiv Doa [address] [address] 01/21/2025 10:35:11 01/21/2025 11:23:34 care status 780646915 Z34.83 [id number] MD Rajiv Dao [address] [address] 02/02/2025 10:42:10 02/02/2025 11:10:20 care status 121349872 Z34.83 Urinary sy stem finding 787901644 R39.9 [id number] MD Rajiv Dao [address] [address] 02/04/2025 14:51:25 02/04/2025 16:24:53 care: obstetric risk 347507116 O09.293 O09.893 Z3A.30 [id number] ANGELLA BARRAZA MD [place] [address] [address] 02/11/2025 16:46:22 02/11/2025 17:53:42 Pain of hip region 44721608 M25.551 M25.552 - seeing PT- discussed conservati ve treatment Gestation period, 31 weeks 99511368 Z3A.31 - continue PNV [id number] ANGELLA BARRAZA MD [place] [address] [address] 03/01/2025 09:52:48 03/01/2025 10:19:20 Premature uterine contraction 469849972 O47.00 - was seen at [facility] on Tuesday for contractio ns- s/p terbutalin e, no further contractio ns- ROMplus neg- discussed precaution s Gestation period, 33 weeks 03529204 Z3A.33 - continue PNV [id number] ANGELLA BARRAZA MD [place] [address] [address] 03/15/2025 10:46:45 03/16/2025 08:48:16 Generalized anxiety disorder 07287164 F41.1 - mood stable Gestation period, 35 weeks 43723762 Z3A.35 - continue PNV- GBS collected [id number] ANGELLA BARRAZA MD [place] [address],[place] [address] 03/20/2025 14:34:16 03/20/2025 16:08:28 Generalized anxiety disorder 44062043 F41.1 - mood stable Irregular uterine contractions 69993357 O47.9 - irregular contractio ns, no change in SVE from previous hospital visit- labor precaution s reviewed Gestation period, 36 weeks 88512277 Z3A.36 - GBS negative- continue PNV [id number] ANGELLA BARRAZA MD [place] [address] [address] 03/29/2025 11:30:15 03/29/2025 12:21:51 Generalized anxiety disorder 49324327 F41.1 - mood stable Gestation period, 37 weeks 35809439 Z3A.37 - continue [facility] Health Concerns Section Related Observation LastModified by Organization Detai ls LastModified Time None Recorded Concern Status LastModified by Organization Details LastModified Time None Recorded Advance Directives Directive N: Payers Insurance Date Sequence Insurance Name Policy Number Policy Calderon Covered Member ID Calderon Member ID Guarantor Name 03/29/2025 1 [place] NONE Nika O'Kenny [id number] Nika O'Kenny 03/29/2025 1 [facility] (MEDICAID HMO) [id number] Nika O'Kenny [id number] Nika O'Kenny 03/29/2025 2 [facility] (MEDICAID HMO) [id number] Nika O'Kenny [id number] Nika O'Kenny 11/26/2024 1 *SELF PAY* Sh elby O'Kenny 03/29/2025 1 [facility] (MEDICAID HMO) [id number] Inka Amadeo [id number] Nika O'Kenny 03/29/2025 1 [place] [facility] Nika O'Kenny [id number] Nika O'Kenny Notes Date Note Type Note Provider Name and Address Organization Details Recorded Time 02/11/2025 text/html Generic HPI TemplateReported by Patient ANGELLA BARRAZA MD [address], [place], [address], [facility] 02/11/2025 17:44:56 03/01/2025 text/html Generic HPI TemplateReported by Patient ANGELLA BARRAZA MD [address], [place], [address], [facility] 03/01/2025 10:18:20 03/15/2025 text/html Generic HPI TemplateReported by Patient ANGELLA BARRAZA MD [address], [place], [address], [facility] 03/15/2025 17:41:58 03/20/2025 text/html Generic HPI TemplateReported by Patient ANGELLA BARRAZA MD [address], [place], [address], [facility] 03/20/2025 16:06:26 03/29/2025 text/html Generic HPI TemplateReported by Patient ANGELLA BARRAZA MD [address], [place], [address], [facility] 03/29/2025 12:17:29 OBGyn Episode Ob Episode Information Episode Created Date Number of Fetuses Patient Bloodtype Patient rh Status Prepregnancy Weight lbs Domestic Partner Domestic Partner Phone Father Name Systems Integration Analyst Status 09/21/19 1 CLOSED Fetus Data First Name Last Name Admitted to NICU Weight (g) Sex Living Outcome Pediatric Complications Fetus ID Race Codes Race Delivery Type 2891.64 9 F Full Term 31370 Vaginal Delivery Zane Calculation Initial Zane Date [...] Domestic Partner Domestic Partner Phone Father Name Systems Integration Analyst Status 09/21/19 1 CLOSED Fetus Data First Name Last Name Admitted to NICU Weight (g) Sex Living Outcome Pediatric Complications Fetus ID Race Codes Race Delivery Type , Spontane ous 67302 Zane Calculation Initial Zane Date Initial Exam [...] Domestic Partner Domestic Partner Phone Father Name Systems Integration Analyst Status 10/02/19 25 1 A Positive 202 Jose OPEN Fetus Data First Name Last Name Admitted to NICU Weight (g) Sex Living Outcome Pediatric Complications Fetus ID Race Codes Race Delivery Type 28147 Problems Problem Notes Problem Name Start Date End Date Resolution Snomed Code Not e growth restriction 41579758 HISTORICAL - uncertain if gowth restricted or premature 1st Generalized anxiety disorder 12/26/2024 69538446 restarted meds Premature delivery 576459015 4 # 12, Gestational age unknown Zane [...] Weight in lbs Pre/Post Dialysis Refused Weight 199.286119639170 BP Diastolic BP Location Tested BP Systolic [...] Type Weight in lbs Pre/Post Dialysis Refused 196.293591980321 BP Diastolic BP Location Tested BP Systolic [...] Weight in lbs Pre/Post Dialysis Refused Weight 196.580586901506 BP Diastolic BP Location Tested BP Systolic [...] Type Weight in lbs Pre/Post Dialysis Refused 197.533037471172 BP Diastolic BP Location Tested BP Systolic [...] Type Weight in lbs Pre/Post Dialysis Refused 194.264312347849 BP Diastolic BP Location Tested BP Systolic [...] Weight in lbs Pre/Post Dialysis Refused Weight 192.997359038589 BP Diastolic BP Location Tested BP Systolic [...] Weight in lbs Pre/Post Dialysis Refused Weight 193.014118510481 BP Diastolic BP Location Tested BP Systolic [...] Weight in lbs Pre/Post Dialysis Refused Weight 195.635333883296 BP Diastolic BP Location Tested BP Systolic [...] Weight in lbs Pre/Post Dialysis Refused Weight 197.836307790284 BP Diastolic BP Location Tested BP Systolic [...] Weight in lbs Pre/Post Dialysis Refused Weight 200.592623073116 BP Diastolic BP Location Tested BP Systolic [...] Weight in lbs Pre/Post Dialysis Refused Weight 200.003124381169 BP Diastolic BP Location Tested BP Systolic BP Type 74 L arm 108 sitting Fetus Heart Rate Present A 135 Fetus Movement A Yes Comments Good movement. No blee ding. Had episode of consistent contractions last night, evaluation unchanged in [facility]. [facility] Scheduled 04/09. Labor precautions reviewed. RTC [...] Domestic Partner Domestic Partner Phone Father Name Systems Integration Analyst Status 09/21/19 25 1 CLOSED Fetus Data First Name Last Name Admitted to NICU Weight (g) Sex Living Outcome Pediatric Complications Fetus ID Race Codes Race Delivery Type 2154.56 2 M Prematur e 34994 Vaginal Delivery Zane Calculation Initial Zane Date [...]
--- OUTSIDE RECORDS SUMMARY | 2025-03-30 15:34 | XMS_ITS | Clinical Summary ---
Author Organization [facility] Address [address] [place] [id number] Care Team Providers Care User Experience Manager Name Role Phone Libia Mejia NP Primary Care Provider [phone] Allergies Active Allergy Reactions Criticality Noted Date [...] 07/10/2018 Assessment & Plan (07/10/2018 2:15 PM ANALYSIS DIRECTOR): BMI Follow-up includes: exercise counseling. Fibromyalgia 10/08/2016 Overview (12/16/2016): Fibromyalgia Assessment & Plan (07/10/2018 2:16 PM ANALYSIS DIRECTOR): Having more stress recently causing slightly more pain Assessment & Plan (11/17/2017 10:14 AM CDT): Improved on Cymbalta Assessment & Plan (10/06/2017 11:23 AM ANALYSIS DIRECTOR): Pain improving with work leave of absence Assessment & Plan (03/22/2017 9:36 AM CDT): Doing well when on medication consistently-worse in past week due to missing medication Moderate episode of recurrent major depressive d isorder 09/20/2016 Overview (12/16/2016): Major depressive disorder, recurrent, moderate Assessment & Plan (07/10/2018 2:18 PM ANALYSIS DIRECTOR): Worse due to stress Will increase Cymbalta to 60mg daily Assessment & Plan (03/06/2018 1:57 PM CDT): Continue current therapy Assessment & Plan (11/17/2017 10:19 AM CDT): Improved on Cymbalta We discussed risks/benefits of taking it still Discussed she can continue while breast feeding Assessment & Plan (10/06/2017 11:25 AM ANALYSIS DIRECTOR): Will resume Cymbalta I discussed the risks, [...] on file Legal Sex Female 9:27 PM ANALYSIS DIRECTOR Gender Identity Female 03/30/2023 5:06 AM CDT Sexual Orientation Not on file Obstetrics History Last Filed Vital Signs Vital Sign Reading Time Taken Comments Blood Pressure 109/73 12/04/2024 11:15 AM CDT Pulse 83 12/04/2024 11:15 AM CDT Temperature 36.7 C (98 F) 12/04/2024 11:15 AM CDT Respiratory Rate 20 07/10/2018 2:02 PM ANALYSIS DIRECTOR Oxygen Saturation 97% 07/10/2018 2:02 PM ANALYSIS DIRECTOR Inhaled Oxygen Concentration - - Weight 88.8 [...] 12/08/2022, 07/08/2020, 02/07/2018 Varicella Vaccines Discontinued Insurance [facility] Care Teams User Experience Manager Relationship Specialty Start Date End Date Libia Mejia NP [address] [place] [address] [place] [address] PCP - General Pediatrics 07/02/22
--- OUTSIDE RECORDS SUMMARY | 2025-03-30 15:34 | XMS_ITS | Encounter Summary ---
Author Organization [facility] Address [address] [place] [address] Care Team Providers Care Motor Equipment Lieutenant Name Role Phone Libia Mejia [facility] Primary Care Provider Encounter Details Date Type Department Care Team (Late st Contact Info) Description 06/03/2024 Owlientt Message Enc [facility] [address] [place], [place] [id number] Libia Mejia [facility] [address] [place] [address] Anti depressants Social History Tobacco Use Types [...] Sex Assigned at Female 10/02/2024 11:08 AM SUPERVISOR WORD PROCESSING Legal Sex Female 1:00 PM CDT Gender Identity Not on file Sexual Orientation Not on file documented as of this encounter Functional Status * RETIRED Are you deaf or do you have serious difficulty hearing Answer Date of Assessment Author Status No 08/04/2020 5:16 AM SUPERVISOR WORD PROCESSING Activ e * RETIRED Are you blind or do you have serious difficulty seeing, even when wearing glasses? Answer Date of Assessment Author Status No 08/04/2020 5:16 AM SUPERVISOR WORD PROCESSING Activ e * Do you have serious [...] documented as of this encounter Care Teams Motor Equipment Lieutenant Relationship Specialty Start Date End Date Libia Mejia FNP [address] [place] [address] [place] [address] PCP - General Nurse Practitioner Family 12/04/18 documented as of this encounter
--- OUTSIDE RECORDS SUMMARY | 2025-03-30 15:34 | XMS_ITS | Encounter Summary ---
Author Organization [facility] Address [address] [place] [address] Care Team Providers Care Wildlife Control Agent Name Role Phone Libia Mejia [facility] Primary Care Provider Encounter Details Date Type Department Care Team (Late st Contact Info) Description 04/30/2024 GoLarkt Message Enc [facility] [address] [place], [place] [id number] Libia Mejia [facility] [address] [place] [address] Blood Pressure Social History Tobacco Use Types [...] Sex Assigned at Female 10/02/2024 11:08 AM OYSTER BED WORKER Legal Sex Female 1:00 PM CDT Gender Identity Not on file Sexual Orientation Not on file documented as of this encounter Functional Status * RETIRED Are you deaf or do you have serious difficulty hearing Answer Date of Assessment Author Status No 08/04/2020 5:16 AM OYSTER BED WORKER Activ e * RETIRED Are you blind or do you have serious difficulty seeing, even when wearing glasses? Answer Date of Assessment Author Status No 08/04/2020 5:16 AM OYSTER BED WORKER Activ e * Do you have serious [...] documented as of this encounter Care Teams Wildlife Control Agent Relationship Specialty Start Date End Date Libia Mejia FNP [address] [place] [address] [place] [address] PCP - General Nurse Practitioner Family 12/04/18 documented as of this encounter
--- OUTSIDE RECORDS SUMMARY | 2025-03-30 15:34 | XMS_ITS | Referral Summary ---
Author Organization [facility] Address [facility] [place] [address] Care Team Providers Care Trucksmith Name Role Phone Libia Mejia NP Primary Care Provider [phone] Allergies Active Allergy Reactions Criticality Noted Date [...] 07/10/2018 Assessment & Plan (07/10/2018 2:15 PM SETUP TECHNICIAN): BMI Follow-up includes: exercise counseling. Fibromyalgia 10/08/2016 Overview (12/16/2016): Fibromyalgia Assessment & Plan (07/10/2018 2:16 PM SETUP TECHNICIAN): Having more stress recently causing slightly more pain Assessment & Plan (11/17/2017 10:14 AM CDT): Improved on Cymbalta Assessment & Plan (10/06/2017 11:23 AM SETUP TECHNICIAN): Pain improving with work leave of absence Assessment & Plan (03/22/2017 9:36 AM CDT): Doing well when on medication consistently-worse in past week due to missing medication Moderate episode of recurrent major depressive d isorder 09/20/2016 Overview (12/16/2016): Major depressive disorder, recurrent, moderate Assessment & Plan (07/10/2018 2:18 PM SETUP TECHNICIAN): Worse due to stress Will increase Cymbalta to 60mg daily Assessment & Plan (03/06/2018 1:57 PM CDT): Continue current therapy Assessment & Plan (11/17/2017 10:19 AM CDT): Improved on Cymbalta We discussed risks/benefits of taking it still Discussed she can continue while breast feeding Assessment & Plan (10/06/2017 11:25 AM SETUP TECHNICIAN): Will resume Cymbalta I discussed the risks, [...] on file Legal Sex Female 9:27 PM SETUP TECHNICIAN Gender Identity Female 03/30/2023 5:06 AM CDT Sexual Orientation Not on file Last Filed Vital Signs Vital Sign Reading Time Taken Comments Blood Pressure 109/73 12/04/2024 11:15 AM CDT Pulse 83 12/04/2024 11:15 AM CDT Temperature 36.7 C (98 F) 12/04/2024 11:15 AM CDT Respiratory Rate 20 07/10/2018 2:02 PM SETUP TECHNICIAN Oxygen Saturation 97% 07/10/2018 2:02 PM SETUP TECHNICIAN Inhaled Oxygen Concentration - - Weight 88.8 kg (195 lb 12.8 oz) 025 11:15 AM CDT Height 165.1 cm (5' 5) 12/04/2024 11:1 5 AM CDT Body Mass Index 32.58 12/04/2024 11:15 AM CDT Plan of Treatment Not on file Insurance [facility] Care Teams Trucksmith Relationship Specialty Start Date End Date Libia Mejia NP [address] [place] [id number] PCP - General Pediatrics 07/02/22
[2025-03-30 16:05] LABS: Hematocrit 35.3 % (37.0-47.0); Hemoglobin 11.0 g/dL (12.0-15.0); Immature Granulocyte Percent A 1.3 % (0-0.5); Lymphocytes Absolute Auto 1.35 K/mm3 (0.9-3.2); Mean Corpuscular HGB Conc 31.2 g/dl (32-36); Mean Corpuscular Hemoglobin 24.8 pg (26-34); Mean Corpuscular Volume 79.7 fl (80-100); Nucleated Red Blood Cells Absolute Auto 0.000 K/mm3 (0.0-0.012); Nucleated Red Blood Cells Perc 0.0 % (0.0-0.2); Platelet Count Result 231 k/mm3 (150-375); Red Blood Count 4.43 M/mm3 (4.2-5.4); White Blood Count 12.0 K/mm3 (4.5-10.0)
--- NOTE | 2025-03-30 16:05 | LDADM ---
This patient, Nika Childs, was admitted to Labor/Delivery/Recovery 106 on 03/30/25 at 14:48. Plans for labor, pain management and were discussed with patient. Patient/family oriented to hospital policies and general routines including ID bracelet, bed and alarms, visiting hours, pain management, procedures, bathroom and other care routines, personal items, smoking policy, room service/diet and guest tray routines, security routines, and visiting hours. Patient/Family are encouraged to report perceived risks to care and to ask questions if they do not understand what they are told or what they should do. See OBIX for further documentation.
--- NOTE | 2025-03-30 16:40 | WPDANESEPP ---
Anes - Eval Pre Procedure Procedure: Labor Pain Management Date/Time: 03/30/25 16:40 Surgeon: Jeancarlos Preop Diagnosis: pain during labor Pre Op Diagnosis: Contractions Patient Data Age: 34 Gender: F Height: 1.65 m Weight: 92 kg Last Vital Signs Pulse 95 03/30/25 16:30 BP 124/83 03/30/25 16:30 O2 Del Method Room Air 03/30/25 16:04 Allergies Allergy/AdvReac Type Severity Reaction Status Date / Time amoxicillin Allergy Mild mouth sores Verified 03/30/25 15:06 Home Medications ?Medication ?Instructions ?Recorded ?Confirmed ?Type duloxetine 40 mg capsule,delayed 40 mg PO DAILY 03/10/25 03/30/25 History release hydroxychloroquine 200 mg tablet 200 mg PO EVERY OTHER DAY 03/10/25 03/30/25 History ondansetron HCl 8 mg tablet 8 mg PO TID PRN nausea and vomiting 03/10/25 03/30/25 History calcium phosphate,dibasic 77 1 tablet PO DAILY per patient 03/30/25 03/30/25 History mg-vitamin D3 400 unit tablet ferrous sulfate 325 mg (65 mg 325 mg PO DAILY per patient 03/30/25 03/30/25 History iron) tablet (Iron (ferrous sulfate)) magnesium 200 mg tablet 200 mg PO DAILY per patient 03/30/25 03/30/25 History Laboratory Tests 03/30/25 15:44 WBC 12.0 H K/mm3 (4.5-10.0) RBC 4.43 M/mm3 (4.2-5.4) Hgb 11.0 L g/dL (12.0-15.0) Hct 35.3 L % (37.0-47.0) MCV 79.7 L fl (80-100) MCH 24.8 L pg (26-34) MCHC 31.2 L g/dl (32-36) RDW 15.9 H % (11.5-14.5) Plt Count 231 k/mm3 (150-375) MPV 11.2 H fl (7.4-10.4) Immature Gran % (Auto) 1.3 H % (0-0.5) Neut % (Auto) 77.5 H % (45.5-73.1) Lymph % (Auto) 11.3 L % (18.3-44.2) [facility]lor % (Auto) 8.5 % (2.6-8.5) Eos % (Auto) 0.8 % (0-4.4) Baso % (Auto) 0.6 % (0.2-1.2) Lymph # (Auto) 1.35 K/mm3 (0.9-3.2) Baylor # (Auto) 1.0 H K/mm3 (0.1-0.6) Eos # (Auto) 0.1 K/mm3 (0-0.3) Baso # (Auto) 0.1 K/mm3 (0.0-0.1) Abs Immat Gran (auto) 0.16 H K/mm3 (0.00-0.031) Absolute Neuts (auto) 9.3 H K/mm3 (1.3-6.7) Absolute Nucleated RBC 0.000 K/mm3 (0.0-0.012) Nucleated RBC % 0.0 % (0.0-0.2) Patient hx anesthesia problems: none Family hx anesthesia problems: none Results Review: All pre-operative results and documents have been reviewed as part of the pre-operative evaluation. [facility] Past Medical History Medical History Post depression Obesity (BMI 30-39.9) Family History Family History Other Unknown family medical history Social History Social History Smoking status: Never smoker Second hand tobacco smoke exposure: No Substance use: never Do You Feel Safe in your Home?: Yes Lack of Transportation: No Lack of Food: Never True Current Housing: I Have Housing Concerned About Future Housing: No Difficulty Paying Gas/Electric Bills: No Difficulty Paying for Meds: No Currently Unemployed: No Education: Trade/Vocational Certificate Difficulty w/ Childcare or Family Care: No Spiritual care concerns: No Exam Day of Procedure 03/30/25 16:40
[2025-03-30 17:01] LABS: Syphilis IgG/IgM Antibody Non-Reactive (Nonreactive)
--- NOTE | 2025-03-30 17:36 | WPDOBADMIT ---
Obstetrics - Admit Note Admission Note: record reviewed. No pertinent additions to the history and/or any subsequent changes in the physical findings that are not consistent with the expected course of the were found. Additions to the history and/or subsequent changes in the physical findings follow. admit in labor 38 weeks, AROM meconium fluid
[2025-03-30] MEDS: LACTATED RINGERS 1,000 ML 125 ML IV CONT (18:56)
[2025-03-30] MEDS: OXYTOCIN 30 UNITS/NS 500 ML 30 UNITS/500 ML BAG IV CONT (18:56)
[2025-03-30] MEDS: ONDANSETRON INJ 4 MG/2 ML VIAL IV PUSH (19:32)
[2025-03-30] MEDS: OXYTOCIN 30 UNITS/NS 500 ML 30 UNITS/500 ML BAG 999 UNITS IV CONT (20:17)
--- NOTE | 2025-03-30 20:24 | PM.OBPRVD ---
OB - Vaginal Delivery Note Procedure Delivery date: 03/30/25 Intrapartal Events: Decelerations and Other (meconium) Delivery augmentation: Rupture of Membranes and Pitocin Delivery monitor: External FHT and External Uterine Route of delivery: Episiotomy description: None Laceration Description: None Specimen: Yes Quantitative Blood Loss (ml): 100 Anesthesia type: None Disposition: PACU [place] Baby Date of : 03/30/25 Time of : 20:15 Gestational Age by Date: 39 gender: Female presentation: vertex position: Left Occiput Anterior Placenta delivery description: Expressed Cord Vessel Description: 3 Vessels, Nuchal Cord (x2), Loose and Reduced Narrative: baby to warmer, commercial correspondent at
[2025-03-30] MEDS: OXYTOCIN 30 UNITS/NS 500 ML 30 UNITS/500 ML BAG 125 UNITS IV CONT (20:45)
[2025-03-30] MEDS: ACETAMINOPHEN 325 MG TABLET 650 MG PO (22:40)
[2025-03-30] MEDS: IBUPROFEN 600 MG TABLET PO (22:41)
[2025-03-31 05:05] LABS: Hematocrit 35.5 % (37.0-47.0); Hemoglobin 10.8 g/dL (12.0-15.0)
[2025-03-31 05:35] VITALS: BP 105/71; PULSE 84; RESP 14; TEMP 36.8; O2SAT 100
[2025-03-31 08:00] VITALS: BP 97/61; PULSE 85; RESP 18; TEMP 36.6; O2SAT 98
[2025-03-31] MEDS: DOCUSATE SODIUM 100 MG CAPSULE PO (08:05)
[2025-03-31] MEDS: MULTIVIT/MIN/PREN/FOL AC/IRON TABLET 1 TAB PO (08:05)
[2025-03-31] MEDS: ACETAMINOPHEN 325 MG TABLET 650 MG PO ×3 (08:05→21:00)
[2025-03-31] MEDS: IBUPROFEN 600 MG TABLET PO ×3 (08:06→21:00)
--- NOTE | 2025-03-31 09:09 | P.PNOB_ITS ---
OB - PN: Subj Subjective Date/time seen: 03/31/25 09:09 Interval history: pp day 1 doing well OB - PN: Obj Data Labs 03/31/25 04:43 Labs: Laboratory Results - last 24 hr 03/30/25 03/31/25 15:44 04:43 WBC 12.0 H RBC 4.43 Hgb 11.0 L 10.8 L Hct 35.3 L 35.5 L MCV 79.7 L MCH 24.8 L MCHC 31.2 L RDW 15.9 H Plt Count 231 MPV 11.2 H Immature Gran % (Auto) 1.3 H Neut % (Auto) 77.5 H Lymph % (Auto) 11.3 L Kimball % (Auto) 8.5 Eos % (Auto) 0.8 Baso % (Auto) 0.6 Lymph # (Auto) 1.35 Kimball # (Auto) 1.0 H Eos # (Auto) 0.1 Baso # (Auto) 0.1 Abs Immat Gran (auto) 0.16 H Absolute Neuts (auto) 9.3 H Absolute Nucleated RBC 0.000 Nucleated RBC % 0.0 Syphilis IgG/IgM Ab Non-reactive Blood Type A Positive Antibody Screen Negative OB - PN A/P Time Spent With Patient Time: Total time spent is greater than 50% in coordination of care (as documented) at patient's floor/unit and/or counseling patient: Review of Systems 2 Review of Systems: All systems reviewed & are unremarkable except as noted in HPI and below Exam 2 Const: General: cooperative, healthy appearing and comfortable Chest: Chest palpation & inspection: normal inspection of the chest Resp: Effort & Inspection: normal respiratory effort Cardio: Rate: regular rate Back/Spine/Pelvis: Back: no CVA tenderness Skin: General skin exam: normal color
[2025-03-31 17:31] VITALS: BP 119/72; PULSE 67; RESP 16; TEMP 36.2; O2SAT 97
[2025-03-31 20:10] VITALS: BP 98/73; PULSE 70; RESP 16; TEMP 36.4; O2SAT 97
[2025-03-31] MEDS: HYDROXYCHLOROQUINE SULFATE 200 MG TABLET PO (21:01)
[2025-04-01] MEDS: ACETAMINOPHEN 325 MG TABLET 650 MG PO (04:27)
[2025-04-01] MEDS: IBUPROFEN 600 MG TABLET PO (04:27)
[2025-04-01 07:30] VITALS: BP 109/75; PULSE 64; RESP 18; TEMP 36.6; O2SAT 97
[2025-04-01] MEDS: MULTIVIT/MIN/PREN/FOL AC/IRON TABLET 1 TAB PO (08:37)
[2025-04-01] MEDS: DOCUSATE SODIUM 100 MG CAPSULE PO (08:37)
--- NOTE | 2025-04-01 09:06 | S_PTH ---
PATIENT: Nika Childs LOC: [facility]2 U#:[id number] AGE/SX: 34/F ROOM: 281 RE03/30/[address]: Misha Arshad MD : 1990 BED: 00 DIS: 04/01/2025 SPEC #: [id number] RECD: 04/01/25 09:58 STATUS: LESLIE REQ #: [id number] ABHILASH: 04/01/25 09:[address]: Misha Arshad DEPT: [facility] Surgical RECD BY: Seble Villalta ENTERED: 04/01/25 09:58 SP TYPE: Surgical OTHR DR: Libia Mejia, RESIDENTIAL SALES REPRESENTATIVE-C Tissues: A - Placenta Procedures: Hematoxylin and Eosin Stain Gross and Microscopic Level 5
--- NOTE | 2025-04-01 11:34 | PC.NURSE ---
Consulted with mother concerning needs and she shared her ability to independently latch infant optimally without pain. Per mother she has history of her left nipple being inverted and if unable to latch baby she plans on just using her breast pump on that side, per mom baby latches optimally to her right breast. Mother requested an insurance pump, she chose a Zomee pump and will use the size 24 flange. Mother is feeding appropriately for growth of infant and understands stimulating to eat if needed. Infant has had appropriate feedings in the last 24 hours meets the outcomes for weight, output, blood sugar and jaundice at this time. Reinforced understanding of milk production, transition of milk, signs of adequate intake, transition of stool, prevention/relief of engorgement, plugged ducts, mastitis, responsive watching for feeding cues, the different methods of stimulating infant to breastfeed 1-3 hours after the start of the last feeding, community resources, and when to call a provider using the resource of the feeding sheet along with the mom and baby guide. Mother voiced understanding of the information shared, is confident to continue effectively her infant at home, when to call for assistance, denies any additional assistance or education at this time. Reported to the Primary RN.
[2025-04-01] MEDS: MEASLES,MUMPS,RUBELLA VACCINE 0.5 ML VIAL SUB-Q (12:44)
--- NOTE | 2025-04-02 18:23 | PM.OBDSVD ---
DS: Admitting Diagnosis Discharge Date 04/01/25 Admitting Diagnosis labor OB - DS: Summary OB Procedures : None OB Procedures Intrapartum: Spontaneous Vag Delivery OB Procedures: : None Peripartum Data Laceration Description: None Episiotomy description: None Time Spent with Patient Time attestation: Total time spent providing and/or coordinating discharge services: DS: Data Data Completed and Pending Completed studies during hospitalization: Pending at discharge 04/01/25 09:06 Surgical [PTH] Routine Discharge Plan Discharge Attending physician on discharge: Misha Arshad Discharging Clinician: Misha Arshad Patient Disposition: Home Activity: may shower, as tolerated and pelvic rest Diet: as tolerated Discharge Instructions: Education: Mom and Baby Guide Given to: Mother Follow-Up: Call your delivering provider's office for an appointment to be seen in: Call for an appointment Mom and baby should come to the [facility] for the follow-up appointment. Appointment Date/Time: April 03, 2025 at 11:00 am What to expect at your follow-up visit: Blood Pressure Check Physical Assessment Call [phone] if you are unable to keep your appointment time. BREAST CARE: * Wear a snug supportive bra. * For engorgement discomfort: Breast Feeding: * Apply warm moist washcloths * Express milk as needed to relieve engorgement * Wear loose clothing * For sore nipples: * Identify correct latch-on * Apply warm moist washcloths before and after nursing * Air dry nipples after nursing * May apply Lansinoh cream to nipples PERINEAL CARE: * Until bleeding stops, use your grant bottle after urinating * Change your pad frequently throughout the day * You may take sitz baths several times a day (fill your bathtub with warm water and soak for 20 minutes.) Do NOT bathe in the water * No tub baths until seen by your physician - You may shower ACTIVITY: * Rest as much as possible. * Do not exercise or lift anything heavier than your baby (such as laundry or other children.) * Avoid stairs or driving as much as possible. * Do not put anything into the vagina. No douching, tampons, or sexual activity until seen by physician. NOTIFY PHYSICIAN IF YOU HAVE ANY QUESTIONS OR IF ANY OF THE FOLLOWING SYMPTOMS OCCUR: * If your vaginal bleeding becomes foul smelling. * If your vaginal bleeding becomes more heavy than a period or if your bleeding changes from pink to bright red. However, you may pass an occasional walnut-sized clot once or twice for the first week . * If you experience a sharp, shooting pain in you calves. * If you discover a hard, reddened area on your breast or if you experience flu-like symptoms. DIET: * Eat regular, well-balanced meals. * Drink plenty of fluids daily. If , drink to thirst. Patient Language: Bulgarian Stand Alone Forms: General Discharge Information Follow-up/Referrals: Misha Arshad MD [Physician] - 4 Weeks Discharge Medications: New docusate sodium 100 mg Capsule 100 mg PO BID PRN (Reason: Constipation) Qty: 60 0RF ibuprofen 600 mg Tablet 600 mg PO Q6H PRN (Reason: Cramping) Qty: 30 0RF Continued ondansetron HCl 8 mg tablet 8 mg PO TID PRN (Reason: nausea and vomiting) hydroxychloroquine 200 mg tablet 200 mg PO EVERY OTHER DAY duloxetine 40 mg capsule,delayed release(DR/EC) 40 mg PO DAILY magnesium 200 mg tablet 200 mg PO DAILY ferrous sulfate [Iron (ferrous sulfate)] 325 mg (65 mg iron) tablet 325 mg PO DAILY calcium phos,dibas-vitamin D3 77-400 mg-unit tablet 1 tablet PO DAILY Date of admission: 03/30/25 14:48 Primary Care Provider: RobertoLibia Admitting Provider: Misha Arshad Attending physician on admission: Misha Arshad Condition: Stable
== END 2025-04-01 12:54 | disposition home or self-care (01) | DRG 560 ==
LOC: ANHLDR 17:35 → ANHOB2 22:59
PROVIDERS: Advanced Practice Midwife; Admitting Provider Obstetrics & Gynecology; PCP Nurse Practitioner; Visit Provider Obstetrics & Gynecology
DX: O77.0 Labor and delivery complicated by meconium in amniotic fluid (principal); Z37.0 Single live birth; Z3A.38 38 weeks gestation of pregnancy; O69.81X0 Labor and delivery complicated by cord around neck, without compression, not applicable or unspecified; O36.8330 Maternal care for abnormalities of the fetal heart rate or rhythm, third trimester, not applicable or unspecified
CPT/HCPCS: 36415; 85014; 85018; 85025; 86593; 86850; 86900; 86901; 88307; 90710; A9270; J2405; J2590; J7120